=== PATIENT | female | born 1945 | race Caucasian/White ===

== ENCOUNTER → 2016-11-25 | Outpatient (CLI) | payer OTHER ==
[~2016-11-25] MED LIST: AMT50 PO; ASPI81TA28 PO; BSP/5 PO; BSP5 PO; BUTA1CAP17 PO; BUTACAP10 PO; CALC-459 PO; CLOP1TAB15 PO; GLC500 PO; HYZ/10015 PO; LEVO125T4 PO; LRS10 PO; MECL1TAB40 PO; MULT-506 PO; NIFE1TAB55 PO; NIFE60TA57 PO; NORT25CA PO; NORT50CA PO; NRN600 PO; PANT20TA PO; PLV75 PO; PRAV40TA2 PO; PRT/20 PO; PRVC/40 PO; RANI150T2 PO; RANI150T3 PO; SERT50TA PO; SYN125 PO; TGR200 PO; VTMB12 PO
[2016-11-25 18:01] LABS: ALT/SGPT 27 U/L (12-78); AST/SGOT 27 U/L (15-37); BLOOD UREA NITROGEN 25 mg/dl (7-18); BUN/CREATININE RATIO 21.2 (10-20); CALCIUM 9.2 mg/dl (8.5-10.1); CARBON DIOXIDE 27 mmol/L (21-32); CHLORIDE 100 mmol/L (98-107); GLUCOSE 83 mg/dl (70-99); SODIUM 139 mmol/L (136-145)
[2016-11-25 18:03] LABS: ALKALINE PHOSPHATASE 151 U/L (45-117)
== END | disposition home or self-care (01) ==
LOC: C.LABPVFM 10:41
PROVIDERS: ATTEND Nurse Practitioner
DX: K22.70 Barrett's esophagus without dysplasia (principal); R25.2 Cramp and spasm; R68.2 Dry mouth, unspecified

== ENCOUNTER → 2016-11-29 | Outpatient (CLI) | payer OTHER | END | disposition home or self-care (01) | LOC: C.LABBFT 09:14 | PROVIDERS: ATTEND Nurse Practitioner | DX: R25.2 Cramp and spasm (principal); R74.8 Abnormal levels of other serum enzymes ==

== ENCOUNTER → 2017-03-14 | Outpatient (CLI) | payer OTHER ==
[~2017-03-14] MED LIST changes: +ALBINS/ INH; +AMIT25TA9 PO; +AMLO-110 PO; +FAMO20TA11 PO; +HYDR25TA4 PO; -LEVO125T4 PO; +LEVO125T5 PO; +LOSA1TAB38 PO; +NRN/300 PO; -PANT20TA PO; +PANT20TA2 PO; +SIMV20TA5 PO
[2017-03-14 18:19] LABS: BLOOD UREA NITROGEN 19 mg/dl (7-18); BUN/CREATININE RATIO 17.7 (10-20); CARBON DIOXIDE 32 mmol/L (21-32); CHLORIDE 101 mmol/L (98-107); GLUCOSE 99 mg/dl (70-99); POTASSIUM 3.8 mmol/L (3.5-5.1); SODIUM 139 mmol/L (136-145)
[2017-03-14 18:31] LABS: CHOLESTEROL 220 mg/dl (0-200); CHOLESTEROL/HDL RATIO 3.7; HDL CHOLESTEROL 59 mg/dl; LDL CHOLESTEROL CALCULATED 99 mg/dl; TRIGLYCERIDES 310 mg/dl (0-150); VERY LOW DENSITY LIPOPROT CALC 62 mg/dl
[2017-03-15 06:16] LABS: ESTIMATED AVERAGE GLUCOSE 126 mg/dl; HA1C FLAG Normal (Normal)
== END | disposition home or self-care (01) ==
LOC: C.LABPVFM 10:49
PROVIDERS: ATTEND Nurse Practitioner
DX: I10 Essential (primary) hypertension (principal); E78.5 Hyperlipidemia, unspecified; E03.9 Hypothyroidism, unspecified; G62.9 Polyneuropathy, unspecified; E55.9 Vitamin D deficiency, unspecified; E11.9 Type 2 diabetes mellitus without complications

== ENCOUNTER → 2017-04-25 | Outpatient (CLI) | payer OTHER ==
[~2017-04-25] MED LIST changes: -ALBINS/ INH; -AMIT25TA9 PO; -AMLO-110 PO; -FAMO20TA11 PO; -HYDR25TA4 PO; +LEVO125T4 PO; -LEVO125T5 PO; -LOSA1TAB38 PO; -NRN/300 PO; +PANT20TA PO; -PANT20TA2 PO; -SIMV20TA5 PO
--- NOTE | 2017-04-25 15:38 | MAMMOGRAPHY REPORT ---
BILATERAL DIGITAL SCREENING MAMMOGRAM WITH CAD: 04/25/2017 CLINICAL HISTORY: Routine screening. TECHNIQUE: Bilateral CC and MLO views were obtained. Current study was also evaluated with a Compute r Aided Detection (CAD) system. COMPARISON: Comparison is made to exams dated: 07/30/2012 mammogram, 12/17/2010 mammogram, 06/17/2010 ma mmogram, 06/08/2010 mammogram - [facility] [address], 04/02/2008, and 10/18/2001 mammogram - [facility]. BREAST COMPOSITION: There are scattered areas of fibroglandular density in both breasts. FINDINGS: There is a 12 mm circumscribed mass in the upper outer middle to posterior right breast, f or which additional targeted ultrasound and possible additional mammographic views is recommended. A 9 x 16 mm focal asymmetry in the 12:00 posterior left breast is new comparing to prior mammograms. Additional spot compression tomosynthesis views and possible ultrasound are recommended. There are scattered benign rim calcifications and mild vascular calcification in the breasts. No oth er new suspicious mass, architectural distortion or cluster of microcalcifications is seen bilaterall y. IMPRESSION: ACR BI-RADS CATEGORY 0: INCOMPLETE EVALUATION: NEED ADDITIONAL IMAGING EVALUATION The 12 mm circumscribed mass in the right upper outer quadrant, and 9 x 16 mm focal asymmetry in the 12:00 posterior left breast need additional imaging evaluation. The patient will be called to schedule an appointment. Approximately 10% of breast cancers are not detected with mammography. A negative mammographic report should not delay biopsy if a clinically suggestive mass is present. Kim Bonilla M.D. ay/:04/25/2017 15:35:18 Scouring Train Operator Chief: Virgilio CONTRERAS(R)(M), [facility] [address] letter sent: Addl Imaging 0 BI-RADS Code: ACR BI-RADS Category 0: Incomplete Evaluation: Need Additional Imaging Evaluation
== END | disposition home or self-care (01) ==
LOC: C.MAMM 13:12
PROVIDERS: ATTEND Nurse Practitioner
DX: Z00.00 Encounter for general adult medical examination without abnormal findings (principal); Z12.31 Encounter for screening mammogram for malignant neoplasm of breast; N63 Unspecified lump in breast; N64.89 Other specified disorders of breast; M85.89 Other specified disorders of bone density and structure, multiple sites

== ENCOUNTER → 2017-05-09 | Outpatient (CLI) | payer OTHER ==
--- NOTE | 2017-05-09 13:32 | MAMMOGRAPHY REPORT ---
BILATERAL DIGITAL DIAGNOSTIC MAMMOGRAM TOMOSYNTHESIS AND TARGETED BILATERAL ULTRASOUND: 05/09/2017 CLINICAL HISTORY: 71-year-old woman with a history of prior right breast surgery called back from scr eening mammography for a right upper outer quadrant breast mass, and left superior posterior asymmetr y. TECHNIQUE: Spot compression CC and MLO 2-D and tomosynthesis images of each breast were obtained. COMPARISON: Comparison is made to exams dated: 07/30/2012 mammogram, 12/17/2010 mammogram, 12/17/2010 ul trasound, 06/17/2010 mammogram, 06/08/2010 mammogram - [facility], and 04/02/2008. BREAST COMPOSITION: There are scattered areas of fibroglandular density in both breasts. FINDINGS: There is persistence of a circumscribed oval mass in the upper outer middle to posterior ri ght breast, measuring 11 x 8 x 12 mm. No associated architectural distortion or clustered microcalci fication. A small lobulated 5 mm mass is identified lateral and superior to the above described circ umscribed mass, which has been present on prior mammograms dating back to at least 2009, most likely an intramammary lymph node. There are benign calcifications and vascular calcifications in the right breast. The additional spot compression tomosynthesis and 2-D views of the left breast demonstrate effacement of the ovoid asymmetry seen on recent screening mammography. In the superior posterior left breast on the MLO view (slice 39), there are a few grouped benign oil cysts within an asymmetry, suggesting the asymmetry may represent the sequelae of prior trauma. Further evaluation with ultrasound was per formed. Targeted ultrasound performed in the right upper outer quadrant demonstrates an anechoic oval paralle l benign simple cyst in the 9:30 axis, 4 cm from the nipple, measuring 11.9 x 3.8 x 1.3 mm. This cor relates with the mammographic mass and is benign. There are a few scattered benign cysts in the supe rior left breast, in particular within the 12:00 periareolar breast, there are 2 anechoic cysts measu ring 6.1 and 5.9 mm. No other suspicious solid or cystic mass is identified. IMPRESSION: ACR BI-RADS CATEGORY 2: BENIGN, TARGETED ULTRASOUND ACR BI-RADS CATEGORY 2: BENIGN 1. The circumscribed 12 mm mass in the right upper outer quadrant correlates with a benign anechoic simple cyst on ultrasound. No further workup is needed at this time. 2. There is effacement of the asymmetry in the superior posterior breast with additional supplementa l mammographic views, and a few benign oil cysts seen in the superior left breast which are benign. No suspicious sonographic correlate was seen. This most likely represented overlapping fibroglandula r tissue, as the parenchymal pattern appears similar to the 2010 mammogram, and no further workup is needed at this time. Recommend return to annual screening mammography schedule. These results and recommendations were di scussed with the patient at the time of the exam. Approximately 10% of breast cancers are not detected with mammography. A negative mammographic report should not delay biopsy if a clinically suggestive mass is present. Kim Bonilla M.D. ay/:05/09/2017 12:25:17 Application Security Specialist: Virgilio PONCE)(Loretta), [facility] letter sent: Normal 1/2 BI-RADS Code: ACR BI-RADS Category 2: Benign Ultrasound BI-RADS: ACR BI-RADS Category 2: Benign
== END | disposition home or self-care (01) ==
LOC: C.MAMM 10:44
PROVIDERS: ATTEND Nurse Practitioner
DX: N63 Unspecified lump in breast (principal); N64.89 Other specified disorders of breast

== ENCOUNTER 2017-07-18 15:37 | Emergency (ER) | payer OTHER ==
[~2017-07-18] VITALS: Ht 160 cm; Wt 81.3 kg
[~2017-07-18 15:37] MED LIST changes: -AMT50 PO; -ASPI81TA28 PO; -BSP/5 PO; -BUTA1CAP17 PO; -CALC-459 PO; -CLOP1TAB15 PO; -LEVO125T4 PO; -MECL1TAB40 PO; -NIFE60TA57 PO; -PRT/20 PO; -PRVC/40 PO; -RANI150T3 PO; -VTMB12 PO
[2017-07-18 15:46] VITALS: TEMP 36.7; Ht 160 cm; Wt 81.3 kg
[2017-07-18] MEDS ORDERED: SODIUM CHLORIDE 0.9% 1000ML 1,000 ML IV STA (15:56)
--- NOTE | 2017-07-18 16:11 | EMERGENCY ROOM VISIT NOTE ---
History Report prepared by Anup: Chaitanya Melgar Under the Supervision of: Dr. Zain Michelle M.D. First contact with patient: 15:38 Chief Complaint: NEURO SYMPTOMS Stated Complaint: STROKE LIKE SX History of Present Illness The patient is a 71 year old white female with a past medical history of cataracts, seizures, DVT, ELVER, CHF, COPD, and TIA who presents to the ED with a cc of constant stroke-like symptoms beginning around 1200 today. Positive double vision, tingling in her hands, forgetfulness, and shakiness in her arms and legs for the past few months which was worse today. Negative recent surgeries, change in medications, alcohol use, tobacco use, and drug use. She states that she falls a lot, and her last fall was three weeks ago. She is eating, drinking, urinating, and having normal bowel movements. Source of History: patient Onset: 1200 Position: other (global) Quality: other (stroke-symptoms) Timing: constant Note: Associated symptoms: double vision, tingling in her hands, forgetfulness, and shakiness in her arms and legs. Review of Systems See HPI for pertinent positives and negatives. A total of ten systems were reviewed and were otherwise negative. 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 (16) Seizure disorder (17) Thyroidectomy (18) TIA (19) Weakness Family History FH: HTN (hypertension) FH: diabetes mellitus FH: heart disease FH: lung disease FHx: cancer FHx: gallbladder disease Social History Smoking Status: Never Smoker Alcohol Use: none Drug Use: none Marital Status: Housing Status: lives with significant other Occupation Status: retired Current/Historical Medications Scheduled Amitriptyline Hcl (Elavil), 75 MG PO HS Aspirin (Aspirin Ec), 81 MG PO DAILY Buspirone HCl (Buspirone HCl), 5 MG PO BID Zirzlyerem-Bvqkqexslgkxa-Dfuai (Fioricet), 1 CAP PO UD Calcium Carbonate-Cholecalcife (Calcium 600+D 600-800 mg-Unit), 1 TAB PO DAILY Carbamazepine (Carbamazepine), 200 MG PO TID Clopidogrel (Plavix), 75 MG PO HS Cyanocobalamin (Vitamin B-12), 500 MCG PO DAILY Gabapentin (Gabapentin), 600 MG PO TID Hctz/Losartan (Hyzaar 25MG/100MG), 1 TAB PO DAILY Levothyroxine Sodium (Levothyroxine Sodium), 125 MCG PO DAILY Metformin HCl (Metformin HCl), 500 MG PO BID Nifedipine Ext Rel (Procardia Xl Ext Rel), 60 MG PO BID Pantoprazole (Protonix), 20 MG PO BID Pravastatin Sod (Pravastatin Sodium), 40 MG PO DAILY Ranitidine Hcl (Zantac), 150 MG PO Q12 Sertraline (Zoloft), 75 MG PO DAILY Scheduled PRN Baclofen (Baclofen), 5-10 MG PO TID PRN for Muscle Spasms Meclizine HCl (Meclizine HCl), 1 TAB PO TID PRN for Nausea Allergies Coded Allergies: Adhesives (Verified Allergy, Unknown, TAPE-HIVES, 07/18/17) Morphine (Unverified Allergy, Unknown, unknown, 07/18/17) Fentanyl (Verified Adverse Reaction, Intermediate, CONFUSION, 07/18/17) pt was using fentanyl transdermal patch and states that she did not realize that she was supposed to remove the old patch when applying new one; caused confusion Meloxicam (Verified Adverse Reaction, Intermediate, SWELLING OF LEGS, 07/18) Pregabalin (Verified Adverse Reaction, Intermediate, DIZZINESS, CONFUSION WITH HIGHER DOSES, 07/18/17) Physical Exam Vital Signs Date Time Temp Pulse Resp B/P (MAP) Pulse Ox O2 Delivery O2 Flow Rate FiO2 07/18/17 21:35 83 17 164/68 94 Room Air 07/18/17 18:22 90 18 151/77 96 Room Air 07/18/17 16:50 71 18 136/71 100 Room Air 07/18/17 16:19 79 07/18/17 15:53 Room Air 07/18/17 15:46 36.7 75 16 132/80 97 Room Air Physical Exam GENERAL: GCS 15, awake alert, appropriately follows commands. HENT: Normocephalic, atraumatic. EYES: Normal conjunctiva. Sclera non-icteric. NECK: Supple. No nuchal rigidity. FROM. RESPIRATORY: CTAB, no rhonchi, wheezing, crackles CARDIAC: RRR, no MRG ABDOMEN: Soft, NTND, BS+ MSK: No chest wall TTP, no LE edema NEURO: GCS 15, CN 2-12 intact, vision grossly intact to finger counting. No dysmetria. Good finger to nose. 5/5 upper and lower extremity strength SKIN: No rash or jaundice noted. Medical Decision & Procedures ER Provider Diagnostic Interpretation: Radiology results as stated below per my review and radiologist interpretation: CT OF THE HEAD WITHOUT CONTRAST CLINICAL HISTORY: Weakness. Stroke-like symptoms. COMPARISON STUDY: Head CT August 18, 2016 and MRI of the brain August 19, 2016. CT DOSE: 614.27 mGy.cm TECHNIQUE: Helical axial images of the head were obtained without IV contrast. Automated exposure control was utilized for the study. A dose lowering technique was utilized adhering to the principles of ALARA. FINDINGS: No acute intracranial hemorrhage, midline shift or mass effect is present. Ventricular system is normal. The basilar cisterns are patent. There are no extra-axial collections. Extensive white matter hypodensities are unchanged. There is extensive intracranial vascular calcification. There are no findings to suggest acute dural sinus thrombosis or acute territorial infarct. There are no significant calvarial abnormalities. Visualized portions of the mastoid air cells are clear. There is mild ethmoid sinus mucosal thickening. IMPRESSION: No acute intracranial findings. No change since previous exam. Electronically signed by: Hank Adler M.D. 07/18/2017 4:47 PM Dictated Date/Time: 07/18/2017 4:43 PM SINGLE VIEW CHEST CLINICAL HISTORY: Generalized weakness. FINDINGS: An AP, portable, upright chest radiograph is compared to study dated 09/13/2016 and correlated with chest CT dated 01/22/2016. The examination is degraded by portable technique and patient rotation. The heart is enlarged and there is atherosclerotic calcification of the thoracic aorta. The pulmonary vasculature is noncongested. There is chronic elevation of right hemidiaphragm and bibasilar atelectasis. No airspace consolidation or large pleural effusion is seen. No pneumothorax is identified. The skeletal structures are osteopenic. Degenerative change is seen throughout the thoracic spine. IMPRESSION: Cardiomegaly with no acute cardiopulmonary abnormality. Electronically signed by: Jono Romero M.D. 07/18/2017 4:39 PM Dictated Date/Time: 07/18/2017 4:38 PM MRI OF THE BRAIN COMBO CLINICAL HISTORY: Diplopia. Change in mental status. COMPARISON STUDY: CT of the brain dated 07/18/2017. MRI of the brain dated 08/19/2016. TECHNIQUE: MRI of the brain was performed utilizing various T1 and T2-weighted sequences in the axial, sagittal, and coronal planes. Contrast-enhanced sequences were acquired following the administration of 8 cc of Gadavist. The Examination is significant compromise by motion artifact. FINDINGS: Brain parenchyma: There are age-related involutional changes noting moderate patchy subcortical and periventricular microangiopathic disease. There is no hemorrhage or mass effect. There is no restricted diffusion to suggest acute ischemia. No enhancing mass lesion is identified on the postcontrast images. Blankenship-white matter differentiation is preserved. No extra-axial fluid collection is seen. The cerebellar tonsils are normal in configuration. Ventricles, sulci, and cisterns: Prominent secondary to involutional change. Pituitary and sella: Partially empty sella is incidentally noted. Intracranial vasculature: Normal flow voids are maintained at the skull base. Orbits: The bony orbits are grossly intact. Orbital contents are normal in appearance. Sinuses and mastoids: Clear. Calvarium: Unremarkable. Cervical cord: Partially visualized cervical spinal cord is normal in morphology and signal intensity. IMPRESSION: No acute intracranial abnormality noting a motion compromised examination. No significant change from previous. Electronically signed by: Jono Romero M.D. 07/18/2017 9:45 PM Dictated Date/Time: 07/18/2017 9:41 PM Laboratory Results 07/18/17 16:05 Red Blood Count 3.79, Mean Corpuscular Volume 96.6, Mean Corpuscular Hemoglobin 32.5, Mean Corpuscular Hemoglobin Concent 33.6, Mean Platelet Volume 8.6, Neutrophils (%) (Auto) 53.0, Lymphocytes (%) (Auto) 33.6, Monocytes (%) (Auto) 10.7, Eosinophils (%) (Auto) 2.0, Basophils (%) (Auto) 0.2, Neutrophils # (Auto ) 3.23, Lymphocytes # (Auto) 2.04, Monocytes # (Auto) 0.65, Eosinophils # (Auto ) 0.12, Basophils # (Auto) 0.01 07/18/17 16:05 Test 07/18/17 16:05 07/18/17 16:30 White Blood Count 6.08 K/uL (4.8-10.8) Red Blood Count 3.79 M/uL (4.2-5.4) Hemoglobin 12.3 g/dL (12.0-16.0) Hematocrit 36.6 % (37-47) Mean Corpuscular Volume 96.6 fL (80-100) Mean Corpuscular Hemoglobin 32.5 pg (25-34) Mean Corpuscular Hemoglobin Concent 33.6 g/dl (32-36) Platelet Count 244 K/uL (130-400) Mean Platelet Volume 8.6 fL (7.4-10.4) Neutrophils (%) (Auto) 53.0 % Lymphocytes (%) (Auto) 33.6 % Monocytes (%) (Auto) 10.7 % Eosinophils (%) (Auto) 2.0 % Basophils (%) (Auto) 0.2 % Neutrophils # (Auto) 3.23 K/uL (1.4-6.5) Lymphocytes # (Auto) 2.04 K/uL (1.2-3.4) Monocytes # (Auto) 0.65 K/uL (0.11-0.59) Eosinophils # (Auto) 0.12 K/uL (0-0.5) Basophils # (Auto) 0.01 K/uL (0-0.2) RDW Standard Deviation 47.3 fL (36.4-46.3) RDW Coefficient of Variation 13.6 % (11.5-14.5) Immature Granulocyte % (Auto) 0.5 % Immature Granulocyte # (Auto) 0.03 K/uL (0.00-0.02) Prothrombin Time 10.3 SECONDS (9.0-12.0) Prothromb Time International Ratio 1.0 (0.9-1.1) Activated Partial Thromboplast Time 27.0 SECONDS (21.0-31.0) Partial Thromboplastin Ratio 1.0 Anion Gap 7.0 mmol/L (3-11) Est Creatinine Clear Calc Drug Dose 33.7 ml/min Estimated GFR () 39.6 Estimated GFR (Non- 34.2 BUN/Creatinine Ratio 16.7 (10-20) Calcium Level 9.0 mg/dl (8.5-10.1) Magnesium Level 2.0 mg/dl (1.8-2.4) Total Bilirubin 0.2 mg/dl (0.2-1) Direct Bilirubin < 0.1 mg/dl (0-0.2) Aspartate Amino Transf (AST/SGOT) 23 U/L (15-37) Alanine Aminotransferase (ALT/SGPT) 21 U/L (12-78) Alkaline Phosphatase 183 U/L (45-117) Troponin I < 0.015 ng/ml (0-0.045) Total Protein 8.6 gm/dl (6.4-8.2) Albumin 3.9 gm/dl (3.4-5.0) Lipase 216 U/L (73-393) Thyroid Stimulating Hormone (TSH) 0.297 uIu/ml (0.300-4.500) Urine Color YELLOW Urine Appearance CLEAR (CLEAR) Urine pH 7.0 (4.5-7.5) Urine Specific [place] 1.011 (1.000-1.030) Urine Protein NEG (NEG) Urine Glucose (UA) NEG (NEG) Urine Ketones NEG (NEG) Urine Occult Blood NEG (NEG) Urine Nitrite NEG (NEG) Urine Bilirubin NEG (NEG) Urine Urobilinogen NEG (NEG) Urine Leukocyte Esterase NEG (NEG) Laboratory results reviewed by me Medications Administered Medications (Trade) Dose Ordered Sig/Jeannie Route Start Time Stop Time Status Last Admin Dose Admin Sodium Chloride 1,000 ml @ 999 mls/hr Q1H1M STAT IV 07/18/17 15:56 07/18/17 16:56 DC 07/18/17 16:50 999 MLS/HR ECG Indication: other (stroke like symptoms) Rate (beats per minute): 72 Rhythm: normal sinus Findings: other (Normal intervals. Normal axis. T-wave flattening in lead 3. No other STS changes or TWI) ED Course 1537: The patient was evaluated in room C1. A complete history and physical exam was performed. 1824: I reevaluated the patient and talked with case management about increased in-home care for her . 2150: I reevaluated the patient. Discussed results and discharge instructions: She verbalized understanding and agreement. The patient is ready for discharge. Medical Decision The patient is a 71 year old white female with a past medical history of cataracts, seizures, DVT, ELVER, CHF, COPD, and TIA who presents to the ED with a cc of constant stroke-like symptoms beginning around 1200 today. Positive double vision, tingling in her hands, forgetfulness, and shakiness in her arms and legs for the past few months which was worse today. Negative recent surgeries, change in medications, alcohol use, tobacco use, and drug use. Triage Nursing notes reviewed. The patient's presentation and history were concerning for etiologies such as metabolic, infection, hypo/hyperglycemia, electrolyte abnormalities, cardiac sources, intracerebral event, toxicologic, neurologic, as well as others were entertained. Patient was seen and evaluated at the bedside. Patient was concerning for some double vision that it occurred earlier in the day while watching television and trying to read the newspaper. Patient currently is able to grossly finger down. No current double vision. Patient has no other neurologic deficits at this time does complain of some forgetfulness. Patient did have blood work and a UA that were completed. Fairly unremarkable. Patient's EKG was unremarkable. Patient did have a CT which was negative as well as chest x-ray which is also negative. Patient did have an MRI, study completed given the concern for the double vision. Patient had an MRI completed that was negative. Patient was informed of the findings. 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 They did give her some additional resources. Patient was given strict follow-up, discharge, return precautions. Patient agreed w/ plan of care, and patient was safely discharged home. Medication Reconcilliation Current Medication List: was personally reviewed by me Blood Pressure Screening Patient's blood pressure: Elevated blood pressure Blood pressure disposition: Referred to PCP Impression Primary Impression: Double vision Additional Impression: Memory loss Scribe Attestation The scribe's documentation has been prepared under my direction and personally reviewed by me in its entirety. I confirm that the note above accurately reflects all work, treatment, procedures, and medical decision making performed by me. Departure Information Dispostion Home / Self-Care Referrals Airam Malcolm C.R.N.P (PCP) Forms HOME CARE DOCUMENTATION FORM, IMPORTANT VISIT INFORMATION, WORK / SCHOOL INSTRUCTIONS Patient Instructions ED Double Vision, My [facility] Additional Instructions Please return to the emergency department if you have worsening or recurrent symptoms not amenable to at-home treatment. Please call for a follow-up appointment with her primary care physician. Please take your medications as prescribed. If you have other concerns and/or complaints please feel free to also call your primary care physician's office or return the ED for further evaluation, management, and treatment. You received narcotic or benzodiazepene medication while in the emergency room today. This is an addictive medication that may cause drowziness as well as constipation. Do not drive, operate heavy machinery, or drink alcohol under the influence of this medication. You have been examined and treated today on an emergency basis only. This is not a substitute for, or an effort to provide, complete comprehensive medical care. It is impossible to recognize and treat all injuries or illnesses in a single emergency department visit. It is therefore important that you follow up closely with [facility]. Call as soon as possible for an appointment. Thank you for your time and consideration. I look forward to speaking with you again soon. Please don't hesitate to call us if you have any questions. Problem Qualifiers
[2017-07-18 16:21] LABS: BASO % 0.2 %; BASO ABS # 0.01 K/uL (0-0.2); COMPLETE YES; HEMATOCRIT 36.6 % (37-47); IG% 0.5 %; LYMPH % 33.6 %; LYMPH ABS # 2.04 K/uL (1.2-3.4); MEAN CELL VOLUME 96.6 fL (80-100); MEAN CORPUSCULAR HEMOGLOBIN 32.5 pg (25-34); MEAN CORPUSCULAR HGB CONC 33.6 g/dl (32-36); MEAN PLATELET VOLUME 8.6 fL (7.4-10.4); MONO % 10.7 %; PLATELET COUNT 244 K/uL (130-400); RED BLOOD COUNT 3.79 M/uL (4.2-5.4); WHITE BLOOD COUNT 6.08 K/uL (4.8-10.8)
[2017-07-18 16:36] LABS: PROTHROMBIN TIME (PATIENT) 10.3 SECONDS (9.0-12.0)
--- NOTE | 2017-07-18 16:40 | DIAGNOSTIC IMAGING REPORT ---
SINGLE VIEW CHEST CLINICAL HISTORY: Generalized weakness. FINDINGS: An AP, portable, upright chest radiograph is compared to study dated 09/13/2016 and correlated with chest CT dated 01/22/2016. The examination is degraded by portable technique and patient rotation. The heart is enlarged and there is atherosclerotic calcification of the thoracic aorta. The pulmonary vasculature is noncongested. There is chronic elevation of right hemidiaphragm and bibasilar atelectasis. No airspace consolidation or large pleural effusion is seen. No pneumothorax is identified. The skeletal structures are osteopenic. Degenerative change is seen throughout the thoracic spine. IMPRESSION: Cardiomegaly with no acute cardiopulmonary abnormality. Electronically signed by: Jono Romero M.D. 07/18/2017 4:39 PM Dictated Date/Time: 07/18/2017 4:38 PM
[2017-07-18 16:41] LABS: ALT/SGPT 21 U/L (12-78); AST/SGOT 23 U/L (15-37); BLOOD UREA NITROGEN 25 mg/dl (7-18); BUN/CREATININE RATIO 16.7 (10-20); CARBON DIOXIDE 29 mmol/L (21-32); CHLORIDE 100 mmol/L (98-107); GLUCOSE 88 mg/dl (70-99); POTASSIUM 3.5 mmol/L (3.5-5.1); SODIUM 136 mmol/L (136-145)
--- NOTE | 2017-07-18 16:49 | DIAGNOSTIC IMAGING REPORT ---
CT OF THE HEAD WITHOUT CONTRAST CLINICAL HISTORY: Weakness. Stroke-like symptoms. COMPARISON STUDY: Head CT August 18, 2016 and MRI of the brain August 19, 2016. CT DOSE: 614.27 mGy.cm TECHNIQUE: Helical axial images of the head were obtained without IV contrast. Automated exposure control was utilized for the study. A dose lowering technique was utilized adhering to the principles of ALARA. FINDINGS: No acute intracranial hemorrhage, midline shift or mass effect is present. Ventricular system is normal. The basilar cisterns are patent. There are no extra-axial collections. Extensive white matter hypodensities are unchanged. There is extensive intracranial vascular calcification. There are no findings to suggest acute dural sinus thrombosis or acute territorial infarct. There are no significant calvarial abnormalities. Visualized portions of the mastoid air cells are clear. There is mild ethmoid sinus mucosal thickening. IMPRESSION: No acute intracranial findings. No change since previous exam. Electronically signed by: Hank Adler M.D. 07/18/2017 4:47 PM Dictated Date/Time: 07/18/2017 4:43 PM
[2017-07-18 16:52] LABS: ALKALINE PHOSPHATASE 183 U/L (45-117); THYROID STIMULATING HORMONE 0.297 uIu/ml (0.300-4.500)
[2017-07-18 16:52] LABS: URINE APPEARANCE CLEAR (CLEAR); URINE BILIRUBIN NEG (NEG); URINE COLOR YELLOW; URINE NITRITE NEG (NEG); URINE SPECIFIC GRAVITY 1.011 (1.000-1.030); UROBILINOGEN NEG (NEG)
[2017-07-18 16:59] LABS: MANUAL MICROSCOPIC REQUIRED? NO; REVIEW REQ? NO
[2017-07-18] MEDS ORDERED: PRT/20 PO (17:06)
[2017-07-18] MEDS ORDERED: ASPI81TA28 PO (17:06)
[2017-07-18] MEDS ORDERED: LEVO125T4 PO (17:06)
[2017-07-18] MEDS ORDERED: LRS10 PO (17:06)
[2017-07-18] MEDS ORDERED: CALC-459 PO (17:06)
[2017-07-18] MEDS ORDERED: GLC500 PO (17:06)
[2017-07-18] MEDS ORDERED: VTMB12 PO (17:06)
[2017-07-18] MEDS ORDERED: BSP/5 PO (17:06)
[2017-07-18] MEDS ORDERED: TGR200 PO (17:06)
[2017-07-18] MEDS ORDERED: HYZ/10015 PO (17:06)
[2017-07-18] MEDS ORDERED: CLOP1TAB15 PO (17:06)
[2017-07-18] MEDS ORDERED: RANI150T3 PO (17:06)
[2017-07-18] MEDS ORDERED: BUTA1CAP17 PO (17:06)
[2017-07-18] MEDS ORDERED: SERT50TA PO (17:06)
[2017-07-18] MEDS ORDERED: MECL1TAB40 PO (17:06)
[2017-07-18] MEDS ORDERED: AMT50 PO (17:06)
[2017-07-18] MEDS ORDERED: NIFE60TA57 PO (17:06)
[2017-07-18] MEDS ORDERED: PRVC/40 PO (17:06)
[2017-07-18] MEDS ORDERED: NRN600 PO (17:06)
[2017-07-18] MEDS ORDERED: GADAVIST IV PRN (21:15)
--- NOTE | 2017-07-18 21:46 | DIAGNOSTIC IMAGING REPORT ---
MRI OF THE BRAIN COMBO CLINICAL HISTORY: Diplopia. Change in mental status. COMPARISON STUDY: CT of the brain dated 07/18/2017. MRI of the brain dated 08/19/2016. TECHNIQUE: MRI of the brain was performed utilizing various T1 and T2-weighted sequences in the axial, sagittal, and coronal planes. Contrast-enhanced sequences were acquired following the administration of 8 cc of Gadavist. The Examination is significant compromise by motion artifact. FINDINGS: Brain parenchyma: There are age-related involutional changes noting moderate patchy subcortical and periventricular microangiopathic disease. There is no hemorrhage or mass effect. There is no restricted diffusion to suggest acute ischemia. No enhancing mass lesion is identified on the postcontrast images. Blankenship-white matter differentiation is preserved. No extra-axial fluid collection is seen. The cerebellar tonsils are normal in configuration. Ventricles, sulci, and cisterns: Prominent secondary to involutional change. Pituitary and sella: Partially empty sella is incidentally noted. Intracranial vasculature: Normal flow voids are maintained at the skull base. Orbits: The bony orbits are grossly intact. Orbital contents are normal in appearance. Sinuses and mastoids: Clear. Calvarium: Unremarkable. Cervical cord: Partially visualized cervical spinal cord is normal in morphology and signal intensity. IMPRESSION: No acute intracranial abnormality noting a motion compromised examination. No significant change from previous. Electronically signed by: Jono Romero M.D. 07/18/2017 9:45 PM Dictated Date/Time: 07/18/2017 9:41 PM
[2017-07-18 22:59] VITALS: BP 158/89; PULSE 84; O2SAT 95
== END 2017-07-18 22:35 | disposition home or self-care (01) ==
LOC: EDBD 15:37 → C.EDC 15:38
DX: H53.2 Diplopia (principal); R41.3 Other amnesia; F41.9 Anxiety disorder, unspecified; J44.9 Chronic obstructive pulmonary disease, unspecified; F32.9 Major depressive disorder, single episode, unspecified; K21.9 Gastro-esophageal reflux disease without esophagitis; E03.9 Hypothyroidism, unspecified; G40.909 Epilepsy, unspecified, not intractable, without status epilepticus; M19.90 Unspecified osteoarthritis, unspecified site; I50.9 Heart failure, unspecified; K22.70 Barrett's esophagus without dysplasia; M48.061 Spinal stenosis, lumbar region without neurogenic claudication; Z86.73 Personal history of transient ischemic attack (TIA), and cerebral infarction without residual deficits; Z86.718 Personal history of other venous thrombosis and embolism; Z90.49 Acquired absence of other specified parts of digestive tract; Z98.890 Other specified postprocedural states; Z79.82 Long term (current) use of aspirin; Z79.84 Long term (current) use of oral hypoglycemic drugs; Z79.899 Other long term (current) drug therapy; Z88.5 Allergy status to narcotic agent; Z88.8 Allergy status to other drugs, medicaments and biological substances; Z91.09 Other allergy status, other than to drugs and biological substances; Z82.49 Family history of ischemic heart disease and other diseases of the circulatory system; Z83.3 Family history of diabetes mellitus; Z80.9 Family history of malignant neoplasm, unspecified; Z83.79 Family history of other diseases of the digestive system

== ENCOUNTER 2017-07-19 08:51 | Emergency (ER) | payer OTHER ==
[~2017-07-19] VITALS: Ht 154.9 cm; Wt 87.0 kg
[~2017-07-19 08:51] MED LIST changes: +AMT50 PO; +ASPI81TA28 PO; +BSP/5 PO; +BUTA1CAP17 PO; +CALC-459 PO; +CLOP1TAB15 PO; +LEVO125T4 PO; +MECL1TAB40 PO; +NIFE60TA57 PO; +PRT/20 PO; +PRVC/40 PO; +RANI150T3 PO; +VTMB12 PO
[2017-07-19 09:00] VITALS: TEMP 36.8; Ht 154.9 cm; Wt 87.0 kg
[2017-07-19] MEDS ORDERED: SODIUM CHLORIDE 0.9% 1000ML 1,000 ML IV STA (09:12)
[2017-07-19] MEDS ORDERED: SODIUM CHLORIDE 0.9% 1000ML 500 ML IV STA (09:12)
--- NOTE | 2017-07-19 09:20 | EMERGENCY ROOM VISIT NOTE ---
History Report prepared by Anup: Jocelyne Ortega Under the Supervision of: Dr. Jono Lazcano M.D. First contact with patient: 09:03 Chief Complaint: FALL Stated Complaint: FALL History of Present Illness The patient is a 71 year old female who presents to the Emergency Room with complaints of a sudden fall that occurred prior to arrival. She currently rates her discomfort as a 5/10 in severity. The patient reports that she was evaluated in the emergency department yesterday for vision problems, but notes that her knees were fine at that time. She states that this morning she was getting out of bed and her knees gave out. The patient states that she could not get herself up afterward. She reports that she has been eating and drinking normally. The patient reports a history of TIAs. She denies any fever , chills, cough, headache, or urinary symptoms. She states that she lives at home with her who has dementia. Source of History: patient Onset: prior to arrival Position: other (global) Symptom Intensity: 5/10 Quality: other (fall) Timing: other (sudden) Associated Symptoms: No fevers, No chills, No headache, No cough, No urinary symptoms Review of Systems See HPI for pertinent positives & negatives. A total of 10 systems reviewed and were otherwise negative. 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 (16) Seizure disorder (17) Thyroidectomy (18) TIA (19) Weakness Family History FH: HTN (hypertension) FH: diabetes mellitus FH: heart disease FH: lung disease FHx: cancer FHx: gallbladder disease Social History Smoking Status: Never Smoker Alcohol Use: none Drug Use: none Marital Status: Housing Status: lives with significant other Occupation Status: retired Current/Historical Medications Scheduled Amitriptyline Hcl (Elavil), 75 MG PO HS Aspirin (Aspirin Ec), 81 MG PO DAILY Buspirone HCl (Buspirone HCl), 5 MG PO BID Ciuaynovjo-Xasjewgsagwrd-Ytmkv (Fioricet), 1 CAP PO UD Calcium Carbonate-Cholecalcife (Calcium 600+D 600-800 mg-Unit), 1 TAB PO DAILY Carbamazepine (Carbamazepine), 200 MG PO TID Clopidogrel (Plavix), 75 MG PO HS Cyanocobalamin (Vitamin B-12), 500 MCG PO DAILY Gabapentin (Gabapentin), 600 MG PO TID Hctz/Losartan (Hyzaar 25MG/100MG), 1 TAB PO DAILY Levothyroxine Sodium (Levothyroxine Sodium), 125 MCG PO DAILY Metformin HCl (Metformin HCl), 500 MG PO BID Nifedipine Ext Rel (Procardia Xl Ext Rel), 60 MG PO BID Pantoprazole (Protonix), 20 MG PO BID Pravastatin Sod (Pravastatin Sodium), 40 MG PO DAILY Ranitidine Hcl (Zantac), 150 MG PO Q12 Sertraline (Zoloft), 75 MG PO DAILY Scheduled PRN Baclofen (Baclofen), 5-10 MG PO TID PRN for Muscle Spasms Meclizine HCl (Meclizine HCl), 1 TAB PO TID PRN for Nausea Allergies Coded Allergies: Adhesives (Verified Allergy, Unknown, TAPE-HIVES, 07/19/17) Morphine (Unverified Allergy, Unknown, unknown, 07/19/17) Fentanyl (Verified Adverse Reaction, Intermediate, CONFUSION, 07/19/17) pt was using fentanyl transdermal patch and states that she did not realize that she was supposed to remove the old patch when applying new one; caused confusion Meloxicam (Verified Adverse Reaction, Intermediate, SWELLING OF LEGS, 07/19) Pregabalin (Verified Adverse Reaction, Intermediate, DIZZINESS, CONFUSION WITH HIGHER DOSES, 07/19/17) Physical Exam Vital Signs Date Time Temp Pulse Resp B/P (MAP) Pulse Ox O2 Delivery O2 Flow Rate FiO2 07/19/17 16:33 89 16 144/77 98 Room Air 07/19/17 15:12 77 127/73 99 Room Air 07/19/17 14:10 77 16 147/72 96 Room Air 07/19/17 13:06 77 16 162/79 95 Room Air 07/19/17 12:11 75 16 193/86 97 Room Air 07/19/17 11:10 75 07/19/17 11:08 75 18 178/123 96 Room Air 07/19/17 09:00 36.8 80 16 167/87 98 Room Air Physical Exam GENERAL: Patient is in no acute distress. HEENT: No acute trauma, normocephalic atraumatic, mucous membranes moist, no nasal congestion, no scleral icterus. NECK: No stridor, no adenopathy, no meningismus, trachea is midline. LUNGS: Clear to auscultation bilaterally, no wheeze, no rhonchi, breath sounds equal. HEART: 3/6 systolic murmur with a regular rate and rhythm. ABDOMEN: Soft, nontender, bowel sounds positive, no hernias, no peritonitis. EXTREMITIES: No cyanosis or edema, full range of motion of all the joints without pain or difficulty, no signs for acute trauma. NEUROLOGIC: Awake, alert, no facial droop or speech slur, no pronator drift or cerebellar dysfunction, bilateral lower extremity weakness noted, difficulty lifting both legs off the bed. SKIN: No rash, no jaundice, no diaphoresis. Medical Decision & Procedures ER Provider Diagnostic Interpretation: Radiology results as stated below per my review and radiologist interpretation: CHEST ONE VIEW PORTABLE HISTORY: EVALUATE ALTERED MENTAL STATUS/WEAKNESS COMPARISON: Chest 07/18/2017. FINDINGS: The lungs are clear. No pleural effusions. No pneumothorax. Mild elevation the right hemidiaphragm, unchanged. The heart remains mildly enlarged. IMPRESSION: No significant change compared to the prior study. No acute process. Electronically signed by: Venkat Oneal M.D. 07/19/2017 9:53 AM Dictated Date/Time: 07/19/2017 9:[address] CT DOSE: 537.48 mGy.cm HISTORY: EVALUATE ALTERED MENTAL STATUS/WEAKNESS TECHNIQUE: Multiaxial CT images of the head were performed without the use of intravenous contrast. Automated exposure control was utilized for this study. A dose lowering technique was utilized adhering to the principles of ALARA. Comparison: Head CT 07/18/2017. Findings: The paranasal sinuses and mastoid air cells are clear. The calvarium and skull base are intact. There is no mass, hematoma, midline shift, acute infarct. White matter hypodensity is nonspecific but suggestive of microvascular ischemic change. The ventricles and sulci demonstrate mild age-related involutional changes. Impression: No significant change compared to the prior study. No acute intracranial abnormality. Electronically signed by: Venkat Oneal M.D. 07/19/2017 11:17 AM Dictated Date/Time: 07/19/2017 11:13 AM Laboratory Results 07/19/17 09:50 Red Blood Count 3.58, Mean Corpuscular Volume 96.1, Mean Corpuscular Hemoglobin 32.1, Mean Corpuscular Hemoglobin Concent 33.4, Mean Platelet Volume 8.6, Neutrophils (%) (Auto) 50.0, Lymphocytes (%) (Auto) 33.1, Monocytes (%) (Auto) 13.8, Eosinophils (%) (Auto) 2.5, Basophils (%) (Auto) 0.2, Neutrophils # (Auto ) 2.35, Lymphocytes # (Auto) 1.56, Monocytes # (Auto) 0.65, Eosinophils # (Auto ) 0.12, Basophils # (Auto) 0.01 07/19/17 09:50 Test 07/19/17 09:12 07/19/17 09:50 07/19/17 11:14 Creatine Kinase MB Ratio (0-3.0) White Blood Count 4.71 K/uL (4.8-10.8) Red Blood Count 3.58 M/uL (4.2-5.4) Hemoglobin 11.5 g/dL (12.0-16.0) Hematocrit 34.4 % (37-47) Mean Corpuscular Volume 96.1 fL (80-100) Mean Corpuscular Hemoglobin 32.1 pg (25-34) Mean Corpuscular Hemoglobin Concent 33.4 g/dl (32-36) Platelet Count 231 K/uL (130-400) Mean Platelet Volume 8.6 fL (7.4-10.4) Neutrophils (%) (Auto) 50.0 % Lymphocytes (%) (Auto) 33.1 % Monocytes (%) (Auto) 13.8 % Eosinophils (%) (Auto) 2.5 % Basophils (%) (Auto) 0.2 % Neutrophils # (Auto) 2.35 K/uL (1.4-6.5) Lymphocytes # (Auto) 1.56 K/uL (1.2-3.4) Monocytes # (Auto) 0.65 K/uL (0.11-0.59) Eosinophils # (Auto) 0.12 K/uL (0-0.5) Basophils # (Auto) 0.01 K/uL (0-0.2) RDW Standard Deviation 48.2 fL (36.4-46.3) RDW Coefficient of Variation 13.6 % (11.5-14.5) Immature Granulocyte % (Auto) 0.4 % Immature Granulocyte # (Auto) 0.02 K/uL (0.00-0.02) Red Blood Cell Morphology Unremarkable Prothrombin Time 10.6 SECONDS (9.0-12.0) Prothromb Time International Ratio 1.0 (0.9-1.1) Activated Partial Thromboplast Time 26.8 SECONDS (21.0-31.0) Partial Thromboplastin Ratio 1.0 Anion Gap 9.0 mmol/L (3-11) Est Creatinine Clear Calc Drug Dose 41.8 ml/min Estimated GFR () 51.9 Estimated GFR (Non- 44.8 BUN/Creatinine Ratio 15.1 (10-20) Calcium Level 9.2 mg/dl (8.5-10.1) Magnesium Level 1.9 mg/dl (1.8-2.4) Total Bilirubin 0.2 mg/dl (0.2-1) Aspartate Amino Transf (AST/SGOT) 18 U/L (15-37) Alanine Aminotransferase (ALT/SGPT) 17 U/L (12-78) Alkaline Phosphatase 152 U/L (45-117) Creatine Kinase MB 1.4 ng/ml (0.5-3.6) Troponin I < 0.015 ng/ml (0-0.045) Total Protein 7.9 gm/dl (6.4-8.2) Albumin 3.5 gm/dl (3.4-5.0) Globulin 4.4 gm/dl (2.5-4.0) Albumin/Globulin Ratio 0.8 (0.9-2) Thyroid Stimulating Hormone (TSH) 0.200 uIu/ml (0.300-4.500) Free Thyroxine 1.10 ng/dl (0.80-1.60) Urine Color YELLOW Urine Appearance CLEAR (CLEAR) Urine pH 7.0 (4.5-7.5) Urine Specific Rattan 1.013 (1.000-1.030) Urine Protein NEG (NEG) Urine Glucose (UA) NEG (NEG) Urine Ketones NEG (NEG) Urine Occult Blood NEG (NEG) Urine Nitrite NEG (NEG) Urine Bilirubin NEG (NEG) Urine Urobilinogen NEG (NEG) Urine Leukocyte Esterase NEG (NEG) Laboratory results reviewed by me. Medications Administered Medications (Trade) Dose Ordered Sig/Jeannie Route Start Time Stop Time Status Last Admin Dose Admin Sodium Chloride 500 ml @ 999 mls/hr Q31M STAT IV 07/19/17 09:12 07/19/17 09:42 DC 07/19/17 09:12 999 MLS/HR Sodium Chloride 1,000 ml @ 125 mls/hr Q8H STAT IV 07/19/17 09:12 07/19/17 17:11 07/19/17 09:12 125 MLS/HR HCTZ/Losartan Potassium (Hyzaar 50-12.5 Tab) 2 tab NOW STAT PO 07/19/17 11:49 07/19/17 11:54 DC 07/19/17 13:02 2 TAB Nifedipine (Procardia Xl Tab) 60 mg NOW STAT PO 07/19/17 11:49 07/19/17 11:54 DC 07/19/17 12:41 60 MG Lorazepam (Ativan Inj) 0.5 mg NOW STAT IV 07/19/17 13:35 07/19/17 13:36 DC 07/19/17 13:51 0.5 MG ECG Indication: weakness Rate (beats per minute): 74 Rhythm: sinus rhythm Findings: 1st degree AV block, no acute ischemic change, no ectopy ED Course 09: The patient was evaluated in room B3B. A complete history and physical exam was performed. 0912: Ordered Sodium Chloride 1000 ml @ 125 mls/hr IV, Sodium Chloride 500 ml @ 999 mls/hr IV. 1148: I reevaluated the patient and she is resting. I discussed the test results with her. Her blood pressure was found to be elevated, but she did not take her morning medications. She is going to have an ambulation trial and then disposition will be made. 1149: Ordered Nifedipine 60 mg PO, HCTZ/Losartan Potassium 2 tab PO. 1306: Pre nursing staff the patient did not do well on her ambulation trial, they note that the patient felt uncomfortable and weak and felt she was going to fall. Case Management is going to talk to the patient about options. 1335: Ordered Ativan Inj 0.5 mg IV. 1336: Per Case Management, they are working on placement for the patient. Medical Decision The patient is a 71 year old female who presents to the ED with complaints of a fall. Differential diagnoses considered include Debilitation, UTI, infection, electrolyte imbalance, anemia, dehydration, stroke, intracranial bleeding. There is no leukocytosis or concerning anemia. No significant electrolyte abnormality, kidney failure or hepatitis. EKG shows a sinus rhythm, no acute ischemia. Cardiac enzyme testing 1 is not consistent with acute cardiac injury. Thyroid testing suggests the use of thyroid medication. Brain CT shows no acute bleed or mass effect. Chest film does not show pneumonia or CHF. Urinalysis does not show infection. On exam, both her lower extremities are weak, no focal one sided deficit seen. No speech slur or facial droop. I reviewed the patient's workup from yesterday, her workup was unrevealing, brain MRI was read as negative. The patient received IV saline, she was given her typical morning blood pressure medications as she had not taken these prior to arrival. She was hypertensive here and dosing her with her typical nifedipine and Hyzaar seemed to control her blood pressure nicely. She was given a small dose of IV Ativan for anxiety. The patient was not able to ambulate well due to weakness. The weakness is likely from debilitation. This is her second visit in 2 days. She was not felt stable for discharge back to her home. I had case management talk with her. [facility] for rehabilitation was felt the most appropriate option. The patient is currently being evaluated by the [facility] staff for a possible inpatient stay, I suspect she will be transferred to their facility for further care. Medication Reconcilliation Current Medication List: was personally reviewed by me Blood Pressure Screening Patient's blood pressure: Elevated blood pressure Blood pressure disposition: Elevated BP felt to be situational, Did not require urgent referral Impression Primary Impression: Weakness Scribe Attestation The scribe's documentation has been prepared under my direction and personally reviewed by me in its entirety. I confirm that the note above accurately reflects all work, treatment, procedures, and medical decision making performed by me. Departure Information Dispostion Still a Patient Referrals Airam Malcolm C.R.N.P (PCP) Patient Instructions My [facility] Stroke History Time Last Known Well last evening Stroke t-PA Criteria Reviewed Does NOT meet criteria for t-PA Reason t-PA Not Given Treatment not indicated
--- NOTE | 2017-07-19 09:54 | DIAGNOSTIC IMAGING REPORT ---
CHEST ONE VIEW PORTABLE HISTORY: EVALUATE ALTERED MENTAL STATUS/WEAKNESS COMPARISON: Chest 07/18/2017. FINDINGS: The lungs are clear. No pleural effusions. No pneumothorax. Mild elevation the right hemidiaphragm, unchanged. The heart remains mildly enlarged. IMPRESSION: No significant change compared to the prior study. No acute process. Electronically signed by: Venkat Oneal M.D. 07/19/2017 9:53 AM Dictated Date/Time: 07/19/2017 9:52 AM
[2017-07-19 10:21] LABS: BASO % 0.2 %; BASO ABS # 0.01 K/uL (0-0.2); EOS % 2.5 %; HEMATOCRIT 34.4 % (37-47); IG% 0.4 %; LYMPH % 33.1 %; LYMPH ABS # 1.56 K/uL (1.2-3.4); MEAN CELL VOLUME 96.1 fL (80-100); MEAN CORPUSCULAR HEMOGLOBIN 32.1 pg (25-34); MEAN CORPUSCULAR HGB CONC 33.4 g/dl (32-36); MEAN PLATELET VOLUME 8.6 fL (7.4-10.4); MONO % 13.8 %; PLATELET COUNT 231 K/uL (130-400); RED BLOOD COUNT 3.58 M/uL (4.2-5.4); WHITE BLOOD COUNT 4.71 K/uL (4.8-10.8)
[2017-07-19 10:36] LABS: PROTHROMBIN TIME (PATIENT) 10.6 SECONDS (9.0-12.0)
[2017-07-19 10:41] LABS: ALT/SGPT 17 U/L (12-78); BLOOD UREA NITROGEN 18 mg/dl (7-18); BUN/CREATININE RATIO 15.1 (10-20); CALCIUM 9.2 mg/dl (8.5-10.1); CARBON DIOXIDE 28 mmol/L (21-32); CHLORIDE 102 mmol/L (98-107); GLUCOSE 94 mg/dl (70-99); MAGNESIUM 1.9 mg/dl (1.8-2.4); POTASSIUM 3.5 mmol/L (3.5-5.1); SODIUM 139 mmol/L (136-145)
[2017-07-19 10:47] LABS: COMPLETE YES
[2017-07-19 10:52] LABS: ALB/GLOB RATIO 0.8 (0.9-2); ALKALINE PHOSPHATASE 152 U/L (45-117); AST/SGOT 18 U/L (15-37)
--- NOTE | 2017-07-19 11:19 | DIAGNOSTIC IMAGING REPORT ---
HEAD CT NONCONTRAST CT DOSE: 537.48 mGy.cm HISTORY: EVALUATE ALTERED MENTAL STATUS/WEAKNESS TECHNIQUE: Multiaxial CT images of the head were performed without the use of intravenous contrast. Automated exposure control was utilized for this study. A dose lowering technique was utilized adhering to the principles of ALARA. Comparison: Head CT 07/18/2017. Findings: The paranasal sinuses and mastoid air cells are clear. The calvarium and skull base are intact. There is no mass, hematoma, midline shift, acute infarct. White matter hypodensity is nonspecific but suggestive of microvascular ischemic change. The ventricles and sulci demonstrate mild age-related involutional changes. Impression: No significant change compared to the prior study. No acute intracranial abnormality. Electronically signed by: Venkat Oneal M.D. 07/19/2017 11:17 AM Dictated Date/Time: 07/19/2017 11:13 AM
[2017-07-19 11:31] LABS: URINE APPEARANCE CLEAR (CLEAR); URINE BILIRUBIN NEG (NEG); URINE COLOR YELLOW; URINE NITRITE NEG (NEG); URINE SPECIFIC GRAVITY 1.013 (1.000-1.030); UROBILINOGEN NEG (NEG); ZZURINE CULT IF INDIC CATH NO
[2017-07-19 11:38] LABS: MANUAL MICROSCOPIC REQUIRED? NO; REVIEW REQ? NO
[2017-07-19] MEDS ORDERED: NIFEdipine 30 MG CR TAB PO STA (11:49)
[2017-07-19] MEDS ORDERED: LOSARTAN/HCTZ 50-12.5 EA TAB PO STA (11:49)
[2017-07-19] MEDS ORDERED: LORAZEPAM 2 MG/ML 1 ML VIAL IV STA (13:35)
--- NOTE | 2017-07-19 17:04 | EMERGENCY ROOM VISIT NOTE ---
ED Visit Note First contact with patient: 16:50 Patient is signed out to me from Dr. Lazcano pending evaluation by [facility]. Patient accepted to [facility]. Anticipate daughter transporting sometime around 5:15. Transfer paperwork signed.
[2017-07-19 17:35] VITALS: BP 139/83; PULSE 81; O2SAT 96
== END 2017-07-19 17:35 | disposition short-term general hospital (02) ==
LOC: EDBD 08:51 → C.EDB 08:52
DX: T14.90XA Injury, unspecified, initial encounter (principal); R53.1 Weakness; R41.82 Altered mental status, unspecified; W19.XXXA Unspecified fall, initial encounter; E03.9 Hypothyroidism, unspecified; Z79.899 Other long term (current) drug therapy; Z79.82 Long term (current) use of aspirin

== ENCOUNTER → 2017-09-11 | Outpatient (CLI) | payer OTHER ==
[~2017-09-11] MED LIST changes: +ALBINS/ INH; +AMIT25TA9 PO; +AMLO-110 PO; -BSP5 PO; -BUTACAP10 PO; +FAMO20TA11 PO; +HYDR25TA4 PO; -LEVO125T4 PO; +LEVO125T5 PO; +LOSA1TAB38 PO; -MULT-506 PO; -NIFE1TAB55 PO; -NORT25CA PO; -NORT50CA PO; +NRN/300 PO; -PANT20TA PO; -PLV75 PO; -PRAV40TA2 PO; -RANI150T2 PO; +SIMV20TA5 PO; -SYN125 PO
[2017-09-11 17:42] LABS: BASO % 0.3 %; BASO ABS # 0.02 K/uL (0-0.2); COMPLETE YES; EOS % 2.4 %; HEMATOCRIT 36.8 % (37-47); IG% 0.5 %; LYMPH % 32.9 %; LYMPH ABS # 1.94 K/uL (1.2-3.4); MEAN CELL VOLUME 98.9 fL (80-100); MEAN CORPUSCULAR HEMOGLOBIN 33.3 pg (25-34); MEAN CORPUSCULAR HGB CONC 33.7 g/dl (32-36); MONO % 9.7 %; NEUT % 54.2 %; PLATELET COUNT 255 K/uL (130-400); RED BLOOD COUNT 3.72 M/uL (4.2-5.4); WHITE BLOOD COUNT 5.89 K/uL (4.8-10.8)
== END | disposition home or self-care (01) ==
LOC: C.LABPVFM 11:31
PROVIDERS: ATTEND Nurse Practitioner
DX: R22.1 Localized swelling, mass and lump, neck (principal)

== ENCOUNTER → 2017-09-12 | Outpatient (CLI) | payer OTHER ==
--- NOTE | 2017-09-12 11:59 | DIAGNOSTIC IMAGING REPORT ---
NECK ULTRASOUND HISTORY: R22.1 Neck massR59.1 Lymphadenopathy sided neck mass, and pain COMPARISON: None. FINDINGS: Real-time sonographic imaging of the left neck was performed. There is a normal-appearing left parotid gland. No masses identified. There is an 8 x 5 mm cervical lymph node which demonstrates a normal fatty hilum and thin cortex. Therefore, this is considered a benign. No enlarged cervical lymph nodes or fluid collections. IMPRESSION: No sonographic abnormality within the left neck. Electronically signed by: Venkat Oneal M.D. 09/12/2017 11:57 AM Dictated Date/Time: 09/12/2017 11:56 AM
== END | disposition home or self-care (01) ==
LOC: C.ULTR 11:08
PROVIDERS: ATTEND Nurse Practitioner
DX: R22.1 Localized swelling, mass and lump, neck (principal)

== ENCOUNTER → 2017-09-20 | Day surgery (SDC) | payer OTHER ==
[2017-09-11 07:50] VITALS: Ht 161.3 cm; Wt 77.3 kg
[~2017-09-20] VITALS: Ht 161.3 cm; Wt 77.3 kg
[~2017-09-20] MED LIST changes: +500ML BSS 0.3ML EPI 1:1000PF IRRIG ONE; +ACETAMINOPHEN 325 MG TAB PO PRN; -AMT50 PO; +AMVISC PLUS 0.8ML SYRINGE INT OCU ONE; -ASPI81TA28 PO; +ATROPINE SULFATE 0.1 MG/ML 5ML SYR IV PRN; +BSS FLUSH ONE; -BUTA1CAP17 PO; +ENDOCOAT 0.85ML SYRINGE INT OCU ONE; +EpHEDrine SULFATE INJ 50 MG/ML AMP IV PRN; +EpINEphrine INJ 1MG/ML AMP 1 MG/ML AMP ONE; -HYZ/10015 PO; +LACTATED RINGER'S 1000ML 1,000 ML IV SCH; +LIDOCAINE 4% OP SOLN DROP CHARGE ONE; +LIDOCAINE HCL 1% MPF 2 ML VIAL ONE; -MECL1TAB40 PO; +MIDAZOLAM HCL 1 MG/ML 2ML VIAL ONE; +MIX: 4ML BSS 1ML EPI 1:1000 PF TOP ONE; +MOXIFLOXACIN OPH SOLN PER DROP CHARGE ONE; -NIFE60TA57 PO; -NRN600 PO; +POVIDONE-IODINE OP SOLN 30 ML BTL ONE; +PROPARACAINE 0.5% OP SOLN PER DROP CHARGE OPL SCH; -PRVC/40 PO; -RANI150T3 PO; +TOBRAMYCIN/DEXAMETHASONE OPH OINT PER APPLN CHARGE ONE
--- NOTE | 2017-09-20 06:36 | History & Physical Bridge - SC ---
H&P Re-Evaluation Bridge Note: I have examined the patient, reviewed the History & Physical and in the interval since the performance of the History & Physical I have noted the following changes of clinical significance: No changes noted
[2017-09-20] MEDS: PHENYLEPHRINE HCL 2.5% OP SOLN PER DROP CHARGE OPL SCH ×3 (06:54→07:04)
[2017-09-20] MEDS: TROPICAMIDE 1% OP SOLN PER DROP CHARGE OPL SCH ×3 (06:55→07:04)
[2017-09-20] MEDS: CYCLOPENTOLATE HCL 1% OP SOLN PER DROP CHARGE OPL SCH ×3 (06:55→07:05)
[2017-09-20] MEDS: MOXIFLOXACIN OPH SOLN PER DROP CHARGE OPL SCH ×3 (06:56→07:07)
[2017-09-20] MEDS: LIDOCAINE 4% OP SOLN DROP CHARGE OPL SCH ×2 (07:03→07:08)
--- NOTE | 2017-09-20 07:57 | [facility] Post Operative Brief Note ---
Immediate Operative Summary Operative Date Sep 20, 2017. Pre-Operative Diagnosis Cataract left eye Post-Operative Diagnosis Same as pre-op Procedure(s) Performed Left Cataract Phacoemulsification With Intraocular Lens Implant Surgeon Solder Making Supervisor Surgeon(s) None Estimated Blood Loss Zero Findings left cataract Specimens None Complication(s) None Disposition
--- NOTE | 2017-09-20 07:57 | [facility] Operative Report ---
Operative Report Date of Service Sep 20, 2017. Operative Report DATE OF OPERATION: 09/20/17 PREOPERATIVE DIAGNOSIS: Senile nuclear cataract, left eye POSTOPERATIVE DIAGNOSIS: Senile nuclear cataract, left eye PROCEDURE PERFORMED: Phacoemulsification with intraocular lens implantation, left eye SURGEON: Dr. Rufus Petit ANESTHESIA: Topical with 1% intracameral lidocaine and monitored anesthesia care COMPLICATIONS: None DESCRIPTION OF PROCEDURE: After positively identifying the patient both verbally and by wristband in the preoperative area, the left eye was marked as the operative eye. The patient was then brought back to the operating room by the anesthesia and nursing staff where they were given a drop of Lidocaine and betadine into the operative eye. They were then sterilely prepped and draped in the standard fashion typical for ophthalmic surgery. Steri-strips were placed along the upper eyelids to keep the lashes back, and a lid speculum was placed into the operative eye. At this point, a documented time out was performed with members of the ophthalmology, nursing, and anesthesia staffs all agreeing upon the correct patient, correct location for surgery, correct procedure, and correct type and power of intraocular lens to be implanted. The microscope was then swung into position. First, a paracentesis wound was made using a sideport blade. Then, in sequence, 1% preservative-free lidocaine followed by Endocoat viscoelastic was injected into the anterior chamber. Next , the main incision was made with a keratome blade in triplanar fashion. A sharp cystotome was introduced into the eye and used to create a tear in the anterior capsule, which was directed into a continuous curvilinear capsulorrhexis using Utrata forceps. Hydrodissection was then performed with BSS on a flat-tip cannula. Next, the phacoemulsification handpiece was introduced into the eye and used to remove the nucleus in a [id number] fashion. This was done without complication and then the irrigation-aspiration handpiece was introduced into the eye and used to remove all remaining cortical and epinuclear material. Amvisc was then injected into the anterior chamber as well as into the capsular bag and using the lens injector system, an MX60 20.5 D lens, serial number [id number], and expiration date 05/2020 was injected into the capsular bag and rotated into the correct position. Next, the irrigation- aspiration handpiece was used to remove all remaining Amvisc. BSS was used to hydrate the main wound, and then BSS was injected into the paracentesis site to reach physiologic pressure and then the main wound was checked and found to be watertight. The patient was given drops of Vigamox and Tobradex ointment into the operative eye, and then the surrounding area was cleaned and dried. A clear plastic shield was placed over the eye and the patient was then sat up and taken from the operating room by the anesthesia staff having tolerated the procedure well and suffering no complications. DISPOSITION: The patient was returned to the recovery room in stable condition. I attest to the content of the Intraoperative Record and any orders documented therein. Any exceptions are noted below.
--- NOTE | 2017-09-20 07:58 | Discharge Instructions-SurgCtr ---
Discharge Instructions Date of Service Sep 20, 2017. Visit Reason for Visit: Cataract Left Eye Discharge Discharge Diagnosis / Problem: left cataract Discharge Goals Goal(s): Decrease discomfort, Improve function Medications Stopped Medications Name(s): Last took MEtformin Monday. Activity Recommendations Activity Limitations: as noted below Anesthesia . Post Anesthesia Instructions: If you have had General Anesthesia or IV Sedation: * Do not drive today. * Resume driving when surgeon permits. * Do not make important decisions or sign legal documents today. * Call surgeon for: 1. Temperature elevations greater than 101 degrees F. 2. Uncontrollable pain. 3. Excessive bleeding. 4. Persistent nausea and vomiting. 5. Medication intolerance (nausea, vomiting or rash). * For nausea and vomiting use only clear liquids such as: tea, soda, bouillon until nausea subsides, then gradually increase diet as tolerated. * If you have any concerns or questions, call your surgeon's office. If physician is unavailable and it is an emergency, call 911 or go to the nearest emergency room. . Instructions / Follow-Up Instructions / Follow-Up ACTIVITY RECOMMENDATIONS: * Light activities. * You may walk outside, read, watch television. * You may notice redness on the white part of the eye and some blurry vision - this is normal. MEDICATIONS: Resume previous medications unless instructed otherwise by your surgeon. Start all eye drops at 10 am today: * Eye drops (today): Prednisone - one drop in operative eye every 2 hours while awake Ofloxacin - one drop in operative eye every 2 hours while awake Ilevro - one drop in operative eye daily SPECIAL CARE INSTRUCTIONS: * Tape plastic shield over eye to sleep at night. Call your doctor at with any concerns or problems. FOLLOW UP VISIT: Follow-up with Dr Petit at [place] office as scheduled. Diet Recommendations Home Diet: no limitations Procedures Procedures Performed: Left Cataract Phacoemulsification With Intraocular Lens Implant Pending Studies Studies pending at discharge: no Medical Emergencies . Who to Call and When: Medical Emergencies: If at any time you feel your situation is an emergency, please call 911 immediately. . Non-Emergent Contact Non-Emergency issues call your: Surgeon . . "Provider Documentation" section prepared by Rufus Petit. .
[2017-09-20 08:02] VITALS: BP 162/81; PULSE 71; TEMP 36.5; O2SAT 97
--- NOTE | 2017-09-20 08:06 | Anesthesia Progress Nt - [facility] ---
Anesthesia Post Op Note Date & Time Sep 20, 2017 at 08:06 Vital Signs Pain Intensity: 0 Vital Signs Past 12 Hours Date Time Temp Pulse Resp B/P (MAP) Pulse Ox O2 Delivery O2 Flow Rate FiO2 09/20/17 08:02 36.5 71 16 162/81 (108) 97 Room Air 09/20/17 07:13 36.7 69 20 170/87 (114) 100 Room Air Notes Mental Status: alert / awake / arousable, participated in evaluation Pt Amnestic to Procedure: Yes Nausea / Vomiting: adequately controlled Pain: adequately controlled Airway Patency, RR, SpO2: stable & adequate BP & HR: stable & adequate Hydration State: stable & adequate Anesthetic Complications: no major complications apparent
== END | disposition home or self-care (01) ==
LOC: X.SURG 06:21
PROVIDERS: ATTEND Ophthalmology
DX: H25.12 Age-related nuclear cataract, left eye (principal); J44.9 Chronic obstructive pulmonary disease, unspecified; I10 Essential (primary) hypertension; E11.9 Type 2 diabetes mellitus without complications; E78.00 Pure hypercholesterolemia, unspecified; I34.1 Nonrheumatic mitral (valve) prolapse; G40.909 Epilepsy, unspecified, not intractable, without status epilepticus; F32.9 Major depressive disorder, single episode, unspecified; Z90.710 Acquired absence of both cervix and uterus; Z90.49 Acquired absence of other specified parts of digestive tract; Z86.73 Personal history of transient ischemic attack (TIA), and cerebral infarction without residual deficits; Z83.3 Family history of diabetes mellitus

== ENCOUNTER → 2017-10-04 | Day surgery (SDC) | payer OTHER ==
[2017-10-03 12:13] VITALS: Ht 161.3 cm; Wt 77.3 kg
[~2017-10-04] VITALS: Ht 161.3 cm; Wt 77.3 kg
[~2017-10-04] MED LIST changes: -LACTATED RINGER'S 1000ML 1,000 ML IV SCH; +LACTATED RINGER'S 1000ML 500 ML IV SCH; +LIDOCAINE 4% OP SOLN DROP CHARGE OPR SCH; -PROPARACAINE 0.5% OP SOLN PER DROP CHARGE OPL SCH; +PROPARACAINE 0.5% OP SOLN PER DROP CHARGE OPR SCH
[2017-10-04] MEDS: PHENYLEPHRINE HCL 2.5% OP SOLN PER DROP CHARGE OPR SCH ×3 (07:58→08:10)
[2017-10-04] MEDS: TROPICAMIDE 1% OP SOLN PER DROP CHARGE OPR SCH ×3 (07:59→08:11)
[2017-10-04] MEDS: CYCLOPENTOLATE HCL 1% OP SOLN PER DROP CHARGE OPR SCH ×3 (08:00→08:13)
[2017-10-04] MEDS: MOXIFLOXACIN OPH SOLN PER DROP CHARGE OPR SCH ×3 (08:01→08:14)
--- NOTE | 2017-10-04 09:01 | [facility] Post Operative Brief Note ---
Immediate Operative Summary Operative Date Oct 04, 2017. Pre-Operative Diagnosis Cataract Right Eye Post-Operative Diagnosis Same Procedure(s) Performed Right Cataract Phacoemulsification With Intraocular Lens Implant Surgeon Dr. Petit Surgical Garment Fitter Surgeon(s) None Estimated Blood Loss 0 mL Findings right cataract Specimens None Complication(s) None Disposition
--- NOTE | 2017-10-04 09:02 | [facility] Operative Report ---
Operative Report Date of Service Oct 04, 2017. Operative Report DATE OF OPERATION: 10/04/17 PREOPERATIVE DIAGNOSIS: Senile nuclear cataract, right eye POSTOPERATIVE DIAGNOSIS: Senile nuclear cataract, right eye PROCEDURE PERFORMED: Phacoemulsification with intraocular lens implantation, right eye SURGEON: Dr. Rufus Petit ANESTHESIA: Topical with 1% intracameral lidocaine and monitored anesthesia care COMPLICATIONS: None DESCRIPTION OF PROCEDURE: After positively identifying the patient both verbally and by wristband in the preoperative area, the right eye was marked as the operative eye. The patient was then brought back to the operating room by the anesthesia and nursing staff where they were given a drop of Lidocaine and betadine into the operative eye. They were then sterilely prepped and draped in the standard fashion typical for ophthalmic surgery. Steri-strips were placed along the upper eyelids to keep the lashes back, and a lid speculum was placed into the operative eye. At this point, a documented time out was performed with members of the ophthalmology, nursing, and anesthesia staffs all agreeing upon the correct patient, correct location for surgery, correct procedure, and correct type and power of intraocular lens to be implanted. The microscope was then swung into position. First, a paracentesis wound was made using a sideport blade. Then, in sequence, 1% preservative-free lidocaine followed by Endocoat viscoelastic was injected into the anterior chamber. Next , the main incision was made with a keratome blade in triplanar fashion. A sharp cystotome was introduced into the eye and used to create a tear in the anterior capsule, which was directed into a continuous curvilinear capsulorrhexis using Utrata forceps. Hydrodissection was then performed with BSS on a flat-tip cannula. Next, the phacoemulsification handpiece was introduced into the eye and used to remove the nucleus in a [id number] fashion. This was done without complication and then the irrigation-aspiration handpiece was introduced into the eye and used to remove all remaining cortical and epinuclear material. Amvisc was then injected into the anterior chamber as well as into the capsular bag and using the lens injector system, an MX60 21.0 D lens, serial number [id number], and expiration date 05/2020 was injected into the capsular bag and rotated into the correct position. Next, the irrigation- aspiration handpiece was used to remove all remaining Amvisc. BSS was used to hydrate the main wound, and then BSS was injected into the paracentesis site to reach physiologic pressure and then the main wound was checked and found to be watertight. The patient was given drops of Vigamox and Tobradex ointment into the operative eye, and then the surrounding area was cleaned and dried. A clear plastic shield was placed over the eye and the patient was then sat up and taken from the operating room by the anesthesia staff having tolerated the procedure well and suffering no complications. DISPOSITION: The patient was returned to the recovery room in stable condition. I attest to the content of the Intraoperative Record and any orders documented therein. Any exceptions are noted below.
--- NOTE | 2017-10-04 09:03 | Discharge Instructions-[facility]urgCtr ---
Discharge Instructions Date of Service Oct 04, 2017. Visit Reason for Visit: Cataract Right Eye Discharge Discharge Diagnosis / Problem: right cataract Discharge Goals Goal(s): Decrease discomfort, Improve function Medications Stopped Medications Name(s): Metformin stopped prior to first cataract surgery Activity Recommendations Activity Limitations: as noted below Anesthesia . Post Anesthesia Instructions: If you have had General Anesthesia or IV Sedation: * Do not drive today. * Resume driving when surgeon permits. * Do not make important decisions or sign legal documents today. * Call surgeon for: 1. Temperature elevations greater than 101 degrees F. 2. Uncontrollable pain. 3. Excessive bleeding. 4. Persistent nausea and vomiting. 5. Medication intolerance (nausea, vomiting or rash). * For nausea and vomiting use only clear liquids such as: tea, soda, bouillon until nausea subsides, then gradually increase diet as tolerated. * If you have any concerns or questions, call your surgeon's office. If physician is unavailable and it is an emergency, call 911 or go to the nearest emergency room. . Instructions / Follow-Up Instructions / Follow-Up ACTIVITY RECOMMENDATIONS: * Light activities. * You may walk outside, read, watch television. * You may notice redness on the white part of the eye and some blurry vision - this is normal. MEDICATIONS: Resume previous medications unless instructed otherwise by your surgeon. Start all eye drops at 11 am today: * Eye drops (today): Prednisone - one drop in operative eye every 2 hours while awake Ofloxacin - one drop in operative eye every 2 hours while awake Ilevro - one drop in operative eye daily SPECIAL CARE INSTRUCTIONS: * Tape plastic shield over eye to sleep at night. Call your doctor at with any concerns or problems. FOLLOW UP VISIT: Follow-up with Dr Petit at [place] office as scheduled. Diet Recommendations Home Diet: no limitations Procedures Procedures Performed: Right Cataract Phacoemulsification With Intraocular Lens Implant Pending Studies Studies pending at discharge: no Medical Emergencies . Who to Call and When: Medical Emergencies: If at any time you feel your situation is an emergency, please call 911 immediately. . Non-Emergent Contact Non-Emergency issues call your: Surgeon . . "Provider Documentation" section prepared by Rufus Petit. .
[2017-10-04 09:10] VITALS: TEMP 36.7
[2017-10-04 09:33] VITALS: BP 136/73; PULSE 76; O2SAT 99
--- NOTE | 2017-10-04 10:41 | Anesthesiology Progress Note ---
Anesthesia Post Op Note Date & Time Oct 04, 2017 at 10:41 Vital Signs Pain Intensity: 0 Vital Signs Past 12 Hours Date Time Temp Pulse Resp B/P (MAP) Pulse Ox O2 Delivery O2 Flow Rate FiO2 10/04/17 09:33 76 136/73 (94) 99 Room Air 10/04/17 09:10 36.7 72 16 133/81 (98) 97 Room Air 10/04/17 08:03 36.9 73 16 136/78 (97) 95 Room Air Notes Mental Status: alert / awake / arousable, participated in evaluation Nausea / Vomiting: adequately controlled Pain: adequately controlled Airway Patency, RR, SpO2: stable & adequate BP & HR: stable & adequate Hydration State: stable & adequate Anesthetic Complications: no major complications apparent
== END | disposition home or self-care (01) ==
LOC: X.SURG 07:21
PROVIDERS: ATTEND Ophthalmology
DX: H25.11 Age-related nuclear cataract, right eye (principal); I10 Essential (primary) hypertension; J44.9 Chronic obstructive pulmonary disease, unspecified; F41.9 Anxiety disorder, unspecified; Z86.73 Personal history of transient ischemic attack (TIA), and cerebral infarction without residual deficits; R56.9 Unspecified convulsions; E11.9 Type 2 diabetes mellitus without complications; K21.9 Gastro-esophageal reflux disease without esophagitis; K44.9 Diaphragmatic hernia without obstruction or gangrene; E66.9 Obesity, unspecified; E03.9 Hypothyroidism, unspecified

== ENCOUNTER → 2017-11-06 | Outpatient (CLI) | payer OTHER ==
[~2017-11-06] MED LIST changes: -500ML BSS 0.3ML EPI 1:1000PF IRRIG ONE; -ACETAMINOPHEN 325 MG TAB PO PRN; +AMT/50 PO; -AMVISC PLUS 0.8ML SYRINGE INT OCU ONE; -ATROPINE SULFATE 0.1 MG/ML 5ML SYR IV PRN; -BSS FLUSH ONE; -ENDOCOAT 0.85ML SYRINGE INT OCU ONE; -EpHEDrine SULFATE INJ 50 MG/ML AMP IV PRN; -EpINEphrine INJ 1MG/ML AMP 1 MG/ML AMP ONE; -LACTATED RINGER'S 1000ML 500 ML IV SCH; -LIDOCAINE 4% OP SOLN DROP CHARGE ONE; -LIDOCAINE 4% OP SOLN DROP CHARGE OPR SCH; -LIDOCAINE HCL 1% MPF 2 ML VIAL ONE; -MIDAZOLAM HCL 1 MG/ML 2ML VIAL ONE; -MIX: 4ML BSS 1ML EPI 1:1000 PF TOP ONE; -MOXIFLOXACIN OPH SOLN PER DROP CHARGE ONE; +NRN600 PO; +OSEL75CA16 PO; -POVIDONE-IODINE OP SOLN 30 ML BTL ONE; +PRED20TA PO; -PROPARACAINE 0.5% OP SOLN PER DROP CHARGE OPR SCH; -TOBRAMYCIN/DEXAMETHASONE OPH OINT PER APPLN CHARGE ONE
--- NOTE | 2017-11-06 15:46 | DIAGNOSTIC IMAGING REPORT ---
TWO VIEW CHEST CLINICAL HISTORY: Flulike symptoms. Dyspnea. FINDINGS: PA and lateral chest radiographs are compared to study dated 07/19/2017. The cardiomediastinal silhouette is unremarkable. There is mild atherosclerotic calcification of the thoracic aorta. There is elevation of right hemidiaphragm with mild bibasilar atelectasis. No airspace consolidation or pleural effusion is seen. There is no pneumothorax. The skeletal structures are osteopenic. Degenerative change and mild hyperkyphosis are noted in the thoracic spine. IMPRESSION: No active disease in the chest. Electronically signed by: Jono Romero M.D. 11/06/2017 3:45 PM Dictated Date/Time: 11/06/2017 3:44 PM
== END | disposition home or self-care (01) ==
LOC: C.RADPV 15:12
PROVIDERS: ATTEND Nurse Practitioner
DX: R68.89 Other general symptoms and signs (principal); R06.02 Shortness of breath

== ENCOUNTER 2017-11-07 11:36 | Inpatient (IN) | payer OTHER ==
[~2017-11-07] VITALS: Ht 160 cm; Wt 80.3 kg
[~2017-11-07 11:36] MED LIST changes: -AMT/50 PO; -NRN600 PO; -OSEL75CA16 PO; -PRED20TA PO
[2017-11-07] MEDS ORDERED: SODIUM CHLORIDE 0.9% 1000ML 1,000 ML IV STA (14:01)
[2017-11-07] MEDS ORDERED: ALBUT/IPRATROP 3MG/0.5MG NEB 3 ML VIAL INH STA ×3 (14:01→16:22)
[2017-11-07] MEDS ORDERED: METHYLPREDNISOLONE 125 MG VIAL IV STA (14:01)
--- NOTE | 2017-11-07 14:07 | EMERGENCY ROOM VISIT NOTE ---
History Report prepared by Anup: Chaitanya Melgar Under the Supervision of: Dr. Pacheco Schwarz M.D. First contact with patient: 13:46 Chief Complaint: FLU LIKE SX Stated Complaint: FLU History of Present Illness The patient is a 72 year old female who presents to the Emergency Room with complaints of worsening flu symptoms for the past few days. The patient sates that she has shortness of breath, body aches, and a productive cough bringing up green and yellow mucous. She denies coughing up blood, chest pain, fever, chills, nausea, vomiting, and diarrhea. The patient was seen at [facility], and she was given Tamiflu, and she states that she was not feeling any better today. The patient has a history of COPD, though she has not been using her inhalers, and she has a history of CHF, and blood clots in her legs. She states that she is currently on Coumadin, though it has been a while since it has been checked. She denies any recent travel. The patient additionally reports that she had a fall last week and hurt her left hip. She notes that she had cataract surgery two weeks ago. Source of History: patient Onset: past few days Position: other (global) Quality: other (flu like symptoms) Timing: worsening Associated Symptoms: + cough, + SOB, No fevers, No chills, No chest pain, No nausea, No vomiting, No diarrhea Note: Associated symptoms: Body aches Review of Systems See HPI for pertinent positives and negatives. A total of ten systems were reviewed and were otherwise negative. 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 (16) Seizure disorder (17) Thyroidectomy (18) TIA (19) Weakness Family History FH: HTN (hypertension) FH: diabetes mellitus FH: heart disease FH: lung disease FHx: cancer FHx: gallbladder disease Social History Smoking Status: Never Smoker Alcohol Use: none Drug Use: none Marital Status: Housing Status: lives with significant other Occupation Status: retired Current/Historical Medications Scheduled Amitriptyline HCl (Amitriptyline HCl), 50 MG PO HS Amlodipine (Norvasc), 5 MG PO QAM Baclofen (Baclofen), 10 MG PO TID Buspirone HCl (Buspirone HCl), 5 MG PO BID Calcium Carbonate-Cholecalcife (Calcium 600+D 600-800 mg-Unit), 1 TAB PO DAILY Carbamazepine (Carbamazepine), 200 MG PO BID Clopidogrel (Plavix), 75 MG PO QAM Cyanocobalamin (Vitamin B-12), 500 MCG PO QAM Famotidine (Pepcid), 20 MG PO QAM Gabapentin (Gabapentin), 600 MG PO TID Hydrochlorothiazide (Hctz), 25 MG PO QAM Levothyroxine Sodium (Levothyroxine Sodium), 125 MCG PO QAM Losartan Potassium (Cozaar), 100 MG PO QAM Metformin HCl (Metformin HCl), 500 MG PO BID Oseltamivir Phosphate (Oseltamivir Phosphate), 75 MG PO BID Pantoprazole (Protonix), 20 MG PO BID Prednisone (Prednisone), 1 DOSE PO DAILY Sertraline (Zoloft), 75 MG PO QAM Simvastatin (Zocor), 20 MG PO QPM Scheduled PRN Albuterol Sulf (Proventil 0.083% 2.5MG/3ML), 2.5 MG INH QID PRN for SOB/Wheezing Allergies Coded Allergies: Adhesives (Verified Allergy, Intermediate, TAPE-HIVES, 11/07/17) Fentanyl (Verified Adverse Reaction, Intermediate, CONFUSION, 11/07/17) pt was using fentanyl transdermal patch and states that she did not realize that she was supposed to remove the old patch when applying new one; caused confusion Meloxicam (Verified Adverse Reaction, Intermediate, SWELLING OF LEGS, 11/07) Morphine (Verified Adverse Reaction, Intermediate, "I GET REALLY CRAZY", ) Pregabalin (Verified Adverse Reaction, Intermediate, DIZZINESS, CONFUSION WITH HIGHER DOSES, 11/07/17) Physical Exam Vital Signs Date Time Temp Pulse Resp B/P (MAP) Pulse Ox O2 Delivery O2 Flow Rate FiO2 11/07/17 18:31 94 11/07/17 18:03 93 20 134/86 95 Room Air 11/07/17 18:02 93 20 164/79 96 Room Air 11/07/17 14:53 78 20 135/72 100 Room Air 11/07/17 14:33 79 11/07/17 14:28 79 18 137/78 100 11/07/17 11:47 37.1 92 22 152/81 96 Physical Exam Physical Exam GENERAL: She is oriented to person, place, and time. She appears well- developed and well-nourished. She does not appear distressed. ____ HENT: Exam performed. Head: Normocephalic and atraumatic. Right Ear: External ear normal. No mastoid tenderness. Left Ear: External ear normal. No mastoid tenderness. Mouth/Throat: The oropharynx is clear and dry. No trismus in the jaw. No dental abscesses or uvula swelling. No oropharyngeal exudate or tonsillar abscesses. ____ EYES: Conjunctivae and EOM are normal. Pupils are equal, round, and reactive to light. Right eye exhibits no discharge. Left eye exhibits no discharge. No scleral icterus. ____ NECK: Normal range of motion. Neck supple. No JVD present. No spinous process tenderness present. No carotid bruit present. No rigidity. No tracheal deviation and normal range of motion present. No Brudzinski's sign and no Kernig 's sign noted. ____ CV: Normal rate, regular rhythm, normal heart sounds and intact distal pulses. There is no peripheral edema. Palpable radial pulses bue. ____ PULM/CHEST: Scant wheezes bilaterally. Effort normal. No respiratory distress. No stridor. She has no rales. Chest Wall: She exhibits no tenderness. ____ ABD: The abdomen is soft. Bowel sounds are normal. She has no distension. No mass is present. There is no tenderness. There is no rebound, no guarding, no Baltazar's sign and no tenderness at McBurney's point. Rovsig negative MUSC/SKEL: Ecchymosis over the left shoulder and her left hip. Normal range of motion. There is no peripheral edema, tenderness or deformity. LYMPH: No cervical adenopathy. ____ NEURO: She is alert and oriented to person, place, and time. She has normal strength. No cranial nerve deficit or sensory deficit. Coordination and gait normal. GCS eye subscore is 4. GCS verbal subscore is 5. GCS motor subscore is 6. cerbellar tests wnl. ____ SKIN: Skin is warm and dry. She is not diaphoretic. ____ PSYCH: She has a normal mood and affect. Her behavior is normal. Judgment and thought content normal. ____ Medical Decision & Procedures ER Provider Diagnostic Interpretation: Radiology results as stated below per my review and radiologist interpretation: SINGLE VIEW PELVIS CLINICAL HISTORY: Fall. FINDINGS: An AP portable view of the pelvis is compared to study dated 09/12/2015. The skeletal structures are osteopenic. There is no radiographic evidence of acute fracture involving the hips or bony pelvis. Mild arthritic change and joint space narrowing is seen in the hips. Mild sclerosis is noted in the sacroiliac joints and pubic symphysis. Fusion hardware is noted in the lower lumbar spine. The overlying soft tissues are within normal limits. A calcified granuloma is seen in the left gluteal soft tissues. IMPRESSION: Osteopenia with no radiographic evidence of acute fracture involving the bony pelvis. Electronically signed by: Jono Romero M.D. 11/07/2017 2:35 PM Dictated Date/Time: 11/07/2017 2:34 PM HEAD WITHOUT CONTRAST (CT) CT DOSE: 614.27 mGy.cm HISTORY: Trauma. Mental status change. fall TECHNIQUE: Multiaxial CT images of the head were performed without the use of intravenous contrast. A dose lowering technique was utilized adhering to the principles of ALARA. Comparison: None. Findings: Moderate hypertrophic change of the nasal turbinates. No well-defined acute abnormality of the osseous structures. Moderate chronic small vessel change throughout both cerebral hemispheres. No acute intracranial hemorrhage. No midline shift. The calvarium and skull base are intact. The ventricles and sulci are within normal limits. There is no mass, hematoma, midline shift, or acute infarct. Impression: Chronic and age-related change. No acute process. The above report was generated using voice recognition software. It may contain grammatical, syntax or spelling errors. Electronically signed by: Jatin Bhandari M.D. 11/07/2017 3:05 PM Dictated Date/Time: 11/07/2017 3:02 PM CHEST ONE VIEW PORTABLE CLINICAL HISTORY: / Dyspnea COMPARISON STUDY: 11/06/2017 FINDINGS: Patient is rotated to the left. Lungs are clear. Diaphragms smooth. Costophrenic angles are sharp. IMPRESSION: No acute process. No change from the prior exam. The above report was generated using voice recognition software. It may contain grammatical, syntax or spelling errors. Electronically signed by: Jatin Bhandari M.D. 11/07/2017 2:34 PM Dictated Date/Time: 11/07/2017 2:33 PM (CHEST FOR PE) ANGIO WITH CT DOSE: 310.88 mGy.cm HISTORY: Chest pain dyspnea TECHNIQUE: Multiaxial CT images of the chest were performed following the intravenous administration of contrast to evaluate the pulmonary arteries. Maximal intensity projection images were also obtained. A dose lowering technique was utilized adhering to the principles of ALARA. COMPARISON STUDY: None. FINDINGS: There is a normal caliber thoracic aorta with no evidence for dissection. There is no evidence for pulmonary embolus. No pleural effusions. No pneumothorax. The liver and spleen are unremarkable. No mediastinal or hilar lymphadenopathy. The central airways are patent. The lungs are clear. IMPRESSION: No evidence for pulmonary embolus. Lungs are clear. Slight nonspecific interstitial prominence throughout both hemithoraces. The above report was generated using voice recognition software. It may contain grammatical, syntax or spelling errors. Electronically signed by: Jatin Bhandari M.D. 11/07/2017 5:41 PM Dictated Date/Time: 11/07/2017 5:39 PM Laboratory Results 11/07/17 14:20 Red Blood Count 3.47, Mean Corpuscular Volume 97.1, Mean Corpuscular Hemoglobin 32.6, Mean Corpuscular Hemoglobin Concent 33.5, Mean Platelet Volume 8.6, Neutrophils (%) (Auto) 78.0, Lymphocytes (%) (Auto) 9.1, Monocytes (%) (Auto) 11.5, Eosinophils (%) (Auto) 0.3, Basophils (%) (Auto) 0.3, Neutrophils # (Auto ) 8.13, Lymphocytes # (Auto) 0.95, Monocytes # (Auto) 1.20, Eosinophils # (Auto ) 0.03, Basophils # (Auto) 0.03 11/07/17 14:20 Test 11/07/17 14:20 11/07/17 15:45 White Blood Count 10.42 K/uL (4.8-10.8) Red Blood Count 3.47 M/uL (4.2-5.4) Hemoglobin 11.3 g/dL (12.0-16.0) Hematocrit 33.7 % (37-47) Mean Corpuscular Volume 97.1 fL (80-100) Mean Corpuscular Hemoglobin 32.6 pg (25-34) Mean Corpuscular Hemoglobin Concent 33.5 g/dl (32-36) Platelet Count 200 K/uL (130-400) Mean Platelet Volume 8.6 fL (7.4-10.4) Neutrophils (%) (Auto) 78.0 % Lymphocytes (%) (Auto) 9.1 % Monocytes (%) (Auto) 11.5 % Eosinophils (%) (Auto) 0.3 % Basophils (%) (Auto) 0.3 % Neutrophils # (Auto) 8.13 K/uL (1.4-6.5) Lymphocytes # (Auto) 0.95 K/uL (1.2-3.4) Monocytes # (Auto) 1.20 K/uL (0.11-0.59) Eosinophils # (Auto) 0.03 K/uL (0-0.5) Basophils # (Auto) 0.03 K/uL (0-0.2) RDW Standard Deviation 50.6 fL (36.4-46.3) RDW Coefficient of Variation 14.2 % (11.5-14.5) Immature Granulocyte % (Auto) 0.8 % Immature Granulocyte # (Auto) 0.08 K/uL (0.00-0.02) Prothrombin Time 10.0 SECONDS (9.0-12.0) Prothromb Time International Ratio 1.0 (0.9-1.1) Activated Partial Thromboplast Time 24.5 SECONDS (21.0-31.0) Partial Thromboplastin Ratio 0.9 Anion Gap 6.0 mmol/L (3-11) Est Creatinine Clear Calc Drug Dose 43.5 ml/min Estimated GFR () 54.3 Estimated GFR (Non- 46.8 BUN/Creatinine Ratio 21.8 (10-20) Lactic Acid Level 1.8 mmol/L (0.4-2.0) Calcium Level 9.3 mg/dl (8.5-10.1) Troponin I < 0.015 ng/ml (0-0.045) Pro-B-Type Natriuretic Peptide 299 pg/ml (0-900) Influenza Type A Antigen Neg for Influ A (NEG) Influenza Type B Antigen Neg for Influ B (NEG) Laboratory results reviewed by me Medications Administered Medications (Trade) Dose Ordered Sig/Jeannie Route Start Time Stop Time Status Last Admin Dose Admin Albuterol/ Ipratropium (Duoneb) 3 ml NOW STAT INH 11/07/17 14:01 11/07/17 14:04 DC 11/07/17 14:23 3 ML Sodium Chloride 1,000 ml @ 125 mls/hr Q8H STAT IV 11/07/17 14:01 11/07/17 22:00 11/07/17 14:23 125 MLS/HR Methylprednisolone Sodium Succinate (Solu-Medrol IV) 125 mg NOW STAT IV 11/07/17 14:01 11/07/17 14:04 DC 11/07/17 14:23 125 MG Albuterol/ Ipratropium (Duoneb) 3 ml NOW STAT INH 11/07/17 15:26 11/07/17 15:27 DC 11/07/17 15:40 3 ML Albuterol/ Ipratropium (Duoneb) 3 ml NOW STAT INH 11/07/17 16:22 11/07/17 16:23 DC 11/07/17 18:22 3 ML ECG Indication: SOB/dyspnea Rate (beats per minute): 83 Rhythm: sinus rhythm Findings: no acute ischemic change, no ectopy, other ([place], QRS, QTc within normal limits. No ST elevation or depression. ) ED Course 1352: The patient was evaluated in room B10. A complete history and physical exam was performed. 1401: Solu-Medrol 125mg IV, Sodium Chloride 1000 ml @ 125 mls/hr IV, DuoNeb 3ml INH 1524: The patient was examined, and she states that she feels some mild improvement with the albuterol. On repeat lung exam, the patient had some diffuse expiratory wheezes, and will repeat the albuterol treatment. Labs, EKG, and imaging are within normal limits. Patient states that she has a history of DVTs and is on Coumadin, though it is not on the medication list. The patients INR is 1, though she states that she has not had it checked in a while, though she still swears that she takes it every day. 1526: DuoNeb 3ml INH 1622: The patient continues to have expiratory wheezes. She is speaking in full sentences and will repeat albuterol treatment. I ordered DuoNeb 3ml INH 2000: CTA chest negative for PE. Vital signs stable. Patient continues have expiratory wheezes. Will place in the hospital to the hospitalist service for continuous monitoring repeat nebulizer treatments for COPD exacerbation. Patient scribble to the plan. Hospitalists is also agreeable to the plan. Medical Decision Labs and imaging within normal limits. CTA chest negative for PE. Vital signs stable. Patient continues have expiratory wheezes. Will place in the hospital to the hospitalist service for continuous monitoring repeat nebulizer treatments for COPD exacerbation. Patient scribble to the plan. Hospitalists is also agreeable to the plan. Medication Reconcilliation Current Medication List: was personally reviewed by me Blood Pressure Screening Patient's blood pressure: Elevated blood pressure Monitored by the hospitalist Impression Primary Impression: COPD with exacerbation Scribe Attestation The scribe's documentation has been prepared under my direction and personally reviewed by me in its entirety. I confirm that the note above accurately reflects all work, treatment, procedures, and medical decision making performed by me. The chart was completed utilizing [employer] voice recognition software. Grammatical errors, random word insertions, pronoun errors, and incomplete sentences are an occasional consequence of this system due to software limitations, ambient noise, and hardware issues. Any formal questions or concerns about the content, text, or information contained within the body of this dictation should be directly addressed to the physician for clarification. Departure Information Dispostion Being Evaluated By Hospitalist Referrals Airam Malcolm C.R.N.P (PCP) Patient Instructions My [facility]
[2017-11-07 14:33] LABS: BASO % 0.3 %; BASO ABS # 0.03 K/uL (0-0.2); EOS % 0.3 %; EOS ABS # 0.03 K/uL (0-0.5); HEMATOCRIT 33.7 % (37-47); HEMOGLOBIN 11.3 g/dL (12.0-16.0); IG# 0.08 K/uL (0.00-0.02); LYMPH % 9.1 %; LYMPH ABS # 0.95 K/uL (1.2-3.4); MEAN CELL VOLUME 97.1 fL (80-100); MEAN CORPUSCULAR HEMOGLOBIN 32.6 pg (25-34); MEAN CORPUSCULAR HGB CONC 33.5 g/dl (32-36); MEAN PLATELET VOLUME 8.6 fL (7.4-10.4); MONO % 11.5 %; NEUT ABS # 8.13 K/uL (1.4-6.5); PLATELET COUNT 200 K/uL (130-400); RED CELL DISTRIBUTION WIDTH CV 14.2 % (11.5-14.5); RED CELL DISTRIBUTION WIDTH SD 50.6 fL (36.4-46.3); WHITE BLOOD COUNT 10.42 K/uL (4.8-10.8)
--- NOTE | 2017-11-07 14:36 | DIAGNOSTIC IMAGING REPORT ---
CHEST ONE VIEW PORTABLE CLINICAL HISTORY: / Dyspnea COMPARISON STUDY: 11/06/2017 FINDINGS: Patient is rotated to the left. Lungs are clear. Diaphragms smooth. Costophrenic angles are sharp. IMPRESSION: No acute process. No change from the prior exam. The above report was generated using voice recognition software. It may contain grammatical, syntax or spelling errors. Electronically signed by: Jatin Bhandari M.D. 11/07/2017 2:34 PM Dictated Date/Time: 11/07/2017 2:33 PM
--- NOTE | 2017-11-07 14:36 | DIAGNOSTIC IMAGING REPORT ---
SINGLE VIEW PELVIS CLINICAL HISTORY: Fall. FINDINGS: An AP portable view of the pelvis is compared to study dated 09/12/2015. The skeletal structures are osteopenic. There is no radiographic evidence of acute fracture involving the hips or bony pelvis. Mild arthritic change and joint space narrowing is seen in the hips. Mild sclerosis is noted in the sacroiliac joints and pubic symphysis. Fusion hardware is noted in the lower lumbar spine. The overlying soft tissues are within normal limits. A calcified granuloma is seen in the left gluteal soft tissues. IMPRESSION: Osteopenia with no radiographic evidence of acute fracture involving the bony pelvis. Electronically signed by: Jono Romero M.D. 11/07/2017 2:35 PM Dictated Date/Time: 11/07/2017 2:34 PM
[2017-11-07 14:49] LABS: BLOOD UREA NITROGEN 25 mg/dl (7-18); CALCIUM 9.3 mg/dl (8.5-10.1); CARBON DIOXIDE 30 mmol/L (21-32); CREATININE 1.15 mg/dl (0.60-1.20); GLUCOSE 116 mg/dl (70-99); POTASSIUM 3.7 mmol/L (3.5-5.1); PTT PATIENT 24.5 SECONDS (21.0-31.0); SODIUM 132 mmol/L (136-145)
--- NOTE | 2017-11-07 15:06 | DIAGNOSTIC IMAGING REPORT ---
HEAD WITHOUT CONTRAST (CT) CT DOSE: 614.27 mGy.cm HISTORY: Trauma. Mental status change. fall TECHNIQUE: Multiaxial CT images of the head were performed without the use of intravenous contrast. A dose lowering technique was utilized adhering to the principles of ALARA. Comparison: None. Findings: Moderate hypertrophic change of the nasal turbinates. No well-defined acute abnormality of the osseous structures. Moderate chronic small vessel change throughout both cerebral hemispheres. No acute intracranial hemorrhage. No midline shift. The calvarium and skull base are intact. The ventricles and sulci are within normal limits. There is no mass, hematoma, midline shift, or acute infarct. Impression: Chronic and age-related change. No acute process. The above report was generated using voice recognition software. It may contain grammatical, syntax or spelling errors. Electronically signed by: Jatin Bhandari M.D. 11/07/2017 3:05 PM Dictated Date/Time: 11/07/2017 3:02 PM
[2017-11-07] MEDS ORDERED: NRN600 PO (15:31)
[2017-11-07] MEDS ORDERED: AMT/50 PO (15:31)
[2017-11-07] MEDS ORDERED: PRED20TA PO (15:34)
[2017-11-07] MEDS ORDERED: OSEL75CA16 PO (15:34)
[2017-11-07] MEDS ORDERED: OPTIRAY 320 IV PRN (15:45)
[2017-11-07 16:22] LABS: INFLUENZA B ANTIGEN Neg for Influ B (NEG)
--- NOTE | 2017-11-07 19:44 | DIAGNOSTIC IMAGING REPORT ---
(CHEST FOR PE) ANGIO WITH CT DOSE: 310.88 mGy.cm HISTORY: Chest pain dyspnea TECHNIQUE: Multiaxial CT images of the chest were performed following the intravenous administration of contrast to evaluate the pulmonary arteries. Maximal intensity projection images were also obtained. A dose lowering technique was utilized adhering to the principles of ALARA. COMPARISON STUDY: None. FINDINGS: There is a normal caliber thoracic aorta with no evidence for dissection. There is no evidence for pulmonary embolus. No pleural effusions. No pneumothorax. The liver and spleen are unremarkable. No mediastinal or hilar lymphadenopathy. The central airways are patent. The lungs are clear. IMPRESSION: No evidence for pulmonary embolus. Lungs are clear. Slight nonspecific interstitial prominence throughout both hemithoraces. The above report was generated using voice recognition software. It may contain grammatical, syntax or spelling errors. Electronically signed by: Jatin Bhandari M.D. 11/07/2017 5:41 PM Dictated Date/Time: 11/07/2017 5:39 PM
[2017-11-07 20:25] VITALS: BP 150/72; PULSE 93; TEMP 37; O2SAT 94
--- NOTE | 2017-11-07 21:17 | History and Physical ---
History & Physical Date & Time of Service: Nov 07, 2017 at 21:16 Chief Complaint: FLU Primary Care Physician: Airam Malcolm C.R.N.P History of Present Illness Source: patient, hospital records This is a 72 yo f with a h/o COPD secondary to second hand smoke that presents to us with acute worsening of SOB/ cough and fatigue. The patient notes that since Monday she has noticed a progressive worsening in her SOBOE. She then started to develop " flu like symptoms" with subjective fever. She was seen by her PCP where she was prophylactically placed on Tamiflu and prednisone as she is the primary continuity person of her who has advanced dementia and concern for developing a COPD exacerbation. She has only received a full day of the Tamiflu when she had progressive worsening of symptoms and came to the ED for evaluation. The patient states she has had no chest pain, non productive cough, achiness, increasing SOBOE. She denies any abdominal pain, documented fever or swelling of lower extremities. Past Medical/Surgical History PMHx: COPD Anxiety/ Mood disorder Chronic back pain TIA Vit B12 deficiency HTN HLD GERD/ Henderson's Hypothyroidism DMII PSHx: Fixation of floating kidney left knee arthroplasty hysterectomy spinal surgery Family History FH: HTN (hypertension) FH: diabetes mellitus FH: heart disease FH: lung disease FHx: cancer FHx: gallbladder disease Social History Smoking Status: Never Smoker (exposure to second hand smoke from ) Smokeless Tobacco Use: No Alcohol Use: none Drug Use: none Marital Status: Housing status: lives with family Occupational Status: retired Immunizations History of Influenza Vaccine: N/A Influenza Vaccine Date: May 18, 2011 History of Tetanus Vaccine?: Yes Tetanus Immunization Date: May 18, 2011 History of Pneumococcal: Yes Pneumococcal Date: May 20, 2011 History of Hepatitis B Vaccine: Unknown Hepatitis Immunization Date: May 18, 2011 Multi-Drug Resistant Organisms History of MDRO: Yes Type of MDRO: MRSA Allergies Coded Allergies: Adhesives (Verified Allergy, Intermediate, TAPE-HIVES, 11/07/17) Fentanyl (Verified Adverse Reaction, Intermediate, CONFUSION, 11/07/17) pt was using fentanyl transdermal patch and states that she did not realize that she was supposed to remove the old patch when applying new one; caused confusion Meloxicam (Verified Adverse Reaction, Intermediate, SWELLING OF LEGS, 11/07) Morphine (Verified Adverse Reaction, Intermediate, "I GET REALLY CRAZY", ) Pregabalin (Verified Adverse Reaction, Intermediate, DIZZINESS, CONFUSION WITH HIGHER DOSES, 11/07/17) Home Medications Scheduled Amitriptyline HCl (Amitriptyline HCl), 50 MG PO HS Amlodipine (Norvasc), 5 MG PO QAM Baclofen (Baclofen), 10 MG PO TID Buspirone HCl (Buspirone HCl), 5 MG PO BID Calcium Carbonate-Cholecalcife (Calcium 600+D 600-800 mg-Unit), 1 TAB PO DAILY Carbamazepine (Carbamazepine), 200 MG PO BID Clopidogrel (Plavix), 75 MG PO QAM Cyanocobalamin (Vitamin B-12), 500 MCG PO QAM Famotidine (Pepcid), 20 MG PO QAM Gabapentin (Gabapentin), 600 MG PO TID Hydrochlorothiazide (Hctz), 25 MG PO QAM Levothyroxine Sodium (Levothyroxine Sodium), 125 MCG PO QAM Losartan Potassium (Cozaar), 100 MG PO QAM Metformin HCl (Metformin HCl), 500 MG PO BID Oseltamivir Phosphate (Oseltamivir Phosphate), 75 MG PO BID Pantoprazole (Protonix), 20 MG PO BID Prednisone (Prednisone), 1 DOSE PO DAILY Sertraline (Zoloft), 75 MG PO QAM Simvastatin (Zocor), 20 MG PO QPM Scheduled PRN Albuterol Sulf (Proventil 0.083% 2.5MG/3ML), 2.5 MG INH QID PRN for SOB/Wheezing Review of Systems Constitutional: No fever Eyes: No worsening of vision ENT: No hearing loss Respiratory: + cough, + wheezing, + shortness of breath, + dyspnea on exertion , No sputum, No dyspnea at rest, No hemoptysis Cardiovascular: No chest pain, No palpitations Abdomen: No pain, No nausea, No vomiting, No diarrhea, No constipation, No GI bleeding Musculoskeletal: + problem reported (myalgias), No joint pain, No muscle pain Genitourinary - Female: No dysuria, No hematuria Neurologic: No weakness, No numbness/tingling, No balance problems Psychiatric: No depression symptoms Endocrine: No fatigue Hematologic / Lymphatic: No abnormal bleeding/bruising Integumentary: No rash Physical Exam Vital Signs Date Time Temp Pulse Resp B/P (MAP) Pulse Ox O2 Delivery O2 Flow Rate FiO2 11/07/17 20:45 98 22 150/70 94 Room Air 11/07/17 18:31 94 11/07/17 18:03 93 20 134/86 95 Room Air 11/07/17 18:02 93 20 164/79 96 Room Air 11/07/17 14:53 78 20 135/72 100 Room Air 11/07/17 14:33 79 11/07/17 14:28 79 18 137/78 100 11/07/17 11:47 37.1 92 22 152/81 96 General Appearance: + mild distress Head: normocephalic, atraumatic Eyes: normal inspection ENT: normal ENT inspection Neck: supple, no JVD Respiratory/Chest: + decreased breath sounds (throughout), + crackles (bilat bases), + pertinent finding (short exp phase with wheezing appreciated) Cardiovascular: regular rate, rhythm, no murmur, normal peripheral pulses Abdomen/GI: normal bowel sounds, non tender, soft Back: normal inspection, no CVA tenderness, normal range of motion, + pertinent finding (scar on right flank and lumbar spine appreciated ) Extremities/Musculoskelatal: normal inspection, no calf tenderness, no pedal edema, normal range of motion Neurologic/Psych: alert, normal mood/affect, oriented x 3 Skin: normal color, warm/dry, no rash Lymphatic: no adenopathy Diagnostics Laboratory Results Results Past 24 Hours Test 11/07/17 14:20 11/07/17 15:45 Range/Units White Blood Count 10.42 4.8-10.8 K/uL Red Blood Count 3.47 4.2-5.4 M/uL Hemoglobin 11.3 12.0-16.0 g/dL Hematocrit 33.7 37-47 % Mean Corpuscular Volume 97.1 80-100 fL Mean Corpuscular Hemoglobin 32.6 25-34 pg Mean Corpuscular Hemoglobin Concent 33.5 32-36 g/dl Platelet Count 200 130-400 K/uL Mean Platelet Volume 8.6 7.4-10.4 fL Neutrophils (%) (Auto) 78.0 % Lymphocytes (%) (Auto) 9.1 % Monocytes (%) (Auto) 11.5 % Eosinophils (%) (Auto) 0.3 % Basophils (%) (Auto) 0.3 % Neutrophils # (Auto) 8.13 1.4-6.5 K/uL Lymphocytes # (Auto) 0.95 1.2-3.4 K/uL Monocytes # (Auto) 1.20 0.11-0.59 K/uL Eosinophils # (Auto) 0.03 0-0.5 K/uL Basophils # (Auto) 0.03 0-0.2 K/uL RDW Standard Deviation 50.6 36.4-46.3 fL RDW Coefficient of Variation 14.2 11.5-14.5 % Immature Granulocyte % (Auto) 0.8 % Immature Granulocyte # (Auto) 0.08 0.00-0.02 K/uL Prothrombin Time 10.0 9.0-12.0 SECONDS Prothromb Time International Ratio 1.0 0.9-1.1 Activated Partial Thromboplast Time 24.5 21.0-31.0 SECONDS Partial Thromboplastin Ratio 0.9 Sodium Level 132 136-145 mmol/L Potassium Level 3.7 3.5-5.1 mmol/L Chloride Level 96 98-107 mmol/L Carbon Dioxide Level 30 21-32 mmol/L Anion Gap 6.0 3-11 mmol/L Blood Urea Nitrogen 25 7-18 mg/dl Creatinine 1.15 0.60-1.20 mg/dl Est Creatinine Clear Calc Drug Dose 43.5 ml/min Estimated GFR () 54.3 Estimated GFR (Non- 46.8 BUN/Creatinine Ratio 21.8 10-20 Random Glucose 116 70-99 mg/dl Lactic Acid Level 1.8 0.4-2.0 mmol/L Calcium Level 9.3 8.5-10.1 mg/dl Troponin I < 0.015 0-0.045 ng/ml Pro-B-Type Natriuretic Peptide 299 0-900 pg/ml Influenza Type A Antigen Neg for Influ A NEG Influenza Type B Antigen Neg for Influ B NEG Diagnostic Radiology [~ rep ct add3]] (CHEST FOR PE) ANGIO WITH CT DOSE: 310.88 mGy.cm HISTORY: Chest pain dyspnea TECHNIQUE: Multiaxial CT images of the chest were performed following the intravenous administration of contrast to evaluate the pulmonary arteries. Maximal intensity projection images were also obtained. A dose lowering technique was utilized adhering to the principles of ALARA. COMPARISON STUDY: None. FINDINGS: There is a normal caliber thoracic aorta with no evidence for dissection. There is no evidence for pulmonary embolus. No pleural effusions. No pneumothorax. The liver and spleen are unremarkable. No mediastinal or hilar lymphadenopathy. The central airways are patent. The lungs are clear. IMPRESSION: No evidence for pulmonary embolus. Lungs are clear. Slight nonspecific interstitial prominence throughout both hemithoraces. CHEST ONE VIEW PORTABLE CLINICAL HISTORY: / Dyspnea COMPARISON STUDY: 11/06/2017 FINDINGS: Patient is rotated to the left. Lungs are clear. Diaphragms smooth. Costophrenic angles are sharp. IMPRESSION: No acute process. No change from the prior exam. [~ rep ct add3]] HEAD WITHOUT CONTRAST (CT) CT DOSE: 614.27 mGy.cm HISTORY: Trauma. Mental status change. fall TECHNIQUE: Multiaxial CT images of the head were performed without the use of intravenous contrast. A dose lowering technique was utilized adhering to the principles of ALARA. Comparison: None. Findings: Moderate hypertrophic change of the nasal turbinates. No well-defined acute abnormality of the osseous structures. Moderate chronic small vessel change throughout both cerebral hemispheres. No acute intracranial hemorrhage. No midline shift. The calvarium and skull base are intact. The ventricles and sulci are within normal limits. There is no mass, hematoma, midline shift, or acute infarct. Impression: Chronic and age-related change. No acute process. SINGLE VIEW PELVIS CLINICAL HISTORY: Fall. FINDINGS: An AP portable view of the pelvis is compared to study dated 09/12/2015. The skeletal structures are osteopenic. There is no radiographic evidence of acute fracture involving the hips or bony pelvis. Mild arthritic change and joint space narrowing is seen in the hips. Mild sclerosis is noted in the sacroiliac joints and pubic symphysis. Fusion hardware is noted in the lower lumbar spine. The overlying soft tissues are within normal limits. A calcified granuloma is seen in the left gluteal soft tissues. IMPRESSION: Osteopenia with no radiographic evidence of acute fracture involving the bony pelvis. EKG Normal sinus rhythm Normal ECG When compared with ECG of 19-JUL-2017 11:08, [place] interval has decreased hr 83 Impression Assessment and Plan This is a 72 yo f with a h/o COPD suffering from an acute exacerbation possibly from viral vs bacterial source. Patient has not been suffering from chest pain, no EKG changes concerning for ischemia so unlikely MA; will place on med surg floor. She also has a non productive cough and no focal findings on imaging reflective of a bacterial infection however will cover for atypical with doxycycline x 1. No official diagnosis of Influenza but placed on Tamiflu prophylactically, will confirm negative flu with PCR considering false negative rate of antigen. Acute on chronic COPD exacerbation without hypoxia - med surg admission - Methyl pred 125 mg IV given in ED with Doxy 100 mg IV x 1 - Procal and defer abx continuation to am team discretion - Duoneb scheduled - cont methyl pred 60 mg bid IV - Guaifenesin - Incentive graciela - O2 per nursing protocol - Flu PCR pending, if positive will continue Tamiflu - PO pred held Hyponatremia possibly secondary to dehydration vs URI - NSS with 20meq of KCL @ 125cc/h - repeat bmp in am - may be iatrogenic based on med req however patient does not have a history of hyponatremia HTN - cont amlodipine 5 mg , HCTZ 25 mg daily, losartan 100 mg daily TIA/ hyperlipidemia - continue ASA and plavix ( assess risk vs benefit of continued DAPT) - continue zocor 20 mg Mood disorder/ anxiety /peripheral neuropathy - amitryptaline 50 mg , Carbamazepine 200 mg bid - zoloft 75 mg qam - buspar 5 mg tid - gabapentin 600 mg tid Chronic back pain - continue baclofen 10 mg tid GERD/ Henderson's - continue protonix 20 mg bid and pepcid 20 mg daily - consider holding protonix if patient were to continue abx to decrease risk fo C diff DMII - bsg ac hs - Insulin ISS without CR, will assess need throughout stay and augment accordingly - metformin held Hypothyroidism - continue levothyroxine 100 mcg daily DVT prophylaxis - SCD and hep bid full code discharge planning eval as patient sole continuity person of and advanced dementia, lives in apartment building Attending addendum: I have physically seen this patient, have supervised the medical residents activities, and agree with the H&P unless as otherwise noted. Assessment and Plan: Acute on chronic COPD exacerbation-- Admit to nonmonitored bed Duonebs every 4 hours while awake and every 2 hours when necessary. Solu-Medrol 125 mg IV given in the ED, they would continue 40 mg IV every 8 hours Guaifenesin extended release 600 mg by mouth twice a day Follow-up negative influenza testing with PCR Doxycycline 100 mg by mouth twice a day If verified exposure, but normal influenza test, can continue tamiflu until PCR resulted Hyponatremia/hypertension/dehydration/HCTZ use-- Check serum and urine osmolality Hold HCTZ Amlodipine 5 mg daily and losartan 100 mg daily NSS + KCl 20 mEq at 125 ML's per hour Repeat BMP and magnesium level in the a.m. Level of Care Med/Surg Advanced Directives Existing Advance Directive: No Existing Living Will: No Existing Power of Lithographer Helper: No Resuscitation Status FULL RESUSCITATION VTE Prophylaxis Given or contraindicated: Unfractionated heparin SQ, SCD's Social Service Consult None Apply Note Total Time: Critical Care 30 - 74 minutes Additional Copies To Airam Malcolm C.R.N.P
[2017-11-07] MEDS ORDERED: ACETAMINOPHEN 325 MG TAB PO PRN (21:30)
[2017-11-07] MEDS ORDERED: GLUCAGON FOR INJ 1 MG VIAL SQ PRN (22:45)
[2017-11-07] MEDS ORDERED: GLUCOSE 10 TABS/TUBE PO PRN (22:45)
[2017-11-07] MEDS ORDERED: DEXTROSE 50% 50 ML SYR IV PRN (22:45)
[2017-11-07] MEDS ORDERED: GLUCOSE 40% GEL 15 GM TUBE PO PRN (22:45)
[2017-11-07] MEDS: NSS + 20MEQ KCL 1000ML 1,000 ML IV SCH (23:14)
[2017-11-07] MEDS: GUAIFENESIN 200 MG TAB PO SCH (23:14)
[2017-11-07] MEDS: HEPARIN SOD 5000 UNIT/0.5 ML CARP SQ SCH (23:16)
[2017-11-07 23:28] VITALS: O2SAT 96; BMI 32.0
[2017-11-07] MEDS ORDERED: DOXYCYCLINE IV 100 MG in DEXTROSE 5% 100ML 100 ML IV SCH (23:30)
[2017-11-08] VITALS (11 sets, daily range): BP systolic 109–191; BP diastolic 59–95; PULSE 60–90; TEMP 36.3–36.8; O2SAT 92–97
[2017-11-08] MEDS ORDERED: ALBUT/IPRATROP 3MG/0.5MG NEB 3 ML VIAL INH PRN
[2017-11-08] MEDS: ALBUT/IPRATROP 3MG/0.5MG NEB 3 ML VIAL INH SCH ×5 (00:04→18:57)
[2017-11-08] MEDS: HYDROCODONE/HOMATROPINE SYRUP 5MG/1.5MG 5ML UDP PO PRN (00:15)
[2017-11-08 00:32] LABS: INFLUENZA A PCR Neg for Influ A (NEG); INFLUENZA B PCR Neg for Influ B (NEG)
[2017-11-08] MEDS: GUAIFENESIN 200 MG TAB PO SCH ×6 (04:20→20:05)
[2017-11-08] MEDS: INSULIN ASPART 100 UNITS/ML 3 ML PEN SC SCH ×4 (06:30→20:23)
[2017-11-08] MEDS: LEVOTHYROXINE 125 MCG TAB PO SCH (06:31)
[2017-11-08] MEDS: SERTRALINE HCL 50 MG TAB PO SCH (07:17)
[2017-11-08] MEDS: CYANOCOBALAMIN 500 MCG TAB (VIT B-12) PO SCH (07:18)
[2017-11-08] MEDS: PANTOprazole SOD 40 MG TAB PO SCH ×2 (07:18→20:06)
[2017-11-08] MEDS: BACLOFEN 10 MG TAB PO SCH ×3 (07:19→20:10)
[2017-11-08] MEDS: CLOPIDOGREL BISULFATE 75 MG TAB PO SCH (07:19)
[2017-11-08] MEDS: AMLODIPINE BESYLATE 5 MG TAB PO SCH (07:20)
[2017-11-08] MEDS: FAMOTIDINE 20 MG TAB PO SCH (07:20)
[2017-11-08] MEDS: GABAPENTIN 600 MG TAB PO SCH ×3 (07:21→20:07)
[2017-11-08] MEDS: CALCIUM 600MG + VIT D 400 IU TAB PO SCH (07:21)
[2017-11-08] MEDS: LOSARTAN POTASSIUM 50 MG TAB PO SCH (07:22)
[2017-11-08] MEDS: HYDROCHLOROTHIAZIDE 25 MG TAB PO SCH (07:22)
[2017-11-08 07:43] LABS: BASO % 0.1 %; BASO ABS # 0.01 K/uL (0-0.2); HEMATOCRIT 31.6 % (37-47); HEMOGLOBIN 10.6 g/dL (12.0-16.0); IG# 0.07 K/uL (0.00-0.02); LYMPH % 22.6 %; LYMPH ABS # 1.84 K/uL (1.2-3.4); MEAN CELL VOLUME 96.3 fL (80-100); MEAN CORPUSCULAR HEMOGLOBIN 32.3 pg (25-34); MEAN CORPUSCULAR HGB CONC 33.5 g/dl (32-36); MEAN PLATELET VOLUME 8.4 fL (7.4-10.4); MONO % 10.4 %; MONO ABS # 0.85 K/uL (0.11-0.59); NEUT ABS # 5.38 K/uL (1.4-6.5); PLATELET COUNT 198 K/uL (130-400); RED CELL DISTRIBUTION WIDTH CV 14.3 % (11.5-14.5); RED CELL DISTRIBUTION WIDTH SD 50.2 fL (36.4-46.3); WHITE BLOOD COUNT 8.15 K/uL (4.8-10.8)
[2017-11-08 08:06] LABS: CALCIUM 8.5 mg/dl (8.5-10.1); CREATININE 0.9 mg/dl (0.60-1.20); POTASSIUM 3.9 mmol/L (3.5-5.1)
[2017-11-08] MEDS: CARBAMAZEPINE 200 MG TAB PO SCH ×2 (08:50→20:06)
[2017-11-08] MEDS: HEPARIN SOD 5000 UNIT/0.5 ML CARP SQ SCH ×2 (08:52→20:28)
[2017-11-08] MEDS: NSS + 20MEQ KCL 1000ML 1,000 ML IV SCH ×2 (08:53→13:18)
[2017-11-08] MEDS: METHYLPREDNISOLONE IV 60 MG in SYRINGE 0 ML IV SCH ×2 (08:53→20:08)
--- NOTE | 2017-11-08 19:36 | Family Medicine Progress Note ---
Progress Note Date of Service Nov 08, 2017. Subjective Pt evaluation today including: conversation w/ patient, physical exam, chart review, lab review Pain: denies any pain this AM PO Intake: tolerating Voiding: no voiding problems This AM reports wheezing at rest and worsening of sob with exertion. Cough non productive. Associated with fatigue. Denies any cp, n/v, abd pn, f/c. Constitutional: No fever, No chills Respiratory: + cough, + shortness of breath, + dyspnea on exertion, No sputum Cardiovascular: No chest pain Abdomen: No pain, No nausea, No vomiting Female : No dysuria Medications Current Inpatient Medications Medications (Trade) Dose Ordered Sig/Jeannie Route Start Time Stop Time Status Last Admin Dose Admin Ioversol (Optiray 320) 125 ml UD PRN IV 11/07/17 15:45 11/11/17 15:44 Potassium Chloride/Sodium Chloride 1,000 ml @ 125 mls/hr Q8H IV 11/07/17 23:00 12/07/17 22:59 11/08/17 13:18 125 MLS/HR Acetaminophen (Tylenol Tab) 650 mg Q4H PRN PO 11/07/17 21:30 12/07/17 21:29 Al Hydrox/Mg Hydrox/Simethicone (Maalox Max Susp) 15 ml Q4H PRN PO 11/07/17 21:30 12/07/17 21:29 Magnesium Hydroxide (Milk Of Magnesia Susp) 30 ml Q6H PRN PO 11/07/17 21:30 12/07/17 21:29 Polyethylene (Miralax Powder Packet) 17 gm DAILY PRN PO 11/07/17 23:00 12/07/17 22:59 Ondansetron HCl (Zofran Inj) 4 mg Q6H PRN IV 11/07/17 21:30 12/07/17 21:29 Heparin Sodium (Porcine) (Heparin Sq 5000 Unit/0.5ml) 5,000 unit Q12 SQ 11/07/17 23:15 12/07/17 23:14 11/08/17 08:52 5,000 UNIT Methylprednisolone Sodium Succinate 60 mg/Syringe 0.96 ml @ 1.5 mls/min BID IV 11/08/17 09:00 12/08/17 08:59 11/08/17 08:53 1.5 MLS/MIN Albuterol/ Ipratropium (Duoneb) 3 ml QIDR INH 11/08/17 08:00 12/08/17 07:59 11/08/17 18:57 3 ML Guaifenesin (Organidin Nr Tab) 200 mg Q4 PO 11/07/17 22:15 12/07/17 22:14 11/08/17 16:04 200 MG Insulin Aspart (novoLOG ASPART) SLIDING SCALE G... ACHS SC 11/08/17 06:30 12/08/17 06:59 Amitriptyline HCl (Elavil Tab) 50 mg HS PO 11/08/17 21:00 12/08/17 20:59 Amlodipine Besylate (Norvasc Tab) 5 mg QAM PO 11/08/17 09:00 12/08/17 08:59 11/08/17 07:20 5 MG Baclofen (Lioresal Tab) 10 mg TID PO 11/08/17 09:00 12/08/17 08:59 11/08/17 13:18 10 MG Buspirone HCl (Buspar Tab) 5 mg BID PO 11/08/17 09:00 12/08/17 08:59 11/08/17 07:19 5 MG Carbamazepine (Tegretol Tab) 200 mg BID PO 11/08/17 09:00 12/08/17 08:59 11/08/17 08:50 200 MG Clopidogrel Bisulfate (plAVix TAB) 75 mg QAM PO 11/08/17 09:00 12/08/17 08:59 11/08/17 07:19 75 MG Cyanocobalamin (Vitamin B-12 Tab) 500 mcg QAM PO 11/08/17 09:00 12/08/17 08:59 11/08/17 07:18 500 MCG Famotidine (Pepcid Tab) 20 mg QAM PO 11/08/17 09:00 12/08/17 08:59 11/08/17 07:20 20 MG Gabapentin (Neurontin Tab) 600 mg TID PO 11/08/17 09:00 12/08/17 08:59 11/08/17 13:18 600 MG Hydrochlorothiazide (Hydrochlorothiazide Tab) 25 mg QAM PO 11/08/17 09:00 12/08/17 08:59 11/08/17 07:22 25 MG Levothyroxine Sodium (Synthroid Tab) 125 mcg DAILYBB PO 11/08/17 06:30 12/08/17 06:29 11/08/17 06:31 125 MCG Losartan Potassium (coZAAR TAB) 100 mg QAM PO 11/08/17 09:00 12/08/17 08:59 11/08/17 07:22 100 MG Sertraline HCl (Zoloft Tab) 75 mg QAM PO 11/08/17 09:00 12/08/17 08:59 11/08/17 07:17 75 MG Simvastatin (Zocor Tab) 20 mg QPM PO 11/08/17 21:00 12/08/17 20:59 Calcium/Vitamin D (Caltrate Plus Tab) 1 tab DAILY PO 11/08/17 09:00 12/08/17 08:59 11/08/17 07:21 1 TAB Pantoprazole Sodium (Protonix Tab) 40 mg BID PO 11/08/17 09:00 12/08/17 08:59 11/08/17 07:18 40 MG Glucose (Glucose 40% Gel) 15-30 GRAMS 15 GRAMS... UD PRN PO 11/07/17 22:45 12/07/17 22:44 Glucose (Glucose Chew Tab) 4-8 Tablets 4 Tabl... UD PRN PO 11/07/17 22:45 12/07/17 22:44 Dextrose (Dextrose 50% 50ML Syringe) 25-50ML OF 50% DW IV FOR... UD PRN IV 11/07/17 22:45 12/07/17 22:44 Glucagon (Glucagon Inj) 1 mg UD PRN SQ 11/07/17 22:45 12/07/17 22:44 Hydrocodone Bit/ Homatropine Methylb (Hycodan Syrup) 5 ml QID PRN PO 11/08/17 00:00 11/22/17 00:00 11/08/17 00:15 5 ML Albuterol/ Ipratropium (Duoneb) 3 ml Q2H PRN INH 11/08/17 00:00 12/08/17 00:00 Objective Vital Signs Date Time Temp Pulse Resp B/P (MAP) Pulse Ox O2 Delivery O2 Flow Rate FiO2 11/08/17 17:00 36.4 84 18 175/76 (109) 95 Room Air 11/08/17 14:57 36.3 60 18 109/59 (76) 93 Nasal Cannula 3.0 11/08/17 14:40 80 18 97 Room Air 11/08/17 11:10 74 15 96 Room Air 11/08/17 08:45 Room Air 11/08/17 08:32 164/81 (108) 11/08/17 07:26 36.8 74 18 191/95 (127) 97 Room Air 11/08/17 07:04 76 16 97 Room Air 11/08/17 00:04 90 16 96 Room Air 11/08/17 00:00 96 Room Air 11/07/17 23:28 96 Room Air 11/07/17 21:58 106 22 146/82 96 11/07/17 20:45 98 22 150/70 94 Room Air 11/07/17 20:25 37.0 93 19 150/72 (98) 94 Room Air Physical Exam General Appearance: + mild distress Eyes: normal inspection, sclerae normal Respiratory/Chest: normal breath sounds, + rhonchi, + wheezing (expiratory) Cardiovascular: regular rate, rhythm, no murmur Extremities: non-tender, no pedal edema Neurologic/Psychiatric: alert, oriented x 3 Skin: warm/dry Laboratory Results 11/08/17 07:23 Red Blood Count 3.28, Mean Corpuscular Volume 96.3, Mean Corpuscular Hemoglobin 32.3, Mean Corpuscular Hemoglobin Concent 33.5, Mean Platelet Volume 8.4, Neutrophils (%) (Auto) 66.0, Lymphocytes (%) (Auto) 22.6, Monocytes (%) (Auto) 10.4, Eosinophils (%) (Auto) 0.0, Basophils (%) (Auto) 0.1, Neutrophils # (Auto ) 5.38, Lymphocytes # (Auto) 1.84, Monocytes # (Auto) 0.85, Eosinophils # (Auto ) 0.00, Basophils # (Auto) 0.01 11/08/17 07:23 Test 11/07/17 22:30 11/08/17 07:23 11/08/17 16:53 Influenza Type A (RT-PCR) Neg for Influ A (NEG) Influenza Type B (RT-PCR) Neg for Influ B (NEG) White Blood Count 8.15 K/uL (4.8-10.8) Red Blood Count 3.28 M/uL (4.2-5.4) Hemoglobin 10.6 g/dL (12.0-16.0) Hematocrit 31.6 % (37-47) Mean Corpuscular Volume 96.3 fL (80-100) Mean Corpuscular Hemoglobin 32.3 pg (25-34) Mean Corpuscular Hemoglobin Concent 33.5 g/dl (32-36) Platelet Count 198 K/uL (130-400) Mean Platelet Volume 8.4 fL (7.4-10.4) Neutrophils (%) (Auto) 66.0 % Lymphocytes (%) (Auto) 22.6 % Monocytes (%) (Auto) 10.4 % Eosinophils (%) (Auto) 0.0 % Basophils (%) (Auto) 0.1 % Neutrophils # (Auto) 5.38 K/uL (1.4-6.5) Lymphocytes # (Auto) 1.84 K/uL (1.2-3.4) Monocytes # (Auto) 0.85 K/uL (0.11-0.59) Eosinophils # (Auto) 0.00 K/uL (0-0.5) Basophils # (Auto) 0.01 K/uL (0-0.2) RDW Standard Deviation 50.2 fL (36.4-46.3) RDW Coefficient of Variation 14.3 % (11.5-14.5) Immature Granulocyte % (Auto) 0.9 % Immature Granulocyte # (Auto) 0.07 K/uL (0.00-0.02) Anion Gap 9.0 mmol/L (3-11) Est Creatinine Clear Calc Drug Dose 55.6 ml/min Estimated GFR () 73.0 Estimated GFR (Non- 63.0 BUN/Creatinine Ratio 23.2 (10-20) Calcium Level 8.5 mg/dl (8.5-10.1) Bedside Glucose 141 mg/dl (70-90) Assessment and Plan 72 yoF with hx of COPD admitted for acute COPD exacerbation likely viral vs bacterial in etiology. No focal findings on imaging reflective of a bacterial infection however will cover for atypical with doxycycline. No chest pain or EKG changes concerning for ischemia and Troponin neg. Influenza antigen negative f/u on PCR and consider Tamiflu if positive. Acute on chronic COPD exacerbation without hypoxia - Methyl pred 125 mg IV given in ED with Doxy 100 mg IV x 1 - Started on Doxycycline 100mg BID PO - Continue Duoneb scheduled - Continue methyl pred 60 mg bid IV - Continue Guaifenesin - Incentive graciela - O2 per nursing protocol - Flu antigen neg. Flu PCR pending, if positive give Tamiflu Hyponatremia possibly secondary to dehydration vs URI - resolved - Received NSS with 20meq of KCL @ 125cc/h - BMP this AM Na 136 HTN - Continue mlodipine 5 mg, HCTZ 25 mg daily, losartan 100 mg daily TIA/ hyperlipidemia - Continue ASA and plavix - Continue zocor 20 mg Mood disorder/ anxiety /peripheral neuropathy - Continue amitryptaline 50 mg, Carbamazepine 200 mg bid - Continue zoloft 75 mg qam - Continue buspar 5 mg tid - Continue gabapentin 600 mg tid Chronic back pain - continue baclofen 10 mg tid GERD/ Henderson's - continue protonix 20 mg bid and pepcid 20 mg daily DMII - bsg ac hs - Insulin SS - metformin held Hypothyroidism - continue levothyroxine 100 mcg daily DVT prophylaxis - SCD and hep bid full code discharge planning eval as 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 Discussed with Dr. Aparicio and agree with findings and plan as documented in the note. Any exceptions or clarifications are listed here: None Documented By: Les Motley feeling lousy vitals noted rhonchi audible even from bedside, fortunately no accessory muscles COPD exacerbation - improving - continue current care, stable but VERY sypmtomatic and certainly too weak for home Resident Involvement: Resident Care Provided Care Provided: Adult Hospital Medicine
[2017-11-08] MEDS: AMITRIPTYLINE HCL 50 MG TAB PO SCH (20:09)
[2017-11-08] MEDS: SIMVASTATIN 20 MG TAB PO SCH (20:09)
[2017-11-08] MEDS: DOXYCYCLINE HYCLATE 100 MG CAP PO SCH (20:18)
[2017-11-09] VITALS (7 sets, daily range): BP systolic 173–195; BP diastolic 82–98; PULSE 68–79; TEMP 36.3–37.1; O2SAT 91–97
[2017-11-09] MEDS: HYDROCODONE/HOMATROPINE SYRUP 5MG/1.5MG 5ML UDP PO PRN
[2017-11-09] MEDS: GUAIFENESIN 200 MG TAB PO SCH ×6 (04:17→21:24)
[2017-11-09] MEDS: LEVOTHYROXINE 125 MCG TAB PO SCH (06:10)
[2017-11-09 06:28] LABS: BASO % 0.1 %; BASO ABS # 0.01 K/uL (0-0.2); HEMATOCRIT 30.6 % (37-47); HEMOGLOBIN 10.1 g/dL (12.0-16.0); IG# 0.15 K/uL (0.00-0.02); LYMPH ABS # 1.35 K/uL (1.2-3.4); MEAN CELL VOLUME 96.2 fL (80-100); MEAN CORPUSCULAR HEMOGLOBIN 31.8 pg (25-34); MEAN PLATELET VOLUME 8.3 fL (7.4-10.4); MONO % 9.5 %; MONO ABS # 0.71 K/uL (0.11-0.59); NEUT % 70.4 %; NEUT ABS # 5.29 K/uL (1.4-6.5); PLATELET COUNT 199 K/uL (130-400); RED CELL DISTRIBUTION WIDTH CV 14.5 % (11.5-14.5); RED CELL DISTRIBUTION WIDTH SD 51.2 fL (36.4-46.3); WHITE BLOOD COUNT 7.51 K/uL (4.8-10.8)
[2017-11-09] MEDS: INSULIN ASPART 100 UNITS/ML 3 ML PEN SC SCH ×4 (06:30→21:00)
[2017-11-09 07:04] LABS: CALCIUM 8.4 mg/dl (8.5-10.1); CREATININE 1.05 mg/dl (0.60-1.20); POTASSIUM 4.2 mmol/L (3.5-5.1)
[2017-11-09] MEDS: ALBUT/IPRATROP 3MG/0.5MG NEB 3 ML VIAL INH SCH ×4 (07:06→19:07)
[2017-11-09] MEDS: GABAPENTIN 600 MG TAB PO SCH ×3 (07:32→21:24)
[2017-11-09] MEDS: CARBAMAZEPINE 200 MG TAB PO SCH ×2 (07:32→21:24)
[2017-11-09] MEDS: FAMOTIDINE 20 MG TAB PO SCH (07:33)
[2017-11-09] MEDS: DOXYCYCLINE HYCLATE 100 MG CAP PO SCH ×2 (07:33→21:24)
[2017-11-09] MEDS: HYDROCHLOROTHIAZIDE 25 MG TAB PO SCH (07:33)
[2017-11-09] MEDS: PANTOprazole SOD 40 MG TAB PO SCH ×2 (07:34→21:25)
[2017-11-09] MEDS: SERTRALINE HCL 50 MG TAB PO SCH (07:34)
[2017-11-09] MEDS: BACLOFEN 10 MG TAB PO SCH ×3 (07:34→21:24)
[2017-11-09] MEDS: CLOPIDOGREL BISULFATE 75 MG TAB PO SCH (07:34)
[2017-11-09] MEDS: CALCIUM 600MG + VIT D 400 IU TAB PO SCH (07:34)
[2017-11-09] MEDS: AMLODIPINE BESYLATE 5 MG TAB PO SCH (07:34)
[2017-11-09] MEDS: CYANOCOBALAMIN 500 MCG TAB (VIT B-12) PO SCH (07:34)
[2017-11-09] MEDS: LOSARTAN POTASSIUM 50 MG TAB PO SCH (07:35)
[2017-11-09] MEDS: HEPARIN SOD 5000 UNIT/0.5 ML CARP SQ SCH ×2 (07:36→21:27)
[2017-11-09] MEDS: METHYLPREDNISOLONE IV 60 MG in SYRINGE 0 ML IV SCH ×2 (07:59→21:24)
--- NOTE | 2017-11-09 20:23 | Family Medicine Progress Note ---
Progress Note Date of Service Nov 09, 2017. Subjective Pt evaluation today including: conversation w/ patient, physical exam, chart review, lab review Pain: denies any discomfort PO Intake: tolerating Voiding: no voiding problems reports mild improvement in sob which is worse with exertion, still having cough with yellowish/green sputum. No cp. Constitutional: No fever, No chills Respiratory: + cough, + sputum, + shortness of breath, + dyspnea on exertion Cardiovascular: No chest pain Abdomen: No pain, No nausea, No vomiting Female : No dysuria Medications Current Inpatient Medications Medications (Trade) Dose Ordered Sig/Jeannie Route Start Time Stop Time Status Last Admin Dose Admin Ioversol (Optiray 320) 125 ml UD PRN IV 11/07/17 15:45 11/11/17 15:44 Acetaminophen (Tylenol Tab) 650 mg Q4H PRN PO 11/07/17 21:30 12/07/17 21:29 Al Hydrox/Mg Hydrox/Simethicone (Maalox Max Susp) 15 ml Q4H PRN PO 11/07/17 21:30 12/07/17 21:29 Magnesium Hydroxide (Milk Of Magnesia Susp) 30 ml Q6H PRN PO 11/07/17 21:30 12/07/17 21:29 Polyethylene (Miralax Powder Packet) 17 gm DAILY PRN PO 11/07/17 23:00 12/07/17 22:59 Ondansetron HCl (Zofran Inj) 4 mg Q6H PRN IV 11/07/17 21:30 12/07/17 21:29 Heparin Sodium (Porcine) (Heparin Sq 5000 Unit/0.5ml) 5,000 unit Q12 SQ 11/07/17 23:15 12/07/17 23:14 11/09/17 07:36 5,000 UNIT Methylprednisolone Sodium Succinate 60 mg/Syringe 0.96 ml @ 1.5 mls/min BID IV 11/08/17 09:00 12/08/17 08:59 11/09/17 07:59 1.5 MLS/MIN Albuterol/ Ipratropium (Duoneb) 3 ml QIDR INH 11/08/17 08:00 12/08/17 07:59 11/09/17 19:07 3 ML Guaifenesin (Organidin Nr Tab) 200 mg Q4 PO 11/07/17 22:15 12/07/17 22:14 11/09/17 16:02 200 MG Insulin Aspart (novoLOG ASPART) SLIDING SCALE G... ACHS SC 11/08/17 06:30 12/08/17 06:59 Amitriptyline HCl (Elavil Tab) 50 mg HS PO 11/08/17 21:00 12/08/17 20:59 11/08/17 20:09 50 MG Amlodipine Besylate (Norvasc Tab) 5 mg QAM PO 11/08/17 09:00 12/08/17 08:59 11/09/17 07:34 5 MG Baclofen (Lioresal Tab) 10 mg TID PO 11/08/17 09:00 12/08/17 08:59 11/09/17 13:11 10 MG Buspirone HCl (Buspar Tab) 5 mg BID PO 11/08/17 09:00 12/08/17 08:59 11/09/17 07:32 5 MG Carbamazepine (Tegretol Tab) 200 mg BID PO 11/08/17 09:00 12/08/17 08:59 11/09/17 07:32 200 MG Clopidogrel Bisulfate (plAVix TAB) 75 mg QAM PO 11/08/17 09:00 12/08/17 08:59 11/09/17 07:34 75 MG Cyanocobalamin (Vitamin B-12 Tab) 500 mcg QAM PO 11/08/17 09:00 12/08/17 08:59 11/09/17 07:34 500 MCG Famotidine (Pepcid Tab) 20 mg QAM PO 11/08/17 09:00 12/08/17 08:59 11/09/17 07:33 20 MG Gabapentin (Neurontin Tab) 600 mg TID PO 11/08/17 09:00 12/08/17 08:59 11/09/17 13:11 600 MG Hydrochlorothiazide (Hydrochlorothiazide Tab) 25 mg QAM PO 11/08/17 09:00 12/08/17 08:59 11/09/17 07:33 25 MG Levothyroxine Sodium (Synthroid Tab) 125 mcg DAILYBB PO 11/08/17 06:30 12/08/17 06:29 11/09/17 06:10 125 MCG Losartan Potassium (coZAAR TAB) 100 mg QAM PO 11/08/17 09:00 12/08/17 08:59 11/09/17 07:35 100 MG Sertraline HCl (Zoloft Tab) 75 mg QAM PO 11/08/17 09:00 12/08/17 08:59 11/09/17 07:34 75 MG Simvastatin (Zocor Tab) 20 mg QPM PO 11/08/17 21:00 12/08/17 20:59 11/08/17 20:09 20 MG Calcium/Vitamin D (Caltrate Plus Tab) 1 tab DAILY PO 11/08/17 09:00 12/08/17 08:59 11/09/17 07:34 1 TAB Pantoprazole Sodium (Protonix Tab) 40 mg BID PO 11/08/17 09:00 12/08/17 08:59 11/09/17 07:34 40 MG Glucose (Glucose 40% Gel) 15-30 GRAMS 15 GRAMS... UD PRN PO 11/07/17 22:45 12/07/17 22:44 Glucose (Glucose Chew Tab) 4-8 Tablets 4 Tabl... UD PRN PO 11/07/17 22:45 12/07/17 22:44 Dextrose (Dextrose 50% 50ML Syringe) 25-50ML OF 50% DW IV FOR... UD PRN IV 11/07/17 22:45 12/07/17 22:44 Glucagon (Glucagon Inj) 1 mg UD PRN SQ 11/07/17 22:45 12/07/17 22:44 Hydrocodone Bit/ Homatropine Methylb (Hycodan Syrup) 5 ml QID PRN PO 11/08/17 00:00 11/22/17 00:00 11/09/17 00:00 5 ML Albuterol/ Ipratropium (Duoneb) 3 ml Q2H PRN INH 11/08/17 00:00 12/08/17 00:00 Doxycycline Hyclate (Vibramycin Cap) 100 mg BID PO 11/08/17 21:00 11/15/17 20:59 11/09/17 07:33 100 MG Objective Vital Signs Date Time Temp Pulse Resp B/P (MAP) Pulse Ox O2 Delivery O2 Flow Rate FiO2 11/09/17 19:07 79 16 97 Room Air 11/09/17 16:00 Room Air 11/09/17 15:17 37.1 75 18 173/82 (112) 91 11/09/17 15:16 78 16 96 Room Air 11/09/17 11:05 78 16 96 Room Air 11/09/17 08:00 Room Air 11/09/17 07:15 36.7 68 18 193/90 (124) 95 Room Air 11/09/17 07:05 68 16 95 Room Air 11/09/17 00:30 Room Air 11/08/17 23:49 36.8 70 20 186/82 (116) 92 Room Air Physical Exam General Appearance: + mild distress, + pertinent finding (can hear rhonchi from bedside) Eyes: normal inspection, sclerae normal Respiratory/Chest: normal breath sounds, + rhonchi Cardiovascular: regular rate, rhythm, no murmur Abdomen: normal bowel sounds, non tender, soft Extremities: non-tender, no pedal edema Laboratory Results 11/09/17 05:58 Red Blood Count 3.18, Mean Corpuscular Volume 96.2, Mean Corpuscular Hemoglobin 31.8, Mean Corpuscular Hemoglobin Concent 33.0, Mean Platelet Volume 8.3, Neutrophils (%) (Auto) 70.4, Lymphocytes (%) (Auto) 18.0, Monocytes (%) (Auto) 9.5, Eosinophils (%) (Auto) 0.0, Basophils (%) (Auto) 0.1, Neutrophils # (Auto) 5.29, Lymphocytes # (Auto) 1.35, Monocytes # (Auto) 0.71, Eosinophils # (Auto) 0.00, Basophils # (Auto) 0.01 11/09/17 05:58 Test 11/09/17 05:58 11/09/17 20:10 White Blood Count 7.51 K/uL (4.8-10.8) Red Blood Count 3.18 M/uL (4.2-5.4) Hemoglobin 10.1 g/dL (12.0-16.0) Hematocrit 30.6 % (37-47) Mean Corpuscular Volume 96.2 fL (80-100) Mean Corpuscular Hemoglobin 31.8 pg (25-34) Mean Corpuscular Hemoglobin Concent 33.0 g/dl (32-36) Platelet Count 199 K/uL (130-400) Mean Platelet Volume 8.3 fL (7.4-10.4) Neutrophils (%) (Auto) 70.4 % Lymphocytes (%) (Auto) 18.0 % Monocytes (%) (Auto) 9.5 % Eosinophils (%) (Auto) 0.0 % Basophils (%) (Auto) 0.1 % Neutrophils # (Auto) 5.29 K/uL (1.4-6.5) Lymphocytes # (Auto) 1.35 K/uL (1.2-3.4) Monocytes # (Auto) 0.71 K/uL (0.11-0.59) Eosinophils # (Auto) 0.00 K/uL (0-0.5) Basophils # (Auto) 0.01 K/uL (0-0.2) RDW Standard Deviation 51.2 fL (36.4-46.3) RDW Coefficient of Variation 14.5 % (11.5-14.5) Immature Granulocyte % (Auto) 2.0 % Immature Granulocyte # (Auto) 0.15 K/uL (0.00-0.02) Anion Gap 6.0 mmol/L (3-11) Est Creatinine Clear Calc Drug Dose 47.7 ml/min Estimated GFR () 60.6 Estimated GFR (Non- 52.3 BUN/Creatinine Ratio 24.1 (10-20) Calcium Level 8.4 mg/dl (8.5-10.1) Bedside Glucose 144 mg/dl (70-90) Assessment and Plan 72 yoF with hx of COPD admitted for acute COPD exacerbation likely viral vs bacterial in etiology. No focal findings on imaging reflective of a bacterial infection however will cover for atypical with doxycycline. No chest pain or EKG changes concerning for ischemia and Troponin neg. Influenza PCR neg. Acute on chronic COPD exacerbation without hypoxia - Flu PCR neg - Methyl pred 125 mg IV given in ED with Doxy 100 mg IV x 1 - Continue on Doxycycline 100mg BID PO - Continue methyl pred 60 mg bid IV - Continue Duoneb scheduled - Continue Guaifenesin - Incentive graciela - O2 per protocol Hyponatremia possibly secondary to dehydration vs URI - resolved - Received NSS with 20meq of KCL @ 125cc/h - BMP this AM Na 133 HTN - Continue mlodipine 5 mg, HCTZ 25 mg daily, losartan 100 mg daily TIA/ hyperlipidemia - Continue ASA and plavix - Continue zocor 20 mg Mood disorder/ anxiety /peripheral neuropathy - Continue amitryptaline 50 mg, Carbamazepine 200 mg bid - Continue zoloft 75 mg qam - Continue buspar 5 mg tid - Continue gabapentin 600 mg tid Chronic back pain - continue baclofen 10 mg tid GERD/ Henderson's - continue protonix 20 mg bid and pepcid 20 mg daily DMII - bsg ac hs - Insulin SS - metformin held Hypothyroidism - continue levothyroxine 100 mcg daily DVT prophylaxis - SCD and hep bid full code Resident Physician Supervision Note: I interviewed and examined the patient. Discussed with Dr. Aparicio and agree with findings and plan as documented in the note. Any exceptions or clarifications are listed here: None Documented By: Les Motley breathing about the same vitals still stable, ongoign rhonchi no accessory muscles, no hypoxia COPD exacerbation - anticipate slow improvement, otherwise as above Resident Involvement: Resident Care Provided Care Provided: Adult Hospital Medicine Resident Tracking Resident Involvement: Resident Care Provided Care Provided: Adult Hospital Medicine
[2017-11-09] MEDS: AMITRIPTYLINE HCL 50 MG TAB PO SCH (21:24)
[2017-11-09] MEDS: SIMVASTATIN 20 MG TAB PO SCH (21:24)
[2017-11-10] VITALS (16 sets, daily range): BP systolic 137–198; BP diastolic 63–100; PULSE 68–87; TEMP 36.3–37.2; O2SAT 92–99
[2017-11-10] MEDS: GUAIFENESIN 200 MG TAB PO SCH ×6 (00:55→20:34)
[2017-11-10] MEDS: ALBUT/IPRATROP 3MG/0.5MG NEB 3 ML VIAL INH SCH ×5 (01:07→19:02)
[2017-11-10] MEDS ORDERED: HydrALAZINE HCL 20 MG/ML VIAL IV. STA (01:20)
[2017-11-10] MEDS ORDERED: HydrALAZINE HCL 20 MG/ML VIAL ONE (01:23)
[2017-11-10] MEDS ORDERED: ALBUT/IPRATROP 3MG/0.5MG NEB 3 ML VIAL INH STA (02:09)
[2017-11-10] MEDS ORDERED: PIPERACILL/TAZOBAC IV 3.375 GM in DEXTROSE 5% 100ML 100 ML IV ONE (02:13)
[2017-11-10] MEDS ORDERED: PIPERACILL/TAZOBAC CONSULT ACTIVE PRN ×2 (02:15)
[2017-11-10] MEDS ORDERED: VANCOMYCIN CONSULT ACTIVE PRN (02:15)
--- NOTE | 2017-11-10 02:19 | Progress Note ---
Progress Note Date of Service Nov 10, 2017. Progress Note acute dyspnea, chest pressure very poor air movement with exp wheezing throughout, resp distress with accessory muscle use, hypertensive with sys >180, anxiety - CXR with interval development of possible consolidation in RLL and peribronchial cuffing can be appreciated - duoneb x 1 hour, ativan 1 mg IV, supplement Mg pending level, trop EKG repeated as poor quality however no ischemic changes noted, transfer to tele added zosyn and vanco for extended coverage, cont PO doxy for atypical
[2017-11-10 02:23] LABS: BLOOD UREA NITROGEN 28 mg/dl (7-18); CARBON DIOXIDE 25 mmol/L (21-32); CREATININE 1.26 mg/dl (0.60-1.20); GLUCOSE 151 mg/dl (70-99); POTASSIUM 3.9 mmol/L (3.5-5.1); SODIUM 131 mmol/L (136-145)
[2017-11-10] MEDS ORDERED: VANCOMYCIN INJ 2,000 MG in SODIUM CHLORIDE 0.9% 500ML 500 ML IV SCH (02:30)
[2017-11-10] MEDS ORDERED: MAGNESIUM SULFATE 1GM / D5W 1 GM in PREMIXED IN D5W 100 ML IV ONE (02:38)
[2017-11-10] MEDS ORDERED: LORAZEPAM 2 MG/ML 1 ML VIAL IV STA (02:39)
[2017-11-10] MEDS ORDERED: MAGNESIUM SULFATE 1GM / D5W 1 GM in PREMIXED IN D5W 100 ML IV SCH (03:30)
[2017-11-10 05:24] LABS: BASO % 0.4 %; BASO ABS # 0.03 K/uL (0-0.2); HEMATOCRIT 31.5 % (37-47); HEMOGLOBIN 10.5 g/dL (12.0-16.0); IG# 0.39 K/uL (0.00-0.02); LYMPH % 13.4 %; LYMPH ABS # 1.14 K/uL (1.2-3.4); MEAN CELL VOLUME 96.6 fL (80-100); MEAN CORPUSCULAR HEMOGLOBIN 32.2 pg (25-34); MEAN CORPUSCULAR HGB CONC 33.3 g/dl (32-36); MEAN PLATELET VOLUME 8.2 fL (7.4-10.4); MONO % 6.4 %; MONO ABS # 0.54 K/uL (0.11-0.59); NEUT % 75.2 %; NEUT ABS # 6.38 K/uL (1.4-6.5); PLATELET COUNT 189 K/uL (130-400); RED CELL DISTRIBUTION WIDTH CV 14.5 % (11.5-14.5); RED CELL DISTRIBUTION WIDTH SD 51.5 fL (36.4-46.3); WHITE BLOOD COUNT 8.48 K/uL (4.8-10.8)
[2017-11-10 05:59] LABS: CALCIUM 8.3 mg/dl (8.5-10.1); CREATININE 1.31 mg/dl (0.60-1.20); POTASSIUM 3.8 mmol/L (3.5-5.1)
[2017-11-10] MEDS: LEVOTHYROXINE 125 MCG TAB PO SCH (06:09)
--- NOTE | 2017-11-10 06:38 | DIAGNOSTIC IMAGING REPORT ---
CHEST ONE VIEW PORTABLE CLINICAL HISTORY: dyspnea dyspnea COMPARISON STUDY: 11/07/2017 FINDINGS: Mild stable cardiomegaly. Lungs remain clear. Diaphragms are smooth. IMPRESSION: Mild stable cardiomegaly. The lungs remain clear. The above report was generated using voice recognition software. It may contain grammatical, syntax or spelling errors. Electronically signed by: Jatin Bhandari M.D. 11/10/2017 6:36 AM Dictated Date/Time: 11/10/2017 6:36 AM
[2017-11-10] MEDS ORDERED: PIPERACILL/TAZOBAC IV 3.375 GM in DEXTROSE 5% 100ML 100 ML IV SCH (08:00)
[2017-11-10] MEDS: CARBAMAZEPINE 200 MG TAB PO SCH ×2 (08:20→20:38)
[2017-11-10] MEDS: FAMOTIDINE 20 MG TAB PO SCH (08:20)
[2017-11-10] MEDS: PANTOprazole SOD 40 MG TAB PO SCH ×2 (08:21→20:38)
[2017-11-10] MEDS: BACLOFEN 10 MG TAB PO SCH ×3 (08:21→20:36)
[2017-11-10] MEDS: GABAPENTIN 600 MG TAB PO SCH ×3 (08:21→20:37)
[2017-11-10] MEDS: SERTRALINE HCL 50 MG TAB PO SCH (08:22)
[2017-11-10] MEDS: LOSARTAN POTASSIUM 50 MG TAB PO SCH (08:22)
[2017-11-10] MEDS: DOXYCYCLINE HYCLATE 100 MG CAP PO SCH ×2 (08:22→20:39)
[2017-11-10] MEDS: CALCIUM 600MG + VIT D 400 IU TAB PO SCH (08:23)
[2017-11-10] MEDS: CYANOCOBALAMIN 500 MCG TAB (VIT B-12) PO SCH (08:23)
[2017-11-10] MEDS: CLOPIDOGREL BISULFATE 75 MG TAB PO SCH (08:23)
[2017-11-10] MEDS: AMLODIPINE BESYLATE 5 MG TAB PO SCH (08:24)
[2017-11-10] MEDS: HYDROCHLOROTHIAZIDE 25 MG TAB PO SCH (08:25)
[2017-11-10] MEDS: HEPARIN SOD 5000 UNIT/0.5 ML CARP SQ SCH ×2 (08:28→20:46)
[2017-11-10] MEDS: METHYLPREDNISOLONE IV 60 MG in SYRINGE 0 ML IV SCH ×2 (08:33→20:34)
[2017-11-10] MEDS: INSULIN ASPART 100 UNITS/ML 3 ML PEN SC SCH ×4 (08:38→20:40)
[2017-11-10] MEDS ORDERED: VANCOMYCIN INJ 1,000 MG in SODIUM CHLORIDE 0.9% 250ML 250 ML IV SCH (09:00)
--- NOTE | 2017-11-10 12:36 | Pharmacy Progress Note ---
Pharmacy Abx Dose Short Note Date of Service Nov 10, 2017. Assessment & Plan Assessment * 72 year old female admitted for flu-like symptoms, SOB, cough, fatigue, likely COPD exacerbation secondary to bacterial vs viral infxn * Initially treated with doxycycline however patient developed respiratory distress overnight, CXR at that time was read as possible interval development of consolidation in RLL. Vancomycin + Zosyn started empirically in addition to the Doxy * Official CXR read today was that lungs are clear. * Influenza A + B Ag and PCR both negative * MRSA nares screening negative, lessening risk of MRSA pneumonia * Remains afebrile, no leukocytosis noted on labs despite receiving steroids * Maintaining sats upper 90's on 2L NC, RR 18-22, no hypotension noted (rather patient has been hypertensive) * Procalcitonin has been ordered * Renal fxn may be declining, baseline SCr ~0.9-1.0; SCr 1.31 today Plan Vancomycin * Loading dose: 2000mg (24mg/kg) IV x 1 given overnight * Maintenance dose: 1250mg (~15mg/kg) IV Q 24 hrs * Goal trough level for pulm infxn : 15 to 20 mcg/mL * Trough level ordered for: 11/13/17 w/ maintenance dose * p'kinetic estimates: Vd 0.7L/kg; half-life ~18 hours (and possibly increasing if renal fxn declining) Zosyn * eCrCl > 20cc/min (35-40cc/min); BMI 32.3, 3.375gm ext-infusion Q 8 hrs indicated Pharmacy will continue to follow and will adjust dose/frequency as necessary. Thank you.
--- NOTE | 2017-11-10 16:54 | Family Medicine Progress Note ---
Progress Note Date of Service Nov 10, 2017. Subjective Pt evaluation today including: conversation w/ patient, physical exam, chart review, lab review Pain: reports chest tightness this AM (same as last night) PO Intake: tolerating/decreased Voiding: no voiding problems This AM pt reports mild improvement in sob and cough since last night. However still cough productive and having chest tightness Constitutional: No fever, No chills Respiratory: + cough, + sputum, + shortness of breath, + dyspnea on exertion Cardiovascular: + chest pain (chest tightness) Abdomen: No pain, No nausea, No vomiting Female : No dysuria Medications Current Inpatient Medications Medications (Trade) Dose Ordered Sig/Jeannie Route Start Time Stop Time Status Last Admin Dose Admin Ioversol (Optiray 320) 125 ml UD PRN IV 11/07/17 15:45 11/11/17 15:44 Acetaminophen (Tylenol Tab) 650 mg Q4H PRN PO 11/07/17 21:30 12/07/17 21:29 Al Hydrox/Mg Hydrox/Simethicone (Maalox Max Susp) 15 ml Q4H PRN PO 11/07/17 21:30 12/07/17 21:29 Magnesium Hydroxide (Milk Of Magnesia Susp) 30 ml Q6H PRN PO 11/07/17 21:30 12/07/17 21:29 Polyethylene (Miralax Powder Packet) 17 gm DAILY PRN PO 11/07/17 23:00 12/07/17 22:59 Ondansetron HCl (Zofran Inj) 4 mg Q6H PRN IV 11/07/17 21:30 12/07/17 21:29 Heparin Sodium (Porcine) (Heparin Sq 5000 Unit/0.5ml) 5,000 unit Q12 SQ 11/07/17 23:15 12/07/17 23:14 11/10/17 08:28 5,000 UNIT Methylprednisolone Sodium Succinate 60 mg/Syringe 0.96 ml @ 1.5 mls/min BID IV 11/08/17 09:00 12/08/17 08:59 11/10/17 08:33 1.5 MLS/MIN Guaifenesin (Organidin Nr Tab) 200 mg Q4 PO 11/07/17 22:15 12/07/17 22:14 11/10/17 13:41 200 MG Insulin Aspart (novoLOG ASPART) SLIDING SCALE G... ACHS SC 11/08/17 06:30 12/08/17 06:59 11/10/17 13:44 1 UNITS Amitriptyline HCl (Elavil Tab) 50 mg HS PO 11/08/17 21:00 12/08/17 20:59 11/09/17 21:24 50 MG Amlodipine Besylate (Norvasc Tab) 5 mg QAM PO 11/08/17 09:00 12/08/17 08:59 11/10/17 08:24 5 MG Baclofen (Lioresal Tab) 10 mg TID PO 11/08/17 09:00 12/08/17 08:59 11/10/17 13:41 10 MG Buspirone HCl (Buspar Tab) 5 mg BID PO 11/08/17 09:00 12/08/17 08:59 11/10/17 08:21 5 MG Carbamazepine (Tegretol Tab) 200 mg BID PO 11/08/17 09:00 12/08/17 08:59 11/10/17 08:20 200 MG Clopidogrel Bisulfate (plAVix TAB) 75 mg QAM PO 11/08/17 09:00 12/08/17 08:59 11/10/17 08:23 75 MG Cyanocobalamin (Vitamin B-12 Tab) 500 mcg QAM PO 11/08/17 09:00 12/08/17 08:59 11/10/17 08:23 500 MCG Famotidine (Pepcid Tab) 20 mg QAM PO 11/08/17 09:00 12/08/17 08:59 11/10/17 08:20 20 MG Gabapentin (Neurontin Tab) 600 mg TID PO 11/08/17 09:00 12/08/17 08:59 11/10/17 13:41 600 MG Hydrochlorothiazide (Hydrochlorothiazide Tab) 25 mg QAM PO 11/08/17 09:00 12/08/17 08:59 11/10/17 08:25 25 MG Levothyroxine Sodium (Synthroid Tab) 125 mcg DAILYBB PO 11/08/17 06:30 12/08/17 06:29 11/10/17 06:09 125 MCG Losartan Potassium (coZAAR TAB) 100 mg QAM PO 11/08/17 09:00 12/08/17 08:59 11/10/17 08:22 100 MG Sertraline HCl (Zoloft Tab) 75 mg QAM PO 11/08/17 09:00 12/08/17 08:59 11/10/17 08:22 75 MG Simvastatin (Zocor Tab) 20 mg QPM PO 11/08/17 21:00 12/08/17 20:59 11/09/17 21:24 20 MG Calcium/Vitamin D (Caltrate Plus Tab) 1 tab DAILY PO 11/08/17 09:00 12/08/17 08:59 11/10/17 08:23 1 TAB Pantoprazole Sodium (Protonix Tab) 40 mg BID PO 11/08/17 09:00 12/08/17 08:59 11/10/17 08:21 40 MG Glucose (Glucose 40% Gel) 15-30 GRAMS 15 GRAMS... UD PRN PO 11/07/17 22:45 12/07/17 22:44 Glucose (Glucose Chew Tab) 4-8 Tablets 4 Tabl... UD PRN PO 11/07/17 22:45 12/07/17 22:44 Dextrose (Dextrose 50% 50ML Syringe) 25-50ML OF 50% DW IV FOR... UD PRN IV 11/07/17 22:45 12/07/17 22:44 Glucagon (Glucagon Inj) 1 mg UD PRN SQ 11/07/17 22:45 12/07/17 22:44 Hydrocodone Bit/ Homatropine Methylb (Hycodan Syrup) 5 ml QID PRN PO 11/08/17 00:00 11/22/17 00:00 11/09/17 00:00 5 ML Albuterol/ Ipratropium (Duoneb) 3 ml Q2H PRN INH 11/08/17 00:00 12/08/17 00:00 Doxycycline Hyclate (Vibramycin Cap) 100 mg BID PO 11/08/17 21:00 11/15/17 20:59 11/10/17 08:22 100 MG Albuterol/ Ipratropium (Duoneb) 3 ml Q4RWA INH 11/10/17 08:00 12/10/17 07:59 11/10/17 14:59 3 ML Objective Vital Signs Date Time Temp Pulse Resp B/P (MAP) Pulse Ox O2 Delivery O2 Flow Rate FiO2 11/10/17 16:09 36.3 77 20 162/84 (110) 96 Room Air 11/10/17 15:01 81 20 93 Room Air 11/10/17 12:00 Nasal Cannula 2.0 11/10/17 11:55 36.5 75 18 143/79 (100) 99 Nasal Cannula 2.0 11/10/17 11:28 78 20 98 Nasal Cannula 2.0 11/10/17 08:30 Nasal Cannula 2.0 11/10/17 08:01 37.2 78 22 137/67 (90) 96 Nasal Cannula 2.0 11/10/17 07:16 74 20 94 Nasal Cannula 2.0 11/10/17 03:48 153/63 (93) 11/10/17 02:29 87 20 98 Nasal Cannula 2.0 11/10/17 02:20 36.3 84 19 92 11/10/17 01:20 68 34 198/100 (132) 98 Room Air 11/10/17 01:07 68 16 98 Room Air 11/10/17 00:00 Room Air 11/09/17 23:57 36.3 72 19 195/98 (130) 96 Room Air 11/09/17 19:07 79 16 97 Room Air Physical Exam General Appearance: + pertinent finding (sleeping peacefully with occasional snoring and difficult to arouse) Eyes: normal inspection, sclerae normal ENT: + pertinent finding (MMM) Respiratory/Chest: normal breath sounds, + rhonchi, + wheezing (expiratory diffuse) Cardiovascular: regular rate, rhythm, no murmur, + pertinent finding (delayed cap refill 3 sec) Abdomen: normal bowel sounds, non tender, soft Extremities: non-tender, no pedal edema Neurologic/Psychiatric: alert, oriented x 3 Skin: warm/dry Laboratory Results 11/10/17 05:00 Red Blood Count 3.26, Mean Corpuscular Volume 96.6, Mean Corpuscular Hemoglobin 32.2, Mean Corpuscular Hemoglobin Concent 33.3, Mean Platelet Volume 8.2, Neutrophils (%) (Auto) 75.2, Lymphocytes (%) (Auto) 13.4, Monocytes (%) (Auto) 6.4, Eosinophils (%) (Auto) 0.0, Basophils (%) (Auto) 0.4, Neutrophils # (Auto) 6.38, Lymphocytes # (Auto) 1.14, Monocytes # (Auto) 0.54, Eosinophils # (Auto) 0.00, Basophils # (Auto) 0.03 11/10/17 05:00 Test 11/10/17 01:51 11/10/17 05:00 11/10/17 08:44 11/10/17 16:07 Magnesium Level 1.7 mg/dl (1.8-2.4) White Blood Count 8.48 K/uL (4.8-10.8) Red Blood Count 3.26 M/uL (4.2-5.4) Hemoglobin 10.5 g/dL (12.0-16.0) Hematocrit 31.5 % (37-47) Mean Corpuscular Volume 96.6 fL (80-100) Mean Corpuscular Hemoglobin 32.2 pg (25-34) Mean Corpuscular Hemoglobin Concent 33.3 g/dl (32-36) Platelet Count 189 K/uL (130-400) Mean Platelet Volume 8.2 fL (7.4-10.4) Neutrophils (%) (Auto) 75.2 % Lymphocytes (%) (Auto) 13.4 % Monocytes (%) (Auto) 6.4 % Eosinophils (%) (Auto) 0.0 % Basophils (%) (Auto) 0.4 % Neutrophils # (Auto) 6.38 K/uL (1.4-6.5) Lymphocytes # (Auto) 1.14 K/uL (1.2-3.4) Monocytes # (Auto) 0.54 K/uL (0.11-0.59) Eosinophils # (Auto) 0.00 K/uL (0-0.5) Basophils # (Auto) 0.03 K/uL (0-0.2) RDW Standard Deviation 51.5 fL (36.4-46.3) RDW Coefficient of Variation 14.5 % (11.5-14.5) Immature Granulocyte % (Auto) 4.6 % Immature Granulocyte # (Auto) 0.39 K/uL (0.00-0.02) Anion Gap 11.0 mmol/L (3-11) Est Creatinine Clear Calc Drug Dose 38.4 ml/min Estimated GFR () 46.4 Estimated GFR (Non- 40.0 BUN/Creatinine Ratio 21.5 (10-20) Calcium Level 8.3 mg/dl (8.5-10.1) Troponin I < 0.015 ng/ml (0-0.045) Bedside Glucose 131 mg/dl (70-90) Date/Time Source Procedure Growth Status 11/10/17 02:24 Nasal MRSA DNA Surveillance Screen - Final Specimen Negative for MRSA by DNA Probe Complete Assessment and Plan 72 yoF with hx of COPD admitted for acute COPD exacerbation likely viral vs bacterial in etiology. No focal findings on imaging reflective of a bacterial infection however will cover for atypical with doxycycline. No chest pain or EKG changes concerning for ischemia and Troponin neg. Influenza PCR neg. Acute on chronic COPD exacerbation without hypoxia - persistent - Flu PCR neg - Methyl pred 125 mg IV given in ED with Doxy 100 mg IV x 1 - Continue on Doxycycline 100mg BID PO - Continue methyl pred 60 mg bid IV - Continue Guaifenesin - O2 per protocol - Was given Mag 2g and started on Vanc/Zosyn by night team however given afebrile, with no WBC and worsening of CXR/exam dced abx. Hypoxic episode likely from mucus plug and will increase pulm toilet - Continue Duoneb scheduled Q4H and Q2H PRN - flutter valve ordered - CPAP given concern for ALVA as pt sleepy/snoring and having worsening of respiratory status at night - Consider vibration vest if not improved by tomorrow for additional pulm toilet Hyponatremia possibly secondary to dehydration vs URI - resolving - Received NSS with 20meq of KCL @ 125cc/h on admission - BMP this AM Na 132 - Ordered IVF 125cc/h given slow cap refill and pt sleepy/unable to encourage PO fluids HTN - Continue mlodipine 5 mg, HCTZ 25 mg daily, losartan 100 mg daily TIA/ hyperlipidemia - Continue ASA and plavix - Continue zocor 20 mg Mood disorder/ anxiety /peripheral neuropathy - Continue amitryptaline 50 mg, Carbamazepine 200 mg bid - Continue zoloft 75 mg qam - Continue buspar 5 mg tid - Continue gabapentin 600 mg tid Chronic back pain - continue baclofen 10 mg tid GERD/ Henderson's - continue protonix 20 mg bid and pepcid 20 mg daily DMII - bsg ac hs - Insulin SS - metformin held Hypothyroidism - continue levothyroxine 100 mcg daily DVT prophylaxis - SCD and hep bid full code Resident Physician Supervision Note: I interviewed and examined the patient. Discussed with Dr. Aparicio and agree with findings and plan as documented in the note. Any exceptions or clarifications are listed here: None Documented By: Les Motley no new problems resting on room air sleeping vitals noted expiratory rhonchi but good air entry good air movement COPD exacerbation - no noted pneumonia OK to stop other abx, continue doxy and increase pulmonary toilet Resident Involvement: Resident Care Provided Care Provided: Adult Hospital Medicine
[2017-11-10] MEDS ORDERED: SODIUM CHLORIDE 0.9% 1000ML 1,000 ML IV SCH (17:45)
[2017-11-10] MEDS: SODIUM CHLORIDE 0.45% 1000ML 1,000 ML IV SCH (18:12)
[2017-11-10] MEDS: SIMVASTATIN 20 MG TAB PO SCH (20:39)
[2017-11-11] VITALS (15 sets, daily range): BP systolic 156–182; BP diastolic 72–99; PULSE 66–78; TEMP 36.5–37; O2SAT 94–99
[2017-11-11] MEDS: AMITRIPTYLINE HCL 50 MG TAB PO SCH ×2 (00:02→20:10)
[2017-11-11] MEDS: GUAIFENESIN 200 MG TAB PO SCH ×6 (00:03→20:23)
[2017-11-11] MEDS ORDERED: VANCOMYCIN INJ 1,250 MG in SODIUM CHLORIDE 0.9% 250ML 250 ML IV SCH (02:00)
[2017-11-11] MEDS: SODIUM CHLORIDE 0.45% 1000ML 1,000 ML IV SCH (04:10)
[2017-11-11] MEDS: LEVOTHYROXINE 125 MCG TAB PO SCH (06:05)
[2017-11-11 07:00] LABS: BASO % 0.2 %; BASO ABS # 0.02 K/uL (0-0.2); HEMATOCRIT 30.5 % (37-47); HEMOGLOBIN 10.3 g/dL (12.0-16.0); IG# 0.43 K/uL (0.00-0.02); LYMPH % 14.3 %; LYMPH ABS # 1.52 K/uL (1.2-3.4); MEAN CELL VOLUME 95.6 fL (80-100); MEAN CORPUSCULAR HEMOGLOBIN 32.3 pg (25-34); MEAN CORPUSCULAR HGB CONC 33.8 g/dl (32-36); MEAN PLATELET VOLUME 8.3 fL (7.4-10.4); MONO % 8.6 %; MONO ABS # 0.91 K/uL (0.11-0.59); NEUT % 72.8 %; NEUT ABS # 7.73 K/uL (1.4-6.5); PLATELET COUNT 191 K/uL (130-400); RED CELL DISTRIBUTION WIDTH CV 14.5 % (11.5-14.5); WHITE BLOOD COUNT 10.61 K/uL (4.8-10.8)
[2017-11-11] MEDS: INSULIN ASPART 100 UNITS/ML 3 ML PEN SC SCH ×4 (07:00→20:23)
[2017-11-11] MEDS: ALBUT/IPRATROP 3MG/0.5MG NEB 3 ML VIAL INH SCH ×4 (07:03→19:44)
[2017-11-11 07:31] LABS: CALCIUM 8.4 mg/dl (8.5-10.1); CREATININE 1.04 mg/dl (0.60-1.20)
[2017-11-11] MEDS: CYANOCOBALAMIN 500 MCG TAB (VIT B-12) PO SCH (07:41)
[2017-11-11] MEDS: CLOPIDOGREL BISULFATE 75 MG TAB PO SCH (07:41)
[2017-11-11] MEDS: CALCIUM 600MG + VIT D 400 IU TAB PO SCH (07:41)
[2017-11-11] MEDS: SERTRALINE HCL 50 MG TAB PO SCH (07:41)
[2017-11-11] MEDS: LOSARTAN POTASSIUM 50 MG TAB PO SCH (07:41)
[2017-11-11] MEDS: PANTOprazole SOD 40 MG TAB PO SCH ×2 (07:42→20:12)
[2017-11-11] MEDS: FAMOTIDINE 20 MG TAB PO SCH (07:42)
[2017-11-11] MEDS: GABAPENTIN 600 MG TAB PO SCH ×3 (07:42→20:11)
[2017-11-11] MEDS: CARBAMAZEPINE 200 MG TAB PO SCH ×2 (07:42→20:13)
[2017-11-11] MEDS: DOXYCYCLINE HYCLATE 100 MG CAP PO SCH ×2 (07:42→20:13)
[2017-11-11] MEDS: HYDROCHLOROTHIAZIDE 25 MG TAB PO SCH (07:42)
[2017-11-11] MEDS: BACLOFEN 10 MG TAB PO SCH ×3 (07:43→20:11)
[2017-11-11] MEDS: METHYLPREDNISOLONE IV 60 MG in SYRINGE 0 ML IV SCH ×2 (07:56→20:09)
[2017-11-11] MEDS: HEPARIN SOD 5000 UNIT/0.5 ML CARP SQ SCH ×2 (07:58→22:58)
[2017-11-11] MEDS: AMLODIPINE BESYLATE 5 MG TAB PO SCH (08:06)
[2017-11-11] MEDS ORDERED: NURSING VERBAL MED ORDER ONE (08:45)
--- NOTE | 2017-11-11 10:35 | Family Medicine Progress Note ---
Progress Note Date of Service Nov 11, 2017. Subjective Pt evaluation today including: conversation w/ patient, physical exam, chart review, review of studies Voiding: incontinence Today Ms Gonzalez continues to have chest tightness and SOB. She says that she feels like the symptoms have worsened overnight. O2 sats were WNL overnight. She reports fatigue today. She describes getting up and going to the bathroom with difficulty and says that she suffers from incontinence and is unable to make to toilet on time. She currently denies N/V/D/F/CP. Patient denies productive cough or hemoptysis. She is tolerating a regular diet. Constitutional: + fatigue, No fever, No chills Respiratory: + cough, + wheezing, + shortness of breath, + dyspnea on exertion, No sputum Cardiovascular: No chest pain, No palpitations Abdomen: No pain, No nausea, No vomiting, No diarrhea Female : + incontinence Medications Current Inpatient Medications Medications (Trade) Dose Ordered Sig/Jeannie Route Start Time Stop Time Status Last Admin Dose Admin Ioversol (Optiray 320) 125 ml UD PRN IV 11/07/17 15:45 11/11/17 15:44 Acetaminophen (Tylenol Tab) 650 mg Q4H PRN PO 11/07/17 21:30 12/07/17 21:29 Al Hydrox/Mg Hydrox/Simethicone (Maalox Max Susp) 15 ml Q4H PRN PO 11/07/17 21:30 12/07/17 21:29 Magnesium Hydroxide (Milk Of Magnesia Susp) 30 ml Q6H PRN PO 11/07/17 21:30 12/07/17 21:29 Polyethylene (Miralax Powder Packet) 17 gm DAILY PRN PO 11/07/17 23:00 12/07/17 22:59 Ondansetron HCl (Zofran Inj) 4 mg Q6H PRN IV 11/07/17 21:30 12/07/17 21:29 Heparin Sodium (Porcine) (Heparin Sq 5000 Unit/0.5ml) 5,000 unit Q12 SQ 11/07/17 23:15 12/07/17 23:14 11/11/17 07:58 5,000 UNIT Methylprednisolone Sodium Succinate 60 mg/Syringe 0.96 ml @ 1.5 mls/min BID IV 11/08/17 09:00 12/08/17 08:59 11/11/17 07:56 1.5 MLS/MIN Guaifenesin (Organidin Nr Tab) 200 mg Q4 PO 11/07/17 22:15 12/07/17 22:14 11/11/17 07:42 200 MG Insulin Aspart (novoLOG ASPART) SLIDING SCALE G... ACHS SC 11/08/17 06:30 12/08/17 06:59 11/10/17 13:44 1 UNITS Amitriptyline HCl (Elavil Tab) 50 mg HS PO 11/08/17 21:00 12/08/17 20:59 11/11/17 00:02 50 MG Amlodipine Besylate (Norvasc Tab) 5 mg QAM PO 11/08/17 09:00 12/08/17 08:59 11/11/17 08:06 5 MG Baclofen (Lioresal Tab) 10 mg TID PO 11/08/17 09:00 12/08/17 08:59 11/11/17 07:43 10 MG Buspirone HCl (Buspar Tab) 5 mg BID PO 11/08/17 09:00 12/08/17 08:59 11/11/17 07:41 5 MG Carbamazepine (Tegretol Tab) 200 mg BID PO 11/08/17 09:00 12/08/17 08:59 11/11/17 07:42 200 MG Clopidogrel Bisulfate (plAVix TAB) 75 mg QAM PO 11/08/17 09:00 12/08/17 08:59 11/11/17 07:41 75 MG Cyanocobalamin (Vitamin B-12 Tab) 500 mcg QAM PO 11/08/17 09:00 12/08/17 08:59 11/11/17 07:41 500 MCG Famotidine (Pepcid Tab) 20 mg QAM PO 11/08/17 09:00 12/08/17 08:59 11/11/17 07:42 20 MG Gabapentin (Neurontin Tab) 600 mg TID PO 11/08/17 09:00 12/08/17 08:59 11/11/17 07:42 600 MG Hydrochlorothiazide (Hydrochlorothiazide Tab) 25 mg QAM PO 11/08/17 09:00 12/08/17 08:59 11/11/17 07:42 25 MG Levothyroxine Sodium (Synthroid Tab) 125 mcg DAILYBB PO 11/08/17 06:30 12/08/17 06:29 11/11/17 06:05 125 MCG Losartan Potassium (coZAAR TAB) 100 mg QAM PO 11/08/17 09:00 12/08/17 08:59 11/11/17 07:41 100 MG Sertraline HCl (Zoloft Tab) 75 mg QAM PO 11/08/17 09:00 12/08/17 08:59 11/11/17 07:41 75 MG Simvastatin (Zocor Tab) 20 mg QPM PO 11/08/17 21:00 12/08/17 20:59 11/10/17 20:39 20 MG Calcium/Vitamin D (Caltrate Plus Tab) 1 tab DAILY PO 11/08/17 09:00 12/08/17 08:59 11/11/17 07:41 1 TAB Pantoprazole Sodium (Protonix Tab) 40 mg BID PO 11/08/17 09:00 12/08/17 08:59 11/11/17 07:42 40 MG Glucose (Glucose 40% Gel) 15-30 GRAMS 15 GRAMS... UD PRN PO 11/07/17 22:45 12/07/17 22:44 Glucose (Glucose Chew Tab) 4-8 Tablets 4 Tabl... UD PRN PO 11/07/17 22:45 12/07/17 22:44 Dextrose (Dextrose 50% 50ML Syringe) 25-50ML OF 50% DW IV FOR... UD PRN IV 11/07/17 22:45 12/07/17 22:44 Glucagon (Glucagon Inj) 1 mg UD PRN SQ 11/07/17 22:45 12/07/17 22:44 Hydrocodone Bit/ Homatropine Methylb (Hycodan Syrup) 5 ml QID PRN PO 11/08/17 00:00 11/22/17 00:00 11/09/17 00:00 5 ML Albuterol/ Ipratropium (Duoneb) 3 ml Q2H PRN INH 11/08/17 00:00 12/08/17 00:00 Doxycycline Hyclate (Vibramycin Cap) 100 mg BID PO 11/08/17 21:00 1/31/18 20:59 11/11/17 07:42 100 MG Albuterol/ Ipratropium (Duoneb) 3 ml Q4RWA INH 11/10/17 08:00 12/10/17 07:59 11/11/17 07:03 3 ML Objective Vital Signs Date Time Temp Pulse Resp B/P (MAP) Pulse Ox O2 Delivery O2 Flow Rate FiO2 11/11/17 07:32 36.5 72 18 177/99 (125) 99 11/11/17 07:04 72 20 99 Room Air 11/11/17 04:08 98 Room Air 11/11/17 04:00 36.5 73 20 176/94 (121) 95 BiPAP 11/11/17 00:22 98 Room Air 11/10/17 23:38 36.8 72 20 162/96 (118) 95 BiPAP 11/10/17 22:26 73 97 11/10/17 20:00 98 Room Air 11/10/17 19:02 77 20 98 Room Air 11/10/17 18:23 36.6 79 20 163/81 (108) 99 Room Air 11/10/17 16:09 36.3 77 20 162/84 (110) 96 Room Air 11/10/17 16:00 Nasal Cannula 2.0 11/10/17 15:01 81 20 93 Room Air 11/10/17 12:00 Nasal Cannula 2.0 11/10/17 11:55 36.5 75 18 143/79 (100) 99 Nasal Cannula 2.0 11/10/17 11:28 78 20 98 Nasal Cannula 2.0 Physical Exam General Appearance: WD/WN, + mild distress Respiratory/Chest: lungs clear, normal breath sounds, + decreased breath sounds (bilateral bases), + accessory muscle use Cardiovascular: regular rate, rhythm, no edema, no murmur Abdomen: normal bowel sounds, non tender, soft Neurologic/Psychiatric: alert, normal mood/affect, oriented x 3 Skin: normal color, warm/dry, no rash Laboratory Results 11/11/17 06:42 Red Blood Count 3.19, Mean Corpuscular Volume 95.6, Mean Corpuscular Hemoglobin 32.3, Mean Corpuscular Hemoglobin Concent 33.8, Mean Platelet Volume 8.3, Neutrophils (%) (Auto) 72.8, Lymphocytes (%) (Auto) 14.3, Monocytes (%) (Auto) 8.6, Eosinophils (%) (Auto) 0.0, Basophils (%) (Auto) 0.2, Neutrophils # (Auto) 7.73, Lymphocytes # (Auto) 1.52, Monocytes # (Auto) 0.91, Eosinophils # (Auto) 0.00, Basophils # (Auto) 0.02 11/11/17 06:42 Test 11/11/17 06:42 11/11/17 07:01 White Blood Count 10.61 K/uL (4.8-10.8) Red Blood Count 3.19 M/uL (4.2-5.4) Hemoglobin 10.3 g/dL (12.0-16.0) Hematocrit 30.5 % (37-47) Mean Corpuscular Volume 95.6 fL (80-100) Mean Corpuscular Hemoglobin 32.3 pg (25-34) Mean Corpuscular Hemoglobin Concent 33.8 g/dl (32-36) Platelet Count 191 K/uL (130-400) Mean Platelet Volume 8.3 fL (7.4-10.4) Neutrophils (%) (Auto) 72.8 % Lymphocytes (%) (Auto) 14.3 % Monocytes (%) (Auto) 8.6 % Eosinophils (%) (Auto) 0.0 % Basophils (%) (Auto) 0.2 % Neutrophils # (Auto) 7.73 K/uL (1.4-6.5) Lymphocytes # (Auto) 1.52 K/uL (1.2-3.4) Monocytes # (Auto) 0.91 K/uL (0.11-0.59) Eosinophils # (Auto) 0.00 K/uL (0-0.5) Basophils # (Auto) 0.02 K/uL (0-0.2) RDW Standard Deviation 51.0 fL (36.4-46.3) RDW Coefficient of Variation 14.5 % (11.5-14.5) Immature Granulocyte % (Auto) 4.1 % Immature Granulocyte # (Auto) 0.43 K/uL (0.00-0.02) Anion Gap 7.0 mmol/L (3-11) Est Creatinine Clear Calc Drug Dose 48.0 ml/min Estimated GFR () 61.3 Estimated GFR (Non- 52.9 BUN/Creatinine Ratio 30.6 (10-20) Calcium Level 8.4 mg/dl (8.5-10.1) Magnesium Level 1.7 mg/dl (1.8-2.4) Procalcitonin < 0.05 ng/ml (0-0.5) Bedside Glucose 106 mg/dl (70-90) Assessment and Plan 72 yoF with hx of COPD admitted for acute COPD exacerbation likely viral vs bacterial in etiology. No focal findings on imaging reflective of a bacterial infection however will cover for atypical with doxycycline. No chest pain or EKG changes concerning for ischemia and Troponin neg. Influenza PCR neg. 11/11 Today the patient expresses continued SOB, but her lung exam is improving. She is clear to auscultation. O2 sats have been stable with 2 L NC during the daytime. Patient was on BIPAP overnight for suspected ALVA. RI'ed IVF this morning. Will continue IV steroids, Duonebs, guaifenesin, doxy and pulmonary toilet. Patient is emotionally distressed and homesick. Resp distress 2/2 to bronchitis - Flu PCR neg - Methyl pred 125 mg IV given in ED with Doxy 100 mg IV x 1 - Continue on Doxycycline 100mg BID PO - Continue methyl pred 60 mg bid IV - Continue Guaifenesin - O2 per protocol - Drop in sats on the evening of 11/10. Was given Mag 2g and started on Vanc/ Zosyn by night team however given afebrile, with no WBC and worsening of CXR/ exam dced abx. Hypoxic episode likely from mucus plug and will increase pulm toilet - Continue Duoneb scheduled Q4H and Q2H PRN - flutter valve ordered - CPAP given concern for ALVA as pt sleepy/snoring and having worsening of respiratory status at night Hyponatremia possibly secondary to dehydration vs URI - resolving - Received NSS with 20meq of KCL @ 125cc/h on admission - [facility] this AM Na 128 HTN - Continue amlodipine 5 mg, HCTZ 25 mg daily, losartan 100 mg daily TIA/ hyperlipidemia - Continue ASA and plavix - Continue zocor 20 mg Mood disorder/ anxiety /peripheral neuropathy - Continue amitryptaline 50 mg, Carbamazepine 200 mg bid - Continue zoloft 75 mg qam - Continue buspar 5 mg tid - Continue gabapentin 600 mg tid -.5 mg IV Ativan once today for acute anxiety Chronic back pain - continue baclofen 10 mg tid GERD/ Henderson's - continue protonix 20 mg bid and pepcid 20 mg daily DMII - bsg ac hs - Insulin SS - metformin held Hypothyroidism - continue levothyroxine 100 mcg daily DVT prophylaxis - SCD and hep bid full code Resident Physician Supervision Note: I interviewed and examined the patient. Discussed with Dr. De La Torre and agree with findings and plan as documented in the note. Any exceptions or clarifications are listed here: None Documented By: Les Motley anxious and wants to be able to see vitals noted nad but anxious and tearful, breathing unlabord lungs actually clear (quiet but clear) outpt charts reviewed, PFTs did not actually show COPD bronchitis w severe respiratory distress and mucous plugging -improving - continue current care, increase activity, if reasonable control of dyspnea at exertion and able to to adls etc hopefully home anxiety - reassurance, compassion, ativan. otherwise as above
[2017-11-11] MEDS ORDERED: LORAZEPAM 2 MG/ML 1 ML VIAL IV STA (12:33)
[2017-11-11 16:44] LABS: CREATININE 1.13 mg/dl (0.60-1.20); POTASSIUM 4.3 mmol/L (3.5-5.1)
[2017-11-11] MEDS: SIMVASTATIN 20 MG TAB PO SCH (20:14)
[2017-11-12] VITALS (13 sets, daily range): BP systolic 114–192; BP diastolic 74–91; PULSE 63–87; TEMP 36.4–36.9; O2SAT 92–100
[2017-11-12] MEDS: LEVOTHYROXINE 125 MCG TAB PO SCH (04:48)
[2017-11-12] MEDS: GUAIFENESIN 200 MG TAB PO SCH ×7 (04:51→23:40)
[2017-11-12 06:33] LABS: HEMATOCRIT 32.1 % (37-47); HEMOGLOBIN 10.9 g/dL (12.0-16.0); MEAN CELL VOLUME 94.7 fL (80-100); MEAN CORPUSCULAR HEMOGLOBIN 32.2 pg (25-34); MEAN PLATELET VOLUME 8.4 fL (7.4-10.4); PLATELET COUNT 230 K/uL (130-400); RED CELL DISTRIBUTION WIDTH CV 14.4 % (11.5-14.5); RED CELL DISTRIBUTION WIDTH SD 49.3 fL (36.4-46.3); WHITE BLOOD COUNT 10.02 K/uL (4.8-10.8)
[2017-11-12] MEDS: INSULIN ASPART 100 UNITS/ML 3 ML PEN SC SCH ×4 (07:00→20:47)
[2017-11-12] MEDS: ALBUT/IPRATROP 3MG/0.5MG NEB 3 ML VIAL INH SCH ×4 (07:02→19:22)
[2017-11-12 07:30] LABS: CALCIUM 9.3 mg/dl (8.5-10.1); CREATININE 1.05 mg/dl (0.60-1.20); POTASSIUM 4.1 mmol/L (3.5-5.1)
[2017-11-12] MEDS: DOXYCYCLINE HYCLATE 100 MG CAP PO SCH ×2 (07:57→20:46)
[2017-11-12] MEDS: CALCIUM 600MG + VIT D 400 IU TAB PO SCH (07:57)
[2017-11-12] MEDS: BACLOFEN 10 MG TAB PO SCH ×3 (07:57→20:46)
[2017-11-12] MEDS: CLOPIDOGREL BISULFATE 75 MG TAB PO SCH (07:57)
[2017-11-12] MEDS: PANTOprazole SOD 40 MG TAB PO SCH ×2 (07:57→20:46)
[2017-11-12] MEDS: FAMOTIDINE 20 MG TAB PO SCH (07:58)
[2017-11-12] MEDS: SERTRALINE HCL 50 MG TAB PO SCH (07:58)
[2017-11-12] MEDS: LOSARTAN POTASSIUM 50 MG TAB PO SCH (07:58)
[2017-11-12] MEDS: AMLODIPINE BESYLATE 5 MG TAB PO SCH (07:58)
[2017-11-12] MEDS: HYDROCHLOROTHIAZIDE 25 MG TAB PO SCH (07:59)
[2017-11-12] MEDS: GABAPENTIN 600 MG TAB PO SCH ×3 (07:59→20:46)
[2017-11-12] MEDS: CYANOCOBALAMIN 500 MCG TAB (VIT B-12) PO SCH (07:59)
[2017-11-12] MEDS: CARBAMAZEPINE 200 MG TAB PO SCH ×2 (08:00→20:46)
[2017-11-12] MEDS: HEPARIN SOD 5000 UNIT/0.5 ML CARP SQ SCH ×2 (08:03→20:48)
[2017-11-12] MEDS: METHYLPREDNISOLONE IV 60 MG in SYRINGE 0 ML IV SCH (09:25)
--- NOTE | 2017-11-12 16:38 | Family Medicine Progress Note ---
Progress Note Date of Service Nov 12, 2017. Subjective Pt evaluation today including: conversation w/ patient, physical exam, chart review, lab review Patient is doing better today, but does have a flat affect. She is anxious about going home. She reports breathing better, less SOB with exertion. She has been ambulating around the room and has been tolerating a regular diet. Constitutional: No fever, No chills Respiratory: + shortness of breath, + dyspnea on exertion, No cough, No sputum Cardiovascular: No chest pain Abdomen: No pain, No nausea, No vomiting Female : No dysuria Medications Current Inpatient Medications Medications (Trade) Dose Ordered Sig/Jeannie Route Start Time Stop Time Status Last Admin Dose Admin Acetaminophen (Tylenol Tab) 650 mg Q4H PRN PO 11/07/17 21:30 12/07/17 21:29 Al Hydrox/Mg Hydrox/Simethicone (Maalox Max Susp) 15 ml Q4H PRN PO 11/07/17 21:30 12/07/17 21:29 Magnesium Hydroxide (Milk Of Magnesia Susp) 30 ml Q6H PRN PO 11/07/17 21:30 12/07/17 21:29 Polyethylene (Miralax Powder Packet) 17 gm DAILY PRN PO 11/07/17 23:00 12/07/17 22:59 Ondansetron HCl (Zofran Inj) 4 mg Q6H PRN IV 11/07/17 21:30 12/07/17 21:29 Heparin Sodium (Porcine) (Heparin Sq 5000 Unit/0.5ml) 5,000 unit Q12 SQ 11/07/17 23:15 12/07/17 23:14 11/12/17 08:03 5,000 UNIT Methylprednisolone Sodium Succinate 60 mg/Syringe 0.96 ml @ 1.5 mls/min BID IV 11/08/17 09:00 12/08/17 08:59 11/12/17 09:25 1.5 MLS/MIN Guaifenesin (Organidin Nr Tab) 200 mg Q4 PO 11/07/17 22:15 12/07/17 22:14 11/12/17 14:34 200 MG Insulin Aspart (novoLOG ASPART) SLIDING SCALE G... ACHS SC 11/08/17 06:30 12/08/17 06:59 11/11/17 16:15 2 UNITS Amitriptyline HCl (Elavil Tab) 50 mg HS PO 11/08/17 21:00 12/08/17 20:59 11/11/17 20:10 50 MG Amlodipine Besylate (Norvasc Tab) 5 mg QAM PO 11/08/17 09:00 12/08/17 08:59 11/12/17 07:58 5 MG Baclofen (Lioresal Tab) 10 mg TID PO 11/08/17 09:00 12/08/17 08:59 11/12/17 14:35 10 MG Buspirone HCl (Buspar Tab) 5 mg BID PO 11/08/17 09:00 12/08/17 08:59 11/12/17 07:57 5 MG Carbamazepine (Tegretol Tab) 200 mg BID PO 11/08/17 09:00 12/08/17 08:59 11/12/17 08:00 200 MG Clopidogrel Bisulfate (plAVix TAB) 75 mg QAM PO 11/08/17 09:00 12/08/17 08:59 11/12/17 07:57 75 MG Cyanocobalamin (Vitamin B-12 Tab) 500 mcg QAM PO 11/08/17 09:00 12/08/17 08:59 11/12/17 07:59 500 MCG Famotidine (Pepcid Tab) 20 mg QAM PO 11/08/17 09:00 12/08/17 08:59 11/12/17 07:58 20 MG Gabapentin (Neurontin Tab) 600 mg TID PO 11/08/17 09:00 12/08/17 08:59 11/12/17 07:59 600 MG Hydrochlorothiazide (Hydrochlorothiazide Tab) 25 mg QAM PO 11/08/17 09:00 12/08/17 08:59 11/12/17 07:59 25 MG Levothyroxine Sodium (Synthroid Tab) 125 mcg DAILYBB PO 11/08/17 06:30 12/08/17 06:29 11/12/17 04:48 125 MCG Losartan Potassium (coZAAR TAB) 100 mg QAM PO 11/08/17 09:00 12/08/17 08:59 11/12/17 07:58 100 MG Sertraline HCl (Zoloft Tab) 75 mg QAM PO 11/08/17 09:00 12/08/17 08:59 11/12/17 07:58 75 MG Simvastatin (Zocor Tab) 20 mg QPM PO 11/08/17 21:00 12/08/17 20:59 11/11/17 20:14 20 MG Calcium/Vitamin D (Caltrate Plus Tab) 1 tab DAILY PO 11/08/17 09:00 12/08/17 08:59 11/12/17 07:57 1 TAB Pantoprazole Sodium (Protonix Tab) 40 mg BID PO 11/08/17 09:00 12/08/17 08:59 11/12/17 07:57 40 MG Glucose (Glucose 40% Gel) 15-30 GRAMS 15 GRAMS... UD PRN PO 11/07/17 22:45 12/07/17 22:44 Glucose (Glucose Chew Tab) 4-8 Tablets 4 Tabl... UD PRN PO 11/07/17 22:45 12/07/17 22:44 Dextrose (Dextrose 50% 50ML Syringe) 25-50ML OF 50% DW IV FOR... UD PRN IV 11/07/17 22:45 12/07/17 22:44 Glucagon (Glucagon Inj) 1 mg UD PRN SQ 11/07/17 22:45 12/07/17 22:44 Hydrocodone Bit/ Homatropine Methylb (Hycodan Syrup) 5 ml QID PRN PO 11/08/17 00:00 11/22/17 00:00 11/09/17 00:00 5 ML Albuterol/ Ipratropium (Duoneb) 3 ml Q2H PRN INH 11/08/17 00:00 12/08/17 00:00 Doxycycline Hyclate (Vibramycin Cap) 100 mg BID PO 11/08/17 21:00 11/15/17 20:59 11/12/17 07:57 100 MG Albuterol/ Ipratropium (Duoneb) 3 ml Q4RWA INH 11/10/17 08:00 12/10/17 07:59 11/12/17 15:37 3 ML Objective Vital Signs Date Time Temp Pulse Resp B/P (MAP) Pulse Ox O2 Delivery O2 Flow Rate FiO2 11/12/17 16:28 36.5 76 18 160/86 (110) 92 Room Air 11/12/17 15:38 68 18 98 Room Air 11/12/17 12:00 Room Air 11/12/17 11:44 36.4 65 18 165/86 (112) 100 11/12/17 10:54 67 18 98 Room Air 11/12/17 08:00 Room Air 11/12/17 07:46 36.4 69 18 185/91 (122) 100 192/90 (124) 11/12/17 07:20 63 18 95 Room Air 11/12/17 04:20 36.6 64 20 178/85 (116) 96 Room Air 11/12/17 04:12 94 Room Air 11/12/17 00:00 94 Room Air 11/11/17 23:30 37.0 66 20 159/72 (101) 96 Room Air 11/11/17 22:20 78 94 11/11/17 21:23 98 Room Air 11/11/17 20:29 36.8 73 16 161/84 (109) 97 Room Air 11/11/17 19:44 70 18 96 Room Air 11/11/17 17:39 76 156/97 (116) Physical Exam General Appearance: WD/WN, no apparent distress Respiratory/Chest: chest non-tender, lungs clear, normal breath sounds Cardiovascular: regular rate, rhythm, no edema, no murmur Extremities: no pedal edema, no calf tenderness Neurologic/Psychiatric: alert, normal mood/affect, oriented x 3 Skin: normal color, warm/dry, no rash Laboratory Results Current Inpatient Medications Medications (Trade) Dose Ordered Sig/Jeannie Route Start Time Stop Time Status Last Admin Dose Admin Acetaminophen (Tylenol Tab) 650 mg Q4H PRN PO 11/07/17 21:30 12/07/17 21:29 Al Hydrox/Mg Hydrox/Simethicone (Maalox Max Susp) 15 ml Q4H PRN PO 11/07/17 21:30 12/07/17 21:29 Magnesium Hydroxide (Milk Of Magnesia Susp) 30 ml Q6H PRN PO 11/07/17 21:30 12/07/17 21:29 Polyethylene (Miralax Powder Packet) 17 gm DAILY PRN PO 11/07/17 23:00 12/07/17 22:59 Ondansetron HCl (Zofran Inj) 4 mg Q6H PRN IV 11/07/17 21:30 12/07/17 21:29 Heparin Sodium (Porcine) (Heparin Sq 5000 Unit/0.5ml) 5,000 unit Q12 SQ 11/07/17 23:15 12/07/17 23:14 11/12/17 08:03 5,000 UNIT Methylprednisolone Sodium Succinate 60 mg/Syringe 0.96 ml @ 1.5 mls/min BID IV 11/08/17 09:00 12/08/17 08:59 11/12/17 09:25 1.5 MLS/MIN Guaifenesin (Organidin Nr Tab) 200 mg Q4 PO 11/07/17 22:15 12/07/17 22:14 11/12/17 14:34 200 MG Insulin Aspart (novoLOG ASPART) SLIDING SCALE G... ACHS SC 11/08/17 06:30 12/08/17 06:59 11/11/17 16:15 2 UNITS Amitriptyline HCl (Elavil Tab) 50 mg HS PO 11/08/17 21:00 12/08/17 20:59 11/11/17 20:10 50 MG Amlodipine Besylate (Norvasc Tab) 5 mg QAM PO 11/08/17 09:00 12/08/17 08:59 11/12/17 07:58 5 MG Baclofen (Lioresal Tab) 10 mg TID PO 11/08/17 09:00 12/08/17 08:59 11/12/17 14:35 10 MG Buspirone HCl (Buspar Tab) 5 mg BID PO 11/08/17 09:00 12/08/17 08:59 11/12/17 07:57 5 MG Carbamazepine (Tegretol Tab) 200 mg BID PO 11/08/17 09:00 12/08/17 08:59 11/12/17 08:00 200 MG Clopidogrel Bisulfate (plAVix TAB) 75 mg QAM PO 11/08/17 09:00 12/08/17 08:59 11/12/17 07:57 75 MG Cyanocobalamin (Vitamin B-12 Tab) 500 mcg QAM PO 11/08/17 09:00 12/08/17 08:59 11/12/17 07:59 500 MCG Famotidine (Pepcid Tab) 20 mg QAM PO 1/24/18 09:00 12/08/17 08:59 11/12/17 07:58 20 MG Gabapentin (Neurontin Tab) 600 mg TID PO 11/08/17 09:00 12/08/17 08:59 11/12/17 07:59 600 MG Hydrochlorothiazide (Hydrochlorothiazide Tab) 25 mg QAM PO 11/08/17 09:00 12/08/17 08:59 11/12/17 07:59 25 MG Levothyroxine Sodium (Synthroid Tab) 125 mcg DAILYBB PO 11/08/17 06:30 12/08/17 06:29 11/12/17 04:48 125 MCG Losartan Potassium (coZAAR TAB) 100 mg QAM PO 11/08/17 09:00 12/08/17 08:59 11/12/17 07:58 100 MG Sertraline HCl (Zoloft Tab) 75 mg QAM PO 11/08/17 09:00 12/08/17 08:59 11/12/17 07:58 75 MG Simvastatin (Zocor Tab) 20 mg QPM PO 11/08/17 21:00 12/08/17 20:59 11/11/17 20:14 20 MG Calcium/Vitamin D (Caltrate Plus Tab) 1 tab DAILY PO 11/08/17 09:00 12/08/17 08:59 11/12/17 07:57 1 TAB Pantoprazole Sodium (Protonix Tab) 40 mg BID PO 11/08/17 09:00 12/08/17 08:59 11/12/17 07:57 40 MG Glucose (Glucose 40% Gel) 15-30 GRAMS 15 GRAMS... UD PRN PO 11/07/17 22:45 12/07/17 22:44 Glucose (Glucose Chew Tab) 4-8 Tablets 4 Tabl... UD PRN PO 11/07/17 22:45 12/07/17 22:44 Dextrose (Dextrose 50% 50ML Syringe) 25-50ML OF 50% DW IV FOR... UD PRN IV 11/07/17 22:45 12/07/17 22:44 Glucagon (Glucagon Inj) 1 mg UD PRN SQ 11/07/17 22:45 12/07/17 22:44 Hydrocodone Bit/ Homatropine Methylb (Hycodan Syrup) 5 ml QID PRN PO 11/08/17 00:00 11/22/17 00:00 11/09/17 00:00 5 ML Albuterol/ Ipratropium (Duoneb) 3 ml Q2H PRN INH 11/08/17 00:00 12/08/17 00:00 Doxycycline Hyclate (Vibramycin Cap) 100 mg BID PO 11/08/17 21:00 11/15/17 20:59 11/12/17 07:57 100 MG Albuterol/ Ipratropium (Duoneb) 3 ml Q4RWA INH 11/10/17 08:00 12/10/17 07:59 11/12/17 15:37 3 ML Assessment and Plan 72 yoF with hx of COPD admitted for acute COPD exacerbation likely viral vs bacterial in etiology. No focal findings on imaging reflective of a bacterial infection however will cover for atypical with doxycycline. No chest pain or EKG changes concerning for ischemia and Troponin neg. Influenza PCR neg. 11/12--The patient's exam continues to improve. She was CTAB today. Patient was transferred to med/surg today with the plan to DC tomorrow. Patient will require the following medications at discharge; Prednisone taper, Combivent inhaler and Doxycycline (10 more doses) Resp distress 2/ to bronchitis - Flu PCR neg - Will start the patient on Prednisone 60 PO in the am - Continue on Doxycycline 100mg BID PO - Continue Guaifenesin - O2 per protocol - Drop in sats on the evening of 11/10. Was given Mag 2g and started on Vanc/ Zosyn by night team however given afebrile, with no WBC and worsening of CXR/ exam dced abx. Hypoxic episode likely from mucus plug and will increase pulm toilet - Continue Duoneb scheduled Q4H and Q2H PRN - flutter valve ordered - CPAP given concern for ALVA as pt sleepy/snoring and having worsening of respiratory status at night Hyponatremia possibly secondary to dehydration vs URI - resolving - Received NSS with 20meq of KCL @ 125cc/h on admission HTN - Continue amlodipine 5 mg, HCTZ 25 mg daily, losartan 100 mg daily TIA/ hyperlipidemia - Continue ASA and plavix - Continue zocor 20 mg Mood disorder/ anxiety /peripheral neuropathy - Continue amitryptaline 50 mg, Carbamazepine 200 mg bid - Continue zoloft 75 mg qam - Continue buspar 5 mg tid - Continue gabapentin 600 mg tid -.5 mg IV Ativan once today for acute anxiety Chronic back pain - continue baclofen 10 mg tid GERD/ Henderson's - continue protonix 20 mg bid and pepcid 20 mg daily DMII - bsg ac hs - Insulin SS - metformin held Hypothyroidism - continue levothyroxine 100 mcg daily DVT prophylaxis - SCD and hep bid full code Resident Physician Supervision Note: I interviewed and examined the patient. Discussed with Dr. De La Torre and agree with findings and plan as documented in the note. Any exceptions or clarifications are listed here: None Documented By: Les Tiesha feeling better thinsk she can go home tomorrow vitals noted nad breathing unlabored no pallor or icterus severe bronchitis - again on hindsight no true COPD -stable / improving - hopefully home tomorrow -med surg hyponatremia -?elements of acute SiADH from respiratory illness and a bit dilution from 1/ 2NSS - not causing sx, stable, continue to follow
[2017-11-12] MEDS ORDERED: IPRA1AER2 INH (19:32)
[2017-11-12] MEDS ORDERED: PRD20 PO (19:32)
[2017-11-12] MEDS ORDERED: DXY100 PO (19:32)
[2017-11-12] MEDS: SIMVASTATIN 20 MG TAB PO SCH (20:46)
[2017-11-12] MEDS: AMITRIPTYLINE HCL 50 MG TAB PO SCH (20:46)
[2017-11-13] MEDS: ONDANSETRON INJ 2 MG/ML 2 ML VIAL IV PRN (00:32)
[2017-11-13] MEDS: ALUMINUM/MAGNESIUM/SIMETH (MAALOX MAX) 30 ML UDC PO PRN ×2 (00:37→08:34)
[2017-11-13] MEDS ORDERED: VANCOMYCIN TROUGH ONE (01:30)
[2017-11-13] MEDS: GUAIFENESIN 200 MG TAB PO SCH ×6 (04:00→23:53)
[2017-11-13] MEDS: LEVOTHYROXINE 125 MCG TAB PO SCH (05:58)
--- NOTE | 2017-11-13 06:41 | Family Medicine Progress Note ---
Progress Note Date of Service Nov 13, 2017. Subjective Pt evaluation today including: conversation w/ patient, physical exam, chart review, lab review Patient reports feeling SOB overnight and having chest tightness. Pt denies fevers, N/V or diarrhea. Constitutional: No fever, No chills Respiratory: + wheezing, + shortness of breath, No cough, No sputum Cardiovascular: No chest pain, No palpitations Abdomen: No pain, No nausea, No vomiting Female : No dysuria, No urinary frequency Medications Current Inpatient Medications Medications (Trade) Dose Ordered Sig/Jeannie Route Start Time Stop Time Status Last Admin Dose Admin Acetaminophen (Tylenol Tab) 650 mg Q4H PRN PO 11/07/17 21:30 12/07/17 21:29 Al Hydrox/Mg Hydrox/Simethicone (Maalox Max Susp) 15 ml Q4H PRN PO 11/07/17 21:30 12/07/17 21:29 11/13/17 08:34 15 ML Magnesium Hydroxide (Milk Of Magnesia Susp) 30 ml Q6H PRN PO 11/07/17 21:30 12/07/17 21:29 Polyethylene (Miralax Powder Packet) 17 gm DAILY PRN PO 11/07/17 23:00 12/07/17 22:59 11/13/17 16:46 17 GM Ondansetron HCl (Zofran Inj) 4 mg Q6H PRN IV 11/07/17 21:30 12/07/17 21:29 11/13/17 00:32 4 MG Heparin Sodium (Porcine) (Heparin Sq 5000 Unit/0.5ml) 5,000 unit Q12 SQ 11/07/17 23:15 12/07/17 23:14 11/13/17 08:33 5,000 UNIT Guaifenesin (Organidin Nr Tab) 200 mg Q4 PO 11/07/17 22:15 12/07/17 22:14 11/13/17 16:23 200 MG Insulin Aspart (novoLOG ASPART) SLIDING SCALE G... ACHS SC 11/08/17 06:30 12/08/17 06:59 11/13/17 12:17 1 UNITS Amitriptyline HCl (Elavil Tab) 50 mg HS PO 11/08/17 21:00 12/08/17 20:59 11/12/17 20:46 50 MG Amlodipine Besylate (Norvasc Tab) 5 mg QAM PO 11/08/17 09:00 12/08/17 08:59 11/13/17 08:22 5 MG Baclofen (Lioresal Tab) 10 mg TID PO 11/08/17 09:00 12/08/17 08:59 11/13/17 14:18 10 MG Buspirone HCl (Buspar Tab) 5 mg BID PO 11/08/17 09:00 12/08/17 08:59 11/13/17 08:22 5 MG Carbamazepine (Tegretol Tab) 200 mg BID PO 11/08/17 09:00 12/08/17 08:59 11/13/17 08:23 200 MG Clopidogrel Bisulfate (plAVix TAB) 75 mg QAM PO 11/08/17 09:00 12/08/17 08:59 11/13/17 08:21 75 MG Cyanocobalamin (Vitamin B-12 Tab) 500 mcg QAM PO 11/08/17 09:00 12/08/17 08:59 11/13/17 08:21 500 MCG Famotidine (Pepcid Tab) 20 mg QAM PO 11/08/17 09:00 12/08/17 08:59 11/13/17 08:21 20 MG Gabapentin (Neurontin Tab) 600 mg TID PO 11/08/17 09:00 12/08/17 08:59 11/13/17 14:35 600 MG Hydrochlorothiazide (Hydrochlorothiazide Tab) 25 mg QAM PO 11/08/17 09:00 12/08/17 08:59 11/13/17 08:25 25 MG Levothyroxine Sodium (Synthroid Tab) 125 mcg DAILYBB PO 11/08/17 06:30 12/08/17 06:29 11/13/17 05:58 125 MCG Losartan Potassium (coZAAR TAB) 100 mg QAM PO 11/08/17 09:00 12/08/17 08:59 11/13/17 08:23 100 MG Sertraline HCl (Zoloft Tab) 75 mg QAM PO 11/08/17 09:00 12/08/17 08:59 11/13/17 08:24 75 MG Simvastatin (Zocor Tab) 20 mg QPM PO 11/08/17 21:00 12/08/17 20:59 11/12/17 20:46 20 MG Calcium/Vitamin D (Caltrate Plus Tab) 1 tab DAILY PO 11/08/17 09:00 12/08/17 08:59 11/13/17 08:23 1 TAB Pantoprazole Sodium (Protonix Tab) 40 mg BID PO 11/08/17 09:00 12/08/17 08:59 11/13/17 08:24 40 MG Glucose (Glucose 40% Gel) 15-30 GRAMS 15 GRAMS... UD PRN PO 11/07/17 22:45 12/07/17 22:44 Glucose (Glucose Chew Tab) 4-8 Tablets 4 Tabl... UD PRN PO 11/07/17 22:45 12/07/17 22:44 Dextrose (Dextrose 50% 50ML Syringe) 25-50ML OF 50% DW IV FOR... UD PRN IV 11/07/17 22:45 12/07/17 22:44 Glucagon (Glucagon Inj) 1 mg UD PRN SQ 11/07/17 22:45 12/07/17 22:44 Hydrocodone Bit/ Homatropine Methylb (Hycodan Syrup) 5 ml QID PRN PO 11/08/17 00:00 11/22/17 00:00 11/09/17 00:00 5 ML Albuterol/ Ipratropium (Duoneb) 3 ml Q2H PRN INH 11/08/17 00:00 12/08/17 00:00 Doxycycline Hyclate (Vibramycin Cap) 100 mg BID PO 11/08/17 21:00 11/15/17 20:59 11/13/17 08:21 100 MG Albuterol/ Ipratropium (Duoneb) 3 ml Q4RWA INH 11/10/17 08:00 12/10/17 07:59 11/13/17 15:36 3 ML Prednisone (PredniSONE TAB) 60 mg QAM PO 11/13/17 09:00 12/13/17 08:59 11/13/17 08:25 60 MG Sodium Chloride 1,000 ml @ 100 mls/hr Q10H IV 11/13/17 17:15 11/14/17 09:00 UNV Objective Vital Signs Date Time Temp Pulse Resp B/P (MAP) Pulse Ox O2 Delivery O2 Flow Rate FiO2 11/13/17 15:36 80 16 98 Room Air 11/13/17 15:04 36.9 78 20 113/66 (82) 93 Room Air 11/13/17 11:15 75 18 95 Room Air 11/13/17 10:12 Room Air 11/13/17 07:26 36.5 67 20 124/74 (91) 93 Room Air 11/13/17 07:01 78 18 93 Room Air 11/13/17 00:00 Room Air 11/12/17 23:11 36.5 70 20 144/80 (101) 96 Room Air 11/12/17 20:00 Room Air 11/12/17 19:22 74 18 96 Room Air 11/12/17 17:34 Room Air Physical Exam General Appearance: WD/WN, no apparent distress Respiratory/Chest: chest non-tender, no respiratory distress, no accessory muscle use, + wheezing (difussed bilaterally) Cardiovascular: regular rate, rhythm, no edema, no murmur Extremities: non-tender, normal inspection, no pedal edema Neurologic/Psychiatric: alert, normal mood/affect, oriented x 3 Skin: normal color, warm/dry, no rash Laboratory Results 11/13/17 06:30 11/13/17 15:41 Test 11/13/17 06:30 11/13/17 15:41 11/13/17 16:44 Red Blood Count 3.56 M/uL (4.2-5.4) Mean Corpuscular Volume 96.1 fL (80-100) Mean Corpuscular Hemoglobin 32.3 pg (25-34) Mean Corpuscular Hemoglobin Concent 33.6 g/dl (32-36) RDW Standard Deviation 51.6 fL (36.4-46.3) RDW Coefficient of Variation 14.7 % (11.5-14.5) Mean Platelet Volume 8.3 fL (7.4-10.4) Anion Gap 11.0 mmol/L (3-11) Est Creatinine Clear Calc Drug Dose 29.0 ml/min Estimated GFR () 33.1 Estimated GFR (Non- 28.6 BUN/Creatinine Ratio 25.2 (10-20) Calcium Level 8.8 mg/dl (8.5-10.1) Bedside Glucose 148 mg/dl (70-90) Assessment and Plan 72 yoF with hx of COPD admitted for bronchitis, hypoxia, SOB with exertion. No focal findings on imaging reflective of a bacterial infection however will cover for atypical with doxycycline. No chest pain or EKG changes concerning for ischemia and Troponin neg. Influenza PCR neg. 11/13--Patient reported feeling more short of breath overnight. Her initial exam in the am; bilateral diffused wheezing. Cr was elevated this morning and was subsequently given 500ml bolus of fluids. Cr continued to increase this afternoon to 1.73 despite bolus. Patient was placed on maintenance fluids overnight with goal to reassess BMP tomorrow am. Please encourage PO intake. Pt admits poor PO intake. Patient will require the following medications at discharge; Prednisone taper, Combivent inhaler and Doxycycline (8 more doses) Resp distress / to bronchitis - Flu PCR neg - Prednisone 60 mg PO daily - Continue on Doxycycline 100mg BID PO - Continue Guaifenesin - O2 per protocol - Drop in sats on the evening of 11/10. Was given Mag 2g and started on Vanc/ Zosyn by night team however given afebrile, with no WBC and worsening of CXR/ exam dced abx. Hypoxic episode likely from mucus plug and will increase pulm toilet - Continue Duoneb scheduled Q4H and Q2H PRN - flutter valve ordered - CPAP given concern for ALVA as pt sleepy/snoring and having worsening of respiratory status at night Hyponatremia possibly secondary to dehydration vs URI - resolving - Received NSS with 20meq of KCL @ 125cc/h on admission HTN - Continue amlodipine 5 mg, HCTZ 25 mg daily, losartan 100 mg daily TIA/ hyperlipidemia - Continue ASA and plavix - Continue zocor 20 mg Mood disorder/ anxiety /peripheral neuropathy - Continue amitryptaline 50 mg, Carbamazepine 200 mg bid - Continue zoloft 75 mg qam - Continue buspar 5 mg tid - Continue gabapentin 600 mg tid -.5 mg IV Ativan once today for acute anxiety Chronic back pain - continue baclofen 10 mg tid GERD/ Henderson's - continue protonix 20 mg bid and pepcid 20 mg daily DMII - bsg ac hs - Insulin SS - metformin held Hypothyroidism - continue levothyroxine 100 mcg daily DVT prophylaxis - SCD and hep bid History Resident Physician Supervision Note: I was present with Dr. De La Torre during the history and exam. I discussed the case with the resident and agree with the findings and plan as documented in the note. Any exceptions or clarifications are listed here Pt reports persistent shortness of breath and nonproductive cough which has generally continued to improve. COmfortable returning home today. General Appearance: WD/WN, no apparent distress Respiratory: chest non-tender, no respiratory distress, decreased breath sounds (throughout), wheezing (mild diffuse end exp) Cardiovascular: normal peripheral pulses, regular rate, rhythm, no murmur Gastrointestinal: normal bowel sounds, non tender, soft, no organomegaly Assessment/Plan 72 y/o female h/o HTN, DMII, GERD presents with severe bronchitis Bronchitis - complete course of doxycycline w/ duonebs and prednisone therapy ( taper) - would recommend eval by spirometry after recovery Elevated creatinine - s/p 500mL bolus w/ repeat Cr increased to 1.7 - similar issue a few days ago with decreased hydration resulting in increased Cr w/ pt admission of poor hydration - maintenance fluids and recheck in AM if amenable, otherwise strongly encourage PO hydration and recheck as outpatient Hyponatremia - stable and improved HTN - continue amlodipine, HCTZ and losartan, monitor BP DMII - holding home metformin, continue ISS h/o TIA in the setting of HLD - continue ASA/Plavix, Zocor Hypothyroidism - continue levothyroxine Mood disorder - continue present regimen Chronic back pain - continue baclofen GERD - continue PPI/H2 therapy VTE PPX - heparin
[2017-11-13 06:51] LABS: HEMATOCRIT 34.2 % (37-47); HEMOGLOBIN 11.5 g/dL (12.0-16.0); MEAN CELL VOLUME 96.1 fL (80-100); MEAN CORPUSCULAR HEMOGLOBIN 32.3 pg (25-34); MEAN CORPUSCULAR HGB CONC 33.6 g/dl (32-36); MEAN PLATELET VOLUME 8.3 fL (7.4-10.4); PLATELET COUNT 227 K/uL (130-400); RED CELL DISTRIBUTION WIDTH CV 14.7 % (11.5-14.5); RED CELL DISTRIBUTION WIDTH SD 51.6 fL (36.4-46.3); WHITE BLOOD COUNT 12.65 K/uL (4.8-10.8)
[2017-11-13 07:01] VITALS: PULSE 78; O2SAT 93
[2017-11-13] MEDS: ALBUT/IPRATROP 3MG/0.5MG NEB 3 ML VIAL INH SCH ×4 (07:01→19:07)
[2017-11-13 07:23] LABS: CALCIUM 8.9 mg/dl (8.5-10.1); CREATININE 1.31 mg/dl (0.60-1.20); POTASSIUM 3.9 mmol/L (3.5-5.1)
[2017-11-13 07:26] VITALS: BP 124/74; PULSE 67; TEMP 36.5; O2SAT 93
[2017-11-13] MEDS: CYANOCOBALAMIN 500 MCG TAB (VIT B-12) PO SCH (08:21)
[2017-11-13] MEDS: BACLOFEN 10 MG TAB PO SCH ×3 (08:21→21:27)
[2017-11-13] MEDS: CLOPIDOGREL BISULFATE 75 MG TAB PO SCH (08:21)
[2017-11-13] MEDS: FAMOTIDINE 20 MG TAB PO SCH (08:21)
[2017-11-13] MEDS: DOXYCYCLINE HYCLATE 100 MG CAP PO SCH ×2 (08:21→21:27)
[2017-11-13] MEDS: AMLODIPINE BESYLATE 5 MG TAB PO SCH (08:22)
[2017-11-13] MEDS: CALCIUM 600MG + VIT D 400 IU TAB PO SCH (08:23)
[2017-11-13] MEDS: CARBAMAZEPINE 200 MG TAB PO SCH ×2 (08:23→21:27)
[2017-11-13] MEDS: LOSARTAN POTASSIUM 50 MG TAB PO SCH (08:23)
[2017-11-13] MEDS: PANTOprazole SOD 40 MG TAB PO SCH ×2 (08:24→21:27)
[2017-11-13] MEDS: SERTRALINE HCL 50 MG TAB PO SCH (08:24)
[2017-11-13] MEDS: HYDROCHLOROTHIAZIDE 25 MG TAB PO SCH (08:25)
[2017-11-13] MEDS: GABAPENTIN 600 MG TAB PO SCH ×3 (08:26→21:27)
[2017-11-13] MEDS: INSULIN ASPART 100 UNITS/ML 3 ML PEN SC SCH ×4 (08:27→21:00)
[2017-11-13] MEDS: HEPARIN SOD 5000 UNIT/0.5 ML CARP SQ SCH ×2 (08:33→21:29)
[2017-11-13 11:15] VITALS: PULSE 75; O2SAT 95
[2017-11-13] MEDS ORDERED: SODIUM CHLORIDE 0.9% 500ML 500 ML IV ONE (12:00)
--- NOTE | 2017-11-13 12:28 | Clinical Documentation Query ---
CLINICAL DOCUMENTATION QUERY A 72 yoF with hx of COPD admitted for acute COPD exacerbation likely viral vs bacterial in etiology. No focal findings on imaging reflective of a bacterial infection however will cover for atypical with doxycycline. In your clinical opinion is this patient being managed for: ( ) Acute respiratory failure with hypoxia (x ) Not Agree ( ) Other explanation of clinical findings (Please Explain) ( ) Unable to determine (Please Define) ( ) Need to Discuss The medical record reflects the following clinical findings, treatment, and risk factors. Clinical Indicators: Documented hypoxic respiratory distress Treatment: O2, Duoneb, Prednisone PO, Doxycycline PO Risk Factors: Age, COPD exacerbation, bronchitis Please clarify and document your clinical opinion in the progress notes and discharge summary. Terms such as "probable", "suspected", "likely", "questionable", "possible", or "still to be ruled out" are acceptable. IF IN AGREEMENT, YOU MUST DOCUMENT ABOVE DIAGNOSTIC STATEMENT IN DAILY PROGRESS NOTES AND DISCHARGE SUMMARY. This document is not part of the patient's record. Thank You, Fern Wise RN [phone]
[2017-11-13 15:04] VITALS: BP 113/66; PULSE 78; TEMP 36.9; O2SAT 93
[2017-11-13 15:36] VITALS: PULSE 80; O2SAT 98
[2017-11-13 16:23] LABS: CALCIUM 8.8 mg/dl (8.5-10.1); CREATININE 1.73 mg/dl (0.60-1.20); POTASSIUM 4.4 mmol/L (3.5-5.1)
[2017-11-13] MEDS: POLYETHYLENE (MIRALAX) 17 GM PACK PO PRN (16:46)
[2017-11-13] MEDS: SODIUM CHLORIDE 0.9% 1000ML 1,000 ML IV SCH (17:53)
[2017-11-13 19:09] VITALS: PULSE 81; O2SAT 94
[2017-11-13] MEDS: SIMVASTATIN 20 MG TAB PO SCH (21:27)
[2017-11-13] MEDS: AMITRIPTYLINE HCL 50 MG TAB PO SCH (21:27)
[2017-11-13] MEDS ORDERED: NURSING VERBAL MED ORDER STA (21:38)
[2017-11-13] MEDS ORDERED: TRAZODONE HCL 50 MG TAB PO STA (21:47)
[2017-11-14] VITALS (9 sets, daily range): BP systolic 123–151; BP diastolic 71–77; PULSE 64–80; TEMP 36.6–36.7; O2SAT 95–100; Ht 160 cm; Wt 80.3 kg
[2017-11-14] MEDS: GUAIFENESIN 200 MG TAB PO SCH ×5 (04:25→20:38)
[2017-11-14 05:58] LABS: HEMATOCRIT 33.5 % (37-47); HEMOGLOBIN 11.1 g/dL (12.0-16.0); MEAN CELL VOLUME 96.5 fL (80-100); MEAN CORPUSCULAR HGB CONC 33.1 g/dl (32-36); MEAN PLATELET VOLUME 8.3 fL (7.4-10.4); PLATELET COUNT 242 K/uL (130-400); RED CELL DISTRIBUTION WIDTH CV 14.9 % (11.5-14.5); RED CELL DISTRIBUTION WIDTH SD 52.7 fL (36.4-46.3); WHITE BLOOD COUNT 13.76 K/uL (4.8-10.8)
[2017-11-14] MEDS: SODIUM CHLORIDE 0.9% 1000ML 1,000 ML IV SCH (06:15)
[2017-11-14] MEDS: LEVOTHYROXINE 125 MCG TAB PO SCH (06:15)
[2017-11-14 06:32] LABS: CALCIUM 8.7 mg/dl (8.5-10.1); CREATININE 1.44 mg/dl (0.60-1.20); POTASSIUM 4.2 mmol/L (3.5-5.1)
[2017-11-14] MEDS: ALBUT/IPRATROP 3MG/0.5MG NEB 3 ML VIAL INH SCH ×4 (07:18→19:34)
[2017-11-14] MEDS: INSULIN ASPART 100 UNITS/ML 3 ML PEN SC SCH ×4 (07:57→20:39)
[2017-11-14] MEDS: HYDROCHLOROTHIAZIDE 25 MG TAB PO SCH (08:03)
[2017-11-14] MEDS: CYANOCOBALAMIN 500 MCG TAB (VIT B-12) PO SCH (08:03)
[2017-11-14] MEDS: CLOPIDOGREL BISULFATE 75 MG TAB PO SCH (08:03)
[2017-11-14] MEDS: CALCIUM 600MG + VIT D 400 IU TAB PO SCH (08:03)
[2017-11-14] MEDS: LOSARTAN POTASSIUM 50 MG TAB PO SCH (08:04)
[2017-11-14] MEDS: GABAPENTIN 600 MG TAB PO SCH ×3 (08:04→20:38)
[2017-11-14] MEDS: SERTRALINE HCL 50 MG TAB PO SCH (08:04)
[2017-11-14] MEDS: AMLODIPINE BESYLATE 5 MG TAB PO SCH (08:05)
[2017-11-14] MEDS: CARBAMAZEPINE 200 MG TAB PO SCH ×2 (08:05→20:37)
[2017-11-14] MEDS: BACLOFEN 10 MG TAB PO SCH ×3 (08:05→20:38)
[2017-11-14] MEDS: FAMOTIDINE 20 MG TAB PO SCH (08:05)
[2017-11-14] MEDS: PANTOprazole SOD 40 MG TAB PO SCH ×2 (08:06→20:37)
[2017-11-14] MEDS: DOXYCYCLINE HYCLATE 100 MG CAP PO SCH ×2 (08:06→20:37)
[2017-11-14] MEDS: HEPARIN SOD 5000 UNIT/0.5 ML CARP SQ SCH ×2 (08:12→20:45)
--- NOTE | 2017-11-14 08:31 | Family Medicine Progress Note ---
Progress Note Date of Service Nov 14, 2017. Subjective Pt evaluation today including: conversation w/ patient, physical exam, chart review, lab review Patient still complains of chest tightness, SOB. Patient had trouble ambulating overnight. Constitutional: No fever, No chills Respiratory: + shortness of breath, No cough, No sputum, No wheezing Cardiovascular: No chest pain, No orthopnea, No palpitations Abdomen: No pain, No nausea, No vomiting, No diarrhea Female : No dysuria Medications Current Inpatient Medications Medications (Trade) Dose Ordered Sig/Jeannie Route Start Time Stop Time Status Last Admin Dose Admin Acetaminophen (Tylenol Tab) 650 mg Q4H PRN PO 11/07/17 21:30 12/07/17 21:29 Al Hydrox/Mg Hydrox/Simethicone (Maalox Max Susp) 15 ml Q4H PRN PO 11/07/17 21:30 12/07/17 21:29 11/13/17 08:34 15 ML Magnesium Hydroxide (Milk Of Magnesia Susp) 30 ml Q6H PRN PO 11/07/17 21:30 12/07/17 21:29 11/14/17 10:00 30 ML Polyethylene (Miralax Powder Packet) 17 gm DAILY PRN PO 11/07/17 23:00 12/07/17 22:59 11/14/17 16:19 17 GM Ondansetron HCl (Zofran Inj) 4 mg Q6H PRN IV 11/07/17 21:30 12/07/17 21:29 11/13/17 00:32 4 MG Heparin Sodium (Porcine) (Heparin Sq 5000 Unit/0.5ml) 5,000 unit Q12 SQ 11/07/17 23:15 12/07/17 23:14 11/14/17 20:45 5,000 UNIT Guaifenesin (Organidin Nr Tab) 200 mg Q4 PO 11/07/17 22:15 12/07/17 22:14 11/14/17 20:38 200 MG Insulin Aspart (novoLOG ASPART) SLIDING SCALE G... ACHS SC 11/08/17 06:30 12/08/17 06:59 11/13/17 12:17 1 UNITS Amitriptyline HCl (Elavil Tab) 50 mg HS PO 11/08/17 21:00 12/08/17 20:59 1/30/18 20:36 50 MG Amlodipine Besylate (Norvasc Tab) 5 mg QAM PO 11/08/17 09:00 12/08/17 08:59 11/14/17 08:05 5 MG Baclofen (Lioresal Tab) 10 mg TID PO 11/08/17 09:00 12/08/17 08:59 11/14/17 20:38 10 MG Buspirone HCl (Buspar Tab) 5 mg BID PO 11/08/17 09:00 12/08/17 08:59 11/14/17 20:38 5 MG Carbamazepine (Tegretol Tab) 200 mg BID PO 11/08/17 09:00 12/08/17 08:59 11/14/17 20:37 200 MG Clopidogrel Bisulfate (plAVix TAB) 75 mg QAM PO 11/08/17 09:00 12/08/17 08:59 11/14/17 08:03 75 MG Cyanocobalamin (Vitamin B-12 Tab) 500 mcg QAM PO 11/08/17 09:00 12/08/17 08:59 11/14/17 08:03 500 MCG Famotidine (Pepcid Tab) 20 mg QAM PO 11/08/17 09:00 12/08/17 08:59 11/14/17 08:05 20 MG Gabapentin (Neurontin Tab) 600 mg TID PO 11/08/17 09:00 12/08/17 08:59 11/14/17 20:38 600 MG Hydrochlorothiazide (Hydrochlorothiazide Tab) 25 mg QAM PO 11/08/17 09:00 12/08/17 08:59 11/14/17 08:03 25 MG Levothyroxine Sodium (Synthroid Tab) 125 mcg DAILYBB PO 11/08/17 06:30 12/08/17 06:29 11/14/17 06:15 125 MCG Losartan Potassium (coZAAR TAB) 100 mg QAM PO 11/08/17 09:00 12/08/17 08:59 11/14/17 08:04 100 MG Sertraline HCl (Zoloft Tab) 75 mg QAM PO 11/08/17 09:00 12/08/17 08:59 11/14/17 08:04 75 MG Simvastatin (Zocor Tab) 20 mg QPM PO 11/08/17 21:00 12/08/17 20:59 11/14/17 20:36 20 MG Calcium/Vitamin D (Caltrate Plus Tab) 1 tab DAILY PO 11/08/17 09:00 12/08/17 08:59 11/14/17 08:03 1 TAB Pantoprazole Sodium (Protonix Tab) 40 mg BID PO 11/08/17 09:00 12/08/17 08:59 11/14/17 20:37 40 MG Glucose (Glucose 40% Gel) 15-30 GRAMS 15 GRAMS... UD PRN PO 11/07/17 22:45 12/07/17 22:44 Glucose (Glucose Chew Tab) 4-8 Tablets 4 Tabl... UD PRN PO 11/07/17 22:45 12/07/17 22:44 Dextrose (Dextrose 50% 50ML Syringe) 25-50ML OF 50% DW IV FOR... UD PRN IV 11/07/17 22:45 12/07/17 22:44 Glucagon (Glucagon Inj) 1 mg UD PRN SQ 11/07/17 22:45 12/07/17 22:44 Hydrocodone Bit/ Homatropine Methylb (Hycodan Syrup) 5 ml QID PRN PO 11/08/17 00:00 11/22/17 00:00 11/09/17 00:00 5 ML Albuterol/ Ipratropium (Duoneb) 3 ml Q2H PRN INH 11/08/17 00:00 12/08/17 00:00 Doxycycline Hyclate (Vibramycin Cap) 100 mg BID PO 11/08/17 21:00 11/15/17 20:59 11/14/17 20:37 100 MG Albuterol/ Ipratropium (Duoneb) 3 ml Q4RWA INH 11/10/17 08:00 12/10/17 07:59 11/14/17 19:34 3 ML Prednisone (PredniSONE TAB) 60 mg QAM PO 11/13/17 09:00 12/13/17 08:59 11/14/17 08:04 60 MG Objective Vital Signs Date Time Temp Pulse Resp B/P (MAP) Pulse Ox O2 Delivery O2 Flow Rate FiO2 11/14/17 19:34 68 16 97 Room Air 1/30/18 16:00 96 Room Air 11/14/17 15:14 71 16 96 Room Air 11/14/17 14:36 36.6 73 20 137/77 (97) 100 Room Air 11/14/17 11:49 66 19 98 Room Air 11/14/17 09:10 Room Air 11/14/17 07:20 64 20 96 Room Air 11/14/17 07:08 36.6 70 16 151/75 (100) 98 Room Air 11/14/17 00:00 Room Air Physical Exam General Appearance: WD/WN, no apparent distress Respiratory/Chest: chest non-tender, lungs clear, normal breath sounds Cardiovascular: regular rate, rhythm, no edema, no murmur Abdomen: normal bowel sounds, non tender, no pulsatile mass 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, no motor/sensory deficits, alert, normal mood/affect, oriented x 3 Skin: normal color, warm/dry, no rash Laboratory Results 11/14/17 05:29 11/14/17 05:29 Test 11/14/17 00:00 11/14/17 05:29 11/14/17 20:24 Urine Color YELLOW Urine Appearance CLEAR (CLEAR) Urine pH 6.0 (4.5-7.5) Urine Specific [place] 1.011 (1.000-1.030) Urine Protein NEG (NEG) Urine Glucose (UA) NEG (NEG) Urine Ketones NEG (NEG) Urine Occult Blood NEG (NEG) Urine Nitrite NEG (NEG) Urine Bilirubin NEG (NEG) Urine Urobilinogen NEG (NEG) Urine Leukocyte Esterase NEG (NEG) Urine WBC (Auto) 0 /hpf (0-5) Urine RBC (Auto) 0-4 /hpf (0-4) Urine Hyaline Casts (Auto) 1-5 /lpf (0-5) Urine Epithelial Cells (Auto) 0-5 /lpf (0-5) Urine Bacteria (Auto) NEG (NEG) Red Blood Count 3.47 M/uL (4.2-5.4) Mean Corpuscular Volume 96.5 fL (80-100) Mean Corpuscular Hemoglobin 32.0 pg (25-34) Mean Corpuscular Hemoglobin Concent 33.1 g/dl (32-36) RDW Standard Deviation 52.7 fL (36.4-46.3) RDW Coefficient of Variation 14.9 % (11.5-14.5) Mean Platelet Volume 8.3 fL (7.4-10.4) Anion Gap 8.0 mmol/L (3-11) Est Creatinine Clear Calc Drug Dose 34.6 ml/min Estimated GFR () 41.4 Estimated GFR (Non- 35.7 BUN/Creatinine Ratio 32.8 (10-20) Calcium Level 8.7 mg/dl (8.5-10.1) Bedside Glucose 124 mg/dl (70-90) Assessment and Plan 72 yoF with hx of COPD admitted for bronchitis, hypoxia, SOB with exertion. No focal findings on imaging reflective of a bacterial infection however will cover for atypical with doxycycline. No chest pain or EKG changes concerning for ischemia and Troponin neg. Influenza PCR neg. 11/14--Patient has trouble walking today, likely 2/2 to deconditioning. PT saw patient today with the recommendation for outpatient rehab. Patient will require the following medications at discharge; Prednisone taper, Combivent inhaler and Doxycycline (6 more doses). In addition, patient will need follow up BMP in the outpatient and incentive spirometry script at discharge. Resp distress 2/2 to bronchitis - Flu PCR neg - Prednisone 60 mg PO daily - Continue on Doxycycline 100mg BID PO (day 6) - Continue Guaifenesin - O2 per protocol - Drop in sats on the evening of 11/10. Was given Mag 2g and started on Vanc/ Zosyn by night team however given afebrile, with no WBC and worsening of CXR/ exam dced abx. Hypoxic episode likely from mucus plug and will increase pulm toilet - Continue Duoneb scheduled Q4H and Q2H PRN - flutter valve ordered - CPAP given concern for ALVA as pt sleepy/snoring and having worsening of respiratory status at night Hyponatremia possibly secondary to dehydration vs URI - resolving - Received NSS with 20meq of KCL @ 125cc/h on admission HTN - Continue amlodipine 5 mg, HCTZ 25 mg daily, losartan 100 mg daily TIA/ hyperlipidemia - Continue ASA and plavix - Continue zocor 20 mg Mood disorder/ anxiety /peripheral neuropathy - Continue amitryptaline 50 mg, Carbamazepine 200 mg bid - Continue zoloft 75 mg qam - Continue buspar 5 mg tid - Continue gabapentin 600 mg tid -.5 mg IV Ativan once today for acute anxiety Chronic back pain - continue baclofen 10 mg tid GERD/ Henderson's - continue protonix 20 mg bid and pepcid 20 mg daily DMII - bsg ac hs - Insulin SS - metformin held Hypothyroidism - continue levothyroxine 100 mcg daily DVT prophylaxis - SCD and hep bid History Resident Physician Supervision Note: I was present with Dr. De La Torre during the history and exam. I discussed the case with the resident and agree with the findings and plan as documented in the note. Any exceptions or clarifications are listed here. Pt reports weakness of the b/l LE while ambulating which has been a problem for her at home to a lesser degree prior to admission, but she noticed more overnight. She reports intermittent falls at home when pressed, without apparent injury. She is concerned now with the overall worsening of her strength in the setting of her recent illness. Reports no sensation changes, CAIN , focal weakness, speech changes, worsening respiratory complaints. General Appearance: WD/WN, no apparent distress Respiratory: chest non-tender, no respiratory distress, decreased breath sounds , rhonchi Cardiovascular: normal peripheral pulses, regular rate, rhythm, no murmur Gastrointestinal: normal bowel sounds, non tender, soft, no organomegaly Extremities: normal range of motion, other (4/5 str of the b/l thigh flex/ext, 4+/5 distally. 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, alert, normal mood/affect, oriented x 3 Assessment/Plan 72 y/o female h/o HTN, DMII, GERD presents with severe bronchitis Deconditioning - PT/OT assessment inclined for rehabilitation, agree w/ assessment and will make referral to case mgmt Bronchitis - complete course of doxycycline w/ duonebs and prednisone therapy ( taper) - would recommend eval by spirometry after recovery Elevated creatinine - improved with IVF, likely related to poor oral hydration - strongly encourage PO hydration and recheck as outpatient Hyponatremia - stable and improved HTN - continue amlodipine, HCTZ and losartan, monitor BP DMII - holding home metformin, continue ISS h/o TIA in the setting of HLD - continue ASA/Plavix, Zocor Hypothyroidism - continue levothyroxine Mood disorder - continue present regimen Chronic back pain - continue baclofen GERD - continue PPI/H2 therapy VTE PPX - heparin
--- NOTE | 2017-11-14 09:07 | Clinical Documentation Query ---
CLINICAL DOCUMENTATION QUERY 72 yo female with elevated creatinine levels falling into the RIFLE criteria: Acute Kidney Injury is defined as any of the following: o Increase in SCr by (>/=) 0.3 mg/dl within 48 hours; or o Increase in SCr to (>/=)1.5 times baseline, which is known or presumed to have occurred within the prior 7 days; or o Urine volume <0.5 ml/kg/h for 6 hours. In your clinical opinion is this patient being managed for: ( ) Acute kidney failure ( ) Not Agree ( ) Other explanation of clinical findings (Please Explain) ( ) Unable to determine (Please Define) ( ) Need to Discuss The medical record reflects the following clinical findings, treatment, and risk factors. Clinical Indicators: Creatinine 1.73 trending up from 1.31 and a baseline of 1.15 on admission Treatment: IV hydration, serial PRPs Risk Factors: Age, CHF, HTN Please clarify and document your clinical opinion in the progress notes and discharge summary. Terms such as "probable", "suspected", "likely", "questionable", "possible", or "still to be ruled out" are acceptable. IF IN AGREEMENT, YOU MUST DOCUMENT ABOVE DIAGNOSTIC STATEMENT IN DAILY PROGRESS NOTES AND DISCHARGE SUMMARY. This document is not part of the patient's record. Thank You, Fern Wise RN [phone]
[2017-11-14] MEDS: MAGNESIUM HYDROXIDE SUSP 30 ML UDC PO PRN (10:00)
[2017-11-14] MEDS: POLYETHYLENE (MIRALAX) 17 GM PACK PO PRN (16:19)
[2017-11-14] MEDS: SIMVASTATIN 20 MG TAB PO SCH (20:36)
[2017-11-14] MEDS: AMITRIPTYLINE HCL 50 MG TAB PO SCH (20:36)
[2017-11-14] MEDS ORDERED: BISACODYL 10 MG SUPP PR ONE (22:45)
[2017-11-15] MEDS: GUAIFENESIN 200 MG TAB PO SCH ×6 (00:11→20:56)
[2017-11-15 05:44] LABS: HEMATOCRIT 30.9 % (37-47); HEMOGLOBIN 10.4 g/dL (12.0-16.0); MEAN CELL VOLUME 96.6 fL (80-100); MEAN CORPUSCULAR HEMOGLOBIN 32.5 pg (25-34); MEAN CORPUSCULAR HGB CONC 33.7 g/dl (32-36); MEAN PLATELET VOLUME 8.1 fL (7.4-10.4); PLATELET COUNT 227 K/uL (130-400); RED CELL DISTRIBUTION WIDTH CV 14.9 % (11.5-14.5); RED CELL DISTRIBUTION WIDTH SD 52.3 fL (36.4-46.3); WHITE BLOOD COUNT 12.94 K/uL (4.8-10.8)
[2017-11-15] MEDS: LEVOTHYROXINE 125 MCG TAB PO SCH (06:02)
[2017-11-15] MEDS: ONDANSETRON INJ 2 MG/ML 2 ML VIAL IV PRN (06:02)
[2017-11-15 06:15] LABS: CALCIUM 8.9 mg/dl (8.5-10.1); CREATININE 1.3 mg/dl (0.60-1.20); POTASSIUM 4.3 mmol/L (3.5-5.1)
[2017-11-15] MEDS: ALBUT/IPRATROP 3MG/0.5MG NEB 3 ML VIAL INH SCH ×2 (07:06→11:39)
[2017-11-15 07:19] VITALS: PULSE 66; O2SAT 96
[2017-11-15] MEDS: LOSARTAN POTASSIUM 50 MG TAB PO SCH (08:21)
[2017-11-15] MEDS: HYDROCHLOROTHIAZIDE 25 MG TAB PO SCH (08:21)
[2017-11-15] MEDS: GABAPENTIN 600 MG TAB PO SCH ×3 (08:21→20:56)
[2017-11-15] MEDS: BACLOFEN 10 MG TAB PO SCH ×3 (08:21→20:56)
[2017-11-15] MEDS: CALCIUM 600MG + VIT D 400 IU TAB PO SCH (08:21)
[2017-11-15] MEDS: CYANOCOBALAMIN 500 MCG TAB (VIT B-12) PO SCH (08:22)
[2017-11-15] MEDS: PANTOprazole SOD 40 MG TAB PO SCH ×2 (08:22→20:57)
[2017-11-15] MEDS: CARBAMAZEPINE 200 MG TAB PO SCH ×2 (08:22→20:58)
[2017-11-15] MEDS: FAMOTIDINE 20 MG TAB PO SCH (08:22)
[2017-11-15] MEDS: AMLODIPINE BESYLATE 5 MG TAB PO SCH (08:22)
[2017-11-15] MEDS: DOXYCYCLINE HYCLATE 100 MG CAP PO SCH ×2 (08:22→20:57)
[2017-11-15] MEDS: CLOPIDOGREL BISULFATE 75 MG TAB PO SCH (08:23)
[2017-11-15] MEDS: SERTRALINE HCL 50 MG TAB PO SCH (08:23)
[2017-11-15 08:25] VITALS: BP 131/69; PULSE 70; TEMP 36.6; O2SAT 97
[2017-11-15] MEDS: HEPARIN SOD 5000 UNIT/0.5 ML CARP SQ SCH ×2 (08:25→21:03)
[2017-11-15] MEDS: INSULIN ASPART 100 UNITS/ML 3 ML PEN SC SCH ×4 (08:29→20:55)
[2017-11-15 10:45] VITALS: PULSE 68; O2SAT 96
--- NOTE | 2017-11-15 10:45 | Clinical Documentation Query ---
CLINICAL DOCUMENTATION QUERY 72 yo female with elevated creatinine levels falling into the RIFLE criteria: Acute Kidney Injury is defined as any of the following: o Increase in SCr by (>/=) 0.3 mg/dl within 48 hours; or o Increase in SCr to (>/=)1.5 times baseline, which is known or presumed to have occurred within the prior 7 days; or o Urine volume <0.5 ml/kg/h for 6 hours. In your clinical opinion is this patient being managed for: (x) Acute kidney failure ( ) Not Agree ( ) Other explanation of clinical findings (Please Explain) ( ) Unable to determine (Please Define) ( ) Need to Discuss The medical record reflects the following clinical findings, treatment, and risk factors. Clinical Indicators: Creatinine 1.73 trending up from 1.31 and a baseline of 1.15 on admission Treatment: IV hydration, serial PRPs Risk Factors: Age, CHF, HTN Please clarify and document your clinical opinion in the progress notes and discharge summary. Terms such as "probable", "suspected", "likely", "questionable", "possible", or "still to be ruled out" are acceptable. IF IN AGREEMENT, YOU MUST DOCUMENT ABOVE DIAGNOSTIC STATEMENT IN DAILY PROGRESS NOTES AND DISCHARGE SUMMARY. This document is not part of the patient's record. Thank You, Fern Wise RN [phone]
[2017-11-15] MEDS ORDERED: ALBUT/IPRATROP 3MG/0.5MG NEB 3 ML VIAL INH PRN (12:03)
[2017-11-15 14:47] VITALS: BP 121/79; PULSE 74; TEMP 36.6; O2SAT 96
[2017-11-15 15:00] VITALS: BP 126/68; PULSE 78; TEMP 36.6; O2SAT 95
--- NOTE | 2017-11-15 17:47 | Family Medicine Progress Note ---
Progress Note Date of Service Nov 15, 2017. Subjective Pt evaluation today including: conversation w/ patient, physical exam, chart review, lab review Patient is doing well. Amendable to outpatient rehab. Constitutional: No fever, No chills Respiratory: + cough, + shortness of breath, No sputum, No wheezing Cardiovascular: No chest pain, No palpitations Abdomen: No pain, No nausea, No vomiting, No diarrhea Female : No dysuria Medications Current Inpatient Medications Medications (Trade) Dose Ordered Sig/Jeannie Route Start Time Stop Time Status Last Admin Dose Admin Acetaminophen (Tylenol Tab) 650 mg Q4H PRN PO 11/07/17 21:30 12/07/17 21:29 Al Hydrox/Mg Hydrox/Simethicone (Maalox Max Susp) 15 ml Q4H PRN PO 11/07/17 21:30 12/07/17 21:29 11/13/17 08:34 15 ML Magnesium Hydroxide (Milk Of Magnesia Susp) 30 ml Q6H PRN PO 11/07/17 21:30 12/07/17 21:29 11/14/17 10:00 30 ML Polyethylene (Miralax Powder Packet) 17 gm DAILY PRN PO 11/07/17 23:00 12/07/17 22:59 11/14/17 16:19 17 GM Ondansetron HCl (Zofran Inj) 4 mg Q6H PRN IV 11/07/17 21:30 12/07/17 21:29 11/15/17 06:02 4 MG Heparin Sodium (Porcine) (Heparin Sq 5000 Unit/0.5ml) 5,000 unit Q12 SQ 11/07/17 23:15 12/07/17 23:14 11/15/17 21:03 5,000 UNIT Guaifenesin (Organidin Nr Tab) 200 mg Q4 PO 11/07/17 22:15 12/07/17 22:14 11/15/17 20:56 200 MG Insulin Aspart (novoLOG ASPART) SLIDING SCALE G... ACHS SC 11/08/17 06:30 12/08/17 06:59 11/15/17 18:01 1 UNITS Amitriptyline HCl (Elavil Tab) 50 mg HS PO 11/08/17 21:00 12/08/17 20:59 11/15/17 20:59 50 MG Amlodipine Besylate (Norvasc Tab) 5 mg QAM PO 11/08/17 09:00 12/08/17 08:59 11/15/17 08:22 5 MG Baclofen (Lioresal Tab) 10 mg TID PO 11/08/17 09:00 12/08/17 08:59 11/15/17 20:56 10 MG Buspirone HCl (Buspar Tab) 5 mg BID PO 11/08/17 09:00 12/08/17 08:59 11/15/17 20:57 5 MG Carbamazepine (Tegretol Tab) 200 mg BID PO 11/08/17 09:00 12/08/17 08:59 11/15/17 20:58 200 MG Clopidogrel Bisulfate (plAVix TAB) 75 mg QAM PO 11/08/17 09:00 12/08/17 08:59 11/15/17 08:23 75 MG Cyanocobalamin (Vitamin B-12 Tab) 500 mcg QAM PO 11/08/17 09:00 12/08/17 08:59 11/15/17 08:22 500 MCG Famotidine (Pepcid Tab) 20 mg QAM PO 11/08/17 09:00 12/08/17 08:59 11/15/17 08:22 20 MG Gabapentin (Neurontin Tab) 600 mg TID PO 11/08/17 09:00 12/08/17 08:59 11/15/17 20:56 600 MG Hydrochlorothiazide (Hydrochlorothiazide Tab) 25 mg QAM PO 11/08/17 09:00 12/08/17 08:59 11/15/17 08:21 25 MG Levothyroxine Sodium (Synthroid Tab) 125 mcg DAILYBB PO 11/08/17 06:30 12/08/17 06:29 11/15/17 06:02 125 MCG Losartan Potassium (coZAAR TAB) 100 mg QAM PO 11/08/17 09:00 12/08/17 08:59 11/15/17 08:21 100 MG Sertraline HCl (Zoloft Tab) 75 mg QAM PO 11/08/17 09:00 12/08/17 08:59 11/15/17 08:23 75 MG Simvastatin (Zocor Tab) 20 mg QPM PO 1/24/18 21:00 12/08/17 20:59 11/15/17 20:55 20 MG Calcium/Vitamin D (Caltrate Plus Tab) 1 tab DAILY PO 11/08/17 09:00 12/08/17 08:59 11/15/17 08:21 1 TAB Pantoprazole Sodium (Protonix Tab) 40 mg BID PO 11/08/17 09:00 12/08/17 08:59 11/15/17 20:57 40 MG Glucose (Glucose 40% Gel) 15-30 GRAMS 15 GRAMS... UD PRN PO 11/07/17 22:45 12/07/17 22:44 Glucose (Glucose Chew Tab) 4-8 Tablets 4 Tabl... UD PRN PO 11/07/17 22:45 12/07/17 22:44 Dextrose (Dextrose 50% 50ML Syringe) 25-50ML OF 50% DW IV FOR... UD PRN IV 11/07/17 22:45 12/07/17 22:44 Glucagon (Glucagon Inj) 1 mg UD PRN SQ 11/07/17 22:45 12/07/17 22:44 Hydrocodone Bit/ Homatropine Methylb (Hycodan Syrup) 5 ml QID PRN PO 11/08/17 00:00 11/22/17 00:00 11/09/17 00:00 5 ML Prednisone (PredniSONE TAB) 60 mg QAM PO 11/13/17 09:00 11/16/17 00:00 11/15/17 08:23 60 MG Albuterol/ Ipratropium (Duoneb) 3 ml Q4R PRN INH 11/15/17 12:03 12/15/17 12:02 Prednisone (PredniSONE TAB) 40 mg QAM PO 11/16/17 08:00 12/16/17 07:59 Objective Vital Signs Date Time Temp Pulse Resp B/P (MAP) Pulse Ox O2 Delivery O2 Flow Rate FiO2 11/15/17 16:00 Room Air 11/15/17 15:00 36.6 78 16 126/68 (87) 95 Room Air 11/15/17 14:47 36.6 74 20 121/79 (93) 96 Room Air 11/15/17 11:43 Room Air 11/15/17 10:45 68 16 96 Room Air 11/15/17 08:25 36.6 70 20 131/69 (89) 97 Room Air 11/15/17 07:19 66 16 96 Room Air 11/15/17 00:30 Room Air 11/14/17 23:32 36.7 80 19 123/71 (88) 95 Room Air 11/14/17 22:50 36.6 74 22 127/75 (92) 96 Room Air Physical Exam General Appearance: WD/WN, no apparent distress Respiratory/Chest: chest non-tender, lungs clear, normal breath sounds Cardiovascular: regular rate, rhythm, no edema, no gallop, no murmur Abdomen: normal bowel sounds, non tender, soft Neurologic/Psychiatric: alert, normal mood/affect, oriented x 3 Skin: normal color, warm/dry, no rash Laboratory Results 11/15/17 05:29 11/15/17 05:29 Test 11/15/17 05:29 11/15/17 19:28 Red Blood Count 3.20 M/uL (4.2-5.4) Mean Corpuscular Volume 96.6 fL (80-100) Mean Corpuscular Hemoglobin 32.5 pg (25-34) Mean Corpuscular Hemoglobin Concent 33.7 g/dl (32-36) RDW Standard Deviation 52.3 fL (36.4-46.3) RDW Coefficient of Variation 14.9 % (11.5-14.5) Mean Platelet Volume 8.1 fL (7.4-10.4) Anion Gap 6.0 mmol/L (3-11) Est Creatinine Clear Calc Drug Dose 38.3 ml/min Estimated GFR () 46.8 Estimated GFR (Non- 40.4 BUN/Creatinine Ratio 29.8 (10-20) Calcium Level 8.9 mg/dl (8.5-10.1) Bedside Glucose 135 mg/dl (70-90) Assessment and Plan 72 yoF with hx of COPD admitted for bronchitis, hypoxia, SOB with exertion. No focal findings on imaging reflective of a bacterial infection however will cover for atypical with doxycycline. No chest pain or EKG changes concerning for ischemia and Troponin neg. Influenza PCR neg. 11/15--Patient waiting for placement to outpatient rehab. Patient is doing well. Reports chest tightness. Patient will require the following medications at discharge; Prednisone taper, Combivent inhaler and Doxycycline (4 more doses). In addition, patient will need follow up BMP in the outpatient and incentive spirometry script at discharge. Resp distress 2/2 to bronchitis - Flu PCR neg - Prednisone 60 mg PO daily - Continue on Doxycycline 100mg BID PO (day 8) - Continue Guaifenesin - O2 per protocol - Drop in sats on the evening of 11/10. Was given Mag 2g and started on Vanc/ Zosyn by night team however given afebrile, with no WBC and worsening of CXR/ exam dced abx. Hypoxic episode likely from mucus plug and will increase pulm toilet Hyponatremia possibly secondary to dehydration vs URI - resolving - Received NSS with 20meq of KCL @ 125cc/h on admission HTN - Continue amlodipine 5 mg, HCTZ 25 mg daily, losartan 100 mg daily TIA/ hyperlipidemia - Continue ASA and plavix - Continue zocor 20 mg Mood disorder/ anxiety /peripheral neuropathy - Continue amitryptaline 50 mg, Carbamazepine 200 mg bid - Continue zoloft 75 mg qam - Continue buspar 5 mg tid - Continue gabapentin 600 mg tid -.5 mg IV Ativan once today for acute anxiety Chronic back pain - continue baclofen 10 mg tid GERD/ Henderson's - continue protonix 20 mg bid and pepcid 20 mg daily DMII - bsg ac hs - Insulin SS - metformin held Hypothyroidism - continue levothyroxine 100 mcg daily DVT prophylaxis - SCD and hep bid History Pt reports gradual improvement of shortness of breath and tightness with deep inspiration with improving fatigue and increased energy. Still having mild instability with ambulation and open to course of inpatient rehabilitation. General Appearance: WD/WN, no apparent distress Respiratory: chest non-tender, no respiratory distress, decreased breath sounds , rhonchi Cardiovascular: normal peripheral pulses, regular rate, rhythm, no edema, no murmur Gastrointestinal: normal bowel sounds, non tender, soft, no organomegaly Assessment/Plan 72 y/o female h/o HTN, DMII, GERD presents with severe bronchitis Deconditioning - PT/OT assessment inclined for rehabilitation, agree w/ assessment - awaiting placement Bronchitis - complete course of doxycycline w/ combivent and prednisone therapy (taper) - would recommend eval by spirometry after recovery Elevated creatinine - improved with IVF, likely related to poor oral hydration - strongly encourage PO hydration and recheck as outpatient Hyponatremia - stable and improved HTN - continue amlodipine, HCTZ and losartan, monitor BP DMII - holding home metformin, continue ISS h/o TIA in the setting of HLD - continue ASA/Plavix, Zocor Hypothyroidism - continue levothyroxine Mood disorder - continue present regimen Chronic back pain - continue baclofen GERD - continue PPI/H2 therapy VTE PPX - heparin
[2017-11-15] MEDS: SIMVASTATIN 20 MG TAB PO SCH (20:55)
[2017-11-15] MEDS: AMITRIPTYLINE HCL 50 MG TAB PO SCH (20:59)
[2017-11-16] MEDS: GUAIFENESIN 200 MG TAB PO SCH ×5 (00:14→17:11)
[2017-11-16] MEDS: LEVOTHYROXINE 125 MCG TAB PO SCH (05:21)
--- NOTE | 2017-11-16 07:34 | Family Medicine Progress Note ---
Progress Note Date of Service Nov 16, 2017.
[2017-11-16 07:44] VITALS: BP 145/79; PULSE 64; TEMP 36.6; O2SAT 98
[2017-11-16] MEDS: LOSARTAN POTASSIUM 50 MG TAB PO SCH (07:55)
[2017-11-16] MEDS: SERTRALINE HCL 50 MG TAB PO SCH (07:56)
[2017-11-16] MEDS: BACLOFEN 10 MG TAB PO SCH ×2 (07:56→14:41)
[2017-11-16] MEDS: CARBAMAZEPINE 200 MG TAB PO SCH (07:56)
[2017-11-16] MEDS: GABAPENTIN 600 MG TAB PO SCH ×2 (07:56→14:41)
[2017-11-16] MEDS: CLOPIDOGREL BISULFATE 75 MG TAB PO SCH (07:57)
[2017-11-16] MEDS: HYDROCHLOROTHIAZIDE 25 MG TAB PO SCH (07:57)
[2017-11-16] MEDS: FAMOTIDINE 20 MG TAB PO SCH (07:57)
[2017-11-16] MEDS: PANTOprazole SOD 40 MG TAB PO SCH (07:57)
[2017-11-16] MEDS: AMLODIPINE BESYLATE 5 MG TAB PO SCH (07:57)
[2017-11-16] MEDS: CALCIUM 600MG + VIT D 400 IU TAB PO SCH (07:58)
[2017-11-16] MEDS: CYANOCOBALAMIN 500 MCG TAB (VIT B-12) PO SCH (07:58)
[2017-11-16] MEDS: INSULIN ASPART 100 UNITS/ML 3 ML PEN SC SCH ×2 (07:58→12:38)
[2017-11-16] MEDS: HEPARIN SOD 5000 UNIT/0.5 ML CARP SQ SCH (08:52)
[2017-11-16 09:06] VITALS: O2SAT 98
[2017-11-16] MEDS ORDERED: PRD20 PO (13:53)
[2017-11-16] MEDS ORDERED: IPRA1AER2 INH (13:56)
--- NOTE | 2017-11-16 14:13 | Discharge Instructions ---
Discharge Instructions Date of Service Nov 16, 2017. Admission Reason for Admission: Copd Exacerbation, Hyponatremia Discharge Discharge Diagnosis / Problem: Bronchitis Discharge Goals Goal(s): Improve function, Increase independence, Learn about illness Activity Recommendations Activity Limitations: per Instructions/Follow-up section . Instructions / Follow-Up Instructions / Follow-Up 72 yo female with PMH of HTN, DMII and TIA presented to [facility] with SOB and was treated for suspected COPD exacerbation with antibiotics and steroids. After careful evaluation of the patients records, it was determined that the patient' s most recent PFT's didn't qualify her for a diagnosis of obstructive disease. There is a possibility that this still remains true and that the patient is suffering from bronchitis. Regardless, the patients appeared to get better throughout the course with standard therapy. Of concern, the patient demonstrated ambulatory dysfunction 2/2 deconditioning and thus PT recommend outpatient rehab. The patient is being discharged with two medications; Prednisone and Combivent inhaler. Patient would benefit from continued pulmonary follow including post-treatment spirometry. Patient also saw a slight increase in Cr during hospitalization and was treated with IVF and encouragement of PO intake. Plan; 1. Rehab for ambulatory dysfunction 2. Complete medication course; Prednisone and combivent 3. Follow up spirometry 4. Follow BMP for increased Cr. Encourage PO intake. Hospitalist team managed the following patient problems: Resp distress 2/2 to bronchitis Hyponatremia possibly secondary to dehydration vs URI ARASELI 2/2 to dehydration HTN TIA/ hyperlipidemia Mood disorder/ anxiety /peripheral neuropathy Chronic back pain GERD/ Henderson's DMII Hypothyroidism DVT prophylaxis Current Hospital Diet Patient's current hospital diet: Diabetes Type 2 Diet, AHA Diet (Heart Healthy) Discharge Diet Recommended Diet: AHA Diet (Heart Healthy), Diabetes Type 2 Diet Pending Studies Studies pending at discharge: no Medical Emergencies . Who to Call and When: Medical Emergencies: If at any time you feel your situation is an emergency, please call 911 immediately. . Non-Emergent Contact Non-Emergency issues call your: Primary Care Provider . . "Provider Documentation" section prepared by Amando De La Torre. . VTE Core Measure Inpt VTE Proph given/why not?: Unfractionated heparin SQ, SCD's
--- NOTE | 2017-11-16 14:17 | Discharge Summary ---
Discharge Summary Date of Service Nov 16, 2017. Discharge Summary Admission Date: Nov 07, 2017 at 21:21 Discharge Date: Nov 16, 2017 Discharge Disposition: Rehab Principal Diagnosis: bronchitis Immunizations: Have You Had Influenza Vaccine: N/A Influenza Vaccine Date: May 18, 2011 History of Tetanus Vaccine?: Yes Tetanus Immunization Date: May 18, 2011 History of Pneumococcal: Yes Pneumococcal Date: May 20, 2011 History of Hepatitis B Vaccine: Unknown Hepatitis Immunization Date: May 18, 2011 Medication Reconciliation New Medications: Ipratropium-Albuterol (Combivent Respimat) 1 Aer Aer 1 PUFFS INH QID for 30 Days, #1 INH Prednisone (Prednisone) 20 Mg Tab 10 MG PO QAM for 9 Days, #21 TAB day1 40mg day2 40mg day3 40mg day4 20mg day5 20mg day6 20mg day7 10mg day8 10mg day9 10mg Continued Medications: Albuterol Sulf (Proventil 0.083% 2.5MG/3ML) 2.5 Mg/3 Ml Nebu 2.5 MG INH QID PRN for SOB/Wheezing Amitriptyline HCl (Amitriptyline HCl) 50 Mg Tab 50 MG PO HS Amlodipine (Norvasc) 5 Mg Tab 5 MG PO QAM Baclofen (Baclofen) 10 Mg Tab 10 MG PO TID Buspirone HCl (Buspirone HCl) 5 Mg Tab 5 MG PO BID Calcium Carbonate-Cholecalcife (Calcium 600+D 600-800 mg-Unit) 1 Tab Tab 1 TAB PO DAILY Carbamazepine (Carbamazepine) 200 Mg Tab 200 MG PO BID Clopidogrel (Plavix) 75 Mg Tab 75 MG PO QAM Cyanocobalamin (Vitamin B-12) 500 Mcg Tab 500 MCG PO QAM Famotidine (Pepcid) 20 Mg Tab 20 MG PO QAM Gabapentin (Gabapentin) 600 Mg Tab 600 MG PO TID Hydrochlorothiazide (Hctz) 25 Mg Tab 25 MG PO QAM Levothyroxine Sodium (Levothyroxine Sodium) 125 Mcg Tab 125 MCG PO QAM Losartan Potassium (Cozaar) 100 Mg Tab 100 MG PO QAM Metformin HCl (Metformin HCl) 500 Mg Tab 500 MG PO BID Pantoprazole (Protonix) 20 Mg Tab 20 MG PO BID Sertraline (Zoloft) 50 Mg Tab 75 MG PO QAM Simvastatin (Zocor) 20 Mg Tab 20 MG PO QPM Discontinued Medications: Oseltamivir Phosphate (Oseltamivir Phosphate) 75 Mg Cap 75 MG PO BID 5 DAY TREATMENT STARTED 11/06/17 Prednisone (Prednisone) 20 Mg Tab 1 DOSE PO DAILY, #15 5 DAY TREATMENT STARTED 11/06/17 Discharge Exam Review of Systems: Constitutional: No fever, No chills, No sweats Respiratory: + cough, + shortness of breath, No sputum Cardiovascular: No chest pain, No palpitations Abdomen: No pain, No nausea, No vomiting Genitourinary - Female: No dysuria, No hematuria Physical Exam: General Appearance: WD/WN, no apparent distress Respiratory/Chest: chest non-tender, lungs clear, normal breath sounds, no respiratory distress, no accessory muscle use, + decreased breath sounds ( bilateral bases) Cardiovascular: regular rate, rhythm, no edema, no gallop Abdomen / GI: normal bowel sounds, non tender, soft Neurologic/Psychiatric: alert, normal mood/affect, normal reflexes Skin: normal color, warm/dry, no rash Hospital Course 72 yo female with PMH of HTN, DMII and TIA presented to [facility] with SOB and was treated for suspected COPD exacerbation with antibiotics and steroids. After careful evaluation of the patients records, it was determined that the patient' s most recent PFT's didn't qualify her for a diagnosis of obstructive disease. There is a possibility that this still remains true and that the patient is suffering from bronchitis. Regardless, the patients appeared to get better throughout the course with standard therapy. Of concern, the patient demonstrated ambulatory dysfunction 2/2 deconditioning and thus PT recommend outpatient rehab. The patient is being discharged with two medications; Prednisone and Combivent inhaler. Patient would benefit from continued pulmonary follow including post-treatment spirometry. Patient also saw a slight increase in Cr during hospitalization and was treated with IVF and encouragement of PO intake. Plan; 1. Rehab for ambulatory dysfunction 2. Complete medication course; Prednisone and combivent 3. Follow up spirometry 4. Follow BMP for increased Cr. Encourage PO intake. Hospitalist team managed the following patient problems: Resp distress 2/2 to bronchitis Hyponatremia possibly secondary to dehydration vs URI ARASELI 2/2 to dehydration HTN TIA/ hyperlipidemia Mood disorder/ anxiety /peripheral neuropathy Chronic back pain GERD/ Henderson's DMII Hypothyroidism DVT prophylaxis Total Time Spent: Less than 30 minutes This includes examination of the patient, discharge planning, medication reconciliation, and communication with other providers. Discharge Instructions Please refer to the electronic Patient Visit Report (Discharge Instructions) for additional information. Additional Copies To Airam Malcolm C.R.N.P History Resident Physician Supervision Note: I was present with Dr. De La Torre during the history and exam. I discussed the case with the resident and agree with the findings and plan as documented in the note. Any exceptions or clarifications are listed here. Pt reports continued gradual improvement of shortness of breath. Persistent easy fatiguability and difficulty with independent ambulation. Looking forward to rehab. General Appearance: WD/WN, no apparent distress Respiratory: chest non-tender, no respiratory distress, decreased breath sounds , wheezing (mild end exp) Cardiovascular: normal peripheral pulses, regular rate, rhythm, no edema, no murmur Assessment/Plan 72 y/o female h/o HTN, DMII, GERD presents with severe bronchitis Deconditioning - transition to inpatient rehab Bronchitis - complete course of doxycycline w/ combivent and prednisone therapy (taper) - would recommend eval by spirometry after recovery Elevated creatinine - improved with IVF, likely related to poor oral hydration - strongly encourage PO hydration and recheck as outpatient Hyponatremia - stable and improved, recheck BMP at f/u HTN - continue amlodipine, HCTZ and losartan DMII - resume outpatient regimen h/o TIA in the setting of HLD - continue Plavix, Zocor Hypothyroidism - continue levothyroxine Mood disorder - continue present regimen Chronic back pain - continue baclofen GERD - continue PPI/H2 therapy
[2017-11-16] MEDS: MAGNESIUM HYDROXIDE SUSP 30 ML UDC PO PRN (14:47)
[2017-11-16] MEDS: POLYETHYLENE (MIRALAX) 17 GM PACK PO PRN (14:47)
[2017-11-16 15:27] VITALS: BP 145/79; PULSE 64; TEMP 36.6; O2SAT 98
[2017-11-16 15:47] VITALS: BP 155/81; PULSE 73; TEMP 36.6; O2SAT 97
[2017-11-16] MEDS ORDERED: NURSING VERBAL MED ORDER ONE (17:00)
[2017-11-16] MEDS ORDERED: BISACODYL 10 MG SUPP ONE (17:03)
== END 2017-11-16 19:30 | DRG 202 ==
LOC: C.EDB 11:37 → C.MS2W 21:21 → ENRESERV 21:36 → C.2E 11-10 02:13 → ENRESERV 11-12 15:31 → C.MED 11-12 17:21 → C.4E 11-13 22:38
PROVIDERS: ADMIT Hospitalist; ATTEND Family Medicine
DX: J40 Bronchitis, not specified as acute or chronic (principal); E87.1 Hypo-osmolality and hyponatremia; R06.03 Acute respiratory distress; K21.9 Gastro-esophageal reflux disease without esophagitis; E03.9 Hypothyroidism, unspecified; E86.0 Dehydration; E78.5 Hyperlipidemia, unspecified; I10 Essential (primary) hypertension; E11.40 Type 2 diabetes mellitus with diabetic neuropathy, unspecified; F32.9 Major depressive disorder, single episode, unspecified; F41.9 Anxiety disorder, unspecified; G89.29 Other chronic pain; M54.9 Dorsalgia, unspecified; Z79.01 Long term (current) use of anticoagulants; Z79.02 Long term (current) use of antithrombotics/antiplatelets; Z79.52 Long term (current) use of systemic steroids; Z79.84 Long term (current) use of oral hypoglycemic drugs; Z79.899 Other long term (current) drug therapy; Z77.22 Contact with and (suspected) exposure to environmental tobacco smoke (acute) (chronic); Z91.81 History of falling; Z98.890 Other specified postprocedural states; Z86.718 Personal history of other venous thrombosis and embolism; Z88.5 Allergy status to narcotic agent; Z86.73 Personal history of transient ischemic attack (TIA), and cerebral infarction without residual deficits

== ENCOUNTER 2017-11-22 11:20 | Emergency (ER) | payer OTHER ==
[~2017-11-22] VITALS: Ht 160 cm; Wt 92.3 kg
[~2017-11-22 11:20] MED LIST changes: -AMIT25TA9 PO; +AMT/50 PO; +IPRA1AER2 INH; -NRN/300 PO; +NRN600 PO; +PRD20 PO
[2017-11-22 11:29] VITALS: TEMP 36.9; O2SAT 99; Ht 160 cm; Wt 92.3 kg
[2017-11-22] MEDS ORDERED: ASPIRIN 324 MG CHEW ONE (11:30)
[2017-11-22] MEDS ORDERED: CYCLOBENZAPRINE HCL 10 MG TAB PO STA (11:39)
[2017-11-22] MEDS ORDERED: ACETAMINOPHEN 325 MG TAB PO STA (11:39)
--- NOTE | 2017-11-22 11:48 | EMERGENCY ROOM VISIT NOTE ---
History Report prepared by Anup: Dianna Olson Under the Supervision of: Dr. Zain Michelle M.D. First contact with patient: 11:21 Chief Complaint: CHEST PAIN Stated Complaint: CHEST PAIN History of Present Illness The patient is a 72 year old white female with a past medical history of DVTs, COPD who presents to the ED with a cc of an episode of sharp left sided chest pain beginning about an hour ago. Positive cough. Negative nausea, diaphoresis, blood thinners, leg pain, urinary symptoms, tobacco use, alcohol use, or more recent falls. Presently, the pt states her pain has slightly improved since it' s onset. The pt was at PT at [facility]. When she laid down after her PT her chest pain began. The pt was seen in the ED about 2 weeks ago for an episode of a fall where she injured her left shoulder. Source of History: patient Onset: an hour ago Position: chest (left) Quality: sharp Timing: other (episode) Associated Symptoms: + cough, + chest pain, No nausea, No abdominal pain, No urinary symptoms Review of Systems See HPI for pertinent positives and negatives. A total of ten systems were reviewed and were otherwise negative. 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 (17) Seizure disorder (18) Thyroidectomy (19) TIA (20) Weakness Family History FH: HTN (hypertension) FH: diabetes mellitus FH: heart disease FH: lung disease FHx: cancer FHx: gallbladder disease Social History Smoking Status: Never Smoker Alcohol Use: none Drug Use: none Marital Status: Housing Status: lives with significant other Occupation Status: retired Current/Historical Medications Scheduled Amitriptyline HCl (Amitriptyline HCl), 50 MG PO HS Amlodipine (Norvasc), 5 MG PO QAM Atorvastatin (Lipitor), 10 MG PO HS Azelastine Hcl-Fluticasone Pro (Dymista), 137 MCG ANDRADE BID Baclofen (Baclofen), 10 MG PO Q8 Buspirone HCl (Buspirone HCl), 5 MG PO BID Calcium Carbonate-Cholecalcife (Calcium 600+D 600-800 mg-Unit), 1 TAB PO DAILY Carbamazepine (Carbamazepine), 100 MG PO Q12 Clopidogrel (Plavix), 75 MG PO QAM Cyanocobalamin (Vitamin B-12), 500 MCG PO QAM Famotidine (Pepcid), 20 MG PO QAM Gabapentin (Neurontin), 600 MG PO DAILY Hydrochlorothiazide (Hctz), 25 MG PO QAM Insulin Aspart (Novolog), 1 DOSE SC ACHS Ipratropium-Albuterol (Combivent Respimat), 1 PUFFS INH QID Levothyroxine Sodium (Levothyroxine Sodium), 125 MCG PO QAM Losartan Potassium (Cozaar), 100 MG PO QAM Pantoprazole (Protonix), 20 MG PO BID Prednisone (Prednisone), 10 MG PO QAM Senna/Docusate Sod (Senokot S), 1 TAB PO DAILY Sertraline (Zoloft), 75 MG PO DAILY Scheduled PRN Acetaminophen (Tylenol), 500 MG PO Q4 PRN for Pain or Fever Albuterol Sulf (Proventil 0.083% 2.5MG/3ML), 2.5 MG INH QID PRN for SOB/Wheezing Bisacodyl (Bisac-Evac), 10 MG VT DAILY PRN for Constipation Dextrose (Diabetic Use) (Glucose), 1 APPLN PO UD PRN for Hypoglycemia Protocol Docusate Sodium (Docusate Sodium), 100 MG PO BID PRN for Constipation Glucagon (Glucagon Emergency Kit), 1 DOSE SC UD PRN for Hypoglycemia Protocol Magnesium Hydroxide (Milk of Magnesia), 30 ML PO DAILY PRN for Constipation Polyethylene Glycol 3350 (Miralax), 17 GM PO DAILY PRN for Constipation Sodium Phosphate/Biphosphate (Fleet Enema), 1 EA VT DAILY PRN for Constipation Allergies Coded Allergies: Adhesives (Verified Allergy, Intermediate, TAPE-HIVES, 11/22/17) Fentanyl (Verified Adverse Reaction, Intermediate, CONFUSION, 11/22/17) pt was using fentanyl transdermal patch and states that she did not realize that she was supposed to remove the old patch when applying new one; caused confusion Meloxicam (Verified Adverse Reaction, Intermediate, SWELLING OF LEGS, ) Morphine (Verified Adverse Reaction, Intermediate, "I GET REALLY CRAZY", ) Pregabalin (Verified Adverse Reaction, Intermediate, DIZZINESS, CONFUSION WITH HIGHER DOSES, 11/22/17) Physical Exam Vital Signs Date Time Temp Pulse Resp B/P (MAP) Pulse Ox O2 Delivery O2 Flow Rate FiO2 11/22/17 12:44 70 16 168/81 97 Room Air 11/22/17 12:03 74 11/22/17 11:29 36.9 72 16 177/98 99 Room Air 11/22/17 11:29 99 Room Air Physical Exam GENERAL: Awake, alert, well-appearing, NAD HENT: Normocephalic, atraumatic. EYES: Normal conjunctiva. Sclera non-icteric. NECK: Supple. No nuchal rigidity. FROM. RESPIRATORY: CTAB, no rhonchi, wheezing, crackles CARDIAC: RRR, no MRG ABDOMEN: Soft, NTND, BS+ MSK: No LE edema. Trace ecchymosis to left shoulder. Reproducible left CW TTP. NEURO: GCS 15, CN 2-12 intact, moves all 4s on command SKIN: No rash or jaundice noted. Medical Decision & Procedures ER Provider Diagnostic Interpretation: Radiology results as stated below per my review and radiologist interpretation: CHEST ONE VIEW PORTABLE FINDINGS: Mild stable cardiomegaly. Mild chronic elevation right hemidiaphragm. No focal infiltrate. IMPRESSION: Chronic change. No acute process. The above report was generated using voice recognition software. It may contain grammatical, syntax or spelling errors. Electronically signed by: Jatin Bhandari M.D. Laboratory Results 11/22/17 12:31 Red Blood Count 3.58, Mean Corpuscular Volume 96.9, Mean Corpuscular Hemoglobin 33.0, Mean Corpuscular Hemoglobin Concent 34.0, Mean Platelet Volume 8.4, Neutrophils (%) (Auto) 64.8, Lymphocytes (%) (Auto) 20.9, Monocytes (%) (Auto) 12.2, Eosinophils (%) (Auto) 1.2, Basophils (%) (Auto) 0.1, Neutrophils # (Auto ) 5.89, Lymphocytes # (Auto) 1.90, Monocytes # (Auto) 1.11, Eosinophils # (Auto ) 0.11, Basophils # (Auto) 0.01 11/22/17 12:31 Test 11/22/17 12:31 White Blood Count 9.09 K/uL (4.8-10.8) Red Blood Count 3.58 M/uL (4.2-5.4) Hemoglobin 11.8 g/dL (12.0-16.0) Hematocrit 34.7 % (37-47) Mean Corpuscular Volume 96.9 fL (80-100) Mean Corpuscular Hemoglobin 33.0 pg (25-34) Mean Corpuscular Hemoglobin Concent 34.0 g/dl (32-36) Platelet Count 222 K/uL (130-400) Mean Platelet Volume 8.4 fL (7.4-10.4) Neutrophils (%) (Auto) 64.8 % Lymphocytes (%) (Auto) 20.9 % Monocytes (%) (Auto) 12.2 % Eosinophils (%) (Auto) 1.2 % Basophils (%) (Auto) 0.1 % Neutrophils # (Auto) 5.89 K/uL (1.4-6.5) Lymphocytes # (Auto) 1.90 K/uL (1.2-3.4) Monocytes # (Auto) 1.11 K/uL (0.11-0.59) Eosinophils # (Auto) 0.11 K/uL (0-0.5) Basophils # (Auto) 0.01 K/uL (0-0.2) RDW Standard Deviation 51.8 fL (36.4-46.3) RDW Coefficient of Variation 14.5 % (11.5-14.5) Immature Granulocyte % (Auto) 0.8 % Immature Granulocyte # (Auto) 0.07 K/uL (0.00-0.02) Prothrombin Time 10.0 SECONDS (9.0-12.0) Prothromb Time International Ratio 1.0 (0.9-1.1) Activated Partial Thromboplast Time 22.9 SECONDS (21.0-31.0) Partial Thromboplastin Ratio 0.9 Anion Gap 8.0 mmol/L (3-11) Est Creatinine Clear Calc Drug Dose 42.9 ml/min Estimated GFR () 49.6 Estimated GFR (Non- 42.8 BUN/Creatinine Ratio 24.0 (10-20) Calcium Level 9.6 mg/dl (8.5-10.1) Total Bilirubin 0.3 mg/dl (0.2-1) Direct Bilirubin < 0.1 mg/dl (0-0.2) Aspartate Amino Transf (AST/SGOT) 14 U/L (15-37) Alanine Aminotransferase (ALT/SGPT) 24 U/L (12-78) Alkaline Phosphatase 107 U/L (45-117) Troponin I < 0.015 ng/ml (0-0.045) Pro-B-Type Natriuretic Peptide 233 pg/ml (0-900) Total Protein 7.6 gm/dl (6.4-8.2) Albumin 3.5 gm/dl (3.4-5.0) Lipase 236 U/L (73-393) Laboratory results reviewed by me Medications Administered Medications (Trade) Dose Ordered Sig/Jeannie Route Start Time Stop Time Status Last Admin Dose Admin Acetaminophen (Tylenol Tab) 650 mg NOW STAT PO 11/22/17 11:39 11/22/17 11:43 DC 11/22/17 12:00 650 MG Cyclobenzaprine HCl (Flexeril Tab) 5 mg NOW STAT PO 11/22/17 11:39 11/22/17 11:43 DC 11/22/17 12:00 5 MG ECG Indication: chest pain Rate (beats per minute): 70 Rhythm: normal sinus Findings: Q waves (Inferior), left axis deviation, other (normal intervals, no other STS changes or TWI ) Comparison ECG Date: 11/10/17 Change: Q waves are old. EKG interpreted by me. ED Course 1130: The patient was evaluated in room B4B. A complete history and physical exam was performed. 1250: I updated the patient on her test results. She is feeling better. 0130: I reevaluated the patient. Discussed results and discharge instructions: She verbalized understanding and agreement. The patient is ready for discharge. Medical Decision The patient is a 72 year old white female with a past medical history of DVTs, COPD who presents to the ED with a cc of an episode of sharp left sided chest pain beginning about an hour ago. Differential diagnosis: Etiologies such as cardiac ischemia, aortic dissection, pulmonary embolism, pneumonia, pneumothorax, musculoskeletal, infections, pericarditis, myocarditis , esophageal rupture, gastrointestinal, as well as others were entertained. Patient was seen and evaluated the bedside. Patient was complaining of some left-sided sharp chest pains. Patient denies any radiation to the arm or neck. Patient did state at one to one shoulder. Patient states this happened all after having some physical therapy. Patient was recently discharged to [facility] to help with conditioning as the patient was deconditioned. Patient has clear breath sounds in stable vital signs. Patient had a negative chest x-ray. Patient's white blood cell count within normal limits. Patient does have a prior history of DVTs however the patient has not had any hemoptysis and with normal vitals and no complaints of shortness of breath I believe this less likely. Patient had no asymmetric leg swelling. Patient had no calf pain. Patient had no lower extremity edema. Believe that this is less likely DVT propagating a PE. Patient's other blood work was fairly unremarkable. White blood cell count within normal limits. Anemia is chronic and stable. Patient's hyponatremia improved. Patient's BUN/creatinine improved compared to priors. Patient's EKG was nonischemic with old Q waves that were not new. Patient had negative troponin. Given this I believe this less likely ACS. Given the patient's reproducible discomfort I believe this is likely chest wall pain. After receiving medications upon reexamination the patient's exam improved and she no longer complained of any chest wall pain. She may have an element of bronchitis as she does have a nonproductive cough but w/ prior h/o of COPD likely 2/2 to 2nd hand smoke - smoked 4 ppd for many years. I belive the patient is suitable for outpatient follow-up and treatment at this time. She is able to resume care at [facility]. Patient was given strict follow-up, discharge, and return precautions. All questions were answered. Patient was deemed suitable for outpatient follow-up at this time. Patient agreed with the plan of care and was safely discharged home. The chart was completed utilizing [employer] voice recognition software. Grammatical errors, random word insertions, pronoun errors, and incomplete sentences are an occasional consequence of this system due to software limitations, ambient noise, and hardware issues. Any formal questions or concerns about the content, text, or information contained within the body of this dictation should be directly addressed to the physician for clarification. Medication Reconcilliation Current Medication List: was personally reviewed by me Blood Pressure Screening Patient's blood pressure: Elevated blood pressure Blood pressure disposition: Referred to PCP Impression Primary Impression: Chest wall pain Additional Impressions: Anemia Hyponatremia CKD (chronic kidney disease) stage 3, GFR 30-59 ml/min Scribe Attestation The scribe's documentation has been prepared under my direction and personally reviewed by me in its entirety. I confirm that the note above accurately reflects all work, treatment, procedures, and medical decision making performed by me. Departure Information Dispostion Home / Self-Care Referrals Airam Malcolm C.R.N.P (PCP) Forms Call Back Authorization, HOME CARE DOCUMENTATION FORM, IMPORTANT VISIT INFORMATION Patient Instructions Chest Pain - [facility], My [facility] Additional Instructions Please return to the emergency department if you have worsening or recurrent symptoms not amenable to at-home treatment. Please call for a follow-up appointment with her primary care physician. Please take your medications as prescribed. If you have other concerns and/or complaints please feel free to also call your primary care physician's office or return the ED for further evaluation, management, and treatment. You were found to have an elevated blood pressure today (>120 sytolic or >90 diastolic). Per medicare guidelines, you need to follow up with this blood pressure screening with your Primary Care Physician (PCP). For a new PCP call [phone]. You may take tylenol 650 mg every 6 hours as needed for pain. Take your medications as prescribed. You have been examined and treated today on an emergency basis only. This is not a substitute for, or an effort to provide, complete comprehensive medical care. It is impossible to recognize and treat all injuries or illnesses in a single emergency department visit. It is therefore important that you follow up closely with [facility], your PCP, and/or your specialist(s). Call as soon as possible for an appointment. Thank you for your time and consideration. I look forward to speaking with you again soon. Please don't hesitate to call us if you have any questions. Problem Qualifiers Additional Impressions: Anemia Anemia type: unspecified type Qualified Codes: D64.9 - Anemia, unspecified
--- NOTE | 2017-11-22 12:01 | DIAGNOSTIC IMAGING REPORT ---
CHEST ONE VIEW PORTABLE CLINICAL HISTORY: CHEST PAIN dyspnea COMPARISON STUDY: 11/10/2017 FINDINGS: Mild stable cardiomegaly. Mild chronic elevation right hemidiaphragm. No focal infiltrate. IMPRESSION: Chronic change. No acute process. The above report was generated using voice recognition software. It may contain grammatical, syntax or spelling errors. Electronically signed by: Jatin Bhandari M.D. 11/22/2017 11:59 AM Dictated Date/Time: 11/22/2017 11:59 AM
[2017-11-22] MEDS ORDERED: DLCS PR (12:15)
[2017-11-22] MEDS ORDERED: AZEL30SP NAE (12:15)
[2017-11-22] MEDS ORDERED: CLC100X PO (12:15)
[2017-11-22] MEDS ORDERED: SODIENE PR (12:15)
[2017-11-22] MEDS ORDERED: POLY335019 PO (12:15)
[2017-11-22] MEDS ORDERED: DEXT40GE20 PO (12:15)
[2017-11-22] MEDS ORDERED: ACET-1256 PO (12:15)
[2017-11-22] MEDS ORDERED: GABA-113 PO (12:15)
[2017-11-22] MEDS ORDERED: MOMLX PO (12:15)
[2017-11-22] MEDS ORDERED: SERT25TA PO (12:15)
[2017-11-22] MEDS ORDERED: GLGKIT SC (12:15)
[2017-11-22] MEDS ORDERED: AMT25 PO (12:15)
[2017-11-22] MEDS ORDERED: NVLG SC (12:15)
[2017-11-22] MEDS ORDERED: ATOR10TA82 PO (12:15)
[2017-11-22] MEDS ORDERED: SENN-65 PO (12:15)
[2017-11-22] MEDS ORDERED: PRED10TA PO (12:15)
[2017-11-22 12:43] LABS: BASO % 0.1 %; BASO ABS # 0.01 K/uL (0-0.2); EOS % 1.2 %; EOS ABS # 0.11 K/uL (0-0.5); HEMATOCRIT 34.7 % (37-47); HEMOGLOBIN 11.8 g/dL (12.0-16.0); IG# 0.07 K/uL (0.00-0.02); LYMPH % 20.9 %; MEAN CELL VOLUME 96.9 fL (80-100); MEAN PLATELET VOLUME 8.4 fL (7.4-10.4); MONO % 12.2 %; MONO ABS # 1.11 K/uL (0.11-0.59); NEUT % 64.8 %; NEUT ABS # 5.89 K/uL (1.4-6.5); PLATELET COUNT 222 K/uL (130-400); RED CELL DISTRIBUTION WIDTH CV 14.5 % (11.5-14.5); RED CELL DISTRIBUTION WIDTH SD 51.8 fL (36.4-46.3); WHITE BLOOD COUNT 9.09 K/uL (4.8-10.8)
[2017-11-22 12:51] LABS: PTT PATIENT 22.9 SECONDS (21.0-31.0)
[2017-11-22 13:01] LABS: ALBUMIN 3.5 gm/dl (3.4-5.0); ALT/SGPT 24 U/L (12-78); BLOOD UREA NITROGEN 30 mg/dl (7-18); CALCIUM 9.6 mg/dl (8.5-10.1); CARBON DIOXIDE 30 mmol/L (21-32); CREATININE 1.24 mg/dl (0.60-1.20); GLUCOSE 94 mg/dl (70-99); LIPASE 236 U/L (73-393); POTASSIUM 3.5 mmol/L (3.5-5.1); SODIUM 133 mmol/L (136-145)
[2017-11-22 13:06] LABS: ALKALINE PHOSPHATASE 107 U/L (45-117); AST/SGOT 14 U/L (15-37); TOTAL PROTEIN 7.6 gm/dl (6.4-8.2)
[2017-11-22 13:53] VITALS: BP 170/92; PULSE 74; O2SAT 100
== END 2017-11-22 14:00 | disposition home or self-care (01) ==
LOC: EDBD 11:20 → C.EDB 11:21
DX: R07.89 Other chest pain (principal); D64.9 Anemia, unspecified; E87.1 Hypo-osmolality and hyponatremia; N18.3 Chronic kidney disease, stage 3 (moderate); F41.9 Anxiety disorder, unspecified; J44.9 Chronic obstructive pulmonary disease, unspecified; F32.9 Major depressive disorder, single episode, unspecified; K21.9 Gastro-esophageal reflux disease without esophagitis; E03.9 Hypothyroidism, unspecified; I27.20 Pulmonary hypertension, unspecified; G40.909 Epilepsy, unspecified, not intractable, without status epilepticus; Z79.02 Long term (current) use of antithrombotics/antiplatelets; Z79.4 Long term (current) use of insulin; Z77.22 Contact with and (suspected) exposure to environmental tobacco smoke (acute) (chronic); Z86.718 Personal history of other venous thrombosis and embolism; Z86.73 Personal history of transient ischemic attack (TIA), and cerebral infarction without residual deficits; Z91.048 Other nonmedicinal substance allergy status; Z88.6 Allergy status to analgesic agent; Z88.8 Allergy status to other drugs, medicaments and biological substances; Z82.49 Family history of ischemic heart disease and other diseases of the circulatory system; Z83.3 Family history of diabetes mellitus; Z80.9 Family history of malignant neoplasm, unspecified; Z83.79 Family history of other diseases of the digestive system

== ENCOUNTER → 2018-02-01 | Outpatient (CLI) | payer OTHER ==
[~2018-02-01] MED LIST changes: +ACET-1256 PO; -AMT/50 PO; +AMT25 PO; +ATOR10TA82 PO; +AZEL30SP NAE; +CLC100X PO; +DEXT40GE20 PO; +DLCS PR; +GABA-113 PO; -GLC500 PO; +GLGKIT SC; -IPRA1AER2 INH; +MOMLX PO; -NRN600 PO; +NVLG SC; +POLY335019 PO; -PRD20 PO; +PRED10TA PO; +SENN-65 PO; +SERT25TA PO; -SERT50TA PO; -SIMV20TA5 PO; +SODIENE PR
[2018-02-01 18:16] LABS: BLOOD UREA NITROGEN 18 mg/dl (7-18); CALCIUM 8.9 mg/dl (8.5-10.1); CARBON DIOXIDE 29 mmol/L (21-32); GLUCOSE 100 mg/dl (70-99); POTASSIUM 3.8 mmol/L (3.5-5.1); SODIUM 139 mmol/L (136-145)
[2018-02-01 18:27] LABS: CHOLESTEROL 159 mg/dl (0-200); LDL CHOLESTEROL CALCULATED 54 mg/dl
== END | disposition home or self-care (01) ==
LOC: C.LABBFT 11:31
PROVIDERS: ATTEND Nurse Practitioner
DX: I10 Essential (primary) hypertension (principal); E03.9 Hypothyroidism, unspecified; E78.5 Hyperlipidemia, unspecified; E11.9 Type 2 diabetes mellitus without complications

== ENCOUNTER 2018-02-15 12:37 | Emergency (ER) | payer OTHER ==
[~2018-02-15] VITALS: Ht 160 cm; Wt 81.3 kg
[2018-02-15 12:44] VITALS: TEMP 36.7; Ht 160 cm; Wt 81.3 kg
[2018-02-15 13:26] VITALS: O2SAT 96
[2018-02-15] MEDS ORDERED: FENTANYL CITRATE INJ 50 MCG/1 ML 2 ML VIAL IV STA (13:38)
[2018-02-15] MEDS ORDERED: ONDANSETRON INJ 2 MG/ML 2 ML VIAL IV STA (13:38)
[2018-02-15 14:03] LABS: PTT PATIENT 22.2 SECONDS (21.0-31.0)
[2018-02-15 14:19] LABS: ALBUMIN 3.6 gm/dl (3.4-5.0); ALKALINE PHOSPHATASE 155 U/L (45-117); ALT/SGPT 25 U/L (12-78); BLOOD UREA NITROGEN 12 mg/dl (7-18); CALCIUM 8.5 mg/dl (8.5-10.1); CARBON DIOXIDE 29 mmol/L (21-32); CREATININE 1.09 mg/dl (0.60-1.20); GLUCOSE 99 mg/dl (70-99); SODIUM 142 mmol/L (136-145); TOTAL PROTEIN 7.5 gm/dl (6.4-8.2)
[2018-02-15 14:52] LABS: BASO % 0.5 %; BASO ABS # 0.03 K/uL (0-0.2); EOS % 2.3 %; EOS ABS # 0.14 K/uL (0-0.5); IG# 0.03 K/uL (0.00-0.02); LYMPH % 27.7 %; MEAN CELL VOLUME 92.8 fL (80-100); MEAN CORPUSCULAR HEMOGLOBIN 29.9 pg (25-34); MEAN CORPUSCULAR HGB CONC 32.3 g/dl (32-36); MEAN PLATELET VOLUME 8.1 fL (7.4-10.4); MONO % 14.3 %; MONO ABS # 0.88 K/uL (0.11-0.59); NEUT % 54.7 %; NEUT ABS # 3.36 K/uL (1.4-6.5); PLATELET COUNT 209 K/uL (130-400); RED CELL DISTRIBUTION WIDTH CV 14.1 % (11.5-14.5); RED CELL DISTRIBUTION WIDTH SD 48.1 fL (36.4-46.3); WHITE BLOOD COUNT 6.14 K/uL (4.8-10.8)
[2018-02-15 15:04] LABS: POTASSIUM 3.6 mmol/L (3.5-5.1)
[2018-02-15 15:11] LABS: AST/SGOT 35 U/L (15-37)
--- NOTE | 2018-02-15 15:31 | DIAGNOSTIC IMAGING REPORT ---
CT SCAN OF THE BRAIN WITHOUT IV CONTRAST CLINICAL HISTORY: Trauma. COMPARISON STUDY: CT of the brain dated 11/07/2017. TECHNIQUE: Unenhanced axial CT scan of the brain is performed from the vertex to the skull base. A dose lowering technique was utilized adhering to the principles of ALARA. CT DOSE: 1531.90 mGy.cm FINDINGS: Brain parenchyma: There are age-related involutional changes noting moderate patchy subcortical and periventricular microangiopathic change. There is no hemorrhage, mass effect, or evidence of acute territorial ischemia by CT criteria. Blankenship-white matter is preserved. No extra-axial fluid collection is seen. Ventricles, sulci, cisterns: Prominent secondary to involutional change. Intracranial vasculature: There is atherosclerotic calcification of the cavernous carotid and vertebral arteries. Calvarium: The skeletal structures are osteopenic. There is no depressed calvarial fracture. Sinuses and mastoids: The visualized paranasal sinuses are clear. The mastoid air cells are well pneumatized. Orbits: The bony orbits are grossly intact. There are bilateral ocular lens implants. IMPRESSION: Senescent changes as above with no hemorrhage, mass effect, or evidence of acute territorial ischemia by CT criteria. Electronically signed by: Jono Romero M.D. 02/15/2018 3:29 PM Dictated Date/Time: 02/15/2018 3:28 PM
--- NOTE | 2018-02-15 15:35 | DIAGNOSTIC IMAGING REPORT ---
CT SCAN OF THE CERVICAL SPINE CLINICAL HISTORY: Trauma. COMPARISON STUDY: CT scan of the cervical spine dated 01/22/2016. TECHNIQUE: CT scan of the cervical spine is performed from the skull base to the upper thoracic spine. Images are reviewed in the axial, sagittal, and coronal planes. IV contrast was not administered for this examination. A dose lowering technique was utilized adhering to the principles of ALARA. FINDINGS: Skeletal structures: The skeletal structures are osteopenic. There is no evidence of fracture or subluxation involving the cervical spine. Vertebral body height and alignment are maintained. There is straightening of the cervical lordosis. The odontoid process and lateral masses are intact. The atlantoaxial articulation is preserved noting productive degenerative change. The spinous processes appear intact. There is mild to moderate multilevel cervical spondylosis. Uncovertebral and facet arthropathy are present at several levels. Intervertebral discs: There is moderate disc space narrowing at C5-C6. Mild disc space narrowing is seen at the remaining cervical levels. Central canal: A large posterior disc osteophyte complex at C5-C6 likely contributes to acquired compromise of the central canal. Soft tissues: The prevertebral and paraspinous soft tissues are within normal limits. There is atherosclerotic calcification of the carotid bulbs. The left lobe of the thyroid gland is diminutive versus surgically absent. A coarse calcification is noted in the right thyroid lobe. A large calcified sialolith is present in the left submandibular gland. Calvarium: The visualized calvarium at the skull base appears intact. Brain parenchyma: Partially visualized brain parenchyma the skull base is within normal limits noting age-related involutional change. Sinuses and mastoids: Trace dependent mucosal thickening is seen in the maxillary antra. The mastoid air cells are well pneumatized. Lung apices: Clear as visualized. IMPRESSION: 1. There is no evidence of fracture or subluxation involving the cervical spine. 2. Osteopenia and spondylotic change as above. Electronically signed by: Jono Romero M.D. 02/15/2018 3:33 PM Dictated Date/Time: 02/15/2018 3:30 PM
--- NOTE | 2018-02-15 15:35 | DIAGNOSTIC IMAGING REPORT ---
(CHEST) THORAX WITHOUT CLINICAL HISTORY: 72 years-old Female with Trauma. Acute chest trauma TECHNIQUE: Multiaxial CT images of the chest were performed without contrast. A dose lowering technique was utilized adhering to the principles of ALARA. COMPARISON: CTA of the chest 11/07/2017, CT abdomen and pelvis 09/14/2016. FINDINGS: Large right thyroid lobe with 4 mm calcification. No pathologic adenopathy. Mild multichamber cardiac enlargement with coronary arterial calcifications. Calcifications of the aortic annulus are also noted. No thoracic aneurysm identified. There is mild dilation of the main pulmonary artery, 3.1 cm which may reflect pulmonary arterial hypertension within the appropriate clinical setting. No pneumothorax or pleural effusion. Linear subsegmental bibasilar and anterior midlung opacities suggest areas of atelectasis/scarring. No suspicious pulmonary nodules or masses identified. Central airways are patent. 1.2 cm intermediate attenuating exophytic lesion of the lateral interpolar left kidney appears unchanged from comparison. No acute process of the imaged upper abdomen. Soft tissues are within normal limits. The bones appear intact. Multilevel spondylitic spurring with Schmorl's nodes and intervertebral disc space narrowing. IMPRESSION: 1. No acute posttraumatic abnormality of the chest identified. No pneumothorax or fracture. 2. Linear subsegmental bibasilar and midlung opacities suggest areas of atelectasis/scarring. 3. Cardiomegaly. 4. Dilation of the main pulmonary artery may reflect pulmonary arterial hypertension within the appropriate clinical setting. Electronically signed by: Iggy Salter M.D. 02/15/2018 3:34 PM Dictated Date/Time: 02/15/2018 3:28 PM
--- NOTE | 2018-02-15 15:41 | DIAGNOSTIC IMAGING REPORT ---
FACIAL BONES-MXILLOFAC WITHOUT CLINICAL HISTORY: 72 years-old Female presenting with EVALUATE FOR TRAUMA/INJURY. Acute facial trauma COMPARISON STUDY: CT maxillofacial to 03/02/2016 TECHNIQUE: High-resolution CT scan of the facial bones is performed. Images are reviewed in the axial, sagittal, and coronal planes. IV contrast was not administered for this examination. A dose lowering technique was utilized adhering to the principles of ALARA. FINDINGS: There is no evidence of facial bone fracture. The bony orbits are intact and the orbital contents are within normal limits. The zygomatic arches, nasal bones, and pterygoid plates are preserved. The maxilla and mandible are intact. Unchanged linear metallic density structure of the right improvement specialist space which appears to measure at least 2 cm in length. Mild rightward bowing and spurring of the nasal septum. Mild mucoperiosteal thickening of the maxillary and ethmoid sinuses. The imaged calvarium and upper cervical spine demonstrate no acute fracture. Degenerative changes of the cervical spine are noted. Heterogeneous right lobe of the thyroid with calcifications. Calcification of the bilateral carotid bulbs. 4 mm nonobstructing sialolith of the left submandibular gland. Partially imaged brain parenchyma is within normal limits. IMPRESSION: 1. No acute facial bone fracture. 2.4 mm nonobstructing sialolith of the left submandibular gland. 3. Additional findings as above. The above report was generated using voice recognition software. It may contain grammatical, syntax or spelling errors. Electronically signed by: Iggy Salter M.D. 02/15/2018 3:39 PM Dictated Date/Time: 02/15/2018 3:34 PM
--- NOTE | 2018-02-15 15:46 | DIAGNOSTIC IMAGING REPORT ---
SINGLE VIEW PELVIS; 2 VIEWS LEFT HIP CLINICAL HISTORY: Fall with left hip pain. FINDINGS: An AP view of the pelvis with AP and frog-leg views of the left hip obtained. Comparison is made to study dated 11/07/2017. The skeletal structures are osteopenic. There is no radiographic evidence of acute fracture involving the hips or bony pelvis. There is mild joint space narrowing and arthritic change in the hips. The sacroiliac joints appear maintained. Sclerosis is noted at the symphysis pubis. Fusion hardware is seen at L4-L5. The overlying soft tissues are normal in appearance. A large calcified gluteal granuloma is noted on the left. There is no evidence of bowel obstruction. IMPRESSION: Osteopenia with no radiographic evidence of acute fracture involving the hips or bony pelvis. Electronically signed by: Jono Romero M.D. 02/15/2018 3:45 PM Dictated Date/Time: 02/15/2018 3:44 PM
[2018-02-15] MEDS ORDERED: AMT50 PO (17:10)
[2018-02-15] MEDS ORDERED: ASPI1TAB2 PO (17:11)
[2018-02-15] MEDS ORDERED: IPRA1AER2 INH (17:16)
[2018-02-15] MEDS ORDERED: NRN/600 PO (17:16)
[2018-02-15] MEDS ORDERED: MULT-506 PO (17:16)
[2018-02-15] MEDS ORDERED: SERT50TA PO (17:16)
[2018-02-15] MEDS ORDERED: HYZ/10015 PO (17:16)
[2018-02-15] MEDS ORDERED: SIMV20TA2 PO (17:16)
[2018-02-15] MEDS ORDERED: GLC/500 PO (17:16)
[2018-02-15] MEDS ORDERED: CHOL1000 PO (17:16)
[2018-02-15] MEDS ORDERED: VNTHFA/IN INH (17:17)
--- NOTE | 2018-02-15 17:43 | EMERGENCY ROOM VISIT NOTE ---
History Report prepared by Anup: Costa Smith Under the Supervision of: Dr. Zain Michelle M.D. First contact with patient: 13:23 Chief Complaint: FALL Stated Complaint: NONE History of Present Illness The patient is a 72 year old white female with a past medical history of TIAs, hypertension, hyperlipidemia, depression, and diabetes who presents to the Emergency Room from [facility] with complaints of multiple falling episodes that began yesterday. The patient states that she fell yesterday, and again today at 1100, 2.5 hours ago. She is currently complaining of constant pain in her chin. The patient states that there was a missing piece in the concrete that she was walking on and she fell directly forward and hit her chin on the solid concrete. She did not lose consciousness today or yesterday. The patient notes that she did feel "lightheaded" before her fall yesterday. Source of History: patient Onset: Fall yesterday, 2.5 hours ago fall today Position: head (Chin) Quality: other (Injuries from traumatic fall) Timing: constant (pain in chin) Associated Symptoms: No LOC Review of Systems See HPI for pertinent positives and negatives. A total of ten systems were reviewed and were otherwise negative. Past Medical & Surgical Medical Problems: (1) Anxiety (2) Appendectomy (3) Arthritis (4) Henderson's esophagus (5) Chest pain (6) CHF (7) Confusion (8) COPD (9) Depression (10) Depression (11) Diabetes (12) Diabetes (13) DVT (14) Gastroesophageal reflux disease (15) HTN (hypertension) (16) HTN (hypertension) (17) Hyperlipemia (18) Hyperlipidemia (19) Hyponatremia (20) Hypothyroidism (21) Lumbar spinal stenosis (22) Pulmonary hypertension (23) Replacement of total knee joint (24) Seizure disorder (25) Thyroidectomy (26) TIA (27) Weakness Social History Problems: (1) TIA (transient ischemic attack) Depression Diabetes HTN (hypertension) Hyperlipemia Family History Omitted Secondary to patient's advanced age. Social History Smoking Status: Never Smoker Marital Status: Housing Status: other ([facility]) Occupation Status: retired Current/Historical Medications Scheduled Amitriptyline Hcl (Elavil), 75 MG PO HS Amlodipine (Norvasc), 5 MG PO QAM Aspirin (Tracy Aspirin Ec Low Dose), 81 MG PO DAILY Buspirone HCl (Buspirone HCl), 5 MG PO BID Calcium Carbonate-Cholecalcife (Calcium 600+D 600-800 mg-Unit), 1 TAB PO DAILY Carbamazepine (Carbamazepine), 200 MG PO TID Cholecalciferol (Vitamin D3), 1,000 UNITS PO DAILY Clopidogrel (Plavix), 75 MG PO HS Cyanocobalamin (Vitamin B-12), 500 MCG PO QAM Gabapentin (Neurontin), 600 MG PO TID Hctz/Losartan (Hyzaar 25MG/100MG), 1 TAB PO DAILY Levothyroxine Sodium (Levothyroxine Sodium), 125 MCG PO QAM Metformin Hcl (Glucophage), 500 MG PO BID Multivitamin (Multivitamin), 1 TAB PO DAILY Pantoprazole (Protonix), 20 MG PO BID Sertraline (Zoloft), 75 MG PO DAILY Simvastatin (Zocor), 20 MG PO QPM Scheduled PRN Albuterol Hfa (Ventolin Hfa), 2 PUFFS INH Q4H PRN for SOB/Wheezing Baclofen (Baclofen), 5-10 MG PO TID PRN for Muscle Spasms Ipratropium-Albuterol (Combivent Respimat), 1 PUFFS INH QID PRN for SOB/Wheezing Allergies Coded Allergies: Adhesives (Verified Allergy, Intermediate, TAPE-HIVES, 11/22/17) Fentanyl (Verified Adverse Reaction, Intermediate, CONFUSION, 11/22/17) pt was using fentanyl transdermal patch and states that she did not realize that she was supposed to remove the old patch when applying new one; caused confusion Meloxicam (Verified Adverse Reaction, Intermediate, SWELLING OF LEGS, ) Morphine (Verified Adverse Reaction, Intermediate, "I GET REALLY CRAZY", ) Pregabalin (Verified Adverse Reaction, Intermediate, DIZZINESS, CONFUSION WITH HIGHER DOSES, 11/22/17) Physical Exam Vital Signs Date Time Temp Pulse Resp B/P (MAP) Pulse Ox O2 Delivery O2 Flow Rate FiO2 02/15/18 18:30 78 19 176/62 93 Room Air 02/15/18 16:00 86 25 177/81 94 02/15/18 15:57 173/76 02/15/18 15:00 84 16 02/15/18 14:20 84 18 174/73 95 Room Air 02/15/18 13:48 83 02/15/18 13:26 96 Room Air 02/15/18 12:44 36.7 94 18 190/80 96 Room Air Physical Exam GENERAL: Awake, alert, well-appearing, NAD HENT: There is ecchymosis to the chin. No swelling or injury intraorally. EYES: Normal conjunctiva. Sclera non-icteric. PERRL. No anisocoria. NECK: Supple. No nuchal rigidity. FROM. RESPIRATORY: CTAB, no rhonchi, wheezing, crackles CARDIAC: RRR, no RG. Systolic ejection murmur appreciated. ABDOMEN: Soft, NTND, BS+ MSK: No chest wall TTP no crepitous, no step off, no flail chest. There is mild left sided paraspinal TTP. no LE edema. There is left sided hip and gorin pain. NVI distally, does not appear short. NEURO: CN 2-12 intact, 5/5 upper and lower extremity strength, with the exception of 4/5 strength in the LLE secondary to pain. no dysmetria, no drift , good finger to nose, no sensory deficits. Finger count grossly normal. SKIN: No rash or jaundice noted. Medical Decision & Procedures ER Provider Diagnostic Interpretation: Radiology results as stated below per my review and radiologist interpretation: CT brain impression: Senescent changes as above with no hemorrhage, mass-effect, or evidence of acute territorial ischemia by CT criteria CT cervical spine impression: There is no evidence of fracture or subluxation involving the cervical spine. Osteo-osteopenia and spondylitic change as above. CT chest without IV contrast impression: No acute posttraumatic abnormality of the chest identified. No pneumothorax or fracture. Linear subsegmental bibasilar and midlung opacity suggest areas of atelectasis/ scarring Cardiomegaly. Dilation of the main pulmonary artery may reflect pulmonary arterial hypertension within the appropriate clinical setting. Facial bones maxillofacial without IV contrast impression: No acute facial bone fracture. 4 mm nonobstructing sialolith of the left submandibular gland. Additional findings as above. Single view pelvis 2 views left hip impression: Osteopenia with no radiographic evidence of acute fracture involving the hips or bony pelvis. Laboratory Results 02/15/18 13:35 Test 02/15/18 13:35 02/15/18 14:03 02/15/18 14:19 Prothrombin Time 10.0 SECONDS (9.0-12.0) Prothromb Time International Ratio 1.0 (0.9-1.1) Activated Partial Thromboplast Time 22.2 SECONDS (21.0-31.0) Partial Thromboplastin Ratio 0.9 Anion Gap 6.0 mmol/L (3-11) Est Creatinine Clear Calc Drug Dose 45.7 ml/min Estimated GFR () 57.9 Estimated GFR (Non- 50.0 BUN/Creatinine Ratio 10.8 (10-20) Calcium Level 8.5 mg/dl (8.5-10.1) Total Bilirubin 0.3 mg/dl (0.2-1) Alanine Aminotransferase (ALT/SGPT) 25 U/L (12-78) Alkaline Phosphatase 155 U/L (45-117) Total Protein 7.5 gm/dl (6.4-8.2) Albumin 3.6 gm/dl (3.4-5.0) Laboratory results reviewed by me Medications Administered Medications (Trade) Dose Ordered Sig/Jeannie Route Start Time Stop Time Status Last Admin Dose Admin Ondansetron HCl (Zofran Inj) 4 mg NOW STAT IV 02/15/18 13:38 02/15/18 13:41 DC 02/15/18 14:16 4 MG Fentanyl Citrate (Fentanyl Inj) 50 mcg NOW STAT IV 02/15/18 13:38 02/15/18 13:41 DC 02/15/18 14:17 50 MCG ECG Per My Interpretation Indication: other (Traumatic Fall) Rate (beats per minute): 84 Rhythm: normal sinus Findings: prolonged QT, no ectopy, other (No STS changes or TWI) ED Course 1331: The patient was evaluated in room A2. A complete history and physical exam was performed. 1742: I reevaluated the patient. Discussed results and discharge instructions: She verbalized understanding and agreement. The patient is ready for discharge. Medical Decision The patient is a 72 year old white female with a past medical history of TIAs, hypertension, hyperlipidemia, depression, and diabetes who presents to the Emergency Room with complaints of multiple falling episodes that began yesterday. Nursing notes reviewed. Ancillary studies and prior records reviewed. Differential diagnosis: Etiologies such as fracture, dislocation, intra-abdominal, pneumothorax, intrathoracic , intracranial, neurologic, as well as other traumatic pathologies were entertained. Patient was seen and evaluated the bedside. Patient reportedly suffered 2 falls in [id number] days. The patient states that she fell face forward today on the pavement. The patient struck her chin and chest. On exam the patient does have a small area of ecchymosis to the chin without any laceration. The patient does not have any intraoral abnormality. The patient did have some left chest wall discomfort. Patient had blood work completed along with EKG and CT C-spine CT head and CT of the chest. Patient also did complain of some left hip and groin pain and did have a left hip and pelvis series. Patient's blood work was not crossing over however it was obtained. The patient had a normal white blood cell count 6000. H&H of 10 and 31. Platelet count was 209,000. Patient's glucose is normal. Creatinine of 1. Troponin was negative. Patient's EKG did show some mild prolonged QT but no other abnormality. Patient CTs also did not crossover however they were faxed and they were reviewed. The patient had no acute fracture dislocation ICH or other abnormality based on her CTs were her plain films. The patient was able to ambulate without difficulty. I did have renal case manager combined speak with the patient as she does live alone. Patient is comfortable going home and is willing to do so. Patient was given some resources as an outpatient per renal case manager. Patient deemed suitable for outpatient follow-up and treatment at this time. Patient was given strict follow-up, discharge, and return precautions. All questions were answered. Patient was deemed suitable for outpatient follow-up at this time. Patient agreed with the plan of care and was safely discharged home. Medication Reconcilliation Current Medication List: was personally reviewed by me Blood Pressure Screening Patient's blood pressure: Elevated blood pressure Blood pressure disposition: Referred to PCP Impression Primary Impression: Fall Additional Impressions: Contusion of multiple sites Anemia Scribe Attestation The scribe's documentation has been prepared under my direction and personally reviewed by me in its entirety. I confirm that the note above accurately reflects all work, treatment, procedures, and medical decision making performed by me. Departure Information Dispostion Home / Self-Care Patient Instructions ED Mechanical Fall, ED Prevention Fall, [facility] Additional Instructions Please return to the emergency department if you have worsening or recurrent symptoms not amenable to at-home treatment. Please call for a follow-up appointment with her primary care physician. Please take your medications as prescribed. If you have other concerns and/or complaints please feel free to also call your primary care physician's office or return the ED for further evaluation, management, and treatment. You may take tylenol 650 mg every 6 hours as needed for pain/fever unless told by your physician to not take it or have liver problems. Take your medications as prescribed. You may apply ice to your areas of soreness. You have been examined and treated today on an emergency basis only. This is not a substitute for, or an effort to provide, complete comprehensive medical care. It is impossible to recognize and treat all injuries or illnesses in a single emergency department visit. It is therefore important that you follow up closely with [facility], your PCP, and/or your specialist(s). Call as soon as possible for an appointment. Thank you for your time and consideration. I look forward to speaking with you again soon. Please don't hesitate to call us if you have any questions. Problem Qualifiers Primary Impression: Fall Encounter type: initial encounter Qualified Codes: W19.XXXA - Unspecified fall, initial encounter Additional Impressions: Anemia Anemia type: unspecified type Qualified Codes: D64.9 - Anemia, unspecified
[2018-02-15 18:30] VITALS: BP 176/62; PULSE 78; O2SAT 93
== END 2018-02-15 18:32 | disposition home or self-care (01) ==
LOC: MERGE 12:39 → C.EDB 12:39 → C.EDA 18:32
DX: T14.8XXA Other injury of unspecified body region, initial encounter (principal); W19.XXXA Unspecified fall, initial encounter; Y92.480 Sidewalk as the place of occurrence of the external cause; D64.9 Anemia, unspecified; F41.9 Anxiety disorder, unspecified; M19.90 Unspecified osteoarthritis, unspecified site; J44.9 Chronic obstructive pulmonary disease, unspecified; F32.9 Major depressive disorder, single episode, unspecified; E11.9 Type 2 diabetes mellitus without complications; Z86.718 Personal history of other venous thrombosis and embolism; K21.9 Gastro-esophageal reflux disease without esophagitis; I10 Essential (primary) hypertension; E03.9 Hypothyroidism, unspecified; Z86.73 Personal history of transient ischemic attack (TIA), and cerebral infarction without residual deficits; Z79.82 Long term (current) use of aspirin; Z79.02 Long term (current) use of antithrombotics/antiplatelets; Z79.84 Long term (current) use of oral hypoglycemic drugs; Z79.899 Other long term (current) drug therapy; Z91.048 Other nonmedicinal substance allergy status; Z88.5 Allergy status to narcotic agent; Z88.8 Allergy status to other drugs, medicaments and biological substances

== ENCOUNTER → 2018-03-02 | Outpatient (CLI) | payer OTHER ==
[~2018-03-02] MED LIST changes: -ACET-1256 PO; -ALBINS/ INH; -AMT25 PO; +AMT50 PO; +ASPI1TAB2 PO; -ATOR10TA82 PO; -AZEL30SP NAE; +CHOL1000 PO; -CLC100X PO; -DEXT40GE20 PO; -DLCS PR; -FAMO20TA11 PO; -GABA-113 PO; +GLC/500 PO; -GLGKIT SC; -HYDR25TA4 PO; +HYZ/10015 PO; +IPRA1AER2 INH; -LOSA1TAB38 PO; -MOMLX PO; +MULT-506 PO; +NRN/600 PO; -NVLG SC; -POLY335019 PO; -PRED10TA PO; -SENN-65 PO; -SERT25TA PO; +SERT50TA PO; +SIMV20TA2 PO; -SODIENE PR; +VNTHFA/IN INH
[2018-03-02 17:47] LABS: BASO % 0.3 %; BASO ABS # 0.02 K/uL (0-0.2); EOS % 2.2 %; EOS ABS # 0.13 K/uL (0-0.5); HEMATOCRIT 33.3 % (37-47); HEMOGLOBIN 10.7 g/dL (12.0-16.0); IG# 0.03 K/uL (0.00-0.02); LYMPH % 30.4 %; LYMPH ABS # 1.82 K/uL (1.2-3.4); MEAN CELL VOLUME 93.8 fL (80-100); MEAN CORPUSCULAR HEMOGLOBIN 30.1 pg (25-34); MEAN CORPUSCULAR HGB CONC 32.1 g/dl (32-36); MEAN PLATELET VOLUME 8.4 fL (7.4-10.4); MONO ABS # 0.72 K/uL (0.11-0.59); NEUT % 54.6 %; NEUT ABS # 3.27 K/uL (1.4-6.5); PLATELET COUNT 255 K/uL (130-400); RED CELL DISTRIBUTION WIDTH CV 15.2 % (11.5-14.5); RED CELL DISTRIBUTION WIDTH SD 51.8 fL (36.4-46.3); WHITE BLOOD COUNT 5.99 K/uL (4.8-10.8)
[2018-03-02 17:58] LABS: BLOOD UREA NITROGEN 13 mg/dl (7-18); CALCIUM 8.8 mg/dl (8.5-10.1); CARBON DIOXIDE 30 mmol/L (21-32); CREATININE 1.13 mg/dl (0.60-1.20); GLUCOSE 102 mg/dl (70-99); POTASSIUM 3.4 mmol/L (3.5-5.1); SODIUM 141 mmol/L (136-145)
== END | disposition home or self-care (01) ==
LOC: C.LABPVFM 15:43
PROVIDERS: ATTEND Nurse Practitioner
DX: I10 Essential (primary) hypertension (principal); R07.89 Other chest pain; R60.9 Edema, unspecified

== ENCOUNTER 2019-09-17 16:24 | Observation (INO) ==
--- NOTE | 2019-09-17 17:02 | XRay Report ---
XR chest 1V portable CLINICAL HISTORY: Chest Pain pain COMPARISON STUDY: 09/16/2019 FINDINGS: The bones soft tissues and hemidiaphragms are normal. The cardiomediastinal silhouette is n ormal. The lungs are clear. The pulmonary vasculature is normal. IMPRESSION: Negative chest. The above report was generated using voice recognition software. It may contain grammatical, syntax or spelling errors. Electronically signed by: Jatin Bhandari M.D. 09/17/2019 5:01 PM
[2019-09-17 18:11] LABS: Basophils # (auto) 0.02 K/uL (0-0.2); Basophils % (auto) 0.3 %; Eosinophils # (auto) 0.12 K/uL (0-0.5); Eosinophils % (auto) 2.1 %; Hematocrit (blood only) 45.2 % (37-47); Hemoglobin 15.6 g/dL (12.0-16.0); Immature Granulocytes # (auto) 0.01 K/uL (0.00-0.02); Immature Granulocytes % (auto) 0.2 %; Lymphocytes # (auto) 2.31 K/uL (1.2-3.4); Lymphocytes % (auto) 39.6 %; Mean Corpuscular Hemoglobin 33.3 pg (25-34); Mean Corpuscular Hgb Conc 34.5 g/dL (32-36); Mean Corpuscular Volume 96.6 fL (80-100); Mean Platelet Volume 9.5 fL (7.4-10.4); Monocytes # (auto) 0.62 K/uL (0.11-0.59); Monocytes % (auto) 10.6 %; Neutrophils # (auto) 2.75 K/uL (1.4-6.5); Neutrophils % (auto) 47.2 %; Platelet Count 211 K/uL (130-400); RDW Coefficient of Variation 13.7 % (11.5-14.5); RDW Standard Deviation 47.9 fL (36.4-46.3); Red Blood Count 4.68 M/uL (4.2-5.4); White Blood Count 5.83 K/uL (4.8-10.8)
[2019-09-17 18:12] LABS: Partial Thromboplastin Ratio 0.9; Partial Thromboplastin Time 25.4 Seconds (21.0-31.0); Prothrombin Time 10.1 Seconds (9.0-12.0)
[2019-09-17 18:24] LABS: Alanine Aminotransferase 31 U/L (12-78); Albumin Level 4.6 gm/dl (3.4-5.0); Aspartate Aminotransferase 24 U/L (15-37); Blood Urea Nitrogen 17 mg/dl (7-18); Calcium 10.5 mg/dl (8.5-10.1); Carbon Dioxide 27 mmol/L (21-32); Chloride 107 mmol/L (98-107); Creatinine Clr Calc Pharmacy 39.9 ml/min; Est GFR (African American) 50.3; Est GFR (Non-African American) 43.4; Glucose 93 mg/dl (70-99); Lipase 166 U/L (73-393); Potassium 3.9 mmol/L (3.5-5.1); Sodium 141 mmol/L (136-145)
[2019-09-17 18:29] LABS: Albumin Globulin Ratio 1.1 (0.9-2); Alkaline Phosphatase 142 U/L (45-117); Bilirubin,Total 0.4 mg/dl (0.2-1); Globulin 4.2 gm/dl (2.5-4.0); Total Protein 8.8 gm/dl (6.4-8.2); Troponin I < 0.015 ng/ml (0-0.045)
[2019-09-17] MEDS ORDERED: ACETAMINOPHEN 325 MG TAB PO STA (18:42)
[2019-09-17] MEDS ORDERED: NITROGLYCERIN SL 0.4 MG/TAB TAB SL STA (18:42)
--- NOTE | 2019-09-17 18:45 | Emergency Department Note ---
Entered by Jasmine Naranjo acting as a scribe for History of Present Illness General Chief complaint: Chest Pain Stated complaint: CHEST PAIN Time Seen by Provider: 09/17/19 16:31 Source: patient and EMS Mode of arrival: EMS History of Present Illness Provider complaint: left sided chest pain Onset (ago): hour(s) less than 1 Location: chest and left Radiation: non-radiation Pain Consistency: + intermittent Quality: + other (pressure) Associated symptoms: + denies other symptoms; no nausea/vomiting The patient is a 74 y/o female with a past medical history of pleurisy, arthrit is, diabetes, HTN and TIA, who presents to the emergency department [facility] via EMS for evaluation of intermittent left sided chest pain that began prior to arrival. The patient states that the pain was a 4/10 pain that feels like pressure that she has episodes of from time to time. She notes she had aspirin and nitroglycerin on the way here which helped the pain. The patient reports that she does have a history of heart issues and is on medications for it. The patient denies leg swelling, nausea, vomiting, and any other symptoms. Home Medications Home Medications Medication Instructions Recorded Confirmed Type nitroglycerin 0.4 mg SUBLINGUAL DIRECTED PRN 03/07/19 09/17/19 History multivitamin 1 tab PO QAM 05/02/19 09/17/19 History ibuprofen 600 mg tablet 600 mg PO Q6H PRN #45 tab 05/17/19 09/17/19 History clopidogrel 75 mg tablet 75 mg PO QPM #30 tab 05/23/19 09/17/19 Rx ferrous gluconate 324 mg (37.5 mg 324 mg PO QAM #30 tab 05/23/19 09/17/19 Rx iron) tablet pantoprazole 20 mg tablet,delayed 20 mg PO QAM #30 tab 05/23/19 09/17/19 Rx release amlodipine 5 mg tablet 5 mg PO QAM #30 tab 07/02/19 09/17/19 Rx metformin 500 mg tablet 500 mg PO BID #60 tab 07/02/19 09/17/19 Rx simvastatin 20 mg tablet 20 mg PO HS #30 tab 07/02/19 09/17/19 Rx gabapentin 300 mg PO UD 09/16/19 09/17/19 History levothyroxine 112 mcg PO QAM 09/16/19 09/17/19 History acetaminophen [Tylenol] 325 mg PO UD PRN 09/17/19 09/17/19 History duloxetine 60 mg PO QAM 09/17/19 09/17/19 History isosorbide mononitrate 30 mg PO QAM 09/17/19 09/17/19 History metoprolol succinate 25 mg PO QAM 09/17/19 09/17/19 History mirabegron [Myrbetriq] 25 mg PO QAM 09/17/19 09/17/19 History Allergies Allergy/AdvReac Type Severity Reaction Status Date / Time adhesive Allergy Intermediate TAPE-HIVES Verified 09/17/19 17:36 fentanyl AdvReac Intermediate CONFUSION Verified 09/17/19 17:36 meloxicam AdvReac Intermediate SWELLING Verified 09/17/19 17:36 OF LEGS morphine AdvReac Intermediate "I GET Verified 09/17/19 17:36 REALLY CRAZY" pregabalin AdvReac Intermediate DIZZINESS, Verified 09/17/19 17:36 CONFUSION WITH HIGHER DOSES Past Med/Surg History Medical History Angina at rest (Acute) Anginal pain Anxiety Cardiac murmur Chest pain (Acute) Chronic obstructive pulmonary disease no inhalers Congestive heart failure Depression (Chronic) Diabetes Diabetes mellitus, type 2 GERD (gastroesophageal reflux disease) Vinnie's thyroiditis HTN (hypertension) (Chronic) Hyperlipemia (Chronic) Hypothyroidism Kidney stones On anticoagulant therapy Pleurisy Spinal stenosis TIA (transient ischemic attack) (Inactive) multiple--last around 2010--no deficits--reason for clopidogrel Urinary tract infection currently has Surgical History History of appendectomy History of bilateral cataract extraction History of bilateral tubal ligation History of carpal tunnel surgery of right wrist History of colonoscopy History of dilatation and curettage History of esophagogastroduodenoscopy (EGD) History of mandibular surgery wired shut for denture surgery History of nephrolithotomy with removal of calculi x2 History of partial thyroidectomy 3/4 removed History of tooth extraction all teeth History of total hysterectomy with bilateral salpingo-oophorectomy (BSO) History of total left knee replacement (TKR) Hx of spinal surgery coccygectomy Family History Mother Family history of diabetes mellitus Other No family history of adverse response to anesthesia Social History Preferred Language: Ukrainian Communication Ability: Effective Live Hanger Required: No Beliefs That Will Affect Care: None marital status: / Current Living Situation: Alone Other Information That Helps Us Care for You: No Feels Safe at Home: Yes Safety Concerns: Feels Safe At This Time Smoking Status: Never smoker Do You Dip or Chew Tobacco: No ; Second Hand Exposure: No ; Tobacco Cessation Education Requested by Patient: No Hx Alcohol Use: No Hx Substance Use: No Review of Systems See HPI for pertinent positives & negatives. and A total of 10 systems reviewed and were otherwise negative Physical Exam Vital Signs Vital Signs - 24 hr 09/17/19 16:32 09/17/19 16:42 09/17/19 18:34 Temperature 36.6 C Temperature Source Oral Pulse Rate 78 Pulse Rate [Apical] 83 Pulse Rate from SpO2 Sensor Respiratory Rate 18 18 Respiratory Effort / Characteristics Non-Labored Spontaneous Respiratory Depth Normal Blood Pressure 180/71 H Blood Pressure [Right Arm] 180/93 H Blood Pressure Mean 107 Blood Pressure Mean [Right Arm] 122 Pulse Oximetry 96 96 97 Oxygen Delivery Method Room Air Room Air Sepsis Recent Fever Within 48 Hours No Sepsis New/Unexplained Change in Mental Status No Sepsis Action Taken by Nursing No Action Required 09/17/19 19:00 09/17/19 19:30 09/17/19 19:50 Temperature Temperature Source Pulse Rate 74 80 78 Pulse Rate [Apical] Pulse Rate from SpO2 Sensor 75 73 71 Respiratory Rate 14 16 27 H Respiratory Effort / Characteristics Respiratory Depth Blood Pressure 208/86 H Blood Pressure [Right Arm] Blood Pressure Mean 123 Blood Pressure Mean [Right Arm] Pulse Oximetry 96 95 95 Oxygen Delivery Method Room Air Room Air Room Air Sepsis Recent Fever Within 48 Hours Sepsis New/Unexplained Change in Mental Status Sepsis Action Taken by Nursing 09/17/19 20:00 09/17/19 20:01 Temperature Temperature Source Pulse Rate 76 76 Pulse Rate [Apical] Pulse Rate from SpO2 Sensor 77 73 Respiratory Rate 20 17 Respiratory Effort / Characteristics Respiratory Depth Blood Pressure 199/91 H Blood Pressure [Right Arm] Blood Pressure Mean 136 Blood Pressure Mean [Right Arm] Pulse Oximetry 97 96 Oxygen Delivery Method Room Air Room Air Sepsis Recent Fever Within 48 Hours Sepsis New/Unexplained Change in Mental Status Sepsis Action Taken by Nursing GENERAL: Well appearing, well nourished, NAD, non-toxic. EYE EXAM: Normal conjunctiva. PERRL, no anisocoria and EOM's grossly intact w/o pain. OROPHARYNX: Moist mucus membranes. Grossly normal dentition. NECK: Supple, no nuchal rigidity, no adenopathy, non-tender. No signs of meningismus. LUNGS: Clear to auscultation. Normal chest wall mechanics. HEART: NSR, no MRG. ABDOMEN: Abdomen soft, non-tender, normo-active bowel sounds, no masses, no rebound or guarding. BACK: No CVA TTP. SKIN: No rashes and no bruising. UPPER EXTREMITIES: Upper extremities are grossly normal. LOWER EXTREMITIES: Trace bilateral edema. No calf pain. Negative Baudilio's sign. NEURO EXAM: A&O x3, cranial nerves II-XII grossly intact, normal speech, moves all 4 extremities on command w/o issue. Course Course 1634: Past medical records reviewed. The patient was evaluated in room B12. A complete history and physical exam was performed. 1640: Patient was seen yesterday and diagnosed with pleurisy and had a negative CT angiogram. 1642: Patient was placed on continuous cardiac monitoring. I checked on the patient and update her on the results. I spoke with Dr. Jocelyne Villanueva -[facility] [place]. Will evaluate for further management. Administered Medications Acetaminophen (Tylenol) 650 mg PO Q4H PRN PRN Reason: Pain or Fever Stop: 10/17/19 21:31 Last Admin: 09/17/19 22:24 Dose: 650 mg Documented by: [id number] Clopidogrel Bisulfate (Plavix) 75 mg PO QPM SEVEN Stop: 10/17/19 20:59 Last Admin: 09/17/19 22:25 Dose: 75 mg Documented by: [id number] Enoxaparin Sodium (Lovenox) 40 mg SQ Q24H SEVEN Stop: 10/17/19 21:31 Last Admin: 09/17/19 22:26 Dose: 40 mg Documented by: [id number] Gabapentin (Neurontin) 600 mg PO HS SEVEN Stop: 10/17/19 21:59 Last Admin: 09/17/19 22:25 Dose: 600 mg Documented by: [id number] Levothyroxine Sodium (Synthroid) 112 mcg PO DAILYBB SEVEN Stop: 10/18/19 06:29 Last Admin: 09/18/19 06:13 Dose: 112 mcg Documented by: [id number] Simvastatin (Zocor) 20 mg PO HS SEVEN Stop: 10/17/19 20:59 Last Admin: 09/17/19 22:25 Dose: 20 mg Documented by: [id number] Discontinued Medications Acetaminophen (Tylenol) 650 mg PO NOW STA Stop: 09/17/19 18:43 Last Admin: 09/17/19 18:47 Dose: 650 mg Documented by: [id number] Nitroglycerin (Nitrostat) 0.4 mg SL NOW STA Stop: 09/17/19 18:43 Last Admin: 09/17/19 18:47 Dose: 0.4 mg Documented by: [id number] Potassium Chloride (Klor-Con M20) 20 meq PO NOW STA Stop: 09/17/19 21:46 Last Admin: 09/17/19 22:25 Dose: 20 meq Documented by: [id number] Medical Decision Making Differential Diagnosis the differential was considered includes acute myocardial infarction, acute coronary syndrome, myocarditis, pericarditis, pericardial effusions /tamponad, esophageal perforation, thoracic aortic dissection, pulmonary embolism, pn eumonia, pneumothorax, pancreatitis, shingles, acute cholecystitis, perforated abdominal viscus. Medical Records Attestation: I reviewed the patient's medical records. Home Medications Current Medication List: was personally reviewed by me Laboratory Data Result diagrams: 09/18/19 05:53 09/18/19 05:53 Lab Results 09/17/19 09/17/19 09/17/19 Range/Units 17:49 17:49 17:49 WBC 5.83 (4.8-10.8) K/uL RBC 4.68 (4.2-5.4) M/uL Hgb 15.6 (12.0-16.0) g/dL Hct 45.2 (37-47) % MCV 96.6 (80-100) fL MCH 33.3 (25-34) pg MCHC 34.5 (32-36) g/dL RDW Std Deviation 47.9 H (36.4-46.3) fL RDW Coeff of Adryan 13.7 (11.5-14.5) % Plt Count 211 (130-400) K/uL MPV 9.5 (7.4-10.4) fL Immature Gran % (Auto) 0.2 % Neut % (Auto) 47.2 % Lymph % (Auto) 39.6 % [place] % (Auto) 10.6 % Eos % (Auto) 2.1 % Baso % (Auto) 0.3 % Immature Gran # (Auto) 0.01 (0.00-0.02) K/uL Neut # (Auto) 2.75 (1.4-6.5) K/uL Lymph # (Auto) 2.31 (1.2-3.4) K/uL [place] # (Auto) 0.62 H (0.11-0.59) K/uL Eos # (Auto) 0.12 (0-0.5) K/uL Baso # (Auto) 0.02 (0-0.2) K/uL PT 10.1 (9.0-12.0) Seconds INR 1.0 (0.9-1.1) APTT 25.4 (21.0-31.0) Seconds PTT Ratio 0.9 Sodium 141 (136-145) mmol/L Potassium 3.9 (3.5-5.1) mmol/L Chloride 107 (98-107) mmol/L Carbon Dioxide 27 (21-32) mmol/L Anion Gap 6.0 (3-11) BUN 17 (7-18) mg/dl Creatinine 1.21 H (0.6-1.2) mg/dl Est Cr Clr Drug Dosing 39.9 ml/min Est GFR ( Amer) 50.3 Est GFR (Non-Af Amer) 43.4 BUN/Creatinine Ratio 14.0 (10-20) Glucose 93 (70-99) mg/dl Calcium 10.5 H (8.5-10.1) mg/dl Magnesium 2.0 (1.8-2.4) mg/dl Total Bilirubin 0.4 (0.2-1) mg/dl AST 24 (15-37) U/L ALT 31 (12-78) U/L Alkaline Phosphatase 142 H (45-117) U/L Troponin I < 0.015 (0-0.045) ng/ml Total Protein 8.8 H (6.4-8.2) gm/dl Albumin 4.6 (3.4-5.0) gm/dl Globulin 4.2 H (2.5-4.0) gm/dl Albumin/Globulin Ratio 1.1 (0.9-2) Lipase 166 (73-393) U/L Imaging Data Radiologist's Impression: Radiology results as stated below per my review and the radiologist's interpretation: XR chest 1V portable CLINICAL HISTORY: Chest Pain pain COMPARISON STUDY: 09/16/2019 FINDINGS: The bones soft tissues and hemidiaphragms are normal. The cardiome diastinal silhouette is normal. The lungs are clear. The pulmonary vasculature is normal. IMPRESSION: Negative chest. The above report was generated using voice recognition software. It may contain grammatical, syntax or spelling errors. Electronically signed by: Jatin Bhandari M.D. 09/17/2019 5:01 PM ECG Data Attestation: I personally reviewed and interpreted this ECG as follows: Indication: + chest pain Rate (beats per minute): 73 Rhythm: + sinus rhythm ECG [place]: + Normal ECG ST segments: no ST depression and no ST elevation ECG Findings: + PVCs and + Other (normal interval ) Blood Pressure Blood Pressure Findings: Elevated blood pressure Blood Pressure Disposition: Referred to patients primary care provider MDM Narrative The patient is a 74 y/o female with a past medical history of pleurisy, a rthritis, diabetes, HTN and TIA, who presents to the emergency department [facility] via EMS for evaluation of intermittent left sided chest pain that began prior to arrival Patient was seen in [facility] at the bedside. Patient did have a recent visits to the emergency department for chest pain did have a CT angios study which was negative and diagnosed with pleurisy. Patient was seen in the outpatient setting referred here due to left-sided pressure-like chest pain associated diaphoresis. The patient is unsure as to whether or not she had any exertional symptoms and she was not doing anything at the time that it occurred. The aspirin nitro did relieve her discomfort. Patient denies any fevers or chills. The patient does have some trace lower extremity swelling but it is symmetric. No calf pain no prior history of DVT or PE. Upon reassessment the patient was still having some mild chest discomfort. Additional nitro and Tylenol was ordered. The patient does not have any acute EKG changes but notably does show some PVCs. I did speak the on-call hospitalist who agreed to further evaluate treat the patient. Patient was subsequently admitted to the medicine service for atypical chest pain. Impression & Plan Atypical chest pain, Heart palpitations, Frequent PVCs Discharge Plan Visit Data *Final* Discharge Date/Time: 09/17/19 21:23 Chief Complaint: Chest Pain Stated Complaint: CHEST PAIN ED Provider: Zain Michelle Discharge Problem: Atypical chest pain, Heart palpitations, Frequent PVCs Patient Disposition: Admitted As Inpatient Discharge Instructions Interventions: ED Discharge Assessment Last Done: 09/17/19 21:23 The scribe's documentation has been prepared under my direction and personally reviewed by me in its entirety. I confirm that the note above accurately reflects all work, treatment, procedures, and medical decision making performed by me.
[2019-09-17] MEDS ORDERED: NITROGLYCERIN SL 0.4 MG/TAB TAB SL PRN (20:16)
--- NOTE | 2019-09-17 20:49 | History & Physical Report ---
Date of Service September 17, 2019 Assessment & Plan (1) Atypical chest pain: Patient is a 74yo F PMH pAfib, TIA, HLD, HTN, T2DM, hypothyroid, mild cognitive impairment, depression and anxiety, admitted for atypical chest pain and frequent PVCs on EKG. Atypical CP/Arrhythmia -Admit to tele -Trend troponins -No evidence of echo in last year, will order -Check mag and optimize K -Consult cards, appreciate recs -Prev discussion on increasing isosorbide dose and or ordering lexiscan as outpatient; will defer to cardiology -Keep NPO from midnight DM2 -Pt only on metformin at home -Check A1c -ISS prn Hypothyroid -Cont home regimen HTN -Cont home meds; optimize as tolerated HLD -Cont home meds; optimize as tolerated h/o TIA -Pt on plavix/statin Neuropathy -Cont gabapentin Anxiety/depression -cont duloxetine Code: DNI, but ok with compressions/meds/defib Dispo: admit to tele, obs admit DVTP: lovenox (2) Heart palpitations: (3) Frequent PVCs: (4) Chest pain: (5) Angina at rest: (6) Hypothyroidism: (7) Diabetes: (8) HTN (hypertension): (9) Hyperlipidemia: (10) Depression: (11) Anxiety: History of Present Illness Chief Complaint: Chest discomfort, palpitations Primary Care Provider: HELEN Irvin Patient is a 74yo F PMH pAfib, TIA, HLD, HTN, T2DM, hypothyroid, mild cognitive impairment who presents with an acute episode of L-sided chest discomfort which started ~1 hour 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 Patient notes the sensation felt like "pressure" and was a/w feeling like her heart was skipping a beat. Denies ass'd exertion, diaphoresis, pre-syncopal symptoms. She notes she not-infrequently feels this sensation, but it usually resolves on its own, but this time the symptoms persisted. She saw her PCP this afternoon and on EKG, frequent PVCs were noted and 2 nitro were administered in the office, and she was sent in for evaluation. In the ER, workup was relatively normal, including a negative troponin and EKG findings of PVCs. Of note, patient was in the ER and was diagnosed with pleurisy yesterday evening after presenting with atypical CP. Patient sees Dr. Vila, cardiology. At cardiology visit in 06/2019, they discussed her ongoing L-sided chest pain that is usually associated with anxiety, and she was initiated on metoprolol and isosorbide. Dr. Vila notes that if symptoms persisted the isosorbide dose could be increased +/- obtaining lexiscan for further evaluation. Patient believes she is due to see Dr. Vila in the coming weeks for follow up. Allergies Allergy/AdvReac Type Severity Reaction Status Date / Time adhesive Allergy Intermediate TAPE-HIVES Verified 09/17/19 17:36 fentanyl AdvReac Intermediate CONFUSION Verified 09/17/19 17:36 meloxicam AdvReac Intermediate SWELLING Verified 09/17/19 17:36 OF LEGS morphine AdvReac Intermediate "I GET Verified 09/17/19 17:36 REALLY CRAZY" pregabalin AdvReac Intermediate DIZZINESS, Verified 09/17/19 17:36 CONFUSION WITH HIGHER DOSES Home Medications Home Medications Medication Instructions Recorded Confirmed Type nitroglycerin 0.4 mg SUBLINGUAL DIRECTED PRN 03/07/19 09/17/19 History multivitamin 1 tab PO QAM 05/02/19 09/17/19 History ibuprofen 600 mg tablet 600 mg PO Q6H PRN #45 tab 05/17/19 09/17/19 History clopidogrel 75 mg tablet 75 mg PO QPM #30 tab 05/23/19 09/17/19 Rx ferrous gluconate 324 mg (37.5 mg 324 mg PO QAM #30 tab 05/23/19 09/17/19 Rx iron) tablet pantoprazole 20 mg tablet,delayed 20 mg PO QAM #30 tab 05/23/19 09/17/19 Rx release amlodipine 5 mg tablet 5 mg PO QAM #30 tab 07/02/19 09/17/19 Rx metformin 500 mg tablet 500 mg PO BID #60 tab 07/02/19 09/17/19 Rx simvastatin 20 mg tablet 20 mg PO HS #30 tab 07/02/19 09/17/19 Rx gabapentin 300 mg PO UD 09/16/19 09/17/19 History levothyroxine 112 mcg PO QAM 09/16/19 09/17/19 History acetaminophen [Tylenol] 325 mg PO UD PRN 09/17/19 09/17/19 History duloxetine 60 mg PO QAM 09/17/19 09/17/19 History isosorbide mononitrate 30 mg PO QAM 09/17/19 09/17/19 History metoprolol succinate 25 mg PO QAM 09/17/19 09/17/19 History mirabegron [Myrbetriq] 25 mg PO QAM 09/17/19 09/17/19 History Past Med/Surg History Medical History Angina at rest (Acute) Anginal pain Anxiety Cardiac murmur Chest pain (Acute) Chronic obstructive pulmonary disease no inhalers Congestive heart failure Depression (Chronic) Diabetes Diabetes mellitus, type 2 GERD (gastroesophageal reflux disease) Vinnie's thyroiditis HTN (hypertension) (Chronic) Hyperlipemia (Chronic) Hypothyroidism Kidney stones On anticoagulant therapy Pleurisy Spinal stenosis TIA (transient ischemic attack) (Inactive) multiple--last around 2010--no deficits--reason for clopidogrel Urinary tract infection currently has Surgical History History of appendectomy History of bilateral cataract extraction History of bilateral tubal ligation History of carpal tunnel surgery of right wrist History of colonoscopy History of dilatation and curettage History of esophagogastroduodenoscopy (EGD) History of mandibular surgery wired shut for denture surgery History of nephrolithotomy with removal of calculi x2 History of partial thyroidectomy 3/4 removed History of tooth extraction all teeth History of total hysterectomy with bilateral salpingo-oophorectomy (BSO) History of total left knee replacement (TKR) Hx of spinal surgery coccygectomy Family History Mother Family history of diabetes mellitus Other No family history of adverse response to anesthesia Social History Preferred Language: Thai Communication Ability: Effective Product Development Engineer 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: No Beliefs That Will Affect Care: None marital status: / Current Living Situation: Alone Other Information That Helps Us Care for You: No Feels Safe at Home: Yes Safety Concerns: Feels Safe At This Time Smoking Status: Never smoker Do You Dip or Chew Tobacco: No ; Second Hand Exposure: No ; Tobacco Cessation Education Requested by Patient: No Hx Alcohol Use: No Hx Substance Use: No Review of Systems Review of Systems: All systems reviewed & are unremarkable except as noted in HPI & below Constitutional: no fever, no body aches, no fatigue and no weakness Respiratory: no cough and no dyspnea Cardiovascular: + chest pain, + chest pain at rest and + palpitations; no chest pain with activity, no radiating jaw, neck or arm pain, no dyspnea at rest, no dyspnea on exertion, no lightheadedness, no syncope, no edema and no calf pain Gastrointestinal: no abdominal pain, no heartburn, no nausea and no vomiting Genitourinary: no dysuria Integumentary: no rash Psychiatric: + anhedonia and + anxiety Physical Exam Constitutional: WD/WN, vitals as above Eyes: PERRL, conjunctivae normal, anicteric sclerae ENMT: external ear and nose normal, oropharynx normal Neck: normal visual inspection Respiratory: normal respiratory effort, lungs clear to auscultation Cardiovascular: Rate/Rhythm: regular rate and regular rhythm (with occ extra beats) Heart Sounds: + murmur (JOCELYN) Extremities: no calf tenderness and no pedal edema Gastrointestinal (Abdomen): normal bowel sounds, soft, nontender, no hepatosplenomegaly Musculoskeletal: no cyanosis or clubbing, extremities motor strength 5/5 Skin: no rashes, warm and dry Neurologic: patellar DTR's 2+ bilat, sensation intact Psychiatric: A+Ox3, euthymic affect Affect: + anxious affect Results & Data Vital Signs (Past 12 Hours) Vital Signs Temp Pulse Pulse Resp BP BP Pulse Ox 09/17/19 18:34 83 18 180/93 H 97 09/17/19 16:42 96 09/17/19 16:32 97.9 F 78 18 180/71 H 96 Laboratory Results 09/17/19 09/17/19 09/17/19 Range/Units 17:49 17:49 17:49 WBC 5.83 (4.8-10.8) K/uL RBC 4.68 (4.2-5.4) M/uL Hgb 15.6 (12.0-16.0) g/dL Hct 45.2 (37-47) % MCV 96.6 (80-100) fL MCH 33.3 (25-34) pg MCHC 34.5 (32-36) g/dL RDW Std Deviation 47.9 H (36.4-46.3) fL RDW Coeff of Adryan 13.7 (11.5-14.5) % Plt Count 211 (130-400) K/uL MPV 9.5 (7.4-10.4) fL Immature Gran % (Auto) 0.2 % Neut % (Auto) 47.2 % Lymph % (Auto) 39.6 % [place] % (Auto) 10.6 % Eos % (Auto) 2.1 % Baso % (Auto) 0.3 % Immature Gran # (Auto) 0.01 (0.00-0.02) K/uL Neut # (Auto) 2.75 (1.4-6.5) K/uL Lymph # (Auto) 2.31 (1.2-3.4) K/uL [place] # (Auto) 0.62 H (0.11-0.59) K/uL Eos # (Auto) 0.12 (0-0.5) K/uL Baso # (Auto) 0.02 (0-0.2) K/uL PT 10.1 (9.0-12.0) Seconds INR 1.0 (0.9-1.1) APTT 25.4 (21.0-31.0) Seconds PTT Ratio 0.9 Sodium 141 (136-145) mmol/L Potassium 3.9 (3.5-5.1) mmol/L Chloride 107 (98-107) mmol/L Carbon Dioxide 27 (21-32) mmol/L Anion Gap 6.0 (3-11) BUN 17 (7-18) mg/dl Creatinine 1.21 H (0.6-1.2) mg/dl Est Cr Clr Drug Dosing 39.9 ml/min Est GFR ( Amer) 50.3 Est GFR (Non-Af Amer) 43.4 BUN/Creatinine Ratio 14.0 (10-20) Glucose 93 (70-99) mg/dl Calcium 10.5 H (8.5-10.1) mg/dl Total Bilirubin 0.4 (0.2-1) mg/dl AST 24 (15-37) U/L ALT 31 (12-78) U/L Alkaline Phosphatase 142 H (45-117) U/L Troponin I < 0.015 (0-0.045) ng/ml Total Protein 8.8 H (6.4-8.2) gm/dl Albumin 4.6 (3.4-5.0) gm/dl Globulin 4.2 H (2.5-4.0) gm/dl Albumin/Globulin Ratio 1.1 (0.9-2) Lipase 166 (73-393) U/L Code Status & VTE Plan Code Status Conditional: No intubation, but ok with compressions, medications, defibrillation VTE Prophylaxis Plan VTE Prophylaxis will be ordered: Yes Supervising Physician Co-Signing Physician Notes Patient was seen and examined by me personally. I reviewed the chart, the orders and discussed the case in detail with Dr. Iliana Ravi MD . I read this H&P and agree with its contents to entirety. Resident Activity Tracking Resident Involvement: Resident Care Provided Care Provided: Adult Hospital Medicine (1) Chest pain Chest pain type: chest pain on breathing Qualified Code(s): R07.1 - Chest pain on breathing
[2019-09-17] MEDS ORDERED: CLOPIDOGREL BISULFATE 75 MG TAB PO SCH (21:00)
[2019-09-17] MEDS ORDERED: SIMVASTATIN 20 MG TAB PO SCH (21:00)
[2019-09-17] MEDS ORDERED: ALUMINUM/MAGNESIUM SUSP 30 ML UDC PO PRN (21:32)
[2019-09-17] MEDS ORDERED: ACETAMINOPHEN 325 MG TAB PO PRN (21:32)
[2019-09-17] MEDS ORDERED: MoRPHine SULFATE 2 MG/ML CARP IV PRN (21:32)
[2019-09-17] MEDS ORDERED: POLYETHYLENE (MIRALAX) 17 GM PACK PO PRN (21:32)
[2019-09-17] MEDS ORDERED: MAGNESIUM HYDROXIDE SUSP 30 ML UDC PO PRN (21:32)
[2019-09-17] MEDS ORDERED: ONDANSETRON INJ 2 MG/ML 2 ML VIAL IV PRN (21:32)
[2019-09-17] MEDS ORDERED: POTASSIUM CHLORIDE 20 MEQ TABCR PO STA (21:45)
[2019-09-17] MEDS ORDERED: DEXTROSE 50% 50 ML SYRINGE IV PRN (21:45)
[2019-09-17] MEDS ORDERED: GLUCOSE 10 TABS/TUBE PO PRN (21:45)
[2019-09-17] MEDS ORDERED: GLUCOSE 40% GEL 15 GM TUBE PO PRN (21:45)
[2019-09-17] MEDS ORDERED: CARBOHYDRATES FOR HYPOGLYCEMIA PO PRN (21:45)
[2019-09-17] MEDS ORDERED: GLUCAGON FOR INJ 1 MG VIAL SQ PRN (21:45)
[2019-09-17] MEDS ORDERED: GABAPENTIN 600 MG TAB PO SCH (22:00)
[2019-09-17] MEDS ORDERED: ENOXAPARIN INJ 40 MG/0.4 ML SYR SQ SCH (23:00)
--- NOTE | 2019-09-18 03:10 | Billing Data ---
Coding Level of Care Code 34854 OBS Care - Level 2
[2019-09-18] MEDS ORDERED: LEVOTHYROXINE SODIUM 112 MCG TABLET PO SCH (06:30)
[2019-09-18 07:19] LABS: Hematocrit (blood only) 41.3 % (37-47); Hemoglobin 14.3 g/dL (12.0-16.0); Mean Corpuscular Hemoglobin 33.4 pg (25-34); Mean Corpuscular Hgb Conc 34.6 g/dL (32-36); Mean Corpuscular Volume 96.5 fL (80-100); Mean Platelet Volume 9.9 fL (7.4-10.4); Platelet Count 190 K/uL (130-400); RDW Coefficient of Variation 13.7 % (11.5-14.5); RDW Standard Deviation 47.8 fL (36.4-46.3); Red Blood Count 4.28 M/uL (4.2-5.4)
[2019-09-18 07:20] LABS: Albumin Level 3.6 gm/dl (3.4-5.0); BUN Creatinine Ratio 16.3 (10-20); Calcium 9.4 mg/dl (8.5-10.1); Creatinine Clr Calc Pharmacy 47.7 ml/min; Est GFR (African American) 64.9; Potassium 3.7 mmol/L (3.5-5.1)
[2019-09-18 07:28] LABS: Bilirubin,Total 0.4 mg/dl (0.2-1); Globulin 3.7 gm/dl (2.5-4.0); Total Protein 7.3 gm/dl (6.4-8.2)
[2019-09-18 07:51] LABS: Basophils # (auto) 0.02 K/uL (0-0.2); Basophils % (auto) 0.4 %; Eosinophils # (auto) 0.15 K/uL (0-0.5); Eosinophils % (auto) 2.7 %; Immature Granulocytes # (auto) 0.01 K/uL (0.00-0.02); Immature Granulocytes % (auto) 0.2 %; Lymphocytes # (auto) 2.32 K/uL (1.2-3.4); Lymphocytes % (auto) 41.4 %; Monocytes # (auto) 0.75 K/uL (0.11-0.59); Monocytes % (auto) 13.4 %; Neutrophils # (auto) 2.35 K/uL (1.4-6.5); Neutrophils % (auto) 41.9 %
[2019-09-18 08:09] LABS: Estimated Average Glucose 131 mg/dl; Hemoglobin A1C 6.2 % (4.5-5.6)
[2019-09-18] MEDS: INSULIN ASPART 100 UNITS/ML 3 ML PEN SC SCH ×2 (08:54→14:27)
[2019-09-18] MEDS ORDERED: PANTOprazole 40 MG TAB PO SCH (09:00)
[2019-09-18] MEDS ORDERED: MIRABEGRON ER 25 MG TAB PO SCH (09:00)
[2019-09-18] MEDS ORDERED: ISOSORBIDE MONO EXTENDED REL 30 MG TABCR PO SCH (09:00)
[2019-09-18] MEDS ORDERED: AMLODIPINE BESYLATE 5 MG TAB PO SCH (09:00)
[2019-09-18] MEDS ORDERED: METOPROLOL SUCC 25MG EXT REL TAB PO SCH (09:00)
[2019-09-18] MEDS ORDERED: DULOXETINE HCL 60 MG CAP PO SCH (09:00)
--- NOTE | 2019-09-18 09:48 | Cardiology Consultation ---
Date of Consultation September 18, 2019 Assessment & Plan (1) Chest pain: 2. History of nonobstructive CAD 3. Palpitations 4. Hypertension 5. Dyslipidemia 6. Diabetes Patient has had extensive cardiac testing in the past for evaluation of chest pain. Only with mild nonobstructive coronary disease on most recent cath in 2011 (20-30% mid RCA stenosis). More recently has been experiencing left sided chest and arm discomfort worsened by exertion and relieved by sublingual nitroglycerin. She has been following with Dr. Vila as an outpatient and there has been some concern her symptoms represent myocardial ischemia. Admitted yesterday after a more severe episode of left sided chest pain while at her PCP office. EKG without ST changes and serial troponin negative. Echo is pending. Recommend ischemic evaluation with Lexiscan nuclear stress test. Regarding her palpitations she has evidence of PVCs on telemetry. No arrhythmia. Recommend increasing metoprolol succinate to 50 mg daily which hopefully will help suppress PVCs and also improve BP. Supervising Physician Co-Signing Physician Notes I saw and examined the patient and agree with the documentation Tamara BHATT. Briefly, the patient has had intermittent symptoms of atypical chest discomfort as well as palpitations for some time. There was some concern regarding a change in these symptoms. Patient's evaluation to date has been unremarkable. There has been no objective evidence of ischemia or an acute coronary syndrome. Nuclear perfusion study performed today was normal. Echocardiogram demonstrated preserved LV systolic function. Prior stress testing did not reveal any evidence of ischemia. At this point I think we can't discount her symptoms as ischemia related. She can continue to be treated symptomatically with metoprolol and nitroglycerin if this provides relief. History of Present Illness Reason for Consultation: Chest pain Attending Physician: Adam Muhammad MD History of Present Illness Mrs. Gonzalez is a 74 year old female with a medical history significant for hypertension, dyslipidemia, diabetes mellitus, history of TIA, history of GERD and Henderson's esophagus, history of atypical chest pain and palpitations. She is followed by Dr. Vila in the outpatient clinic. Patient has a longstanding history of atypical chest pain. Previously followed by [facility] cardiology. She has undergone 3 cardiac catheterizations in the past. The most recent in 2011 demonstrated 20-30% mid RCA stenosis and luminal irregularities of LAD and left circumflex. A dobutamine stress echo in November 2018 was negative for ischemia at 86% MPHR. Resting echo showed normal LV systolic function, normal wall motion and mild aortic stenosis. She was recently seen in consultation by Dr. Vila for left sided dull chest pain with radiation into the left shoulder and arm. Symptoms often occurred while lying in bed and were relieved with sublinguinal nitroglycerin. Also had milder type of discomfort with exertion. There was concern her symptoms represented myocardial ischemia and she was initiated on metoprolol succinate 25 mg daily and isosorbide mononitrate 30 mg daily with significant improvement of her symptoms. Patient reports she continues to have less severe chest pain several days per week. Again often at rest but worse with exertion. On 09/16/19 presented to the ED with right shoulder/chest pain different than left sided chest pain. She was told she had bursitis and sent home. Yesterday she was seen at her PCP office and during her visit developed significant left sided chest pain with radiation into her left arm. She also reports having palpitations at the time feeling like a "skipped beat." She often experiences palpitations with her chest pain but the two can also occur independently. She was given 2 nitroglycerin at her PCP of [place] and symptoms did not improve. 911 was notified and she was brought to [facility] ED. EKG without acute changes and troponin remains undetectable. Her significant chest pain resolved within an hour she reports. Since then has had intermittent, less severe left chest/arm pain which lasts about 5 minutes in duration. No shortness of breath, nausea or diaphoresis. Continues to have intermittent palpitations. No lightheadedness, near syncope or syncope. No abnormal bleeding. Family history: Siblings and father all from heart disease. Social history: . Lives in an apartment in [place] [employer] [place]. She has 3 daughters, one lives in the area. No tobacco, alcohol or drug use. Allergies Allergy/AdvReac Type Severity Reaction Status Date / Time adhesive Allergy Intermediate TAPE-HIVES Verified 09/17/19 17:36 fentanyl AdvReac Intermediate CONFUSION Verified 09/17/19 17:36 meloxicam AdvReac Intermediate SWELLING Verified 09/17/19 17:36 OF LEGS morphine AdvReac Intermediate "I GET Verified 09/17/19 17:36 REALLY CRAZY" pregabalin AdvReac Intermediate DIZZINESS, Verified 09/17/19 17:36 CONFUSION WITH HIGHER DOSES Home Medications Home Medications Medication Instructions Recorded Confirmed Type nitroglycerin 0.4 mg SUBLINGUAL DIRECTED PRN 03/07/19 09/17/19 History multivitamin 1 tab PO QAM 05/02/19 09/17/19 History ibuprofen 600 mg tablet 600 mg PO Q6H PRN #45 tab 05/17/19 09/17/19 History clopidogrel 75 mg tablet 75 mg PO QPM #30 tab 05/23/19 09/17/19 Rx ferrous gluconate 324 mg (37.5 mg 324 mg PO QAM #30 tab 05/23/19 09/17/19 Rx iron) tablet pantoprazole 20 mg tablet,delayed 20 mg PO QAM #30 tab 05/23/19 09/17/19 Rx release amlodipine 5 mg tablet 5 mg PO QAM #30 tab 07/02/19 09/17/19 Rx metformin 500 mg tablet 500 mg PO BID #60 tab 07/02/19 09/17/19 Rx simvastatin 20 mg tablet 20 mg PO HS #30 tab 07/02/19 09/17/19 Rx gabapentin 300 mg PO UD 09/16/19 09/17/19 History levothyroxine 112 mcg PO QAM 09/16/19 09/17/19 History Myrbetriq 25 mg PO QAM 09/17/19 09/17/19 History acetaminophen [Tylenol] 325 mg PO UD PRN 09/17/19 09/17/19 History duloxetine 60 mg PO QAM 09/17/19 09/17/19 History isosorbide mononitrate 30 mg PO QAM 09/17/19 09/17/19 History metoprolol succinate 50 mg PO QAM 30 Days #30 tab 09/18/19 Rx Patient History Medical History Angina at rest (Acute) Anginal pain Anxiety Cardiac murmur Chest pain (Acute) Chronic obstructive pulmonary disease no inhalers Congestive heart failure Depression (Chronic) Diabetes Diabetes mellitus, type 2 GERD (gastroesophageal reflux disease) Vinnie's thyroiditis HTN (hypertension) (Chronic) Hyperlipemia (Chronic) Hypothyroidism Kidney stones On anticoagulant therapy Pleurisy Spinal stenosis TIA (transient ischemic attack) (Inactive) multiple--last around 2010--no deficits--reason for clopidogrel Urinary tract infection currently has Surgical History History of appendectomy History of bilateral cataract extraction History of bilateral tubal ligation History of carpal tunnel surgery of right wrist History of colonoscopy History of dilatation and curettage History of esophagogastroduodenoscopy (EGD) History of mandibular surgery wired shut for denture surgery History of nephrolithotomy with removal of calculi x2 History of partial thyroidectomy 3/4 removed History of tooth extraction all teeth History of total hysterectomy with bilateral salpingo-oophorectomy (BSO) History of total left knee replacement (TKR) Hx of spinal surgery coccygectomy Family History Mother Family history of diabetes mellitus Other No family history of adverse response to anesthesia Social History Preferred Language: Martiniquais Communication Ability: Effective 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 HEENT: Head is normal. PERRLA. EOMI. Sclerae anicteric. Ears, nose and throat unremarkable. Mucous membranes moist. Neck: Normal carotid upstrokes, no bruits. No appreciable JVD. Lungs: Clear to auscultation bilaterally without rales, rhonchi or wheezes. Cardiac: Regular rate and rhythm. S1-S2 normal. 1-2/6 systolic ejection murmur Chest wall tenderness to palpation Abdomen: Soft and nontender. Bowel sounds normal. No mass or organomegaly. No abdominal bruit. Extremities/vascular: Well perfused. No peripheral edema. Radial, DP and PT pulses 2+ bilaterally Skin: No rash or abnormal lesions. Normal turgor. Neurologic: Nonfocal Psychiatric: Affect appropriate. Alert and oriented. Results & Data Vital Signs (Past 12 Hours) Vital Signs Temp Pulse Pulse Resp BP Pulse Ox 09/18/19 07:31 36.6 C 73 18 155/80 H 97 09/18/19 03:10 36.4 C L 76 18 143/66 H 95 09/17/19 23:20 36.4 C L 71 18 156/72 H 95 09/17/19 23:12 73 Laboratory Results Laboratory Results - last 24 hr 09/17/19 09/17/19 09/17/19 17:49 17:49 17:49 WBC 5.83 RBC 4.68 Hgb 15.6 Hct 45.2 MCV 96.6 MCH 33.3 MCHC 34.5 RDW Std Deviation 47.9 H RDW Coeff of Adryan 13.7 Plt Count 211 MPV 9.5 Immature Gran % (Auto) 0.2 Neut % (Auto) 47.2 Lymph % (Auto) 39.6 Clinch % (Auto) 10.6 Eos % (Auto) 2.1 Baso % (Auto) 0.3 Immature Gran # (Auto) 0.01 Neut # (Auto) 2.75 Lymph # (Auto) 2.31 Clinch # (Auto) 0.62 H Eos # (Auto) 0.12 Baso # (Auto) 0.02 PT 10.1 INR 1.0 APTT 25.4 PTT Ratio 0.9 Sodium 141 Potassium 3.9 Chloride 107 Carbon Dioxide 27 Anion Gap 6.0 BUN 17 Creatinine 1.21 H Est Cr Clr Drug Dosing 39.9 Est GFR ( Amer) 50.3 Est GFR (Non-Af Amer) 43.4 BUN/Creatinine Ratio 14.0 Glucose 93 POC Glucose Estimat Average Glucose Hemoglobin A1c Calcium 10.5 H Magnesium 2.0 Total Bilirubin 0.4 AST 24 ALT 31 Alkaline Phosphatase 142 H Troponin I < 0.015 Total Protein 8.8 H Albumin 4.6 Globulin 4.2 H Albumin/Globulin Ratio 1.1 Lipase 166 09/17/19 09/18/19 09/18/19 23:10 05:53 05:53 WBC 5.60 RBC 4.28 Hgb 14.3 Hct 41.3 MCV 96.5 MCH 33.4 MCHC 34.6 RDW Std Deviation 47.8 H RDW Coeff of Adryan 13.7 Plt Count 190 MPV 9.9 Immature Gran % (Auto) 0.2 Neut % (Auto) 41.9 Lymph % (Auto) 41.4 Clinch % (Auto) 13.4 Eos % (Auto) 2.7 Baso % (Auto) 0.4 Immature Gran # (Auto) 0.01 Neut # (Auto) 2.35 Lymph # (Auto) 2.32 Clinch # (Auto) 0.75 H Eos # (Auto) 0.15 Baso # (Auto) 0.02 PT INR APTT PTT Ratio Sodium 141 Potassium 3.7 Chloride 108 H Carbon Dioxide 28 Anion Gap 5.0 BUN 16 Creatinine 0.98 Est Cr Clr Drug Dosing 47.7 Est GFR ( Amer) 64.9 Est GFR (Non-Af Amer) 56.0 BUN/Creatinine Ratio 16.3 Glucose 88 POC Glucose Estimat Average Glucose Hemoglobin A1c Calcium 9.4 Magnesium Total Bilirubin 0.4 AST 22 ALT 26 Alkaline Phosphatase 113 Troponin I < 0.015 Total Protein 7.3 Albumin 3.6 Globulin 3.7 Albumin/Globulin Ratio 1.0 Lipase 09/18/19 09/18/19 09/18/19 05:53 05:53 07:12 WBC RBC Hgb Hct MCV MCH MCHC RDW Std Deviation RDW Coeff of Adryan Plt Count MPV Immature Gran % (Auto) Neut % (Auto) Lymph % (Auto) Clinch % (Auto) Eos % (Auto) Baso % (Auto) Immature Gran # (Auto) Neut # (Auto) Lymph # (Auto) Clinch # (Auto) Eos # (Auto) Baso # (Auto) PT INR APTT PTT Ratio Sodium Potassium Chloride Carbon Dioxide Anion Gap BUN Creatinine Est Cr Clr Drug Dosing Est GFR ( Amer) Est GFR (Non-Af Amer) BUN/Creatinine Ratio Glucose POC Glucose 94 Estimat Average Glucose 131 Hemoglobin A1c 6.2 H Calcium Magnesium Total Bilirubin AST ALT Alkaline Phosphatase Troponin I < 0.015 Total Protein Albumin Globulin Albumin/Globulin Ratio Lipase PG Care Time/CCT Total # of Minutes Spent Total Time Spent with Patient: Total time spent is greater than 50% in coordination of care (as documented) at patient's floor/unit and/or counseling patient: (1) Chest pain Chest pain type: chest pain on breathing Qualified Code(s): R07.1 - Chest pain on breathing
[2019-09-18] MEDS ORDERED: REGADENOSON 0.4 MG/5 ML SYR IV ONE (11:24)
[2019-09-18] MEDS ORDERED: GABAPENTIN 300 MG CAP PO SCH (12:00)
--- NOTE | 2019-09-18 15:35 | Discharge Summary ---
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 Patient notes the sensation felt like "pressure" and was a/w feeling like her heart was skipping a beat. Denies ass'd exertion, diaphoresis, pre-syncopal symptoms. She notes she not-infrequently feels this sensation, but it usually resolves on its own, but this time the symptoms persisted. She saw her PCP this afternoon and on EKG, frequent PVCs were noted and 2 nitro were administered in the office, and she was sent in for evaluation. In the ER, workup was relatively normal, including a negative troponin and EKG findings of PVCs. Of note, patient was in the ER and was diagnosed with pleurisy yesterday evening after presenting with atypical CP. Patient sees Dr. Vila, cardiology. At cardiology visit in 06/2019, they discussed her ongoing L-sided chest pain that is usually associated with anxiety, and she was initiated on metoprolol and isosorbide. Dr. Vila notes that if symptoms persisted the isosorbide dose could be increased +/- obtaining lexiscan for further evaluation. Patient believes she is due to see Dr. Vila in the coming weeks for follow up. Principal Diagnosis PVCs, atypical chest pain Discharge Exam Constitutional WD/WN, vitals as above Eyes PERRL and EOM intact bilaterally ENMT external ear and nose normal, oropharynx normal Neck normal visual inspection and trachea midline Respiratory normal respiratory effort, lungs clear to auscultation Cardiovascular RRR, no murmur, no edema Gastrointestinal (Abdomen) Percussion/Palpation: abdomen soft; abdomen nontender Musculoskeletal Head/Neck/Chest: normocephalic and head atraumatic Skin no rashes, warm and dry Neurologic moves all extremities and awake Psychiatric A+Ox3, euthymic affect Discharge Data Allergies Allergy/AdvReac Type Severity Reaction Status Date / Time adhesive Allergy Intermediate TAPE-HIVES Verified 09/17/19 17:36 fentanyl AdvReac Intermediate CONFUSION Verified 09/17/19 17:36 meloxicam AdvReac Intermediate SWELLING Verified 09/17/19 17:36 OF LEGS morphine AdvReac Intermediate "I GET Verified 09/17/19 17:36 REALLY CRAZY" pregabalin AdvReac Intermediate DIZZINESS, Verified 09/17/19 17:36 CONFUSION WITH HIGHER DOSES Consultations 09/17/19 18:42 ED Decision to Admit Stat 09/17/19 21:32 Consult Cardiology Routine Consult Case Management - Discharge Planning Routine Hospital Course (1) Frequent PVCs: Aniyah had unremarkable workup during stay and was discharged home with plan to increase her Metoprolol Succinate from 25mg to 50mg for her PVCs, with hopes that this would lessen PVCs and her symptoms of palpitations "skipping beats." She had negative troponins x3; an echocardiogram was performed with: Normal LV EF; Normal RV systolic pressures; Mild mitral regurg; mild mitral annular calcification. She also had stress echo as well while inpatient. Other routine inpatient lab work was unremarkable including electrolytes, CBC, lipase. A Hgb A1C was performed which was 6.2%. No other medication changes were made to home medications for chronic conditions. (2) Anxiety: (3) Atypical chest pain: (4) Heart palpitations: (5) Peripheral neuropathy: (6) Diabetes: (7) HTN (hypertension): (8) Hyperlipidemia: (9) Depression: (10) Arthritis: Total Time Total Time Spent Total Time Spent (In Minutes): 35 Total Time Includes: Examination of the Patient, Discharge Planning, Medication Reconciliation and Communication With Other Providers Discharge Plan Discharge Items Patient Disposition: Home - Self-Care Reason For Visit: CHEST PAIN, FREQ PVCS Discharge Diagnosis: CHEST PAIN, FREQ PVCS Activity: As commented below Lifting: Gradually increase as tolerated Bathing: No limitations Exercise/Sports: Gradually increase as tolerated Non-emergency contact: Primary Care Provider and Pharmacy Aide Call non-emergency contact if: you have any medication questions and your symptoms worsen Follow-up/Referrals: Airam Malcolm CRNP [Primary Care Provider] - 09/23/19 2:30 pm (Please, follow up at [facility] with Airam CERVANTES on MondaySeptember 23 at 2:30 pm. *If you need to change this appointment, call the office at [phone].) Matt Vila Jr, MD, FACC [Physician] - 10/03/19 1:45 pm (Please, follow up at [facility] Office with Dr. Vila on October 03 at 1:45 pm. *If you need to change this appointment, call the office at [phone].) Diet: Carb Consistent or DM2 and Heart Healthy Addtl Attending Provider Instructions: You were admitted for chest pain - a stress echo performed here was normal. Your heart rhythm shows frequent "PVCs" which is similar to extra beats from time to time - cardiology saw you and increased your metoprolol. This new script is being sent to your pharmacy - it is now 50mg (instead of 25mg) daily. Please follow up with your packager and strapper in 1-3 weeks to discuss your heart health. Please call your primary doctor or Dr. Vila's office if you are concerned about your heart health or begin to feel chest pain symptoms, or persistent shortness of breath or if you are concerned. Be well Pending Studies at Discharge: No Stand-Alone Forms: Call Back Authorization, My [facility], Smoking Cessation Medications and DC Order Prescriptions: New metoprolol succinate 50 mg Tablet Extended Release 24 Hr 50 mg PO QAM 30 Days Qty: 30 RF: 0 Continued pantoprazole 20 mg tablet,delayed release (DR/EC) 20 mg PO QAM Qty: 30 RF: 5 ferrous gluconate 324 mg (37.5 mg iron) tablet 324 mg PO QAM Qty: 30 RF: 5 clopidogrel 75 mg tablet 75 mg PO QPM Qty: 30 RF: 5 simvastatin 20 mg tablet 20 mg PO HS Qty: 30 RF: 5 amlodipine 5 mg tablet 5 mg PO QAM Qty: 30 RF: 5 metformin 500 mg tablet 500 mg PO BID Qty: 60 RF: 5 multivitamin tablet 1 tab PO QAM RF: 0 ibuprofen 600 mg tablet 600 mg PO Q6H PRN (Reason: Pain) Qty: 45 RF: 0 acetaminophen [Tylenol] 325 mg Tablet 325 mg PO UD PRN (Reason: Pain) RF: 0 isosorbide mononitrate 30 mg tablet extended release 24 hr 30 mg PO QAM RF: 0 duloxetine 60 mg capsule,delayed release(DR/EC) 60 mg PO QAM RF: 0 Myrbetriq 25 mg tablet extended release 24 hr 25 mg PO QAM RF: 0 nitroglycerin 0.4 mg tablet, sublingual 0.4 mg sublingual DIRECTED PRN (Reason: Chest Pain) RF: 0 levothyroxine 112 mcg tablet 112 mcg PO QAM RF: 0 gabapentin 300 mg capsule 300 mg PO UD RF: 0 Discontinued metoprolol succinate 25 mg tablet extended release 24 hr 25 mg PO QAM RF: 0 Discharge Orders: Discharge Order (Routine); Ordered 09/18/19 Ordered By: Patricia Donato/Other Patient Handouts: A1C Admission Data Admit Date/Time: 09/17/19 20:26 Attending Provider: Adam Muhammad Admit Provider: Iliana Ravi Primary Care Provider: Airam Malcolm Other Providers: Jocelyne Villanueva Christophe W. Other Interventions: Discharge Summary Assessment (RN) Last Done: 09/18/19 16:48 Supervising Physician Co-Signing Physician Notes Attending attestation Pt seen and examined in concert with Dr. Rodriguez. In agreement with the documented findings as noted in the resident documentation with any exceptions or additions as noted here. Resolution and non-recurrence of chest pain symptoms upon presentation, no apparent complaint during or following stress testing. On examination, S1/S2 nl RRR no MCG. CTAB. Abd NT/ND BS+ve Frequent PVCs and episodic chest pain - negative evaluation in hospital including stress testing. Increased metoprolol for symptom and BP control as noted. Follow up with packager and strapper and PCP DMII w/ peripheral neuropathy - A1c 6.2%, resume metformin on discharge HLD - statin therapy Else see resident documentation as noted. Resident Activity Tracking Resident Involvement: Resident Care Provided Care Provided: Adult Hospital Medicine
[2019-09-18] MEDS ORDERED: METFORMIN HCL 500 MG TAB PO SCH (21:00)
[2019-09-19] MEDS ORDERED: METOPROLOL SUCC 50MG EXT REL TAB PO SCH (09:00)
--- NOTE | 2019-09-19 14:43 | Myocardial Perfusion Study ---
Date of Service September 19, 2019 Myocardial Perfusion Study [facility] Myocardial Perfusion Study Report Myocardial Perfusion Study Report One day nuclear medicine technetium 99m Cardiolite myocardial perfusion scan Clinical history: This stress test is being performed because of a chest pain syndrome in a patient with known coronary artery disease. Comparison: None Technique: For the stress portion of the study, 32.9 mCi of technetium 99m Cardiolite IV was injected at 1:15 p.m. on September 18, 2019. Thirty minutes following the injection, imaging of the heart was performed in multiple projections. For the rest portion of the study, 11.0 mCi of technetium 99m Cardiolite was injected IV at 11:35 a.m. on September 18, 2019. One hour following the injection, imaging of the heart was performed in the same projections. Lexiscan administration: For the stress portion of the study, the patient received 0.4 mg of Lexiscan injected intravenously. The patient did not experience Lexiscan induced chest discomfort. There were no EKG changes. Following the study, the patient was hemodynamically stable without complaints. Findings: The short axis, vertical long axis, horizontal long axis, rotating, and gated images were reviewed in detail. There was normal myocardial perfusion at both stress and rest thus excluding a prior myocardial infarction or evidence of stress induced myocardial ischemia. The left ventricle demonstrates normal systolic function without wall motion abnormalities. The left ventricular ejection fraction is 78 %. Conclusions: 1. No scintigraphic evidence of a prior myocardial infarction or stress-induced myocardial ischemia. 2. No Lexiscan induced chest pain. 3. No Lexiscan induced EKG changes. 4. Normal left ventricular systolic function without wall motion abnormality. Left ventricular ejection fraction is 78 %. Myocardial perfusion codes Indication for Procedure (1) Chest pain: (2) HTN (hypertension): (3) Hyperlipidemia: Procedure Code Procedure 1: Myocardial Perfusion Codes: 66548 Cardiovascular Stress Test, multiple Procedure 2: Myocardial Perfusion Codes: 93660 Cardiovascular Stress Test, supervision only Procedure 3: Myocardial Perfusion Codes: 57098 Cardiovascular Stress Test, interpretation and report
--- NOTE | 2019-09-19 14:46 | Myocardial Perfusion Study ---
Date of Service September 19, 2019 Myocardial perfusion codes Indication for Procedure (1) Chest pain: (2) HTN (hypertension): (3) Hyperlipidemia:
== END 2019-09-18 17:33 | disposition home or self-care (01) ==
LOC: 2E 16:24 → ED 16:24 → SUATTDRO 20:26 → 2E 21:23

== ENCOUNTER 2020-08-15 19:00 | Inpatient (IN) ==
[2020-08-15] MEDS ORDERED: SODIUM CHLORIDE 0.9% 1000ML 1,000 ML IV ONE (19:13)
--- NOTE | 2020-08-15 19:30 | Emergency Department Note ---
Impression & Plan Altered mental status, Lumbar spinal stenosis, Dehydration ED Provider Note NAME: KAILA MESA AGE: 74 SEX: F ARRIVES VIA: Ambulance INFORMANT: Patient, ED PROVIDER(S): Ernst Campos MD CHIEF COMPLAINT: Altered mental status PLAN: Disposition: Admit MEDICAL DECISION MAKING: The patient is a 74-year-old woman with a past medical history of pAfib, TIA, HLD, HTN, T2DM, hypothyroid, mild cognitive impairment chronic back pain with previous decompression with recent repeat evaluations for back pain found to have stable evidence of loosening of prior hardware who presents emergency department from home after her daughter noticed that she was more confused than usual which concerned her as "this is how she gets when she is 'sick'". Per EMS the patient was walking and alert and oriented when she was found by her daughter but again confused and minimally verbal. She is moving her extremities equally without any deficits. Of note, the patient was seen by her PCP on and had her hydrocodone switched to oxycodone. She was also started on baclofen. On arrival the patient is ill-appearing, confused but in no acute distress, afebrile with elevated blood pressures and vital signs otherwise stable. She will follow simple commands and say her name. However she does appear drowsy and confused. He has no focal neurologic deficits and is using moving all extremities equally. No, it is unclear whether the patient is having any urinary retention as she reports a sensation to urinate but does not want to be placed on a bedpan because she feels it hurts her back too much. However upon straight cath by nursing she had over 1L of urine. Subsequently went at CT she then again had to urinate and had another liter of urine. EKG without overt acute ischemia. Chest x-ray negative for acute process. WBC, hemoglobin, and platelets within normal limits. VBG unremarkable. Chemistry without acidosis. BUN is elevated at 19 consistent with the patient's clinically dry appearance. Electrolytes and LFTs unremarkable. CPK within normal limits. Troponin negative/undetectable. Procalcitonin <0.05. UA without evidence of infection. Drug screen is positive for opiates. CT of the head was negative for acute process. CTA of the chest with dissection protocol was negative for acute aortic pathology, PE or acute infectious process. There is bladder distention but no hydronephrosis. Of note the patient does have moderate fecal retention. Previously noted hardware loosening appears uncha nged. During the patient's ED observation after IV fluid hydration and no further sedating medications the patient did gradually improving her alertness and ability to have a conversation. Given the patient's reassuring evaluation unlikely to have emergent process. Suspect patient's altered mental status may be related to polypharmacy and specifically related to recent medication changes from hydrocodone to oxycodone and the addition of baclofen in this elderly patient who is already on numerous sedating medications. Patient's daughter feels that she is unable to care for her mother in the current state and they are both agreeable with plan for admission. Case was discussed with Dr. Clark, [facility] hospitalist, who will evaluate the patient for admission. Triage Nursing notes reviewed and agree them. Additional history obtained from EMS Prior medical records reviewed Vital Signs: reviewed and remarkable for no significant abnormalities Differential diagnosis: Infection, hypoglycemia, electrolyte abnormalities, overdose, toxicologic, cardiac sources, intracerebral event, neurologic, trauma, as well as other pathologies. ER treatment provided: See below. Diagnostics interpreted by me: ECG: Normal sinus rhythm, 71 bpm, no ectopy, no overt ST elevation or depression, QTC 449, QRS 80. Cardiac Monitoring: An order for continuous cardiac monitoring was placed and demonstrated NSR, 71 bpm, no ectopy. Laboratory studies: See below Imaging studies: SINGLE VIEW CHEST CLINICAL HISTORY: Sepsis. FINDINGS: An AP, portable, semierect chest radiograph is compared to study dated 06/27/2020 and correlated with chest CT dated 09/16/2019. The heart is top normal for projection noting atherosclerotic calcification of the thoracic aorta. Chr onic interstitial thickening is similar to previous. The lungs and pleural spaces are clear. No pneumothorax is seen. The skeletal structures are osteopenic. Degenerative change is seen in the thoracic spine. There is chronic posttraumatic deformity of the left proximal humerus. IMPRESSION: No active disease in the chest. -- CT SCAN OF THE BRAIN WITHOUT IV CONTRAST CLINICAL HISTORY: Change in mental status. COMPARISON STUDY: CT of the brain dated 06/27/2020. TECHNIQUE: Unenhanced axial CT scan of the brain is performed from the vertex to the skull base. A dose lowering technique was utilized adhering to the principles of ALARA. FINDINGS: Brain parenchyma: There are age-related involutional changes noting moderate to advanced subcortical and periventricular microangiopathic change. There is no hemorrhage, mass effect, or evidence of acute territorial ischemia by CT criteria. Blankenship-white matter differentiation is preserved. No extra-axial fluid collection is seen. Ventricles, sulci, cisterns: Prominent secondary to involutional change. Intracranial vasculature: There is advanced atherosclerotic calcification of the cavernous carotid and vertebral arteries. Calvarium: Unremarkable. Soft tissues: A small metallic foreign body or suture material is seen deep to the right zygomatic arch on image #3. Sinuses and mastoids: The visualized paranasal sinuses are clear. The mastoid air cells are well pneumatized. Orbits: The bony orbits are grossly intact. There are bilateral ocular lens implants. IMPRESSION: There is no hemorrhage, mass effect, or evidence of acute terr itorial ischemia by CT criteria. -- CT ANGIOGRAM OF THE CHEST COMBO; CT ANGIOGRAM OF THE ABDOMEN AND PELVIS CLINICAL HISTORY: Atypical chest pain. Back pain. Generalized abdominal pain. COMPARISON STUDY: Chest x-ray dated 08/15/2020. Chest CT scans dated 09/16/2019 and 02/15/2018. Abdominal CT dated 12/17/2019. TECHNIQUE: Unenhanced CT scan of the chest is performed. Subsequently, following the IV administration of 118 cc of Optiray 320, CT angiogram of the chest, abdomen, and pelvis was performed from the thoracic inlet to the proximal femora. Images are reviewed in the axial, sagittal, and coronal planes. 3-D MIPS images are created and assessed. IV contrast was administered without compli cation. A dose lowering technique was utilized adhering to the principles of ALARA. The examination is degraded by motion artifact, as well as by streak artifact from the arms which could not be elevated above the chest or abdomen. CT DOSE: 3157.49 mGy.cm FINDINGS: CHEST: Thyroid: Right lobe of the thyroid gland is normal in size and heterogeneous in attenuation. The left lobe is diminutive versus surgically absent. Thoracic aorta: No intramural hematoma is seen on the unenhanced series. There is mild atherosclerotic calcification of the thoracic aorta, which is normal in course and caliber. The aortic arch demonstrates bovine variant anatomy. The arch vessels are widely patent. No dissection is seen. Pulmonary vasculature: The pulmonary trunk is normal in caliber. There are no filling defects identified in the main, lobar, or segmental pulmonary arteries to suggest pulmonary embolus. Heart: The heart is mildly enlarged and without pericardial effusion. The coronary arteries are densely calcified. Lungs and pleural spaces: Evaluation of the lung parenchyma is degraded by pb on artifact. No airspace consolidation or pleural effusion is identified. Foci of scarring/atelectasis are seen bilaterally. The trachea and central airways are clear. Mediastinum: There is no mediastinal lymphadenopathy. Jessi: Clear. Axillae: There is no axillary lymphadenopathy. Bony thorax: The skeletal structures are osteopenic. Degenerative change and mild kyphoscoliosis is noted in the thoracic spine. No lytic or blastic bony lesions are identified. ABDOMEN AND PELVIS: Liver: The contrast-enhanced liver is normal in size, contour, and attenuation. There is no intrahepatic biliary ductal dilatation. The main portal veins appear patent. Gallbladder: Unremarkable. Spleen: Normal in size and attenuation noting heterogeneous arterial phase enhancement. Pancreas: Unremarkable. Adrenal glands: Unremarkable. Kidneys: The contrast enhanced kidneys demonstrate cortical atrophy and are without hydronephrosis. The kidneys enhance symmetrically. Hypodense renal lesions measure up to 2.2 cm. These are not well evaluated due to streak and motion artifact, but are unchanged from the 12/17/2019 CT urogram. Nonobstructing calculus is seen in the lower pole of the left kidney. Abdominal aorta and iliac arteries: The abdominal aorta is normal in course and caliber noting advanced atherosclerotic calcification. The iliac arteries are patent bilaterally. No dissection is seen. Major branches of the abdominal aorta: The celiac trunk, superior mesenteric, and inferior mesenteric arteries are patent. Atherosclerotic plaque causes less than 50% narrowing of the proximal superior mesenteric artery is seen on image #163. Hepatic arterial anatomy is conventional. There is a 10 mm peripherally calcified splenic artery aneurysm seen on image #100. The splenic artery is patent. Single bilateral renal arteries are patent. Bowel: There is moderate colonic fecal retention. No bowel obstruction is seen. The appendix is not visualized. Peritoneum: There is no intraperitoneal free air or abdominal ascites. Lymphadenopathy: None. Pelvic viscera: The bladder is distended but otherwise normal in appearance. The uterus is surgically absent. No adnexal lesion is seen. Skeletal structures: The skeletal structures are osteopenic. There is mild to moderate lumbosacral spondylosis with postoperative change from L4-L5 spinal fusion. Lucency around the right interpedicular screw at L4 suggests loosening. No lytic or blastic bony lesions are seen. IMPRESSION: 1. Unremarkable CT angiogram of the thoracic aorta. 2. There is no evidence of pulmonary embolus in the main, lobar, or segmental pulmonary arteries. 3. Mild cardiac enlargement. 4. There is no airspace consolidation or pleural effusion. 5. There are no acute infectious or inflammatory findings in the abdomen or p shruti. 6. Unremarkable CT angiogram of the abdominal aorta noting advanced atherosclerotic calcification. 7. There is a 10 mm peripherally calcified splenic artery aneurysm. 8. Moderate colonic fecal retention. 9. Bladder distention. 10. Additional findings as above. Consultation(s): Case was discussed with Dr. Clark, [facility] hospitalist, who will evaluate the patient for admission. HPI: The patient is a 74-year-old woman with a past medical history of pAfib, TIA, HLD, HTN, T2DM, hypothyroid, mild cognitive impairment chronic back pain with previous decompression with recent repeat evaluations for back pain found to have stable evidence of loosening of prior hardware who presents emergency department from home after her daughter noticed that she was more confused than usual which concerned her as "this is how she gets when she is 'sick'". Per EMS the patient was walking and alert and oriented when she was found by her daughter but again confused and minimally verbal. She is moving her extremities equally without any deficits. Of note, the patient was seen by her PCP on and had her hydrocodone switched to oxycodone. She was also started on baclofen. ROS: See above HPI for pertinent positives & negatives. A total of 10 systems reviewed and were otherwise negative. PAST MEDICAL HISTORY:See Below PAST SURGICAL HISTORY:See Below FAMILY HISTORY:See Below SOCIAL HISTORY:See Below HOME MEDICATIONS:See Below ALLERGIES:See Below VITALS:See Below PHYSICAL EXAMINATION: GENERAL: Awake, alert to self, drowsy, ill-appearing, in no distress HENT: Normocephalic, atraumatic. Oropharynx with dry mucous membranes and otherwise unremarkable. EYES: Normal conjunctiva. Sclera non-icteric. EOMI. No nystamgus. PEARRL. NECK: Supple. No nuchal rigidity. FROM. No JVD. RESPIRATORY: Clear to auscultation. CARDIAC: Regular rate, normal rhythm. Extremities warm and well perfused. Pulses equal. ABDOMEN: Soft, non-distended. No tenderness to palpation. No rebound or guar ding. No masses. RECTAL: Deferred. MUSCULOSKELETAL: Chest examination reveals no tenderness. The back is symmetrical on inspection without obvious abnormality. There is no CVA tenderness to palpation. No joint edema. LOWER EXTREMITIES: Calves are equal size bilaterally and non-tender. No edema. No discoloration. NEURO: Normal sensorium. No sensory or motor deficits noted. Moving all extremities equally with generalized weakness. SKIN: No rash or jaundice noted. Ernst Campos MD Past Med/Surg History Medical History Angina at rest Anginal pain Cardiac murmur Chest pain Chronic obstructive pulmonary disease no inhalers Congestive heart failure Diabetes Diabetes mellitus, type 2 GERD (gastroesophageal reflux disease) Vinnie's thyroiditis Influenza B Kidney stones On anticoagulant therapy Pleurisy Spinal stenosis TIA (transient ischemic attack) multiple--last around 2010--no deficits--reason for clopidogrel Urinary tract infection currently has Surgical History H/O ureter repair History of appendectomy History of bilateral cataract extraction History of bilateral tubal ligation History of carpal tunnel surgery of right wrist History of colonoscopy History of dilatation and curettage History of esophagogastroduodenoscopy (EGD) History of mandibular surgery wired shut for denture surgery History of nephrolithotomy with removal of calculi x2 History of partial thyroidectomy 3/4 removed History of tooth extraction all teeth History of total hysterectomy with bilateral salpingo-oophorectomy (BSO) History of total left knee replacement (TKR) Hx of spinal surgery coccygectomy Family History Mother Family history of diabetes mellitus Father Myocardial infarction Brother Myocardial infarction Sister Myocardial infarction Other No family history of adverse response to anesthesia Denies family history of Ovarian cancer Prostate cancer Breast cancer Colorectal cancer Social History Smoking Status: Never smoker Second Hand Exposure: No; Hx Alcohol Use: Yes Alcohol type: wine Hx Substance Use: Yes Preferred Language: Martiniquais Communication Ability: Effective 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 Beliefs That Will Affect Care: None marital status: / Current Living Situation: Personal Care Facility current occupational status: retired Other Information That Helps Us Care for You: No Feels Safe at Home: Yes Safety Concerns: Feels Safe At This Time caffeine: Yes Dental Care, Regularly: No Physical Activity Frequency: 1-2 Times per Week Seatbelt Use: always Sunscreen Use: Yes Assistive Devices: Cane, Walker and Wheelchair Allergies Allergies Allergy/AdvReac Type Severity Reaction Status Date / Time adhesive Allergy Intermediate TAPE-HIVES Verified 08/13/20 13:47 fentanyl AdvReac Intermediate CONFUSION Verified 08/13/20 13:47 meloxicam AdvReac Intermediate SWELLING Verified 08/13/20 13:47 OF LEGS morphine AdvReac Intermediate "I GET Verified 08/13/20 13:47 REALLY CRAZY" pregabalin AdvReac Intermediate DIZZINESS, Verified 08/13/20 13:47 CONFUSION WITH HIGHER DOSES Home Meds Home Medications Medication Instructions Recorded Confirmed nitroglycerin 0.4 mg SUBLINGUAL DIRECTED PRN 03/07/19 08/15/20 multivitamin 1 tab PO QAM 05/02/19 08/15/20 pregabalin [Lyrica] 50 mg PO BID 08/11/20 08/15/20 Previous Rx's Medication Instructions Recorded buspirone 5 mg tablet 5 mg PO BID #60 tab 01/27/20 metformin 500 mg tablet 500 mg PO BID #60 tab 01/27/20 mirabegron 25 mg tablet,extended 25 mg PO QAM #30 tab 01/27/20 release 24 hr metoprolol succinate 50 mg 50 mg PO QAM 30 Days #30 tab 03/30/20 tablet,extended release 24 hr isosorbide mononitrate 30 mg 30 mg PO QAM #90 tab 04/30/20 tablet,extended release 24 hr clopidogrel 75 mg tablet 75 mg PO HS #90 tab 05/26/20 ferrous gluconate 324 mg (37.5 mg 324 mg PO QAM #90 tab 05/26/20 iron) tablet levothyroxine 112 mcg tablet 112 mcg PO QAM #90 tab 05/26/20 pantoprazole 20 mg tablet,delayed 20 mg PO QAM #90 tab 05/26/20 release hydrocodone-acetaminophen [Marfa] 1 tab PO Q6H PRN #12 tab 06/27/20 amlodipine 5 mg tablet 5 mg PO QAM #30 tab 07/21/20 duloxetine 60 mg capsule,delayed 60 mg PO QAM #30 cap 07/21/20 release simvastatin 20 mg tablet 20 mg PO HS #30 tab 07/21/20 baclofen 10 mg tablet 10 mg PO TID PRN #30 tab 08/13/20 oxycodone 5 mg tablet 5 mg PO Q8H PRN #30 tab 08/13/20 Results & Data (ED) Vital Signs Vital Signs - 24 hr 08/15/20 19:06 08/15/20 19:09 08/15/20 19:10 Temperature 36.8 C Temperature Source Oral Pulse Rate 72 71 75 Pulse Rate from SpO2 Sensor 71 71 73 Respiratory Rate 16 13 Respiratory Effort / Characteristics Non-Labored Respiratory Depth Normal Blood Pressure 208/91 H 208/91 H Blood Pressure Mean 107 130 Pulse Oximetry 99 99 99 Oxygen Delivery Method Room Air Sepsis Recent Fever Within 48 Hours No Sepsis New/Unexplained Change in Mental Status Yes Sepsis Action Taken by Nursing No Action Required 08/15/20 19:20 08/15/20 19:28 08/15/20 19:30 Temperature Temperature Source Pulse Rate 69 72 Pulse Rate from SpO2 Sensor 70 72 Respiratory Rate 18 27 H Respiratory Effort / Characteristics Respiratory Depth Blood Pressure Blood Pressure Mean Pulse Oximetry 100 100 Oxygen Delivery Method Room Air Sepsis Recent Fever Within 48 Hours Sepsis New/Unexplained Change in Mental Status Sepsis Action Taken by Nursing 08/15/20 19:31 08/15/20 19:40 08/15/20 19:50 Temperature Temperature Source Pulse Rate 69 73 71 Pulse Rate from SpO2 Sensor 73 72 71 Respiratory Rate 16 18 14 Respiratory Effort / Characteristics Respiratory Depth Blood Pressure 169/81 H Blood Pressure Mean 118 Pulse Oximetry 100 100 99 Oxygen Delivery Method Sepsis Recent Fever Within 48 Hours Sepsis New/Unexplained Change in Mental Status Sepsis Action Taken by Nursing 08/15/20 20:00 08/15/20 20:10 08/15/20 20:20 Temperature Temperature Source Pulse Rate 74 70 69 Pulse Rate from SpO2 Sensor 73 70 69 Respiratory Rate 12 14 17 Respiratory Effort / Characteristics Respiratory Depth Blood Pressure Blood Pressure Mean Pulse Oximetry 100 99 100 Oxygen Delivery Method Sepsis Recent Fever Within 48 Hours Sepsis New/Unexplained Change in Mental Status Sepsis Action Taken by Nursing 08/15/20 20:21 08/15/20 20:22 08/15/20 20:30 Temperature Temperature Source Pulse Rate 67 67 68 Pulse Rate from SpO2 Sensor 69 68 68 Respiratory Rate 15 17 14 Respiratory Effort / Characteristics Respiratory Depth Blood Pressure 188/92 H 197/74 H Blood Pressure Mean 102 131 Pulse Oximetry 100 100 100 Oxygen Delivery Method Sepsis Recent Fever Within 48 Hours Sepsis New/Unexplained Change in Mental Status Sepsis Action Taken by Nursing 08/15/20 20:40 08/15/20 20:50 08/15/20 21:00 Temperature Temperature Source Pulse Rate 68 67 77 Pulse Rate from SpO2 Sensor 68 67 75 Respiratory Rate 16 14 18 Respiratory Effort / Characteristics Respiratory Depth Blood Pressure 203/93 H Blood Pressure Mean 150 Pulse Oximetry 99 99 98 Oxygen Delivery Method Sepsis Recent Fever Within 48 Hours Sepsis New/Unexplained Change in Mental Status Sepsis Action Taken by Nursing 08/15/20 21:10 08/15/20 21:53 08/15/20 21:54 Temperature Temperature Source Pulse Rate 73 73 Pulse Rate from SpO2 Sensor 73 76 73 Respiratory Rate 16 7 L 20 Respiratory Effort / Characteristics Respiratory Depth Blood Pressure 174/88 H Blood Pressure Mean 100 Pulse Oximetry 97 100 100 Oxygen Delivery Method Sepsis Recent Fever Within 48 Hours Sepsis New/Unexplained Change in Mental Status Sepsis Action Taken by Nursing 08/15/20 22:00 08/15/20 22:10 08/15/20 22:20 Temperature Temperature Source Pulse Rate 77 72 75 Pulse Rate from SpO2 Sensor 80 72 75 Respiratory Rate 22 21 12 Respiratory Effort / Characteristics Respiratory Depth Blood Pressure 197/111 H Blood Pressure Mean 160 Pulse Oximetry 99 96 98 Oxygen Delivery Method Sepsis Recent Fever Within 48 Hours Sepsis New/Unexplained Change in Mental Status Sepsis Action Taken by Nursing 08/15/20 22:22 08/15/20 22:30 08/15/20 22:31 Temperature Temperature Source Pulse Rate 76 71 71 Pulse Rate from SpO2 Sensor 75 69 69 Respiratory Rate 20 21 15 Respiratory Effort / Characteristics Respiratory Depth Blood Pressure 158/73 H 164/75 H Blood Pressure Mean 109 113 Pulse Oximetry 98 98 98 Oxygen Delivery Method Sepsis Recent Fever Within 48 Hours Sepsis New/Unexplained Change in Mental Status Sepsis Action Taken by Nursing 08/15/20 22:40 08/15/20 22:50 08/15/20 23:00 Temperature Temperature Source Pulse Rate 64 70 65 Pulse Rate from SpO2 Sensor 63 70 66 Respiratory Rate 20 10 L 19 Respiratory Effort / Characteristics Respiratory Depth Blood Pressure 157/71 H Blood Pressure Mean 112 Pulse Oximetry 95 98 97 Oxygen Delivery Method Sepsis Recent Fever Within 48 Hours Sepsis New/Unexplained Change in Mental Status Sepsis Action Taken by Nursing 08/15/20 23:30 08/16/20 00:00 Temperature Temperature Source Pulse Rate 66 63 Pulse Rate from SpO2 Sensor Respiratory Rate 13 15 Respiratory Effort / Characteristics Respiratory Depth Blood Pressure 136/78 181/91 H Blood Pressure Mean 107 116 Pulse Oximetry 93 95 Oxygen Delivery Method Sepsis Recent Fever Within 48 Hours Sepsis New/Unexplained Change in Mental Status Sepsis Action Taken by Nursing Laboratory Data Attestation: I reviewed the patient's lab results. Result diagrams: 08/15/20 20:20 08/15/20 20:20 Lab Results 08/15/20 08/15/20 08/15/20 Range/Units 19:56 19:56 20:05 WBC (4.8-10.8) K/uL RBC (4.2-5.4) M/uL Hgb (12.0-16.0) g/dL Hct (37-47) % MCV (80-100) fL MCH (25-34) pg MCHC (32-36) g/dL RDW Std Deviation (36.4-46.3) fL RDW Coeff of Adryan (11.5-14.5) % Plt Count (130-400) K/uL MPV (7.4-10.4) fL Immature Gran % (Auto) % Neut % (Auto) % Lymph % (Auto) % [place] % (Auto) % Eos % (Auto) % Baso % (Auto) % Neut # (Auto) (1.4-6.5) K/uL Lymph # (Auto) (1.2-3.4) K/uL [place] # (Auto) (0.11-0.59) K/uL Eos # (Auto) (0-0.5) K/uL Baso # (Auto) (0-0.2) K/uL Immature Gran # (Auto) (0.00-0.02) K/uL PT (9.0-12.0) Seconds INR (0.9-1.1) APTT (21.0-31.0) Seconds PTT Ratio VBG pH Cancelled VBG pCO2 Cancelled VBG pO2 Cancelled VBG HCO3 Cancelled VBG O2 Saturation Cancelled VBG Base Excess Cancelled Barometric Pressure Cancelled Sodium (136-145) mmol/L Potassium (3.5-5.1) mmol/L Chloride (98-107) mmol/L Carbon Dioxide (21-32) mmol/L Anion Gap (3-11) BUN (7-18) mg/dl Creatinine (0.6-1.2) mg/dl Est Cr Clr Drug Dosing ml/min Est GFR ( Amer) Est GFR (Non-Af Amer) BUN/Creatinine Ratio (10-20) Glucose (70-99) mg/dl Lactate (0.4-2.0) mmol/L Calcium (8.5-10.1) mg/dl Phosphorus (2.5-4.9) mg/dl Magnesium (1.8-2.4) mg/dl Total Bilirubin (0.2-1) mg/dl Direct Bilirubin (0-0.2) mg/dl AST (15-37) U/L ALT (12-78) U/L Alkaline Phosphatase (45-117) U/L Total Creatine Kinase (26-192) U/L Troponin I (0-0.045) ng/ml Total Protein (6.4-8.2) gm/dl Albumin (3.4-5.0) gm/dl Globulin (2.5-4.0) gm/dl Albumin/Globulin Ratio (0.9-2) Procalcitonin (0-0.5) ng/ml TSH (0.300-4.500) uIu/ml Specimen Hemolysis Urine Color Urine Appearance (Clear) Urine pH (4.5-7.5) Ur Specific [place] (1.000-1.030) Urine Protein (Negative) Urine Glucose (UA) (Negative) Urine Ketones (Negative) Urine Blood (Negative) Urine Nitrite (Negative) Urine Bilirubin (Negative) Urine Urobilinogen (Negative) Ur Leukocyte Esterase (Negative) Urine Opiates Screen Pos H (Neg) Ur Methadone, Qual Neg (Neg) Urine Barbiturates Neg (Neg) Ur Phencyclidine (PCP) Neg (Neg) U Amphetamin/Meth Scrn Neg (Neg) MDMA (Ecstasy) Screen Neg (Neg) U Benzodiazepines Scrn Neg (Neg) Ur Cocaine Metabolite Neg (Neg) U Marijuana (THC) Screen Neg (Neg) Ethyl Alcohol mg/dL < 3.0 (0-3) mg/dl 08/15/20 08/15/20 08/15/20 Range/Units 20:05 20:20 20:20 WBC 6.32 (4.8-10.8) K/uL RBC 4.87 (4.2-5.4) M/uL Hgb 15.8 (12.0-16.0) g/dL Hct 47.4 H (37-47) % MCV 97.3 (80-100) fL MCH 32.4 (25-34) pg MCHC 33.3 (32-36) g/dL RDW Std Deviation 47.2 H (36.4-46.3) fL RDW Coeff of Adryan 13.4 (11.5-14.5) % Plt Count 206 (130-400) K/uL MPV 9.6 (7.4-10.4) fL Immature Gran % (Auto) 0.2 % Neut % (Auto) 62.1 % Lymph % (Auto) 25.6 % [place] % (Auto) 10.4 % Eos % (Auto) 1.4 % Baso % (Auto) 0.3 % Neut # (Auto) 3.92 (1.4-6.5) K/uL Lymph # (Auto) 1.62 (1.2-3.4) K/uL [place] # (Auto) 0.66 H (0.11-0.59) K/uL Eos # (Auto) 0.09 (0-0.5) K/uL Baso # (Auto) 0.02 (0-0.2) K/uL Immature Gran # (Auto) 0.01 (0.00-0.02) K/uL PT (9.0-12.0) Seconds INR (0.9-1.1) APTT (21.0-31.0) Seconds PTT Ratio VBG pH VBG pCO2 VBG pO2 VBG HCO3 VBG O2 Saturation VBG Base Excess Barometric Pressure Sodium (136-145) mmol/L Potassium (3.5-5.1) mmol/L Chloride (98-107) mmol/L Carbon Dioxide (21-32) mmol/L Anion Gap (3-11) BUN (7-18) mg/dl Creatinine (0.6-1.2) mg/dl Est Cr Clr Drug Dosing ml/min Est GFR ( Amer) Est GFR (Non-Af Amer) BUN/Creatinine Ratio (10-20) Glucose (70-99) mg/dl Lactate (0.4-2.0) mmol/L Calcium (8.5-10.1) mg/dl Phosphorus (2.5-4.9) mg/dl Magnesium (1.8-2.4) mg/dl Total Bilirubin (0.2-1) mg/dl Direct Bilirubin (0-0.2) mg/dl AST (15-37) U/L ALT (12-78) U/L Alkaline Phosphatase (45-117) U/L Total Creatine Kinase (26-192) U/L Troponin I (0-0.045) ng/ml Total Protein (6.4-8.2) gm/dl Albumin (3.4-5.0) gm/dl Globulin (2.5-4.0) gm/dl Albumin/Globulin Ratio (0.9-2) Procalcitonin < 0.05 (0-0.5) ng/ml TSH (0.300-4.500) uIu/ml Specimen Hemolysis Urine Color Yellow Urine Appearance Clear (Clear) Urine pH 7.0 (4.5-7.5) Ur Specific [place] 1.009 (1.000-1.030) Urine Protein Negative (Negative) Urine Glucose (UA) Negative (Negative) Urine Ketones Negative (Negative) Urine Blood Negative (Negative) Urine Nitrite Negative (Negative) Urine Bilirubin Negative (Negative) Urine Urobilinogen Negative (Negative) Ur Leukocyte Esterase Negative (Negative) Urine Opiates Screen (Neg) Ur Methadone, Qual (Neg) Urine Barbiturates (Neg) Ur Phencyclidine (PCP) (Neg) U Amphetamin/Meth Scrn (Neg) MDMA (Ecstasy) Screen (Neg) U Benzodiazepines Scrn (Neg) Ur Cocaine Metabolite (Neg) U Marijuana (THC) Screen (Neg) Ethyl Alcohol mg/dL (0-3) mg/dl 08/15/20 08/15/20 08/15/20 Range/Units 20:20 20:20 21:44 WBC (4.8-10.8) K/uL RBC (4.2-5.4) M/uL Hgb (12.0-16.0) g/dL Hct (37-47) % MCV (80-100) fL MCH (25-34) pg MCHC (32-36) g/dL RDW Std Deviation (36.4-46.3) fL RDW Coeff of Adryan (11.5-14.5) % Plt Count (130-400) K/uL MPV (7.4-10.4) fL Immature Gran % (Auto) % Neut % (Auto) % Lymph % (Auto) % [place] % (Auto) % Eos % (Auto) % Baso % (Auto) % Neut # (Auto) (1.4-6.5) K/uL Lymph # (Auto) (1.2-3.4) K/uL [place] # (Auto) (0.11-0.59) K/uL Eos # (Auto) (0-0.5) K/uL Baso # (Auto) (0-0.2) K/uL Immature Gran # (Auto) (0.00-0.02) K/uL PT 10.7 (9.0-12.0) Seconds INR 1.0 (0.9-1.1) APTT 23.6 (21.0-31.0) Seconds PTT Ratio 0.8 VBG pH VBG pCO2 VBG pO2 VBG HCO3 VBG O2 Saturation VBG Base Excess Barometric Pressure Sodium 142 (136-145) mmol/L Potassium 4.0 (3.5-5.1) mmol/L Chloride 108 H (98-107) mmol/L Carbon Dioxide 29 (21-32) mmol/L Anion Gap 4.0 (3-11) BUN 19 H (7-18) mg/dl Creatinine 1.04 (0.6-1.2) mg/dl Est Cr Clr Drug Dosing 45.6 ml/min Est GFR ( Amer) 60.4 Est GFR (Non-Af Amer) 52.1 BUN/Creatinine Ratio 18.2 (10-20) Glucose 94 (70-99) mg/dl Lactate 1.0 (0.4-2.0) mmol/L Calcium 9.0 (8.5-10.1) mg/dl Phosphorus 2.7 (2.5-4.9) mg/dl Magnesium 2.0 (1.8-2.4) mg/dl Total Bilirubin 0.5 (0.2-1) mg/dl Direct Bilirubin (0-0.2) mg/dl AST 29 (15-37) U/L ALT 30 (12-78) U/L Alkaline Phosphatase 130 H (45-117) U/L Total Creatine Kinase 98 (26-192) U/L Troponin I < 0.015 (0-0.045) ng/ml Total Protein 8.3 H (6.4-8.2) gm/dl Albumin 4.0 (3.4-5.0) gm/dl Globulin 4.3 H (2.5-4.0) gm/dl Albumin/Globulin Ratio 0.9 (0.9-2) Procalcitonin (0-0.5) ng/ml TSH 0.548 (0.300-4.500) uIu/ml Specimen Hemolysis Urine Color Urine Appearance (Clear) Urine pH (4.5-7.5) Ur Specific [place] (1.000-1.030) Urine Protein (Negative) Urine Glucose (UA) (Negative) Urine Ketones (Negative) Urine Blood (Negative) Urine Nitrite (Negative) Urine Bilirubin (Negative) Urine Urobilinogen (Negative) Ur Leukocyte Esterase (Negative) Urine Opiates Screen (Neg) Ur Methadone, Qual (Neg) Urine Barbiturates (Neg) Ur Phencyclidine (PCP) (Neg) U Amphetamin/Meth Scrn (Neg) MDMA (Ecstasy) Screen (Neg) U Benzodiazepines Scrn (Neg) Ur Cocaine Metabolite (Neg) U Marijuana (THC) Screen (Neg) Ethyl Alcohol mg/dL (0-3) mg/dl 08/15/20 Range/Units 21:44 WBC (4.8-10.8) K/uL RBC (4.2-5.4) M/uL Hgb (12.0-16.0) g/dL Hct (37-47) % MCV (80-100) fL MCH (25-34) pg MCHC (32-36) g/dL RDW Std Deviation (36.4-46.3) fL RDW Coeff of Adryan (11.5-14.5) % Plt Count (130-400) K/uL MPV (7.4-10.4) fL Immature Gran % (Auto) % Neut % (Auto) % Lymph % (Auto) % [place] % (Auto) % Eos % (Auto) % Baso % (Auto) % Neut # (Auto) (1.4-6.5) K/uL Lymph # (Auto) (1.2-3.4) K/uL [place] # (Auto) (0.11-0.59) K/uL Eos # (Auto) (0-0.5) K/uL Baso # (Auto) (0-0.2) K/uL Immature Gran # (Auto) (0.00-0.02) K/uL PT (9.0-12.0) Seconds INR (0.9-1.1) APTT (21.0-31.0) Seconds PTT Ratio VBG pH 7.32 L VBG pCO2 50 VBG pO2 44 VBG HCO3 25 VBG O2 Saturation 76.4 VBG Base Excess -1.7 Barometric Pressure 742.1 Sodium (136-145) mmol/L Potassium (3.5-5.1) mmol/L Chloride (98-107) mmol/L Carbon Dioxide (21-32) mmol/L Anion Gap (3-11) BUN (7-18) mg/dl Creatinine (0.6-1.2) mg/dl Est Cr Clr Drug Dosing ml/min Est GFR ( Amer) Est GFR (Non-Af Amer) BUN/Creatinine Ratio (10-20) Glucose (70-99) mg/dl Lactate (0.4-2.0) mmol/L Calcium (8.5-10.1) mg/dl Phosphorus (2.5-4.9) mg/dl Magnesium (1.8-2.4) mg/dl Total Bilirubin (0.2-1) mg/dl Direct Bilirubin (0-0.2) mg/dl AST (15-37) U/L ALT (12-78) U/L Alkaline Phosphatase (45-117) U/L Total Creatine Kinase (26-192) U/L Troponin I (0-0.045) ng/ml Total Protein (6.4-8.2) gm/dl Albumin (3.4-5.0) gm/dl Globulin (2.5-4.0) gm/dl Albumin/Globulin Ratio (0.9-2) Procalcitonin (0-0.5) ng/ml TSH (0.300-4.500) uIu/ml Specimen Hemolysis Urine Color Urine Appearance (Clear) Urine pH (4.5-7.5) Ur Specific [place] (1.000-1.030) Urine Protein (Negative) Urine Glucose (UA) (Negative) Urine Ketones (Negative) Urine Blood (Negative) Urine Nitrite (Negative) Urine Bilirubin (Negative) Urine Urobilinogen (Negative) Ur Leukocyte Esterase (Negative) Urine Opiates Screen (Neg) Ur Methadone, Qual (Neg) Urine Barbiturates (Neg) Ur Phencyclidine (PCP) (Neg) U Amphetamin/Meth Scrn (Neg) MDMA (Ecstasy) Screen (Neg) U Benzodiazepines Scrn (Neg) Ur Cocaine Metabolite (Neg) U Marijuana (THC) Screen (Neg) Ethyl Alcohol mg/dL (0-3) mg/dl Administered Medications Potassium Chloride/Sodium Chloride (Normal Saline W/20 Meq Kcl) 20 meq in 1,000 mls @ 70 mls/hr IV .[id number] SEVEN Stop: 09/15/20 01:19 Last Admin: 08/16/20 02:07 Dose: 70 mls/hr Documented by: [id number] Discontinued Medications Hydrocodone Bitart/Acetaminophen (Hydrocodone/Acetamophen 5/325mg Tab) 1 tab PO NOW STA Stop: 08/15/20 22:25 Last Admin: 08/15/20 22:47 Dose: 1 tab Documented by: [id number] Bisacodyl (Bisacodyl 5 Mg Tabec) 5 mg PO NOW ONE Stop: 08/15/20 22:25 Last Admin: 08/15/20 22:47 Dose: 5 mg Documented by: [id number] Docusate Sodium (Docusate Sodium Syrup 100 Mg/10 Ml Udc) 100 mg PO NOW STA Stop: 08/15/20 22:25 Last Admin: 08/15/20 22:47 Dose: 100 mg Documented by: [id number] Sodium Chloride (Nss 1000ml) 1,000 mls @ 999 mls/hr IV .Q1H1M ONE Stop: 08/15/20 20:13 Last Infusion: 08/15/20 21:13 Dose: 0 mls/hr Documented by: [id number] Admin: 08/15/20 19:23 Dose: 999 mls/hr Documented by: [id number] Acetaminophen (Ofirmev) 1,000 mg in 100 mls @ 400 mls/hr IV NOW STA Stop: 08/15/20 22:14 Last Infusion: 08/15/20 23:12 Dose: 0 mls/hr Documented by: [id number] Admin: 08/15/20 22:11 Dose: 400 mls/hr Documented by: [id number] Ioversol (Optiray 320 125ml) 118 ml IV ONCE ONE Stop: 08/15/20 21:38 Last Admin: 08/15/20 21:37 Dose: 118 ml Documented by: [id number] Pregabalin (Pregabalin 50 Mg Cap) 50 mg PO NOW STA Stop: 08/15/20 22:25 Last Admin: 08/15/20 22:48 Dose: 50 mg Documented by: [id number] Discharge Plan Visit Data Chief Complaint: Altered Mental Status Stated Complaint: BACK PAIN, AMS ED Provider: Ernst Campos Discharge Problem: Altered mental status, Lumbar spinal stenosis, Dehydration Patient Disposition: Admitted As Inpatient Discharge Instructions Interventions: ED Discharge Assessment Last Done: 08/16/20 00:37 Discharge Problem: Altered mental status Qualifiers: Altered mental status type: unspecified Qualified Code(s): R41.82 - Altered mental status, unspecified
--- NOTE | 2020-08-15 19:38 | XRay Report ---
SINGLE VIEW CHEST CLINICAL HISTORY: Sepsis. FINDINGS: An AP, portable, semierect chest radiograph is compared to study dated 06/27/2020 and correl ated with chest CT dated 09/16/2019. The heart is top normal for projection noting atherosclerotic edgar cification of the thoracic aorta. Chronic interstitial thickening is similar to previous. The lungs a nd pleural spaces are clear. No pneumothorax is seen. The skeletal structures are osteopenic. Degene rative change is seen in the thoracic spine. There is chronic posttraumatic deformity of the left pro ximal humerus. IMPRESSION: No active disease in the chest. ACT 112: Negative or not required by law. Electronically signed by: Jono Romero M.D. 08/15/2020 7:37 PM
[2020-08-15 20:30] LABS: Appearance Urine Clear (Clear); Bilirubin Urine Negative (Negative); Blood Urine Negative (Negative); Color Urine Yellow; Glucose Urine UA Negative (Negative); Ketones Urine Negative (Negative); Leukocyte Esterase Urine Negative (Negative); Nitrite Urine Negative (Negative); Protein Urine Negative (Negative); Specific Gravity Urine 1.009 (1.000-1.030); Urobilinogen Urine Negative (Negative)
[2020-08-15 20:34] LABS: Basophils # (auto) 0.02 K/uL (0-0.2); Basophils % (auto) 0.3 %; Eosinophils # (auto) 0.09 K/uL (0-0.5); Eosinophils % (auto) 1.4 %; Hematocrit (blood only) 47.4 % (37-47); Hemoglobin 15.8 g/dL (12.0-16.0); Immature Granulocytes # (auto) 0.01 K/uL (0.00-0.02); Immature Granulocytes % (auto) 0.2 %; Lymphocytes # (auto) 1.62 K/uL (1.2-3.4); Lymphocytes % (auto) 25.6 %; Mean Corpuscular Hemoglobin 32.4 pg (25-34); Mean Corpuscular Hgb Conc 33.3 g/dL (32-36); Mean Corpuscular Volume 97.3 fL (80-100); Mean Platelet Volume 9.6 fL (7.4-10.4); Monocytes # (auto) 0.66 K/uL (0.11-0.59); Monocytes % (auto) 10.4 %; Neutrophils # (auto) 3.92 K/uL (1.4-6.5); Neutrophils % (auto) 62.1 %; Platelet Count 206 K/uL (130-400); RDW Coefficient of Variation 13.4 % (11.5-14.5); RDW Standard Deviation 47.2 fL (36.4-46.3); Red Blood Count 4.87 M/uL (4.2-5.4); White Blood Count 6.32 K/uL (4.8-10.8)
[2020-08-15 20:45] LABS: Partial Thromboplastin Ratio 0.8; Partial Thromboplastin Time 23.6 Seconds (21.0-31.0); Prothrombin Time 10.7 Seconds (9.0-12.0)
[2020-08-15 20:59] LABS: Amphetamines+Metham, Urine Neg (Neg); Barbiturates, Urine Neg (Neg); Benzodiazepine, Urine Neg (Neg); Cocaine, Urine Neg (Neg); MDMA (Ecstacy), Urine Neg (Neg); Methadone, Urine Neg (Neg); Opiate, Urine Pos (Neg); Phencyclidine, Urine Neg (Neg)
[2020-08-15 21:10] LABS: Alanine Aminotransferase 30 U/L (12-78); Albumin Globulin Ratio 0.9 (0.9-2); Alkaline Phosphatase 130 U/L (45-117); Aspartate Aminotransferase 29 U/L (15-37); BUN Creatinine Ratio 18.2 (10-20); Bilirubin,Total 0.5 mg/dl (0.2-1); Blood Urea Nitrogen 19 mg/dl (7-18); Carbon Dioxide 29 mmol/L (21-32); Chloride 108 mmol/L (98-107); Creatine Kinase 98 U/L (26-192); Creatinine Clr Calc Pharmacy 45.6 ml/min; Est GFR (African American) 60.4; Est GFR (Non-African American) 52.1; Globulin 4.3 gm/dl (2.5-4.0); Glucose 94 mg/dl (70-99); Phosphorus 2.7 mg/dl (2.5-4.9); Sodium 142 mmol/L (136-145); Thyroid Stimulating Hormone 0.548 uIu/ml (0.300-4.500); Total Protein 8.3 gm/dl (6.4-8.2); Troponin I < 0.015 ng/ml (0-0.045)
[2020-08-15] MEDS ORDERED: OPTIRAY 320 125ml IV ONE (21:37)
--- NOTE | 2020-08-15 21:48 | CT Scan Report ---
CT SCAN OF THE BRAIN WITHOUT IV CONTRAST CLINICAL HISTORY: Change in mental status. COMPARISON STUDY: CT of the brain dated 06/27/2020. TECHNIQUE: Unenhanced axial CT scan of the brain is performed from the vertex to the skull base. A do se lowering technique was utilized adhering to the principles of ALARA. FINDINGS: Brain parenchyma: There are age-related involutional changes noting moderate to advanced subcortical and periventricular microangiopathic change. There is no hemorrhage, mass effect, or evidence of acu te territorial ischemia by CT criteria. Blankenship-white matter differentiation is preserved. No extra-axia l fluid collection is seen. Ventricles, sulci, cisterns: Prominent secondary to involutional change. Intracranial vasculature: There is advanced atherosclerotic calcification of the cavernous carotid an d vertebral arteries. Calvarium: Unremarkable. Soft tissues: A small metallic foreign body or suture material is seen deep to the right zygomatic ar ch on image #3. Sinuses and mastoids: The visualized paranasal sinuses are clear. The mastoid air cells are well pneu matized. Orbits: The bony orbits are grossly intact. There are bilateral ocular lens implants. IMPRESSION: There is no hemorrhage, mass effect, or evidence of acute territorial ischemia by CT [place]. ACT 112: Negative or not required by law. Electronically signed by: Jono Romero M.D. 08/15/2020 9:47 PM
[2020-08-15] MEDS ORDERED: ACETAMINOPHEN 1,000 MG/100 ML VIAL IV STA (22:00)
[2020-08-15 22:03] LABS: Base Excess VBG -1.7 mEq/L; Oxygen Saturation VBG 76.4 %; pH VBG 7.32 (7.36-7.41)
--- NOTE | 2020-08-15 22:12 | CT Scan Report ---
CT ANGIOGRAM OF THE CHEST COMBO; CT ANGIOGRAM OF THE ABDOMEN AND PELVIS CLINICAL HISTORY: Atypical chest pain. Back pain. Generalized abdominal pain. COMPARISON STUDY: Chest x-ray dated 08/15/2020. Chest CT scans dated 09/16/2019 and 02/15/2018. Abdomin al CT dated 12/17/2019. TECHNIQUE: Unenhanced CT scan of the chest is performed. Subsequently, following the IV administratio n of 118 cc of Optiray 320, CT angiogram of the chest, abdomen, and pelvis was performed from the tho racic inlet to the proximal femora. Images are reviewed in the axial, sagittal, and coronal planes. 3 -D MIPS images are created and assessed. IV contrast was administered without complication. A dose lo wering technique was utilized adhering to the principles of ALARA. The examination is degraded by mot ion artifact, as well as by streak artifact from the arms which could not be elevated above the chest or abdomen. CT DOSE: 3157.49 mGy.cm FINDINGS: CHEST: Thyroid: Right lobe of the thyroid gland is normal in size and heterogeneous in attenuation. The left lobe is diminutive versus surgically absent. Thoracic aorta: No intramural hematoma is seen on the unenhanced series. There is mild atheroscleroti c calcification of the thoracic aorta, which is normal in course and caliber. The aortic arch demonst rates bovine variant anatomy. The arch vessels are widely patent. No dissection is seen. Pulmonary vasculature: The pulmonary trunk is normal in caliber. There are no filling defects identif ied in the main, lobar, or segmental pulmonary arteries to suggest pulmonary embolus. Heart: The heart is mildly enlarged and without pericardial effusion. The coronary arteries are dense ly calcified. Lungs and pleural spaces: Evaluation of the lung parenchyma is degraded by motion artifact. No airspa ce consolidation or pleural effusion is identified. Foci of scarring/atelectasis are seen bilaterally . The trachea and central airways are clear. Mediastinum: There is no mediastinal lymphadenopathy. Jessi: Clear. Axillae: There is no axillary lymphadenopathy. Bony thorax: The skeletal structures are osteopenic. Degenerative change and mild kyphoscoliosis is n oted in the thoracic spine. No lytic or blastic bony lesions are identified. ABDOMEN AND PELVIS: Liver: The contrast-enhanced liver is normal in size, contour, and attenuation. There is no intrahepa tic biliary ductal dilatation. The main portal veins appear patent. Gallbladder: Unremarkable. Spleen: Normal in size and attenuation noting heterogeneous arterial phase enhancement. Pancreas: Unremarkable. Adrenal glands: Unremarkable. Kidneys: The contrast enhanced kidneys demonstrate cortical atrophy and are without hydronephrosis. T he kidneys enhance symmetrically. Hypodense renal lesions measure up to 2.2 cm. These are not well ev aluated due to streak and motion artifact, but are unchanged from the 12/17/2019 CT urogram. Nonobstruc ting calculus is seen in the lower pole of the left kidney. Abdominal aorta and iliac arteries: The abdominal aorta is normal in course and caliber noting advanc ed atherosclerotic calcification. The iliac arteries are patent bilaterally. No dissection is seen. Major branches of the abdominal aorta: The celiac trunk, superior mesenteric, and inferior mesenteric arteries are patent. Atherosclerotic plaque causes less than 50% narrowing of the proximal superior mesenteric artery is seen on image #163. Hepatic arterial anatomy is conventional. There is a 10 mm p eripherally calcified splenic artery aneurysm seen on image #100. The splenic artery is patent. Singl e bilateral renal arteries are patent. Bowel: There is moderate colonic fecal retention. No bowel obstruction is seen. The appendix is not visualized. Peritoneum: There is no intraperitoneal free air or abdominal ascites. Lymphadenopathy: None. Pelvic viscera: The bladder is distended but otherwise normal in appearance. The uterus is surgically absent. No adnexal lesion is seen. Skeletal structures: The skeletal structures are osteopenic. There is mild to moderate lumbosacral sp ondylosis with postoperative change from L4-L5 spinal fusion. Lucency around the right interpedicular screw at L4 suggests loosening. No lytic or blastic bony lesions are seen. IMPRESSION: 1. Unremarkable CT angiogram of the thoracic aorta. 2. There is no evidence of pulmonary embolus in the main, lobar, or segmental pulmonary arteries. 3. Mild cardiac enlargement. 4. There is no airspace consolidation or pleural effusion. 5. There are no acute infectious or inflammatory findings in the abdomen or pelvis. 6. Unremarkable CT angiogram of the abdominal aorta noting advanced atherosclerotic calcification. 7. There is a 10 mm peripherally calcified splenic artery aneurysm. 8. Moderate colonic fecal retention. 9. Bladder distention. 10. Additional findings as above. ACT 112: Negative or not required by law. Electronically signed by: Jono Romero M.D. 08/15/2020 10:10 PM
[2020-08-15] MEDS ORDERED: HYDROCODONE/ACETAMOPHEN 5/325MG TAB PO STA (22:24)
[2020-08-15] MEDS ORDERED: PREGABALIN 50 MG CAP PO STA (22:24)
[2020-08-15] MEDS ORDERED: DOCUSATE SODIUM SYRUP 100 MG/10 ML UDC PO STA (22:24)
[2020-08-15] MEDS ORDERED: bisacodyL 5 MG TABEC PO ONE (22:24)
--- NOTE | 2020-08-16 00:11 | History & Physical Report ---
Date of Service August 15, 2020 Assessment & Plan (1) Altered mental status: Aniyah is a 74-year-old female with a past medical history of chronic back pain, acute on chronic low back pain, type 2 diabetes mellitus, cognitive impairment, CHF, HLD, HTN, and TIA who presents with altered mental status suspected due to polypharmacy after being started on oxycodone and baclofen. Metabolic Encephalopathy 2/2 polypharmacy Patient recently started on oxycodone 5 mg every 8 hours as needed and baclofen 10 mg p.o. 3 times daily just prior to symptom onset Patient also on pregabalin, mirabegron on, and buspirone at baseline. Lyrica given in ED, holding other sedating medications at this time. Symptoms slowly progressive over 48 hours since starting baclofen, at time of assessment patient is arousable but extremely somnolent Admit for polypharmacy washout and reassessment of pain control for back Patient arouses transiently, follows brief commands, and can cough on command. Protecting airway at time of assessment. Aspiration precautions Follow clinically Troponin negative, pro-Bar negative, TSH normal, lactate normal Back pain Patient with acute on chronic back pain following a fall, 2 prior ED visits with evaluation showing no acute fracture or changes Hold sedating/narcotic medications Lidocaine patch, Tylenol 650 every 4 hours, Voltaren gel, heat application for pain control History of type 2 diabetes Hold p.o. Metformin twice daily Lantus 8 units twice daily, sliding scale CF 50 ratio 1:20. Glucose checks AC/at bedtime Insulin sliding scale Systolic murmur Do not see on prior physical exams Per daughter patient has not had a murmur to her knowledge TTE ordered Hypothyroidism Continue Synthroid 112 mcg daily Hypertension Continue amlodipine 5 mg daily History of CHF Continue isosorbide Continue Plavix Continue simvastatin History of TIA On Plavix as above (2) Back pain: (3) Diabetes mellitus, type 2: (4) Hypothyroidism: (5) Fatigue: History of Present Illness Chief Complaint: Altered mental status Primary Care Provider: HELEN Irvin Aniyah is seen at the bedside with her daughter Raquel. Aniyah is extremely somnolent, and arouses transiently before falling back asleep. History is mostly obtained from her daughter at bedside. Her daughter reports that Aniyah has chronic back pain for which she has been seen in the hospital twice in the last couple of weeks. She reports that Aniyah has chronic back pain with a history of laminectomy with L4/L5 debbi and screw fusion. She reports that that he has had gradually worsening low back pain worse with twisting and bending which began after a fall in mid July. Her ED evaluation at that time did not show any fracture or acute changes. She was discharged to outpatient follow-up. She reports that she was seen for follow-up at her outpatient providers office 2 days ago and was switched from hydrocodone to oxycodone and placed on baclofen for discomfort. She had some confusion on the phone with her daughter that day, and yesterday appeared to be slightly more confused. She reports that this morning she got a call from one of her friend that she was walking around confused, and was found to have a sleep on her couch. When her daughter saw her her mother was extremely confused, sleepy, and disoriented and was not sure where she was. She also reports that she was not able to find the bathroom in her own home. This prompted her daughter to have her transported to the emergency department for evaluation. Aniyah arouses briefly to voice and name, and expresses that she has some backache and is otherwise tired but does not give other meaningful history before falling back asleep. Medications: Reviewed. Of note recently converted from hydrocodone to oxycodone every 8 hours as needed and started on black less than 10 mg 3 times daily Surgical history: Reviewed Allergies: Reviewed. Notable for mental status change with morphine in the past Medical history: Reviewed CODE STATUS: Full code, discussed with daughter at bedside and affirmed by patient Allergies Allergy/AdvReac Type Severity Reaction Status Date / Time adhesive Allergy Intermediate TAPE-HIVES Verified 08/13/20 13:47 fentanyl AdvReac Intermediate CONFUSION Verified 08/13/20 13:47 meloxicam AdvReac Intermediate SWELLING Verified 08/13/20 13:47 OF LEGS morphine AdvReac Intermediate "I GET Verified 08/13/20 13:47 REALLY CRAZY" pregabalin AdvReac Intermediate DIZZINESS, Verified 08/13/20 13:47 CONFUSION WITH HIGHER DOSES Home Medications Home Medications Medication Instructions Recorded Confirmed Type nitroglycerin 0.4 mg SUBLINGUAL DIRECTED PRN 03/07/19 08/15/20 History multivitamin 1 tab PO QAM 05/02/19 08/15/20 History buspirone 5 mg tablet 5 mg PO BID #60 tab 01/27/20 08/15/20 Rx metformin 500 mg tablet 500 mg PO BID #60 tab 01/27/20 08/15/20 Rx mirabegron 25 mg tablet,extended 25 mg PO QAM #30 tab 01/27/20 08/15/20 Rx release 24 hr metoprolol succinate 50 mg 50 mg PO QAM 30 Days #30 tab 03/30/20 08/15/20 Rx tablet,extended release 24 hr isosorbide mononitrate 30 mg 30 mg PO QAM #90 tab 04/30/20 08/15/20 Rx tablet,extended release 24 hr clopidogrel 75 mg tablet 75 mg PO HS #90 tab 05/26/20 08/15/20 Rx ferrous gluconate 324 mg (37.5 mg 324 mg PO QAM #90 tab 05/26/20 08/15/20 Rx iron) tablet levothyroxine 112 mcg tablet 112 mcg PO QAM #90 tab 05/26/20 08/15/20 Rx pantoprazole 20 mg tablet,delayed 20 mg PO QAM #90 tab 05/26/20 08/15/20 Rx release hydrocodone-acetaminophen [[place]] 1 tab PO Q6H PRN #12 tab 06/27/20 08/15/20 Rx amlodipine 5 mg tablet 5 mg PO QAM #30 tab 07/21/20 08/15/20 Rx duloxetine 60 mg capsule,delayed 60 mg PO QAM #30 cap 07/21/20 08/15/20 Rx release simvastatin 20 mg tablet 20 mg PO HS #30 tab 07/21/20 08/15/20 Rx pregabalin [Lyrica] 50 mg PO BID 08/11/20 08/15/20 History baclofen 10 mg tablet 10 mg PO TID PRN #30 tab 08/13/20 08/15/20 Rx oxycodone 5 mg tablet 5 mg PO Q8H PRN #30 tab 08/13/20 08/15/20 Rx Past Med/Surg History Medical History (Updated 08/16/20 @ 13:36 by HELEN Sebastian) Angina at rest Anginal pain Cardiac murmur Chest pain Chronic obstructive pulmonary disease no inhalers Congestive heart failure Diabetes Diabetes mellitus, type 2 GERD (gastroesophageal reflux disease) Vinnie's thyroiditis Influenza B Kidney stones On anticoagulant therapy Pleurisy Spinal stenosis TIA (transient ischemic attack) multiple--last around 2010--no deficits--reason for clopidogrel Urinary tract infection currently has Surgical History H/O ureter repair History of appendectomy History of bilateral cataract extraction History of bilateral tubal ligation History of carpal tunnel surgery of right wrist History of colonoscopy History of dilatation and curettage History of esophagogastroduodenoscopy (EGD) History of mandibular surgery wired shut for denture surgery History of nephrolithotomy with removal of calculi x2 History of partial thyroidectomy 3/4 removed History of tooth extraction all teeth History of total hysterectomy with bilateral salpingo-oophorectomy (BSO) History of total left knee replacement (TKR) Hx of spinal surgery coccygectomy Family History Mother Family history of diabetes mellitus Father Myocardial infarction Brother Myocardial infarction Sister Myocardial infarction Other No family history of adverse response to anesthesia Denies family history of Ovarian cancer Prostate cancer Breast cancer Colorectal cancer Social History Smoking Status: Never smoker Second Hand Exposure: No; Hx Alcohol Use: Yes Alcohol type: wine Hx Substance Use: Yes Preferred Language: Citizen [place] Communication Ability: Effective [employer] Switch[employer] Operator Required: No Beliefs That Will Affect Care: None marital status: / Current Living Situation: Personal Care Facility current occupational status: retired Other Information That Helps Us Care for You: No Feels Safe at Home: Yes Safety Concerns: Feels Safe At This Time caffeine: Yes Dental Care, Regularly: No Physical Activity Frequency: 1-2 Times per Week Seatbelt Use: always Sunscreen Use: Yes Assistive Devices: Cane, Walker and Wheelchair Review of Systems Review of Systems: Unobtainable due to cognitive status and Unobtainable due to reduced consciousness Physical Exam Physical Exam: General: Extremely somnolent, arouses transiently to voice bef ore falling back asleep. He is able to verbalize name, not to place or date. Pulm: CTAB A&P. -wheezes, -rales, -rhonchi. Symmetrical chest rise. No increase work of breathing. No respiratory distress. Cardiac: RRR, systolic murmur appreciated. Radial pulses intact and symmetrical. Abdominal: Nontender, nondistended, soft. BS present. CRANIAL NERVES: Limited by sedation. II: Pupils equal and reactive, no relative afferent pupillary defect, no VF cuts III, IV, : EOM intact, no gaze preference or deviation, no nystagmus. V: normal sensation in V1, V2, and V3 segments bilaterally VII: no asymmetry, no nasolabial fold flattening MOTOR: Patient with 4+/5 tracer powder blender strength and ankle plantar flexion bilaterally without asymmetry before falling back asleep. Arouses to soft touch and pinch of lower extremities bilaterally and ankles bilaterally. Results & Data Results & Data ([facility]) Vital Signs (Past 12 Hours) Vital Signs Temp Pulse Resp BP Pulse Ox 08/15/20 23:00 65 19 157/71 H 97 08/15/20 22:50 70 10 L 98 08/15/20 22:40 64 20 95 08/15/20 22:31 71 15 164/75 H 98 08/15/20 22:30 71 21 98 08/15/20 22:22 76 20 158/73 H 98 08/15/20 22:20 75 12 98 08/15/20 22:10 72 21 96 08/15/20 22:00 77 22 197/111 H 99 08/15/20 21:54 73 20 100 08/15/20 21:53 7 L 174/88 H 100 08/15/20 21:10 73 16 97 08/15/20 21:00 77 18 203/93 H 98 08/15/20 20:50 67 14 99 08/15/20 20:40 68 16 99 08/15/20 20:30 68 14 197/74 H 100 08/15/20 20:22 67 17 100 08/15/20 20:21 67 15 188/92 H 100 08/15/20 20:20 69 17 100 08/15/20 20:10 70 14 99 08/15/20 20:00 74 12 100 08/15/20 19:50 71 14 99 08/15/20 19:40 73 18 100 08/15/20 19:31 69 16 169/81 H 100 08/15/20 19:30 72 27 H 100 10/31/20 19:20 69 18 100 08/15/20 19:10 75 99 08/15/20 19:09 36.8 C 71 13 208/91 H 99 08/15/20 19:06 72 16 / H 99 Supervising Physician Co-Signing Physician Notes Attending addendum: I have physically seen this patient, have supervised the medical residents activities, and agree with the H&P unless as otherwise noted. Assessment and Plan: Altered mental status/metabolic encephalopathy/polypharmacy- Admit to monitored bed, monitor for arrhythmias Likely secondary to recent change to oxycodone and baclofen. Hold all sedating medications at this time. Placed on IV fluids. Follow clinical examination, and gradually resume medications as appropriate. Chronic back pain- Hold narcotics and sedating medications. Continue lidocaine patch, Voltaren gel, moist heat and Tylenol as needed. Diabetes mellitus,- Hold metformin and Lantus insulin. Place on Accu-Cheks AC and at bedtime with NovoLog coverage per scale Remaining orders and notations as noted Resident Activity Tracking Resident Involvement: Resident Care Provided Care Provided: Adult [facility] (1) Back pain Back pain laterality: bilateral Back pain location: low back pain Chronicity: acute Sciatica laterality: bilateral sciatica Sciatica presence: with sciatica Qualified Code(s): M54.42 - Lumbago with sciatica, left side; M5 4.41 - Lumbago with sciatica, right side (2) Altered mental status Altered mental status type: unspecified Qualified Code(s): R41.82 - Altered mental status, unspecified
[2020-08-16] MEDS ORDERED: CARBOHYDRATES FOR HYPOGLYCEMIA PO PRN (01:20)
[2020-08-16] MEDS ORDERED: DEXTROSE 50% 50 ML SYRINGE IV PRN (01:20)
[2020-08-16] MEDS ORDERED: GLUCOSE 40% GEL 15 GM TUBE PO PRN (01:20)
[2020-08-16] MEDS ORDERED: GLUCOSE 10 TABS/TUBE PO PRN (01:20)
[2020-08-16] MEDS ORDERED: GLUCAGON FOR INJ 1 MG VIAL SQ PRN (01:20)
[2020-08-16] MEDS ORDERED: ACETAMINOPHEN 325 MG TAB PO PRN (01:20)
[2020-08-16] MEDS: NSS + 20MEQ KCL 20 MEQ/1,000 ML BAG IV SCH ×2 (02:07→16:05)
[2020-08-16] MEDS: LEVOTHYROXINE SODIUM 112 MCG TABLET PO SCH (05:39)
[2020-08-16 06:57] LABS: Basophils # (auto) 0.02 K/uL (0-0.2); Basophils % (auto) 0.3 %; Eosinophils # (auto) 0.09 K/uL (0-0.5); Eosinophils % (auto) 1.4 %; Hematocrit (blood only) 45.3 % (37-47); Hemoglobin 14.9 g/dL (12.0-16.0); Immature Granulocytes # (auto) 0.01 K/uL (0.00-0.02); Immature Granulocytes % (auto) 0.2 %; Lymphocytes # (auto) 2.31 K/uL (1.2-3.4); Lymphocytes % (auto) 35.1 %; Mean Corpuscular Hemoglobin 32.1 pg (25-34); Mean Corpuscular Hgb Conc 32.9 g/dL (32-36); Mean Corpuscular Volume 97.6 fL (80-100); Mean Platelet Volume 9.5 fL (7.4-10.4); Monocytes # (auto) 0.77 K/uL (0.11-0.59); Monocytes % (auto) 11.7 %; Neutrophils # (auto) 3.38 K/uL (1.4-6.5); Neutrophils % (auto) 51.3 %; Platelet Count 227 K/uL (130-400); RDW Coefficient of Variation 13.6 % (11.5-14.5); RDW Standard Deviation 48.5 fL (36.4-46.3); Red Blood Count 4.64 M/uL (4.2-5.4); White Blood Count 6.58 K/uL (4.8-10.8)
[2020-08-16 07:22] LABS: Albumin Level 3.9 gm/dl (3.4-5.0); BUN Creatinine Ratio 18.8 (10-20); Calcium 9.2 mg/dl (8.5-10.1); Creatinine Clr Calc Pharmacy 53.5 ml/min; Est GFR (Non-African American) 61.3; Potassium 3.8 mmol/L (3.5-5.1)
[2020-08-16 07:25] LABS: Albumin Globulin Ratio 0.9 (0.9-2); Bilirubin,Total 0.5 mg/dl (0.2-1); Globulin 4.1 gm/dl (2.5-4.0)
--- NOTE | 2020-08-16 07:54 | Electrocardiogram Report ---
Test Reason : Blood Pressure : / mmHG Vent. Rate : 071 BPM Atrial Rate : 071 BPM P-R Int : 190 ms QRS Dur : 080 ms QT Int : 414 ms P-R-T Axes : 062 005 038 degrees QTc Int : 449 ms Normal sinus rhythm Normal ECG When compared with ECG of 25-NOV-2019 13:28, Premature ventricular complexes are no longer Present Confirmed by Campos Gary ([id number]) on 08/16/2020 7:54:22 AM Referred By: REFERRED SELF Confirmed By:Campos Gary
[2020-08-16] MEDS ORDERED: INSULIN GLARGINE SOLOSTAR 100 UNITS/ML 3 ML PEN SC SCH (09:00)
[2020-08-16] MEDS: INSULIN ASPART 100 UNITS/ML 3 ML PEN SC SCH ×4 (09:14→21:23)
[2020-08-16] MEDS: PANTOprazole 40 MG TAB PO SCH (11:32)
[2020-08-16] MEDS: amLODIPine BESYLATE 5 MG TAB PO SCH (11:32)
[2020-08-16] MEDS: ISOSORBIDE MONO EXTENDED REL 30 MG TABCR PO SCH (11:33)
[2020-08-16] MEDS: LIDOCAINE 5% 1 PATCH TD SCH (11:33)
[2020-08-16] MEDS: METOPROLOL SUCC 50MG EXT REL TAB PO SCH (11:33)
[2020-08-16] MEDS: DULoxetine HCL 60 MG CAP PO SCH (11:34)
[2020-08-16] MEDS: DICLOFENAC SOD 1% GEL 100 GM TUBE EXT SCH ×4 (11:34→21:21)
[2020-08-16] MEDS: HEPARIN SOD 5,000 UNIT/0.5 ML VIAL SQ SCH ×2 (11:35→21:16)
[2020-08-16] MEDS: ACETAMINOPHEN 500 MG TAB PO SCH ×2 (11:38→16:07)
--- NOTE | 2020-08-16 12:35 | XCELERA ---
[id number]
--- NOTE | 2020-08-16 13:37 | Hospitalist Progress Note ---
Date of Service August 16, 2020 Assessment & Plan (1) Altered mental status: Secondary to polypharmacy - resolving Patient recently started on oxycodone 5 mg every 8 hours as needed and baclofen 10 mg p.o. 3 times daily just prior to symptom onset. Per outpatient notes, had been tolerating Gem. Patient also on pregabalin, mirabegron on, and buspirone at baseline. Lyrica given in ED, will hold for today as well as other sedating medications at this time. Will resume Buspar Symptoms slowly progressive over 48 hours since starting baclofen, at time of assessment patient is arousable but extremely somnolent Troponin negative, pro-Bar negative, TSH normal, lactate normal, BC pending (2) Back pain: Patient with acute on chronic back pain following a fall, 2 prior ED visits with evaluation showing no acute fracture or changes. CT 08/12 shows L4 and L5 pedicle screw loosening Hold sedating/narcotic medications Lidocaine patch, Tylenol 650 every 4 hours, Voltaren gel, heat application for pain control - May need assistance from pain management after mental status resolves (3) Diabetes mellitus, type 2: History of type 2 diabetes Hold p.o. Metformin twice daily Sliding scale Glucose checks AC/at bedtime (4) Hypothyroidism: Hypothyroidism Continue Synthroid 112 mcg daily (5) Murmur: Systolic murmur TTE ordered - EF 60%, no wma, sigmoid septum, (6) HTN (hypertension): Continue amlodipine 5 mg daily (7) Mild CAD: Continue isosorbide Continue Plavix Continue simvastatin (8) TIA (transient ischemic attack): continue statin and clopidogrel (9) DVT prophylaxis: SCDs Admission and Anticipated Discharge Date Admission Date: August 16, 2020 Subjective Ms Gonzalez is more awake and today though still confused. She denies any specific complaints ROS Constitutional: no chills, aches, sweats or fever Respiratory: no sob,cough, sputum, or wheezing Cardiac: no chest pain, palpitations, edema, orthopnea or lightheadedness GI: no abdominal pain, nausea, vomiting, diarrhea or constipation : no dysuria or hesitancy Extremities: no joint pain or weakness Skin: no rash All other systems reviewed and negative Physical Exam Physical Exam: General: no distress Eyes: normal inspection, PERLL Respiratory: chest non tender, clear to auscultation, normal breath sounds, no respiratory distress, no accessory muscle use Cardiac: regular rate and rhythm, no rub or gallop, systolic murmur, no edema, no jvd GI/: active bowel sounds, no abd pain or tenderness, soft, non distended Extremities: normal range of motion, normal strength, non tender Neuro/Psych: alert and oriented to person and place but confused, anxious, CN II - XII intact Skin: normal color, dry Results & Data Results & Data ([facility]) Vital Signs (Past 12 Hours) Vital Signs Temp Pulse Pulse Resp BP BP Pulse Ox 08/16/20 09:00 64 160/76 H 162/78 H 08/16/20 07:15 36.5 C 70 18 200/77 H 190/84 H 94 08/16/20 01:20 EST 59 L Pulse Ox 08/16/20 09:00 08/16/20 07:15 08/16/20 01:20 EST 98 PG Care Time/CCT Total # of Minutes Spent Total Time Spent with Patient: Total time spent is greater than 50% in coordination of care (as documented) at patient's floor/unit and/or counseling patient: Coding Level of Care Code 91106 Subseq Hosp Care Lvl 3 Diagnoses Altered mental status R41.82 Altered mental status type: unspecified Back pain M54.42; M54.41 Back pain laterality: bilateral Back pain location: low back pain Chronicity: acute Sciatica laterality: bilateral sciatica Sciatica presence: with sciatica Diabetes mellitus, type 2 E11.9 Hypothyroidism E03.9 Murmur R01.1 HTN (hypertension) I10 Mild CAD I25.10 TIA (transient ischemic attack) G45.9 DVT prophylaxis Z29.9 (1) Altered mental status Altered mental status type: unspecified Qualified Code(s): R41.82 - Altered mental status, unspecified (2) Back pain Back pain laterality: bilateral Back pain location: low back pain Chronicity: acute Sciatica laterality: bilateral sciatica Sciatica presence: with sciatica Qualified Code(s): M54.42 - Lumbago with sciatica, left side; M54.41 - Lumbago with sciatica, right side
[2020-08-16] MEDS: PREGABALIN 50 MG CAP PO SCH (21:16)
[2020-08-16] MEDS: CLOPIDOGREL BISULFATE 75 MG TAB PO SCH (21:21)
[2020-08-16] MEDS: SIMVASTATIN 20 MG TAB PO SCH (21:21)
[2020-08-16] MEDS: busPIRone 5 MG TAB PO SCH (21:36)
--- NOTE | 2020-08-16 23:43 | Billing Data ---
Date of Service August 16, 2020 Coding Level of Care Code 05989 Initial Inpt Care Lvl 3
[2020-08-17] MEDS: ACETAMINOPHEN 500 MG TAB PO SCH ×3 (01:33→17:14)
[2020-08-17] MEDS: NSS + 20MEQ KCL 20 MEQ/1,000 ML BAG IV SCH ×2 (05:41→20:53)
[2020-08-17 05:43] LABS: Estimated Average Glucose 131 mg/dl; Hemoglobin A1C 6.2 % (4.5-5.6)
[2020-08-17] MEDS: LEVOTHYROXINE SODIUM 112 MCG TABLET PO SCH (05:43)
[2020-08-17 07:49] LABS: Hemoglobin 14.9 g/dL (12.0-16.0); Mean Corpuscular Hgb Conc 33.1 g/dL (32-36); Mean Corpuscular Volume 96.6 fL (80-100); Mean Platelet Volume 9.5 fL (7.4-10.4); Platelet Count 196 K/uL (130-400); RDW Coefficient of Variation 13.7 % (11.5-14.5); RDW Standard Deviation 48.3 fL (36.4-46.3); Red Blood Count 4.66 M/uL (4.2-5.4); White Blood Count 5.58 K/uL (4.8-10.8)
[2020-08-17] MEDS: LIDOCAINE 5% 1 PATCH TD SCH (07:53)
[2020-08-17] MEDS: METOPROLOL SUCC 50MG EXT REL TAB PO SCH (07:53)
[2020-08-17] MEDS: ISOSORBIDE MONO EXTENDED REL 30 MG TABCR PO SCH (07:54)
[2020-08-17] MEDS: busPIRone 5 MG TAB PO SCH ×2 (07:54→20:46)
[2020-08-17] MEDS: FERROUS GLUCONATE 324 MG TAB PO SCH (07:54)
[2020-08-17] MEDS: PANTOprazole 40 MG TAB PO SCH (07:54)
[2020-08-17] MEDS: amLODIPine BESYLATE 5 MG TAB PO SCH (07:55)
[2020-08-17] MEDS: DULoxetine HCL 60 MG CAP PO SCH (07:57)
[2020-08-17] MEDS: PREGABALIN 50 MG CAP PO SCH ×2 (08:05→20:49)
[2020-08-17 08:31] LABS: BUN Creatinine Ratio 20.6 (10-20); Calcium 9.2 mg/dl (8.5-10.1); Creatinine Clr Calc Pharmacy 50.5 ml/min; Est GFR (African American) 65.8; Est GFR (Non-African American) 56.7; Potassium 3.8 mmol/L (3.5-5.1)
[2020-08-17] MEDS: INSULIN ASPART 100 UNITS/ML 3 ML PEN SC SCH ×4 (08:52→20:49)
[2020-08-17] MEDS: HEPARIN SOD 5,000 UNIT/0.5 ML VIAL SQ SCH ×2 (08:53→20:47)
[2020-08-17] MEDS: DICLOFENAC SOD 1% GEL 100 GM TUBE EXT SCH ×4 (08:53→20:51)
--- NOTE | 2020-08-17 09:13 | Pain Management Consultation ---
Date of Consultation August 17, 2020 Assessment & Plan (1) Lumbar spinal stenosis: 1. Recommend assistance of psychiatric social worker supervisor to ensure patient has a safe manner of utilizing prescription medications. 2. Recommend signing a formal pain contract as well as random urine drug screening to ensure patient is only receiving opiates from 1 provider in 1 pharmacy. 3. Recommend continuation of Lyrica 50 mg p.o. twice daily and Cymbalta 60 mg p.o. every morning. 4. Patient currently does not complain of intractable pain and is fairly comfortable on examination. Recommend utilization of tramadol 50 mg p.o. every 8 versus hydrocodone 5/3 25 mg 1 p.o. every 8 as needed pain if opiates are deemed necessary at discharge. 5. Recommend lumbar spine MRI with and without contrast to better delineate anatomy and determine if other interventional pain management procedures are possible to minimize patient's pain and minimize necessity of opiates. 6. Thank you for this consultation we will follow up with the patient tomorrow. (2) Back pain: Back pain laterality: bilateral Back pain location: low back pain Chronicity: acute Sciatica laterality: bilateral sciatica Sciatica presence: with sciatica Qualified Code(s): M54.42 - Lumbago with sciatica, left side; M54.41 - Lumbago with sciatica, right side (3) Diabetes mellitus, type 2: (4) Depression with anxiety: History of Present Illness Attending Physician: Gus Delgado MD Allergies Allergy/AdvReac Type Severity Reaction Status Date / Time adhesive Allergy Intermediate TAPE-HIVES Verified 08/13/20 13:47 fentanyl AdvReac Intermediate CONFUSION Verified 08/13/20 13:47 meloxicam AdvReac Intermediate SWELLING Verified 08/13/20 13:47 OF LEGS morphine AdvReac Intermediate "I GET Verified 08/13/20 13:47 REALLY CRAZY" pregabalin AdvReac Intermediate DIZZINESS, Verified 08/13/20 13:47 CONFUSION WITH HIGHER DOSES Home Medications Home Medications Medication Instructions Recorded Confirmed Type nitroglycerin 0.4 mg SUBLINGUAL DIRECTED PRN 03/07/19 08/15/20 History multivitamin 1 tab PO QAM 05/02/19 08/15/20 History buspirone 5 mg tablet 5 mg PO BID #60 tab 01/27/20 08/15/20 Rx metformin 500 mg tablet 500 mg PO BID #60 tab 01/27/20 08/15/20 Rx mirabegron 25 mg tablet,extended 25 mg PO QAM #30 tab 01/27/20 08/15/20 Rx release 24 hr metoprolol succinate 50 mg 50 mg PO QAM 30 Days #30 tab 03/30/20 08/15/20 Rx tablet,extended release 24 hr isosorbide mononitrate 30 mg 30 mg PO QAM #90 tab 04/30/20 08/15/20 Rx tablet,extended release 24 hr clopidogrel 75 mg tablet 75 mg PO HS #90 tab 05/26/20 08/15/20 Rx ferrous gluconate 324 mg (37.5 mg 324 mg PO QAM #90 tab 05/26/20 08/15/20 Rx iron) tablet levothyroxine 112 mcg tablet 112 mcg PO QAM #90 tab 05/26/20 08/15/20 Rx pantoprazole 20 mg tablet,delayed 20 mg PO QAM #90 tab 05/26/20 08/15/20 Rx release hydrocodone-acetaminophen [Ursa] 1 tab PO Q6H PRN #12 tab 06/27/20 08/15/20 Rx amlodipine 5 mg tablet 5 mg PO QAM #30 tab 07/21/20 08/15/20 Rx duloxetine 60 mg capsule,delayed 60 mg PO QAM #30 cap 07/21/20 08/15/20 Rx release simvastatin 20 mg tablet 20 mg PO HS #30 tab 07/21/20 08/15/20 Rx pregabalin [Lyrica] 50 mg PO BID 08/11/20 08/15/20 History baclofen 10 mg tablet 10 mg PO TID PRN #30 tab 08/13/20 08/15/20 Rx oxycodone 5 mg tablet 5 mg PO Q8H PRN #30 tab 08/13/20 08/15/20 Rx Pain History Chief Complaint Chief Complaint: 74-year-old female who was brought to the [facility] emergency room with confusion and suspected polypharmacy. She fell in mid July and had acute exacerbation of chronic low back pain. She is a previous history significant for lumbar spinal stenosis failing interventional pain management procedures most recently in 2012 subsequently resulting in an L4-5 posterior decompression and [place] [address] Rodríguez. She states that her pain currently is 100% axial without radicular component. Pain is currently tolerable rating at about 4 out of 10. Pain tends to increase with higher levels of activity and better with rest. She denies any bowel or bladder incontinence, motor weakness, footdrop, fever, chills, and or night sweats at this time. She does admit to a solitary fall in mid July. Pain is characterized as sharp stabbing aching, but reports it is tolerable currently. Of note, patient is receiving opiates from 2 separate offices. She has been receiving oxycodone and hydrocodone in addition to her other medications. She has received approximately 120 tablets of opiates with an a month time span. Upon questioning the patient about why she had been receiving opiates from 2 [facility] offices, she was unable to provide an answer and simply stated " I do not know." She is unable to provide me with how she took the tablets and is not able to name her opiates. She tells me that prior to her admission she is unsure of the type or number of tablets she ingested. She states she does not have a pillbox at home and lives alone. She does have senior help (home alone) but they are not involved in her medication regimen. Pain Location Full Body Front + Back: 1. Patient History Medical History Angina at rest Anginal pain Cardiac murmur Chest pain Chronic obstructive pulmonary disease no inhalers Congestive heart failure Diabetes Diabetes mellitus, type 2 GERD (gastroesophageal reflux disease) Vinnie's thyroiditis Influenza B Kidney stones On anticoagulant therapy Pleurisy Spinal stenosis TIA (transient ischemic attack) multiple--last around 2010--no deficits--reason for clopidogrel Urinary tract infection currently has Surgical History H/O ureter repair History of appendectomy History of bilateral cataract extraction History of bilateral tubal ligation History of carpal tunnel surgery of right wrist History of colonoscopy History of dilatation and curettage History of esophagogastroduodenoscopy (EGD) History of mandibular surgery wired shut for denture surgery History of nephrolithotomy with removal of calculi x2 History of partial thyroidectomy 3/4 removed History of tooth extraction all teeth History of total hysterectomy with bilateral salpingo-oophorectomy (BSO) History of total left knee replacement (TKR) Hx of spinal surgery coccygectomy L4-[address] Rodríguez Family History Mother Family history of diabetes mellitus Father Myocardial infarction Brother Myocardial infarction Sister Myocardial infarction Other No family history of adverse response to anesthesia Denies family history of Ovarian cancer Prostate cancer Breast cancer Colorectal cancer Social History Smoking Status: Never smoker Second Hand Exposure: No; Hx Alcohol Use: Yes Alcohol type: wine Hx Substance Use: Yes Preferred Language: American Communication Ability: Effective Railroad Detective Required: No Beliefs That Will Affect Care: None marital status: / Current Living Situation: Personal Care Facility current occupational status: retired Other Information That Helps Us Care for You: No Feels Safe at Home: Yes Safety Concerns: Feels Safe At This Time caffeine: Yes Dental Care, Regularly: No Physical Activity Frequency: 1-2 Times per Week Seatbelt Use: always Sunscreen Use: Yes Physical Exam Physical Exam: Constitutional: Well-developed, well-nourished, obese and deconditioned Psych: Awake, alert, and oriented 3 with normal affect and mood. Recent memory appears grossly intact Eyes: Pupils are equally round and reactive to light with normal size pupils, eyelids appear normal Ear, nose, mouth, and throat: Moist nasal and oral membranes, lips and tongues appear normal, no external ear abnormalities are noted Neck: The trachea is midline without deviation and no thyromegaly is noted Respiratory: Normal respiratory effort without distress, no audible wheezes or rhonchi CV: Normal S1 and S2, warm extremities with 2+ dorsalis pedis and posterior tibial pulses Chest: Deferred GI/abdomen: Nontender, protuberant Musculoskeletal: Head is normocephalic and atraumatic, gait Cervical: Lordotic curve: Normal Range of motion is normal with extension, flexion, side-bending, rotation Strength: Strength is equal bilaterally with 5 out of 5 strength in all planes Sensation of upper extremities: Intact bilaterally Deep tendon reflexes: Rated at 2+ in bilateral biceps, triceps, brachial radialis Myofascial spasm: No appreciable spasm. No discrete trigger points noted Thoracic: Kyphotic curve: Normal Range of motion is normal with extension, flexion, side-bending, rotation Tenderness: Nontender over the axial midline Lumbar: Lordotic curve: Complete loss of lumbar lordosis with a well-healed midline surgical scar Range of motion is decreased in all planes Tenderness: Significantly tender over the axial midline from L4-S1 Facet provocation: Marginally positive bilaterally Straight leg raise: Negative bilaterally. (Patient has increased axial low back pain but no radicular symptoms) Step-off injuries: None Strength: Strength is equal bilaterally with 5 out of 5 strength in all planes Sensation of lower extremities: Intact bilaterally Deep tendon reflexes: Rated at 2+ in bilateral L4 and S1 Myofascial spasm: No appreciable spasm. No discrete trigger points noted Greater trochanters: Nontender bilaterally Sacroiliac joints: Nontender bilaterally Pathologic reflexes noted: None Skin: No rashes, lesions, ulcers, or induration noted Neuro: No nystagmus noted, the tongue is midline, the patient is able to rotate their head bilaterally : Deferred Results (Pain Clinic) Laboratory Review Laboratory results: currently pending (Opiate quantitative screen) Diagnostic Review CT: non enhanced, reports reviewed and findings discussed with patient CT Findings: CT OF THE LUMBAR SPINE CLINICAL HISTORY: Back pain. COMPARISON STUDY: Lumbar spine CT August 10, 2020. TECHNIQUE: Helical axial images of the lumbar spine were obtained. Sagittal and coronal reconstructions were viewed. Automated exposure control was utilized for the study. A dose lowering technique was utilized adhering to the principles of ALARA. FINDINGS: 3 mm of anterolisthesis of L4 and L5 is unchanged since prior exam. There is a posterior decompression with bilateral pedicle screws at the L4 and L5 levels. Note is made of lucency surrounding the bilateral L4 screws as well as lucency surrounding the left L5 pedicle screw. Hardware is intact. No acute lumbar spine fracture is noted. There is no suspicious osseous lesion. There is moderate multilevel facet arthrosis and degenerative disc disease within the lum bar spine. The central canal and neural foramen are suboptimally assessed by CT. Sacroiliac joints are intact. Bilateral renal lesions likely reflect a combination of simple and hyperdense cysts when correlating with prior abdominal CT. Paraspinal soft tissues are unremarkable. IMPRESSION: 1. No acute lumbar spine fracture or subluxation. 2. Posterior decompression with L4-L5 bilateral pedicle screw fusion. Lucency surrounding the bilateral L4 pedicle screws and the left L5 pedicle screws prasad ggests loosening. 2. Moderate multilevel degenerative disc disease and facet arthrosis within lumbar spine. Suboptimal evaluation of the central canal and neural foramen given CT technique Previous Records Review Previous Records: personally reviewed by me Opioid Risk Assessment Opioid Risk Assessment: risk assessment performed and moderate risk identified
--- NOTE | 2020-08-17 09:47 | Hospitalist Progress Note ---
Date of Service August 17, 2020 Assessment & Plan (1) Altered mental status: Secondary to polypharmacy - resolving. Also, did have UE cellulitis and was treated with Bactrim recently which may have also contributed. * Patient recently started on oxycodone 5 mg every 8 hours as needed and b aclofen 10 mg p.o. 3 times daily just prior to symptom onset. Per outpatient notes, had been tolerating [place]. * Patient also on pregabalin, mirabegron on, and buspirone at baseline. Lyrica given in ED, will hold for today as well as other sedating medications at this time. Will resume Buspar * Symptoms slowly progressive over 48 hours since starting baclofen, at time of assessment patient is arousable but extremely somnolent * Troponin negative, pro-Bar negative, TSH normal, lactate normal, BC NGTD (2) Back pain: * Patient with acute on chronic back pain following a fall, 2 prior ED visits with evaluation showing no acute fracture or changes. CT 08/12 shows L4 and L5 pedicle screw loosening * Hold sedating/narcotic medications * Lidocaine patch, Tylenol 650 every 4 hours, Voltaren gel for pain * Kpad ordered * - May need assistance from pain management after mental status resolves * PT/OT evals pending * ECHO completed for murmur on examination - LV normal size and function, EF 60- 65%, no wma. Mild LVH. Basal septum thickened and angulated c/w sigmoid septum. Grade I diastolic dysfunction. Right ventricle borderline dilated. Right ventricular systolic function normal. Moderate mitral annular calcification. Mitral calcification precludes definitive assessment of MR. L atrium moderately dilated. * Pain management consulted - appreciate assistance * --> "Recommend signing a formal pain contract as well as random urine drug screening to ensure patient is only receiving opiates from 1 provider in 1 pharmacy. Recommend continuation of Lyrica 50 mg p.o. twice daily and Cymbalta 60 mg p.o. every morning. Patient currently does not complain of intractable pain and is fairly comfortable on examination. Recommend utilization of tramadol 50 mg p.o. every 8 versus hydrocodone 5/3 25 mg 1 p.o. every 8 as needed pain if opiates are deemed necessary at discharge. " * Will ordered tramadol prn as well per rec's * MRI Lumbar spine w/w/o ordered -- Interval progression of the 6 x 5 mm right paracentral disc extrusion at L5-S1. This compresses the transiting right S1 nerve root. [id number] central canal narrowing at L5-S1 has also pr ogressed. * Reached out to Dr. Chambers -- patient to be seen in AM (3) Diabetes mellitus, type 2: * History of type 2 diabetes * Hold p.o. Metformin twice daily * SSI while inpatient * BSGs acceptable (4) Hypothyroidism: * Continue Synthroid 112 mcg daily (5) Fatigue: * TSH wnl. Improved today * Likely combination of deconditioning -- PT/OT evals pending (6) Hypertension: * Chronic. * Continue metoprolol, isosorbide, amlodipine daily * BP 155/79 * Continue to monitor (7) CAD (coronary atherosclerotic disease): * Non-obstructive CAD. Follows with [facility]/Dr. Vila. Last seen Nov 2019. Negative Cardiolite 09/19/2019. * Continue metoprolol succinate 50mg daily, isosorbide mononitrate 30mg, amlodipine 5mg, plavix 75mg daily (8) Hyperlipidemia: * Continue simvastatin 20mg daily (9) Barretts esophagus: * Hx of. Continue daily protonix (10) DVT prophylaxis: * SCDs * Heparin SQ Admission and Anticipated Discharge Date Admission Date: August 16, 2020 Subjective Patient evaluated this morning. Much clearer mind. States she had been taking pain medications from multiple providers and that she had doubled up. Main complaint is lower back pain. Hx of surgery but unsure of who/when was performed "it's been a while." Was evaluated by pain management this morning and was answered questions for dietetic technician registered during our encounter. Agreeable to trial heating pad for now to see if relief and pending MRI may need to get ortho involved. Has not been out of bed since admission per her account. Will have seen by PT/OT. She denies fever, chill, chest pain, shortness of breath, nausea or vomiting. Eating/drinking without issue but states she is having a little abd discomfort/passing gas. No BM since admission and usually goes daily. Will order bowel regimen. Questions/concerns addressed at this time. Review of Systems Review of Systems: All systems reviewed & are unremarkable except as noted in HPI & below Physical Exam Constitutional: WD/WN, vitals as above no acute distress Eyes: + anicteric sclerae and PERRL Neck: normal visual inspection and trachea midline Respiratory: normal respiratory effort, lungs clear to auscultation Cardiovascular: Rate/Rhythm: regular rate and regular rhythm Heart Sounds: + murmur (systolic) Extremities: no calf tenderness and no edema Gastrointestinal (Abdomen): normal bowel sounds, soft, nontender, no hepatosplenomegaly Musculoskeletal: tender to palpation in lumbar region over spinous process worsened with flexion 5/5 strength b/l legs with flexion although RLE 3/5 dorsiflexion, 5/5 LLE Skin: warm, dry Psychiatric: Orientation: alert and oriented x 3 Lymphatic: no cervical or axillary lymphadenopathy Results & Data Results & Data ([facility]) Vital Signs (Past 12 Hours) Vital Signs Temp Pulse Pulse Resp BP Pulse Ox 08/17/20 07:39 36.7 C 62 18 170/73 H 97 08/17/20 03:49 36.5 C 64 17 172/78 H 98 08/17/20 00:21 66 08/16/20 23:07 36.7 C 62 19 169/72 H 95 Laboratory Results 08/17/20 08/17/20 08/17/20 Range/Units 07:30 07:23 07:23 WBC 5.58 (4.8-10.8) K/uL RBC 4.66 (4.2-5.4) M/uL Hgb 14.9 (12.0-16.0) g/dL Hct 45.0 (37-47) % MCV 96.6 (80-100) fL MCH 32.0 (25-34) pg MCHC 33.1 (32-36) g/dL RDW Std Deviation 48.3 H (36.4-46.3) fL RDW Coeff of Adryan 13.7 (11.5-14.5) % Plt Count 196 (130-400) K/uL MPV 9.5 (7.4-10.4) fL Sodium 141 (136-145) mmol/L Potassium 3.8 (3.5-5.1) mmol/L Chloride 111 H (98-107) mmol/L Carbon Dioxide 25 (21-32) mmol/L Anion Gap 5.0 (3-11) BUN 20 H (7-18) mg/dl Creatinine 0.97 (0.6-1.2) mg/dl Est Cr Clr Drug Dosing 50.5 ml/min Est GFR ( Amer) 65.8 Est GFR (Non-Af Amer) 56.7 BUN/Creatinine Ratio 20.6 H (10-20) Glucose 92 (70-99) mg/dl POC Glucose 93 (70-99) mg/dl Estimat Average Glucose mg/dl Hemoglobin A1c (4.5-5.6) % Calcium 9.2 (8.5-10.1) mg/dl 08/16/20 08/16/20 08/16/20 Range/Units 20:35 16:30 11:23 WBC (4.8-10.8) K/uL RBC (4.2-5.4) M/uL Hgb (12.0-16.0) g/dL Hct (37-47) % MCV (80-100) fL MCH (25-34) pg MCHC (32-36) g/dL RDW Std Deviation (36.4-46.3) fL RDW Coeff of Adryan (11.5-14.5) % Plt Count (130-400) K/uL MPV (7.4-10.4) fL Sodium (136-145) mmol/L Potassium (3.5-5.1) mmol/L Chloride (98-107) mmol/L Carbon Dioxide (21-32) mmol/L Anion Gap (3-11) BUN (7-18) mg/dl Creatinine (0.6-1.2) mg/dl Est Cr Clr Drug Dosing ml/min Est GFR ( Amer) Est GFR (Non-Af Amer) BUN/Creatinine Ratio (10-20) Glucose (70-99) mg/dl POC Glucose 111 H 119 H 145 H (70-99) mg/dl Estimat Average Glucose mg/dl Hemoglobin A1c (4.5-5.6) % Calcium (8.5-10.1) mg/dl 08/16/20 Range/Units 06:36 WBC (4.8-10.8) K/uL RBC (4.2-5.4) M/uL Hgb (12.0-16.0) g/dL Hct (37-47) % MCV (80-100) fL MCH (25-34) pg MCHC (32-36) g/dL RDW Std Deviation (36.4-46.3) fL RDW Coeff of Adryan (11.5-14.5) % Plt Count (130-400) K/uL MPV (7.4-10.4) fL Sodium (136-145) mmol/L Potassium (3.5-5.1) mmol/L Chloride (98-107) mmol/L Carbon Dioxide (21-32) mmol/L Anion Gap (3-11) BUN (7-18) mg/dl Creatinine (0.6-1.2) mg/dl Est Cr Clr Drug Dosing ml/min Est GFR ( Amer) Est GFR (Non-Af Amer) BUN/Creatinine Ratio (10-20) Glucose (70-99) mg/dl POC Glucose (70-99) mg/dl Estimat Average Glucose 131 mg/dl Hemoglobin A1c 6.2 H (4.5-5.6) % Calcium (8.5-10.1) mg/dl Diagnostic Findings MRI Lumbar Spine IMPRESSION: 1. Interval progression of the 6 x 5 mm right paracentral disc extrusion at L5- S1. This compresses the transiting right S1 nerve root. 2. [id number] central canal narrowing at L5-S1 has also progressed. 3. L4-5 posterior decompression fusion with pedicle screws and rods. 4. Additional degenerative changes as described above. PG Care Time/CCT Total # of Minutes Spent Total Time Spent with Patient: Total time spent is greater than 50% in coordination of care (as documented) at patient's floor/unit and/or counseling patient: Coding Level of Care Code 51179 Subseq Hosp Care Lvl 3 Diagnoses Altered mental status R41.82 Altered mental status type: unspecified Back pain M54.42; M54.41 Back pain laterality: bilateral Back pain location: low back pain Chronicity: acute Sciatica laterality: bilateral sciatica Sciatica presence: with sciatica Diabetes mellitus, type 2 E11.9 Hypothyroidism E03.9 Fatigue R53.83 Hypertension I10 CAD (coronary atherosclerotic disease) I25.10 Hyperlipidemia E78.5 Barretts esophagus K22.70 DVT prophylaxis Z29.9 (1) Back pain Back pain laterality: bilateral Back pain location: low back pain Chronicity: acute Sciatica laterality: bilateral sciatica Sciatica presence: with sciatica Qualified Code(s): M54.42 - Lumbago with sciatica, left side; M54.41 - Lumbago with sciatica, right side (2) Altered mental status Altered mental status type: unspecified Qualified Code(s): R41.82 - Altered mental status, unspecified
[2020-08-17 10:28] LABS: Alanine Aminotransferase 25 U/L (12-78); Albumin Level 3.6 gm/dl (3.4-5.0); Alkaline Phosphatase 118 U/L (45-117); Aspartate Aminotransferase 29 U/L (15-37); Bilirubin Direct < 0.1 mg/dl (0-0.2); Bilirubin,Total 0.5 mg/dl (0.2-1); Total Protein 7.5 gm/dl (6.4-8.2)
[2020-08-17] MEDS: DOCUSATE SODIUM/SENNA 50/8.6MG TAB PO SCH (11:16)
[2020-08-17] MEDS: POLYETHYLENE (MIRALAX) 17 GM PACK PO SCH (11:16)
[2020-08-17] MEDS ORDERED: GADOBUTROL 65ML VIAL IV ONE (13:19)
--- NOTE | 2020-08-17 14:29 | Magnetic Resonance Report ---
LUMBAR SPINE MRI WITH AND WITHOUT CONTRAST HISTORY: hx L4-5 fusion, fall, intractable low back pain TECHNIQUE: Multiplanar multisequence MRI of the lumbar spine was performed both before and after the intravenous administration of contrast. COMPARISON: Lumbar spine CT 08/04/2020. Lumbar spine MRI 04/05/2015. FINDINGS: For the purpose of the report the L5-S1 disc space will be located on axial image 23 of 25. Stable 2 mm of anterolisthesis of L4 and L5. Disc spaces are relatively preserved for age. Small endp late osteophytes within the lumbar spine. The conus terminates at the L1-L2 disc space level. Posteri or decompression fusion at L4-L5 with pedicle screws and rods. The sacrum appears intact. A few T2 hy perintense lesions within the kidneys are again noted. These are suboptimally assessed due to motion artifact but appear stable. L1-L2: No significant central canal or neural foraminal narrowing. L2-L3: No significant central canal or neural foraminal narrowing. L3-L4: Small broad-based posterior disc bulge with ligamentum and facet hypertrophy resulting in mild central canal and mild bilateral neural foraminal narrowing. This has slightly progressed. L4-L5: No central canal narrowing due to the posterior decompression. Small broad-based posterior dis c bulge is noted. There is moderate right and mild left neural foraminal narrowing. This is unchanged . L5-S1: Interval progression of a right paracentral disc extrusion which now measures 6 x 5 mm. This c ompresses the transiting right S1 nerve root. There is also mild to moderate central canal narrowing at this level due to the disc bulge and ligamentum flavum and facet hypertrophy. This has also progre ssed. No significant neural foraminal narrowing. IMPRESSION: 1. Interval progression of the 6 x 5 mm right paracentral disc extrusion at L5-S1. This compresses th e transiting right S1 nerve root. 2. Jmqm-zo-[id number] central canal narrowing at L5-S1 has also progressed. 3. L4-5 posterior decompression fusion with pedicle screws and rods. 4. Additional degenerative changes as described above. ACT 112: Negative or not required by law. Electronically signed by: Venkat Oneal M.D. 08/17/2020 2:28 PM
[2020-08-17] MEDS ORDERED: traMADol HCL 50 MG TABLET PO PRN (16:13)
[2020-08-17] MEDS: CLOPIDOGREL BISULFATE 75 MG TAB PO SCH (20:50)
[2020-08-17] MEDS: SIMVASTATIN 20 MG TAB PO SCH (20:51)
[2020-08-18] MEDS: ACETAMINOPHEN 500 MG TAB PO SCH ×3 (01:27→16:57)
[2020-08-18] MEDS: LEVOTHYROXINE SODIUM 112 MCG TABLET PO SCH (06:05)
[2020-08-18 07:01] LABS: Basophils # (auto) 0.02 K/uL (0-0.2); Basophils % (auto) 0.3 %; Eosinophils # (auto) 0.23 K/uL (0-0.5); Eosinophils % (auto) 3.3 %; Hematocrit (blood only) 44.1 % (37-47); Hemoglobin 14.5 g/dL (12.0-16.0); Immature Granulocytes # (auto) 0.03 K/uL (0.00-0.02); Immature Granulocytes % (auto) 0.4 %; Lymphocytes # (auto) 2.58 K/uL (1.2-3.4); Lymphocytes % (auto) 37.3 %; Mean Corpuscular Hemoglobin 31.8 pg (25-34); Mean Corpuscular Hgb Conc 32.9 g/dL (32-36); Mean Corpuscular Volume 96.7 fL (80-100); Mean Platelet Volume 9.6 fL (7.4-10.4); Monocytes # (auto) 0.62 K/uL (0.11-0.59); Neutrophils # (auto) 3.44 K/uL (1.4-6.5); Neutrophils % (auto) 49.7 %; Platelet Count 207 K/uL (130-400); RDW Coefficient of Variation 13.7 % (11.5-14.5); RDW Standard Deviation 48.3 fL (36.4-46.3); Red Blood Count 4.56 M/uL (4.2-5.4); White Blood Count 6.92 K/uL (4.8-10.8)
[2020-08-18 07:29] LABS: Albumin Level 3.5 gm/dl (3.4-5.0); BUN Creatinine Ratio 19.3 (10-20); Calcium 9.2 mg/dl (8.5-10.1); Creatinine Clr Calc Pharmacy 50.3 ml/min; Est GFR (African American) 65.8; Est GFR (Non-African American) 56.7; Potassium 3.9 mmol/L (3.5-5.1)
[2020-08-18 07:32] LABS: Albumin Globulin Ratio 0.9 (0.9-2); Bilirubin,Total 0.5 mg/dl (0.2-1); Globulin 3.9 gm/dl (2.5-4.0); Total Protein 7.4 gm/dl (6.4-8.2)
[2020-08-18] MEDS: LIDOCAINE 5% 1 PATCH TD SCH (07:57)
[2020-08-18] MEDS: PREGABALIN 50 MG CAP PO SCH (07:57)
[2020-08-18] MEDS: FERROUS GLUCONATE 324 MG TAB PO SCH (07:58)
[2020-08-18] MEDS: amLODIPine BESYLATE 5 MG TAB PO SCH (07:58)
[2020-08-18] MEDS: METOPROLOL SUCC 50MG EXT REL TAB PO SCH (07:58)
[2020-08-18] MEDS: POLYETHYLENE (MIRALAX) 17 GM PACK PO SCH (07:58)
[2020-08-18] MEDS: ISOSORBIDE MONO EXTENDED REL 30 MG TABCR PO SCH (07:59)
[2020-08-18] MEDS: DOCUSATE SODIUM/SENNA 50/8.6MG TAB PO SCH (07:59)
[2020-08-18] MEDS: DULoxetine HCL 60 MG CAP PO SCH (07:59)
[2020-08-18] MEDS: PANTOprazole 40 MG TAB PO SCH (08:00)
[2020-08-18] MEDS: DICLOFENAC SOD 1% GEL 100 GM TUBE EXT SCH ×3 (08:00→16:57)
[2020-08-18] MEDS: HEPARIN SOD 5,000 UNIT/0.5 ML VIAL SQ SCH (08:00)
[2020-08-18] MEDS: busPIRone 5 MG TAB PO SCH (08:00)
[2020-08-18] MEDS: INSULIN ASPART 100 UNITS/ML 3 ML PEN SC SCH ×3 (08:05→16:56)
--- NOTE | 2020-08-18 09:01 | Pain Management Progress Note ---
Date of Service August 18, 2020 Assessment & Plan (1) Altered mental status: Altered mental status type: unspecified Qualified Code(s): R41.82 - Altered mental status, unspecified (2) Acute low back pain: * Pain is well controlled. Continue current medication regimen of pregabalin 50 mg twice daily, duloxetine 60 mg daily, and tramadol 50 mg if needed for breakthrough pain. * We have discussed the lumbar MRI results that show a new disc protrusion at L5-S1. CT showed some screw loosening at L4-5 from her previous surgery. We have discussed possible lumbar epidural injections vs surgery. She would prefer a surgical option. She would like to follow with Dr. Chambers for surgical intervention. Admission and Anticipated Discharge Date Admission Date: August 16, 2020 Subjective Mrs. Gonzalez is a 74 year old female that has been admitted to the [facility] for confusion and polypharmacy. She has had acute on chronic low back pain due to a fall last month. She was receiving both Oxycodone and Hydrocodone from different offices. Currently she is receiving Lyrica 50mg BID, Cymbalta 60mg AM, and Tramadol PRN breakthrough pain. She took one Tramadol last evening and states that her pain was well controlled. She states that last night was the first night in weeks that she got quality sleep. Pain is rated 4/10 currently. Pain is located in the low back. No radicular symptoms. Case discussed with Dr. Adalgisa Slaughter Pain Assessment Pain Assessment Full Body Front + Back: 1. Physical Exam Physical Exam: GENERAL: Speech and cognition is intact. Mood and affect is appropriate. Does not appear in acute distress. BACK: Well healed surgical incision. Mild lumbosacral tenderness. There is no paraspinal, quadratus lumborum, piriformis, or gluteal tenderness or spasm. NEURO: Awake, alert, and oriented x 3. Results (Pain Clinic) Diagnostic Review MRI Findings: LUMBAR SPINE MRI WITH AND WITHOUT CONTRAST HISTORY: hx L4-5 fusion, fall, intractable low back pain TECHNIQUE: Multiplanar multisequence MRI of the lumbar spine was performed both before and after the intravenous administration of contrast. COMPARISON: Lumbar spine CT 08/04/2020. Lumbar spine MRI 04/05/2015. FINDINGS: For the purpose of the report the L5-S1 disc space will be located on axial image 23 of 25. Stable 2 mm of anterolisthesis of L4 and L5. Disc spaces are relatively preserved for age. Small endplate osteophytes within the lumbar spine. The conus terminates at the L1-L2 disc space level. Posterior decompression fusion at L4- L5 with pedicle screws and rods. The sacrum appears intact. A few T2 hyperintense lesions within the kidneys are again noted. These are suboptimally assessed due to motion artifact but appear stable. L1-L2: No significant central canal or neural foraminal narrowing. L2-L3: No significant central canal or neural foraminal narrowing. L3-L4: Small broad-based posterior disc bulge with ligamentum and facet hypertrophy resulting in mild central canal and mild bilateral neural foraminal narrowing. This has slightly progressed. L4-L5: No central canal narrowing due to the posterior decompression. Small broad-based posterior disc bulge is noted. There is moderate right and mild left neural foraminal narrowing. This is unchanged. L5-S1: Interval progression of a right paracentral disc extrusion which now measures 6 x 5 mm. This compresses the transiting right S1 nerve root. There is also mild to moderate central canal narrowing at this level due to the disc bulge and ligamentum flavum and facet hypertrophy. This has also progressed. No significant neural foraminal narrowing. IMPRESSION: 1. Interval progression of the 6 x 5 mm right paracentral disc extrusion at L5- S1. This compresses the transiting right S1 nerve root. 2. [id number] central canal narrowing at L5-S1 has also progressed. 3. L4-5 posterior decompression fusion with pedicle screws and rods. 4. Additional degenerative changes as described above. ACT 112: Negative or not required by law. Electronically signed by: Venkat Oneal M.D. 08/17/2020 2:28 PM
--- NOTE | 2020-08-18 13:41 | XRay Report ---
LUMBAR SPINE 2 VIEWS HISTORY: standing views, back pain COMPARISON: Lumbar spine CT 08/04/2020. FINDINGS: There is no fracture. No subluxation. Posterior decompression fusion at L4-L5 with pedicle screws and rods. The hardware appears intact. Mild periprosthetic lucency within the bilateral L4 pe dicle screws, unchanged. This suggests loosening. The visualized sacrum appears intact. Mild disc spa ce narrowing at L5-S1. Small endplate osteophytes seen throughout the lumbar spine. IMPRESSION: 1. No fracture or subluxation within the lumbar spine. 2. L4-5 posterior decompression and fusion. The hardware appears intact. 3. No change in the mild periprosthetic lucency at the L4 pedicle screws. This suggests loosening. ACT 112: Negative or not required by law. Electronically signed by: Venkat Oneal M.D. 08/18/2020 1:40 PM
--- NOTE | 2020-08-18 13:51 | Hospitalist Progress Note ---
Date of Service August 18, 2020 Assessment & Plan Admission and Anticipated Discharge Date Admission Date: August 16, 2020 Results & Data Results & Data ([facility]) Vital Signs (Past 12 Hours) Vital Signs Temp Pulse Resp BP BP Pulse Ox 08/18/20 11:02 36.4 C L 70 18 135/81 96 08/18/20 07:59 36.4 C L 71 18 171/82 H 99 08/18/20 04:00 36.5 C 65 18 162/84 H 96 PG Care Time/CCT Total # of Minutes Spent Total Time Spent with Patient: Total time spent is greater than 50% in coordination of care (as documented) at patient's floor/unit and/or counseling patient: Coding
--- NOTE | 2020-08-18 14:17 | Discharge Summary ---
Date of Service August 18, 2020 Admission HPI Per Admitting Provider Aniyah is seen at the bedside with her daughter Raquel. Aniyah is extremely somnolent, and arouses transiently before falling back asleep. History is mostly obtained from her daughter at bedside. Her daughter reports that Aniyah has chronic back pain for which she has been seen in the hospital twice in the last couple of weeks. She reports that Aniyah has chronic back pain with a history of laminectomy with L4/L5 debbi and screw fusion. She reports that that he has had gradually worsening low back pain worse with twisting and bending which began after a fall in mid July. Her ED evaluation at that time did not show any fracture or acute changes. She was discharged to outpatient follow-up. She reports that she was seen for follow-up at her outpatient providers office 2 days ago and was switched from hydrocodone to oxycodone and placed on baclofen for discomfort. She had some confusion on the phone with her daughter that day, and yesterday appeared to be slightly more confused. She reports that this morning she got a call from one of her friend that she was walking around confused, and was found to have a sleep on her couch. When her daughter saw her her mother was extremely confused, sleepy, and disoriented and was not sure where she was. She also reports that she was not able to find the bathroom in her own home. This prompted her daughter to have her transported to the emergency department for evaluation. Aniyah arouses briefly to voice and name, and expresses that she has some backache and is otherwise tired but does not give other meaningful history before falling back asleep. Medications: Reviewed. Of note recently converted from hydrocodone to oxycodone every 8 hours as needed and started on black less than 10 mg 3 times daily Surgical history: Reviewed Allergies: Reviewed. Notable for mental status change with morphine in the past Medical history: Reviewed CODE STATUS: Full code, discussed with daughter at bedside and affirmed by patient Admission Exam Per Admitting Provider General: Extremely somnolent, arouses transiently to voice before falling back asleep. He is able to verbalize name, not to place or date. Pulm: CTAB A&P. -wheezes, -rales, -rhonchi. Symmetrical chest rise. No increase work of breathing. No respiratory distress. Cardiac: RRR, systolic murmur appreciated. Radial pulses intact and symmetrical. Abdominal: Nontender, nondistended, soft. BS present. CRANIAL NERVES: Limited by sedation. II: Pupils equal and reactive, no relative afferent pupillary defect, no VF cuts III, IV, : EOM intact, no gaze preference or deviation, no nystagmus. V: normal sensation in V1, V2, and V3 segments bilaterally VII: no asymmetry, no nasolabial fold flattening MOTOR: Patient with 4+/5 chief investment officer strength and ankle plantar flexion bilaterally without asymmetry before falling back asleep. Arouses to soft touch and pinch of lower extremities bilaterally and ankles bilaterally. Principal Diagnosis Polypharmacy Discharge Exam Constitutional WD/WN, vitals as above no acute distress Eyes + anicteric sclerae and PERRL ENMT mmm dentures intact Neck normal visual inspection and trachea midline Respiratory normal respiratory effort, lungs clear to auscultation Cardiovascular RRR, no murmur, no edema Rate/Rhythm: regular rate and regular rhythm Heart Sounds: + murmur (systolic) Extremities: no calf tenderness and no edema Gastrointestinal (Abdomen) normal bowel sounds, soft, nontender, no hepatosplenomegaly Musculoskeletal lumbar spine tender to palpation pain with flexion >4/5 strength RLE, 4/5 LLE with dorsiflexion Skin warm, dry Neurologic patellar DTR's 2+ bilat, sensation intact and PERRL, EOMI, accommodation nl, no face palsy, no dysarthria Psychiatric Orientation: alert and oriented x 3 Lymphatic no cervical or axillary lymphadenopathy Discharge Data Allergies Allergy/AdvReac Type Severity Reaction Status Date / Time adhesive Allergy Intermediate TAPE-HIVES Verified 08/13/20 13:47 fentanyl AdvReac Intermediate CONFUSION Verified 08/13/20 13:47 meloxicam AdvReac Intermediate SWELLING Verified 08/13/20 13:47 OF LEGS morphine AdvReac Intermediate "I GET Verified 08/13/20 13:47 REALLY CRAZY" pregabalin AdvReac Intermediate DIZZINESS, Verified 08/13/20 13:47 CONFUSION WITH HIGHER DOSES Consultations 08/15/20 22:13 ED Decision to Admit Stat 08/16/20 16:38 Consult Pain Management Routine 08/17/20 15:08 Consult Orthopedic Surgery Routine Ordered Studies 08/15/20 19:13 CT angio chest dissec wo/w con Stat CT head/brain wo con Stat 08/15/20 19:21 CT angio abdomen pelvis w con Stat CXR ECHO 08/17/20 08:55 MR lumbar spine wo/w con Routine 08/18/20 Lumbar Spine 2 View Hospital Course (1) Altered mental status: Secondary to polypharmacy as being treated for her backpain - Resolved. Of note, did have UE cellulitis and was treated with Bactrim recently which may have also contributed. * Patient recently started on oxycodone 5 mg every 8 hours as needed and baclofen 10 mg p.o. 3 times daily just prior to symptom onset. Per outpatient notes, had been tolerating Excello without issue but had worsening pain following fall. Discharged on her Excello as she had been tolerating, Lyrica, and Cymbalta. Can continue topical lidocaine patches and scheduled tylenol. Pain management and orthopedics consulted Contacted pharmacy to review medications to ensure proper medications filled moving forward Trop negative, pro-edgar negative, TSH wnl, lactate wnl. BCx NGTD Patient discharged home with home therapy and will be called in AM by pain management office to set up injection for pain relief If continues to have issues, may follow up with Dr. Chambers as an outpatient but not a great surgical candidate NO OXYCODONE/BACLOFEN at discharge. Recommended getting pain contract and utilizing one provider and one pharmacy to ensure no further issues with this at discharge (2) Back pain: Patient with acute on chronic back pain following a fall, 2 prior ED visi ts with evaluation showing no acute fracture or changes. CT 08/12 shows L4 and L5 pedicle screw loosening Held sedating/narcotic medications Lidocaine patch, Tylenol scheduled, Voltaren gel for pain, Kpad ordered PT/OT evals -- Home with therapy as previously arranged ECHO completed for murmur on examination - LV normal size and function, EF 60- 65%, no wma. Mild LVH. Basal septum thickened and angulated c/w sigmoid septum. Grade I diastolic dysfunction. Right ventricle borderline dilated. Right ventricular systolic function normal. Moderate mitral annular calcification. Mitral calcification precludes definitive assessment of MR. L atrium moderately dilated. Pain management consulted - see above "Recommend signing a formal pain contract as well as random urine drug screening to ensure patient is only receiving opiates from 1 provider in 1 pharmacy. Recommend continuation of Lyrica 50 mg p.o. twice daily and Cymbalta 60 mg p.o. every morning. Patient currently does not complain of intractable pain and is fairly comfortable on examination. Recommend utilization of tramadol 50 mg p.o. every 8 versus hydrocodone 5/3 25 mg 1 p.o. every 8 as needed pain if opiates are deemed necessary at discharge. " MRI Lumbar spine w/w/o ordered -- Interval progression of the 6 x 5 mm right paracentral disc extrusion at L5-S1. This compresses the transiting right S1 nerve root. [id number]-[id number] central canal narrowing at L5-S1 has also progressed. Initially patient declined injection and wanted recommendations from Dr. Chambers but after further discussion and no surgery at this time, she would like to pursue this option. Ideally done outpatient and current pain managed with ordered medications. Plans for discharged and they will call her in AM to arrange for this. Reached out to Dr. Chambers -- no surgery at this time but would be happy to see in the office if continued issues following injection by pain management to be arranged in the next day when they call her in AM Resumed her Excello and utilize prn tramadol at night as had been effective for pain and without mental status change (3) Diabetes mellitus, type 2: * History of type 2 diabetes * Held p.o. Metformin twice daily and utilized SSI while inpatient * Resumed home medications at discharge (4) Hypothyroidism: * Continued Synthroid 112 mcg daily (5) Fatigue: * TSH wnl. Improved today * Likely combination of deconditioning -- PT/OT evaluated as above (6) Hypertension: * Chronic. Stable * BP 138/79 * Continued metoprolol, isosorbide, amlodipine daily (7) CAD (coronary atherosclerotic disease): * Non-obstructive CAD. Follows with [facility]/Dr. Vila. Last seen Nov 2019. Negative Cardiolite 09/19/2019. * Continued metoprolol succinate 50mg daily, isosorbide mononitrate 30mg, amlodipine 5mg, plavix 75mg daily (8) Hyperlipidemia: * Continued simvastatin 20mg daily (9) Barretts esophagus: * Hx of. Continued daily protonix (10) DVT prophylaxis: * SCDs * Heparin SQ while inpatient Discharged home with home therapy. Pain management to call in AM to arrange injection. Can follow up with Dr. Chambers if needed in future. Imaging does show hardward intact, but loosening of screw at L5-S1. (Hx back surgery 2015, Dr. Rodríguez) Total Time Total Time Spent Total Time Spent (In Minutes): 90 Discharge Plan Discharge Items Patient Disposition: Home - Home Health Services Reason For Visit: metabolic encephalopathy uspect polypharmacy Discharge Diagnosis: Polypharmacy, Metabolic Encephalopathy, Back Pain Goals: You have been hospitalized for an acute medical problem. During your stay at [facility], we have made an effort to correct the problem that brought you to the hospital while keeping you as comfortable as possible. Medications were used to bring your condition under control and your discharge instructions will include directions for any medications you should take after leaving the hospital. Please make sure you see your Primary Care Provider as part of your follow up plan. Activity: As commented below Activity Comment: advance as tolerated with therapy at home Non-emergency contact: Primary Care Provider Call non-emergency contact if: you have any medication questions, your symptoms worsen and your pain is not controlled Follow-up/Referrals: Airam Malcolm CRNP [Primary Care Provider] - 08/24/20 11:30 am (You have a follow up appt with Dr Bustamante on Friday 08/24 @ 11:30am. Please arrive 15 minutes prior to your appt time. It is important that you keep this appt, if it does not fit your schedule, please call [phone] to reschedule ) Adalgisa Slaughter DO [Physician] - (they will call in AM) Hema Chambers DO [Surgeon] - (1 month, or sooner if needed) Diet: Carb Consistent or DM2 and Heart Healthy Addtl Attending Provider Instructions: You have been hospitalized for acute metabolic encephalopathy (confusion) likely related to polypharmacy and filling multiple pain medications from multiple providers. It is important in the future to make sure you are receiving pain medications from one provider to prevent confusion. Imaging of your back was performed and you do have a herniation with impingement on your nerve root. Orthopedic spine does not think this is an urgent or emergency surgical issue and that surgery may not be your best option. Pain management was also consulted and we will plan for an injection to help with inflammation/pain to help provide relief along with the medication changes we have made while you have been in the hospital. They will call you tomorrow morning to get you in in the next couple of days for this injection. You have also been provided a prescription of tramadol to use as needed -- this is to help with pain but has also been helpful at getting to sleep. You may want to just utilize this at night. You should also utilize 1,000mg acetaminophen (tylenol) around the clock to help keep pain under control for short term, then as needed but make sure not to exceed 3,000mg in a 24 hour period of time. Case management has called your pharmacy and we have verified medications at discharge to be correct to prevent further issues. Physical therapy has already been arranged and you have been in contact with them. Please follow up with your primary care provider in the next couple weeks to monitor your progress. Please return to the emergency department with any worsening pain, confusion, or other symptoms that are concerning for you. Pending Studies at Discharge: No Stand-Alone Forms: My [facility] Medications and DC Order Prescriptions: New tramadol 50 mg Tablet 50 mg PO Q4H PRN (Reason: pain) Qty: 12 RF: 0 lidocaine 5 % Adhesive Patch,Medicated 1 patch transdermal QAM Qty: 0 RF: 0 acetaminophen 500 mg Tablet 1,000 mg PO Q8H Qty: 0 RF: 0 Continued buspirone 5 mg tablet 5 mg PO BID Qty: 60 RF: 5 metformin 500 mg tablet 500 mg PO BID Qty: 60 RF: 5 Myrbetriq 25 mg tablet extended release 24 hr 25 mg PO QAM Qty: 30 RF: 5 metoprolol succinate 50 mg tablet extended release 24 hr 50 mg PO QAM 30 Days Qty: 30 RF: 5 isosorbide mononitrate 30 mg tablet extended release 24 hr 30 mg PO QAM Qty: 90 RF: 3 clopidogrel 75 mg tablet 75 mg PO HS Qty: 90 RF: 1 levothyroxine 112 mcg tablet 112 mcg PO QAM Qty: 90 RF: 1 ferrous gluconate 324 mg (37.5 mg iron) tablet 324 mg PO QAM Qty: 90 RF: 3 pantoprazole 20 mg tablet,delayed release (DR/EC) 20 mg PO QAM Qty: 90 RF: 3 duloxetine 60 mg capsule,delayed release(DR/EC) 60 mg PO QAM Qty: 30 RF: 5 simvastatin 20 mg tablet 20 mg PO HS Qty: 30 RF: 5 amlodipine 5 mg tablet 5 mg PO QAM Qty: 30 RF: 5 multivitamin tablet 1 tab PO QAM RF: 0 pregabalin [Lyrica] 50 mg capsule 50 mg PO BID RF: 0 nitroglycerin 0.4 mg tablet, sublingual 0.4 mg sublingual DIRECTED PRN (Reason: Chest Pain) RF: 0 hydrocodone-acetaminophen [Excello] 5-325 mg tablet 1 tab PO Q6H PRN (Reason: pain, severe) Qty: 12 RF: 0 Discontinued baclofen 10 mg tablet 10 mg PO TID PRN (Reason: back pain) Qty: 30 RF: 1 oxycodone 5 mg tablet 5 mg PO Q8H PRN (Reason: pain) Qty: 30 RF: 0 Discharge Orders: Discharge Order (Routine); Ordered 08/18/20 Ordered By: Iliana Donato/Other Patient Handouts: Managing Type 2 Diabetes Admission Data Admit Date/Time: 08/16/20 00:14 Attending Provider: Gus Delgado Admit Provider: Anselmo Long Primary Care Provider: Airam Malcolm Other Providers: Ned Clark ; Adalgisa Slaughter ; [facility],Home Healthcare ; Hema Chambers Coding Level of Care Code D/C Day Management >30 mins Diagnoses Altered mental status R41.82 Altered mental status type: unspecified Back pain M54.42; M54.41 Back pain laterality: bilateral Back pain location: low back pain Chronicity: acute Sciatica laterality: bilateral sciatica Sciatica presence: with sciatica Diabetes mellitus, type 2 E11.9 Hypothyroidism E03.9 Fatigue R53.83 Hypertension I10 CAD (coronary atherosclerotic disease) I25.10 Hyperlipidemia E78.5 Barretts esophagus K22.70 DVT prophylaxis Z29.9
[2020-08-19 12:36] LABS: Codeine Urine NEGATIVE ng/mL (<50); Hydrocodone Urine 107 ng/mL (<50); Hydromor Urine NEGATIVE ng/mL (<50); Morphine Urine NEGATIVE ng/mL (<50); Norhydrocodone Conf Ur 119 ng/mL (<50); Noroxycodone Urine 740 ng/mL (<50); Oxycodone Urine 744 ng/mL (<50); Oxymorph Urine 94 ng/mL (<50)
--- NOTE | 2020-08-26 11:07 | Orthopedic Consultation ---
Date of Consultation August 26, 2020 Assessment & Plan (1) Spondylisthesis: The patient was discharged prior to my ability to perform a consultation Present on Admission?: Yes History of Present Illness Reason for Consultation: Back pain Attending Physician: Gus Delgado MD Allergies Allergy/AdvReac Type Severity Reaction Status Date / Time adhesive Allergy Intermediate TAPE-HIVES Verified 08/24/20 11:08 fentanyl AdvReac Intermediate CONFUSION Verified 08/24/20 11:08 meloxicam AdvReac Intermediate SWELLING Verified 08/24/20 11:08 OF LEGS morphine AdvReac Intermediate "I GET Verified 08/24/20 11:08 REALLY CRAZY" pregabalin AdvReac Intermediate DIZZINESS, Verified 08/24/20 11:08 CONFUSION WITH HIGHER DOSES Home Medications Home Medications Medication Instructions Recorded Confirmed Type nitroglycerin 0.4 mg SUBLINGUAL DIRECTED PRN 03/07/19 08/24/20 History multivitamin 1 tab PO QAM 05/02/19 08/24/20 History isosorbide mononitrate 30 mg 30 mg PO QAM #90 tab 04/30/20 08/24/20 Rx tablet,extended release 24 hr clopidogrel 75 mg tablet 75 mg PO HS #90 tab 05/26/20 08/24/20 Rx ferrous gluconate 324 mg (37.5 mg 324 mg PO QAM #90 tab 05/26/20 08/24/20 Rx iron) tablet levothyroxine 112 mcg tablet 112 mcg PO QAM #90 tab 05/26/20 08/24/20 Rx pantoprazole 20 mg tablet,delayed 20 mg PO QAM #90 tab 05/26/20 08/24/20 Rx release hydrocodone-acetaminophen [[place]] 1 tab PO Q6H PRN #12 tab 06/27/20 08/24/20 Rx amlodipine 5 mg tablet 5 mg PO QAM #30 tab 07/21/20 08/24/20 Rx duloxetine 60 mg capsule,delayed 60 mg PO QAM #30 cap 07/21/20 08/24/20 Rx release simvastatin 20 mg tablet 20 mg PO HS #30 tab 07/21/20 08/24/20 Rx pregabalin [Lyrica] 50 mg PO BID 08/11/20 08/24/20 History acetaminophen 1,000 mg PO Q8H #0 tab 08/18/20 08/24/20 Rx lidocaine 1 patch TRANSDERMAL QAM #0 ea 08/18/20 08/24/20 Rx buspirone 5 mg tablet 5 mg PO BID #60 tab 08/20/20 08/24/20 Rx metformin 500 mg tablet 500 mg PO BID #60 tab 08/20/20 08/24/20 Rx metoprolol succinate 50 mg 50 mg PO QAM 30 Days #30 tab 08/20/20 08/24/20 Rx tablet,extended release 24 hr mirabegron 25 mg tablet,extended 25 mg PO QAM #30 tab 08/20/20 08/24/20 Rx release 24 hr tramadol 50 mg tablet 50 mg PO Q6H PRN #30 tab 08/24/20 Rx Patient History Medical History Angina at rest Anginal pain Cardiac murmur Chest pain Chronic obstructive pulmonary disease Congestive heart failure Diabetes Diabetes mellitus, type 2 GERD (gastroesophageal reflux disease) Vinnie's thyroiditis Influenza B Kidney stones On anticoagulant therapy Pleurisy Spinal stenosis TIA (transient ischemic attack) Urinary tract infection Surgical History H/O ureter repair History of appendectomy History of bilateral cataract extraction History of bilateral tubal ligation History of carpal tunnel surgery of right wrist History of colonoscopy History of dilatation and curettage History of esophagogastroduodenoscopy (EGD) History of mandibular surgery History of nephrolithotomy with removal of calculi History of partial thyroidectomy History of tooth extraction History of total hysterectomy with bilateral salpingo-oophorectomy (BSO) History of total left knee replacement (TKR) Hx of spinal surgery Family History Mother Family history of diabetes mellitus Father Myocardial infarction Brother Myocardial infarction Sister Myocardial infarction Other No family history of adverse response to anesthesia Denies family history of Ovarian cancer Prostate cancer Breast cancer Colorectal cancer Social History Smoking Status: Never smoker Second Hand Exposure: No; Hx Alcohol Use: Yes Alcohol type: wine Hx Substance Use: Yes Preferred Language: Wolof Communication Ability: Effective Diamond Cutter Required: No Beliefs That Will Affect Care: None marital status: / Current Living Situation: Personal Care Facility current occupational status: retired Feels Safe at Home: Yes caffeine: Yes Dental Care, Regularly: No Physical Activity Frequency: 1-2 Times per Week Seatbelt Use: always Sunscreen Use: Yes Assistive Devices: Walker
== END 2020-08-18 18:40 | disposition home health service (06) | DRG 72 ==
LOC: ED 19:00 → 2W 08-16 00:14 → SUATTDRO 08-16 00:14 → 2W 08-16 00:37

== ENCOUNTER 2020-09-03 12:01 | Inpatient (IN) ==
[2020-09-03] MEDS ORDERED: ACETAMINOPHEN 1000 MG/100 ML IV IV STA (12:13)
[2020-09-03] MEDS ORDERED: HYDROmorphone INJ 0.5 MG/0.5 ML SYR IV STA (12:13)
[2020-09-03] MEDS ORDERED: ONDANSETRON INJ 2 MG/ML 2 ML VIAL IV STA (12:13)
[2020-09-03] MEDS ORDERED: SODIUM CHLORIDE 0.9% 1000ML 1,000 ML IV ONE (12:13)
[2020-09-03] MEDS ORDERED: KETOROLAC TROMETHAMINE 15 MG/ML VIAL IV STA (12:13)
--- NOTE | 2020-09-03 12:24 | Emergency Department Note ---
Impression & Plan Weakness, Pain of right leg, Sciatica, Lumbar disc herniation, Failure of outpatient treatment ED Provider Note NAME: KAILA MESA AGE: 74 SEX: F : 1945 ARRIVES VIA: Ambulance INFORMANT: [Patient] ED PROVIDER(S): [Jono Lazcano MD] CHIEF COMPLAINT: Weakness HISTORY OF PRESENT ILLNESS: The patient is a 74-year-old female who presents to the ED with weakness and the inability to function at home. She lives alone. The patient has complaints of some right lower back pain that radiates down to her right groin and right leg. This makes her right leg weak. She cannot function. The pain is a 9 on a scale of 1-10. She is not currently on any pain medication. She was told that she had a right sided lumbar disc herniation. The patient spoke with her doctors office today over the phone, she was referred to the ED as she is not functioning at home. She has been in the ED lately for back pain. She was admitted earlier this month for polypharmacy. The patient states that she is not functioning well. She has a headache, she feels short of breath. There has been no diarrhea, no vomiting. She does have urinary frequency but this is baseline. Patient states that there has been no real cough or nasal congestion, no sore throat. No known coronavirus exposures. Of note, her doctors office was concerned that this could be atypical Covid. That was one of the reason she was sent here. REVIEW OF SYSTEMS: See HPI for pertinent positives and negatives. A total of ten systems were reviewed and were otherwise negative. PMHx/PSHx: See Below SOCIAL HISTORY: See Below. PHYSICAL EXAM: GENERAL: Patient is in no acute distress. HEENT: No acute trauma, normocephalic atraumatic, mucous membranes moist, no nasal congestion, no scleral icterus. NECK: No stridor, no adenopathy, no meningismus, trachea is midline. LUNGS: Clear to auscultation bilaterally, no wheeze, no rhonchi, breath sounds equal. HEART: Subtle systolic murmur, regular rate and rhythm. ABDOMEN: Soft, nontender, bowel sounds positive, no hernias, no peritonitis. EXTREMITIES: No cyanosis, mild bilateral pedal edema, full range of motion of all the joints without pain or difficulty, no signs for acute trauma. NEUROLOGIC: Oriented x 3, no acute motor or sensory deficits, no focal weakness. SKIN: No rash, no jaundice, no diaphoresis. Back: Movement in any direction causes increased lower back pain with radiation down the right leg. DIFFERENTIAL DIAGNOSIS: Infection, dehydration, metabolic abnormality, hypo/hyperglycemia, electrolyte d isturbance, rhinovirus, disc herniation, failed outpatient treatment, anemia, hypoxia, cardiac sources, intracerebral event, toxicologic, neurologic, as well as other pathologies. EMERGENCY DEPARTMENT COURSE/PROCEDURES: ECG: Indication was weakness. The ECG shows a normal sinus rhythm with a rate of 64. There is no ST elevation, no PVCs. The QTc is 437. Continuous Cardiac Monitoring: An order was placed for continuous cardiac monitoring. The monitor shows a rate of 62 with normal sinus rhythm. MEDICAL DECISION MAKING: There is no leukocytosis or concerning anemia. There is a normal platelet count. No significant electrolyte abnormality or kidney failure. Alk phos slightly elevated, the remaining liver enzymes were unremarkable. Total CK was not elevated making rhabdomyolysis unlikely. The patient appeared to be in a euthyroid state. ECG shows a sinus rhythm, no acute ischemia. Cardiac enzyme testing x1 is not consistent with acute cardiac injury. Urinalysis does not show any evidence for infection. Covid testing was negative. Chest film did not show pneumonia or free air. I was able to review a recent MRI. This shows a right-sided disc herniation pushing on the S1 nerve root. Patient received IV Tylenol, IV Dilaudid, IV Toradol, IV Zofran and IV saline, she is still having pain but seems somewhat more comfortable. The patient is failing outpatient treatment. She has a large disc herniation which is causing a lot of pain and sciatica. She is weak and cannot function at home. She is failing outpatient treatment. She was referred to the ED by her doctors office because of all the above. I spoke to the patient, I talked to case management. Hospitalization is warranted. Patient may benefit from an injection to the area during her hospital stay. Pain management and spinal surgery can be consulted. The on-call hospitalist was consulted. Past Med/Surg History Medical History Angina at rest Anginal pain Cardiac murmur Chest pain Chronic obstructive pulmonary disease no inhalers Congestive heart failure Diabetes Diabetes mellitus, type 2 GERD (gastroesophageal reflux disease) Vinnie's thyroiditis Influenza B Kidney stones On anticoagulant therapy Pleurisy Spinal stenosis TIA (transient ischemic attack) multiple--last around 2010--no deficits--reason for clopidogrel Urinary tract infection currently has Surgical History H/O ureter repair History of appendectomy History of bilateral cataract extraction History of bilateral tubal ligation History of carpal tunnel surgery of right wrist History of colonoscopy History of dilatation and curettage History of esophagogastroduodenoscopy (EGD) History of mandibular surgery History of nephrolithotomy with removal of calculi History of partial thyroidectomy History of tooth extraction History of total hysterectomy with bilateral salpingo-oophorectomy (BSO) History of total left knee replacement (TKR) Hx of spinal surgery Family History Mother Family history of diabetes mellitus Father Myocardial infarction Brother Myocardial infarction Sister Myocardial infarction Other No family history of adverse response to anesthesia Denies family history of Ovarian cancer Prostate cancer Breast cancer Colorectal cancer Social History Smoking Status: Never smoker Second Hand Exposure: No; Hx Alcohol Use: Yes Alcohol type: wine Hx Substance Use: Yes Preferred Language: Kittitian Communication Ability: Effective Career Orientation Teacher Required: No Beliefs That Will Affect Care: None marital status: / Current Living Situation: Personal Care Facility current occupational status: retired Feels Safe at Home: Yes caffeine: Yes Dental Care, Regularly: No Physical Activity Frequency: 1-2 Times per Week Seatbelt Use: always Sunscreen Use: Yes Assistive Devices: Walker Allergies Allergies Allergy/AdvReac Type Severity Reaction Status Date / Time adhesive Allergy Intermediate TAPE-HIVES Verified 09/03/20 13:35 fentanyl AdvReac Intermediate CONFUSION Verified 09/03/20 13:35 meloxicam AdvReac Intermediate SWELLING Verified 09/03/20 13:35 OF LEGS morphine AdvReac Intermediate "I GET Verified 09/03/20 13:35 REALLY CRAZY" pregabalin AdvReac Intermediate DIZZINESS, Verified 09/03/20 13:35 CONFUSION WITH HIGHER DOSES Home Meds Home Medications Medication Instructions Recorded Confirmed nitroglycerin 0.4 mg SUBLINGUAL DIRECTED PRN 03/07/19 09/03/20 multivitamin 1 tab PO QAM 05/02/19 09/03/20 pregabalin [Lyrica] 50 mg PO BID 08/11/20 09/03/20 Previous Rx's Medication Instructions Recorded isosorbide mononitrate 30 mg 30 mg PO QAM #90 tab 04/30/20 tablet,extended release 24 hr clopidogrel 75 mg tablet 75 mg PO HS #90 tab 05/26/20 ferrous gluconate 324 mg (37.5 mg 324 mg PO QAM #90 tab 05/26/20 iron) tablet levothyroxine 112 mcg tablet 112 mcg PO QAM #90 tab 05/26/20 pantoprazole 20 mg tablet,delayed 20 mg PO QAM #90 tab 05/26/20 release hydrocodone-acetaminophen [[place]] 1 tab PO Q6H PRN #12 tab 06/27/20 amlodipine 5 mg tablet 5 mg PO QAM #30 tab 07/21/20 duloxetine 60 mg capsule,delayed 60 mg PO QAM #30 cap 07/21/20 release simvastatin 20 mg tablet 20 mg PO HS #30 tab 07/21/20 acetaminophen 1,000 mg PO Q8H #0 tab 08/18/20 lidocaine 1 patch TRANSDERMAL QAM #0 ea 08/18/20 buspirone 5 mg tablet 5 mg PO BID #60 tab 08/20/20 metformin 500 mg tablet 500 mg PO BID #60 tab 08/20/20 metoprolol succinate 50 mg 50 mg PO QAM 30 Days #30 tab 08/20/20 tablet,extended release 24 hr mirabegron 25 mg tablet,extended 25 mg PO QAM #30 tab 08/20/20 release 24 hr tramadol 50 mg tablet 50 mg PO Q6H PRN #30 tab 08/24/20 Results & Data (ED) Vital Signs Vital Signs - 24 hr 09/03/20 12:12 09/03/20 12:14 09/03/20 13:13 Temperature 37 C Temperature Source Oral Pulse Rate 71 66 Pulse Rate from SpO2 Sensor Pulse Rhythm Regular Pulse Strength Normal Respiratory Rate 16 21 Respiratory Effort / Characteristics Non-Labored Respiratory Depth Normal Respiratory Pattern Regular Blood Pressure 173/84 H Blood Pressure Mean 113 Blood Pressure Position Lying Pulse Oximetry 96 95 Oxygen Delivery Method Room Air Room Air Sepsis Recent Fever Within 48 Hours No Sepsis New/Unexplained Change in Mental Status N/A Sepsis Action Taken by Nursing No Action Required 09/03/20 13:30 09/03/20 14:00 09/03/20 14:23 Temperature Temperature Source Pulse Rate 67 65 62 Pulse Rate from SpO2 Sensor 61 Pulse Rhythm Pulse Strength Respiratory Rate 16 14 13 Respiratory Effort / Characteristics Respiratory Depth Respiratory Pattern Blood Pressure 137/64 Blood Pressure Mean 72 Blood Pressure Position Pulse Oximetry 96 Oxygen Delivery Method Sepsis Recent Fever Within 48 Hours Sepsis New/Unexplained Change in Mental Status Sepsis Action Taken by Nursing 09/03/20 14:30 09/03/20 15:04 09/03/20 15:05 Temperature Temperature Source Pulse Rate 62 64 62 Pulse Rate from SpO2 Sensor 63 64 62 Pulse Rhythm Pulse Strength Respiratory Rate 19 15 19 Respiratory Effort / Characteristics Respiratory Depth Respiratory Pattern Blood Pressure 132/69 122/63 Blood Pressure Mean 89 87 Blood Pressure Position Pulse Oximetry 93 90 91 Oxygen Delivery Method Sepsis Recent Fever Within 48 Hours Sepsis New/Unexplained Change in Mental Status Sepsis Action Taken by Nursing 09/03/20 15:30 09/03/20 16:00 Temperature Temperature Source Pulse Rate 59 L 60 Pulse Rate from SpO2 Sensor 60 60 Pulse Rhythm Pulse Strength Respiratory Rate 10 L 17 Respiratory Effort / Characteristics Respiratory Depth Respiratory Pattern Blood Pressure 136/65 115/61 Blood Pressure Mean 97 77 Blood Pressure Position Pulse Oximetry 94 93 Oxygen Delivery Method Sepsis Recent Fever Within 48 Hours Sepsis New/Unexplained Change in Mental Status Sepsis Action Taken by Half-Way Medications Current Medication List: was personally reviewed by me Laboratory Data Attestation: I reviewed the patient's lab results. Result diagrams: 09/03/20 14:02 09/03/20 13:08 Lab Results 09/03/20 09/03/20 09/03/20 Range/Units 12:23 12:23 13:08 WBC (4.8-10.8) K/uL RBC (4.2-5.4) M/uL Hgb (12.0-16.0) g/dL Hct (37-47) % MCV (80-100) fL MCH (25-34) pg MCHC (32-36) g/dL RDW Std Deviation (36.4-46.3) fL RDW Coeff of Adryan (11.5-14.5) % Plt Count (130-400) K/uL MPV (7.4-10.4) fL Immature Gran % (Auto) % Neut % (Auto) % Lymph % (Auto) % [place] % (Auto) % Eos % (Auto) % Baso % (Auto) % Neut # (Auto) (1.4-6.5) K/uL Lymph # (Auto) (1.2-3.4) K/uL [place] # (Auto) (0.11-0.59) K/uL Eos # (Auto) (0-0.5) K/uL Baso # (Auto) (0-0.2) K/uL Immature Gran # (Auto) (0.00-0.02) K/uL Sodium 139 (136-145) mmol/L Potassium 3.9 (3.5-5.1) mmol/L Chloride 106 (98-107) mmol/L Carbon Dioxide 31 (21-32) mmol/L Anion Gap 2.0 L (3-11) BUN 16 (7-18) mg/dl Creatinine 1.00 (0.6-1.2) mg/dl Est Cr Clr Drug Dosing 49.8 ml/min Est GFR ( Amer) 63.4 Est GFR (Non-Af Amer) 54.7 BUN/Creatinine Ratio 16.3 (10-20) Glucose 112 H (70-99) mg/dl Calcium 9.1 (8.5-10.1) mg/dl Magnesium 2.0 (1.8-2.4) mg/dl Total Bilirubin 0.3 (0.2-1) mg/dl AST 24 (15-37) U/L ALT 35 (12-78) U/L Alkaline Phosphatase 135 H (45-117) U/L Total Creatine Kinase 80 (26-192) U/L Troponin I < 0.015 (0-0.045) ng/ml Total Protein 7.6 (6.4-8.2) gm/dl Albumin 3.7 (3.4-5.0) gm/dl Globulin 3.9 (2.5-4.0) gm/dl Albumin/Globulin Ratio 0.9 (0.9-2) TSH 0.333 (0.300-4.500) uIu/ml Urine Color Urine Appearance (Clear) Urine pH (4.5-7.5) Ur Specific [place] (1.000-1.030) Urine Protein (Negative) Urine Glucose (UA) (Negative) Urine Ketones (Negative) Urine Blood (Negative) Urine Nitrite (Negative) Urine Bilirubin (Negative) Urine Urobilinogen (Negative) Ur Leukocyte Esterase (Negative) Urine WBC (Auto) (0-5) /hpf Urine RBC (Auto) (0-4) /hpf U Hyaline Cast (Auto) (0-5) /lpf U Epithel Cells (Auto) (0-5) /lpf Urine Bacteria (Auto) (Negative) COVID-19 Eval Order Covid19 IDNow atMPAC SARS-CoV-2, RNA, NAAT NEGATIVE (NEGATIVE) 09/03/20 09/03/20 Range/Units 14:02 15:04 WBC 6.23 (4.8-10.8) K/uL RBC 4.15 L (4.2-5.4) M/uL Hgb 13.5 (12.0-16.0) g/dL Hct 40.1 (37-47) % MCV 96.6 (80-100) fL MCH 32.5 (25-34) pg MCHC 33.7 (32-36) g/dL RDW Std Deviation 47.1 H (36.4-46.3) fL RDW Coeff of Adryan 13.3 (11.5-14.5) % Plt Count 197 (130-400) K/uL MPV 9.3 (7.4-10.4) fL Immature Gran % (Auto) 0.3 % Neut % (Auto) 54.6 % Lymph % (Auto) 28.3 % [place] % (Auto) 14.0 % Eos % (Auto) 2.6 % Baso % (Auto) 0.2 % Neut # (Auto) 3.41 (1.4-6.5) K/uL Lymph # (Auto) 1.76 (1.2-3.4) K/uL [place] # (Auto) 0.87 H (0.11-0.59) K/uL Eos # (Auto) 0.16 (0-0.5) K/uL Baso # (Auto) 0.01 (0-0.2) K/uL Immature Gran # (Auto) 0.02 (0.00-0.02) K/uL Sodium (136-145) mmol/L Potassium (3.5-5.1) mmol/L Chloride (98-107) mmol/L Carbon Dioxide (21-32) mmol/L Anion Gap (3-11) BUN (7-18) mg/dl Creatinine (0.6-1.2) mg/dl Est Cr Clr Drug Dosing ml/min Est GFR ( Amer) Est GFR (Non-Af Amer) BUN/Creatinine Ratio (10-20) Glucose (70-99) mg/dl Calcium (8.5-10.1) mg/dl Magnesium (1.8-2.4) mg/dl Total Bilirubin (0.2-1) mg/dl AST (15-37) U/L ALT (12-78) U/L Alkaline Phosphatase (45-117) U/L Total Creatine Kinase (26-192) U/L Troponin I (0-0.045) ng/ml Total Protein (6.4-8.2) gm/dl Albumin (3.4-5.0) gm/dl Globulin (2.5-4.0) gm/dl Albumin/Globulin Ratio (0.9-2) TSH (0.300-4.500) uIu/ml Urine Color Yellow Urine Appearance Clear (Clear) Urine pH 5.5 (4.5-7.5) Ur Specific [place] 1.021 (1.000-1.030) Urine Protein Trace H (Negative) Urine Glucose (UA) Negative (Negative) Urine Ketones Negative (Negative) Urine Blood Negative (Negative) Urine Nitrite Negative (Negative) Urine Bilirubin Negative (Negative) Urine Urobilinogen Negative (Negative) Ur Leukocyte Esterase Negative (Negative) Urine WBC (Auto) 1-5 (0-5) /hpf Urine RBC (Auto) 0-4 (0-4) /hpf U Hyaline Cast (Auto) 1-5 (0-5) /lpf U Epithel Cells (Auto) >30 H (0-5) /lpf Urine Bacteria (Auto) Negative (Negative) COVID-19 Eval Order SARS-CoV-2, RNA, NAAT (NEGATIVE) Administered Medications Discontinued Medications Acetaminophen (Acetaminophen 1000 Mg/100 Ml Iv) 1,000 mg IV NOW STA Stop: 09/03/20 12:14 Last Admin: 09/03/20 14:17 Dose: 1,000 mg Documented by: [id number] Hydromorphone HCl (Hydromorphone Inj 0.5 Mg/0.5 Ml Syr) 0.5 mg IV NOW STA Stop: 09/03/20 12:14 Last Admin: 09/03/20 14:16 Dose: 0.5 mg Documented by: [id number] Sodium Chloride (Nss 1000ml) 1,000 mls @ 999 mls/hr IV .Q1H1M ONE Stop: 09/03/20 13:13 Last Infusion: 09/03/20 16:19 Dose: 0 mls/hr Documented by: [id number] Admin: 09/03/20 14:15 Dose: 999 mls/hr Documented by: [id number] Ketorolac Tromethamine (Ketorolac Tromethamine 15 Mg/Ml Vial) 15 mg IV NOW STA Stop: 09/03/20 12:14 Last Admin: 09/03/20 14:20 Dose: 15 mg Documented by: [id number] Ondansetron HCl (Ondansetron Inj 2 Mg/Ml 2 Ml Vial) 4 mg IV NOW STA Stop: 09/03/20 12:14 Last Admin: 09/03/20 14:20 Dose: 4 mg Documented by: [id number] Imaging Data Radiologist's Impression: 08/17/2020 LUMBAR SPINE MRI WITH AND WITHOUT CONTRAST HISTORY: hx L4-5 fusion, fall, intractable low back pain TECHNIQUE: Multiplanar multisequence MRI of the lumbar spine was performed both before and after the intravenous administration of contrast. COMPARISON: Lumbar spine CT 08/04/2020. Lumbar spine MRI 04/05/2015. FINDINGS: For the purpose of the report the L5-S1 disc space will be located on axial image 23 of 25. Stable 2 mm of anterolisthesis of L4 and L5. Disc spaces are relatively preserved for age. Small endplate osteophytes within the lumbar spine. The conus terminates at the L1-L2 disc space level. Posterior decompression fusion at L4- L5 with pedicle screws and rods. The sacrum appears intact. A few T2 hyperintense lesions within the kidneys are again noted. These are suboptimally assessed due to motion artifact but appear stable. L1-L2: No significant central canal or neural foraminal narrowing. L2-L3: No significant central canal or neural foraminal narrowing. L3-L4: Small broad-based posterior disc bulge with ligamentum and facet h ypertrophy resulting in mild central canal and mild bilateral neural foraminal narrowing. This has slightly progressed. L4-L5: No central canal narrowing due to the posterior decompression. Small bro ad-based posterior disc bulge is noted. There is moderate right and mild left neural foraminal narrowing. This is unchanged. L5-S1: Interval progression of a right paracentral disc extrusion which now measures 6 x 5 mm. This compresses the transiting right S1 nerve root. There is also mild to moderate central canal narrowing at this level due to the disc bulge and ligamentum flavum and facet hypertrophy. This has also progressed. No significant neural foraminal narrowing. IMPRESSION: 1. Interval progression of the 6 x 5 mm right paracentral disc extrusion at L5- S1. This compresses the transiting right S1 nerve root. 2. [id number] central canal narrowing at L5-S1 has also progressed. 3. L4-5 posterior decompression fusion with pedicle screws and rods. 4. Additional degenerative changes as described above. SINGLE VIEW CHEST CLINICAL HISTORY: Generalized weakness. FINDINGS: 2 AP, portable, upright chest radiographs are compared to chest x-ray and chest CT dated 08/15/2020. The examination is degraded by portable technique and patient rotation. The heart is mildly enlarged noting atherosclerotic calcification of the thoracic aorta. The pulmonary vasculature is noncongested. Chronic interstitial thickening is similar to previous. There is mild elevation of the right hemidiaphragm with bibasilar scarring/atelectasis. No airspace con solidation or large pleural effusion is identified. No pneumothorax is seen. The skeletal structures are osteopenic. There is chronic posterior matter deformity of the left proximal humerus. IMPRESSION: No acute cardiopulmonary abnormality. Discharge Plan Visit Data Chief Complaint: Flank Pain Stated Complaint: FLANK PAIN ED Provider: Jono Lazcano Discharge Problem: Weakness, Pain of right leg, Sciatica, Lumbar disc herniation, Failure of outpatient treatment Patient Disposition: Admitted As Inpatient Condition: Fair Forms Stand Alone Forms: [facility], Virtual Emergency Department, Important Visit Information Prescriptions Prescriptions: No Action isosorbide mononitrate 30 mg tablet extended release 24 hr 30 mg PO QAM Qty: 90 RF: 3 clopidogrel 75 mg tablet 75 mg PO HS Qty: 90 RF: 1 levothyroxine 112 mcg tablet 112 mcg PO QAM Qty: 90 RF: 1 ferrous gluconate 324 mg (37.5 mg iron) tablet 324 mg PO QAM Qty: 90 RF: 3 pantoprazole 20 mg tablet,delayed release (DR/EC) 20 mg PO QAM Qty: 90 RF: 3 duloxetine 60 mg capsule,delayed release(DR/EC) 60 mg PO QAM Qty: 30 RF: 5 simvastatin 20 mg tablet 20 mg PO HS Qty: 30 RF: 5 amlodipine 5 mg tablet 5 mg PO QAM Qty: 30 RF: 5 Myrbetriq 25 mg tablet extended release 24 hr 25 mg PO QAM Qty: 30 RF: 5 metformin 500 mg tablet 500 mg PO BID Qty: 60 RF: 5 metoprolol succinate 50 mg tablet extended release 24 hr 50 mg PO QAM 30 Days Qty: 30 RF: 5 buspirone 5 mg tablet 5 mg PO BID Qty: 60 RF: 5 tramadol 50 mg tablet 50 mg PO Q6H PRN (Reason: pain) Qty: 30 RF: 0 multivitamin tablet 1 tab PO QAM RF: 0 pregabalin [Lyrica] 50 mg capsule 50 mg PO BID RF: 0 nitroglycerin 0.4 mg tablet, sublingual 0.4 mg sublingual DIRECTED PRN (Reason: Chest Pain) RF: 0 hydrocodone-acetaminophen [[place]] 5-325 mg tablet 1 tab PO Q6H PRN (Reason: pain, severe) Qty: 12 RF: 0 lidocaine 5 % Adhesive Patch,Medicated 1 patch transdermal QAM Qty: 0 RF: 0 acetaminophen 500 mg Tablet 1,000 mg PO Q8H Qty: 0 RF: 0 Referrals Referrals: Airam Malcolm CRNP [Primary Care Provider] - Discharge Problem: Sciatica Qualifiers: Laterality: right Qualified Code(s): M54.31 - Sciatica, right side
--- NOTE | 2020-09-03 13:44 | XRay Report ---
SINGLE VIEW CHEST CLINICAL HISTORY: Generalized weakness. FINDINGS: 2 AP, portable, upright chest radiographs are compared to chest x-ray and chest CT dated . The examination is degraded by portable technique and patient rotation. The heart is mild ly enlarged noting atherosclerotic calcification of the thoracic aorta. The pulmonary vasculature is noncongested. Chronic interstitial thickening is similar to previous. There is mild elevation of the right hemidiaphragm with bibasilar scarring/atelectasis. No airspace consolidation or large pleural e ffusion is identified. No pneumothorax is seen. The skeletal structures are osteopenic. 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 IMPRESSION: No acute cardiopulmonary abnormality. ACT 112: Negative or not required by law. Electronically signed by: Jono Romero M.D. 09/03/2020 1:43 PM
[2020-09-03 14:25] LABS: Basophils # (auto) 0.01 K/uL (0-0.2); Basophils % (auto) 0.2 %; Eosinophils # (auto) 0.16 K/uL (0-0.5); Eosinophils % (auto) 2.6 %; Hematocrit (blood only) 40.1 % (37-47); Hemoglobin 13.5 g/dL (12.0-16.0); Immature Granulocytes # (auto) 0.02 K/uL (0.00-0.02); Immature Granulocytes % (auto) 0.3 %; Lymphocytes # (auto) 1.76 K/uL (1.2-3.4); Lymphocytes % (auto) 28.3 %; Mean Corpuscular Hemoglobin 32.5 pg (25-34); Mean Corpuscular Hgb Conc 33.7 g/dL (32-36); Mean Corpuscular Volume 96.6 fL (80-100); Mean Platelet Volume 9.3 fL (7.4-10.4); Monocytes # (auto) 0.87 K/uL (0.11-0.59); Neutrophils # (auto) 3.41 K/uL (1.4-6.5); Neutrophils % (auto) 54.6 %; Platelet Count 197 K/uL (130-400); RDW Coefficient of Variation 13.3 % (11.5-14.5); RDW Standard Deviation 47.1 fL (36.4-46.3); Red Blood Count 4.15 M/uL (4.2-5.4); White Blood Count 6.23 K/uL (4.8-10.8)
[2020-09-03 14:37] LABS: Alanine Aminotransferase 35 U/L (12-78); Albumin Level 3.7 gm/dl (3.4-5.0); Aspartate Aminotransferase 24 U/L (15-37); BUN Creatinine Ratio 16.3 (10-20); Blood Urea Nitrogen 16 mg/dl (7-18); Calcium 9.1 mg/dl (8.5-10.1); Carbon Dioxide 31 mmol/L (21-32); Chloride 106 mmol/L (98-107); Creatinine Clr Calc Pharmacy 49.8 ml/min; Est GFR (African American) 63.4; Est GFR (Non-African American) 54.7; Glucose 112 mg/dl (70-99); Potassium 3.9 mmol/L (3.5-5.1); Sodium 139 mmol/L (136-145)
[2020-09-03 14:48] LABS: Albumin Globulin Ratio 0.9 (0.9-2); Alkaline Phosphatase 135 U/L (45-117); Bilirubin,Total 0.3 mg/dl (0.2-1); Creatine Kinase 80 U/L (26-192); Globulin 3.9 gm/dl (2.5-4.0); Thyroid Stimulating Hormone 0.333 uIu/ml (0.300-4.500); Total Protein 7.6 gm/dl (6.4-8.2); Troponin I < 0.015 ng/ml (0-0.045)
[2020-09-03 15:28] LABS: Appearance Urine Clear (Clear); Bacteria Urine Automated Negative (Negative); Bilirubin Urine Negative (Negative); Blood Urine Negative (Negative); Color Urine Yellow; Epithelial Cell Urine Auto >30 /lpf (0-5); Glucose Urine UA Negative (Negative); Ketones Urine Negative (Negative); Leukocyte Esterase Urine Negative (Negative); Nitrite Urine Negative (Negative); Protein Urine Trace (Negative); RBC Urine Automated 0-4 /hpf (0-4); Specific Gravity Urine 1.021 (1.000-1.030); Urobilinogen Urine Negative (Negative); pH Urine 5.5 (4.5-7.5)
[2020-09-03] MEDS ORDERED: NITROGLYCERIN SL 0.4 MG/TAB TAB SL PRN (18:21)
[2020-09-03] MEDS ORDERED: GLUCOSE 10 TABS/TUBE PO PRN (18:21)
[2020-09-03] MEDS ORDERED: CARBOHYDRATES FOR HYPOGLYCEMIA PO PRN (18:21)
[2020-09-03] MEDS ORDERED: GLUCOSE 40% GEL 15 GM TUBE PO PRN (18:21)
[2020-09-03] MEDS ORDERED: DEXTROSE 50% 50 ML SYRINGE IV PRN (18:21)
[2020-09-03] MEDS ORDERED: ALUMINUM/MAGNESIUM SUSP 30 ML UDC PO PRN (18:21)
[2020-09-03] MEDS ORDERED: GLUCAGON FOR INJ 1 MG VIAL SQ PRN (18:21)
[2020-09-03] MEDS ORDERED: ONDANSETRON INJ 2 MG/ML 2 ML VIAL IV PRN (18:21)
[2020-09-03] MEDS ORDERED: ACETAMINOPHEN 325 MG TAB PO PRN (18:21)
--- NOTE | 2020-09-03 20:42 | History & Physical Report ---
Date of Service September 03, 2020 Assessment & Plan (1) Pain of right leg: Lumbar disc herniation/right leg pain/generalized weakness/sciatica/failure of outpatient treatment- Patient's presentation is very similar to when I admitted her on 08/15. We will keep narcotic medications to a minimum, as patient appears to be oversedated again this visit as when admitted last time. We will consult pain management for their input. Present on Admission?: Yes (2) Lumbar disc herniation: (3) Failure of outpatient treatment: (4) CAD (coronary atherosclerotic disease): CAD/hypertension- Continue all routine medications except clopidogrel Present on Admission?: Yes (5) Hypertension: See above Present on Admission?: Yes (6) Weakness: See above Present on Admission?: Yes (7) Sciatica: See above Present on Admission?: Yes (8) Anxiety: Continue usual medications Present on Admission?: Yes (9) Hypothyroidism: Continue usual medications Present on Admission?: Yes Admission and Anticipated Discharge Date Admission Date: September 03, 2020 History of Present Illness Chief Complaint: The patient presented to the emergency department with complaint of low back and right hip and leg pain, with generalized weakness, making it unable for her to function at home Primary Care Provider: HELEN Irvin The patient is a 74-year-old female was recently admitted to [facility] from 08/15-08/18 with similar complaints. At that visit, she had been prescribed higher doses of medications, including oxycodone and baclofen, to which she seemed to be oversedated. She reports taking less pain medications now, and has which she feels is more pain. She was to see pain management in the outpatient setting, but has not seen them yet. In the emergency department, she appears lethargic but is somewhat able to answer questions Allergies Allergy/AdvReac Type Severity Reaction Status Date / Time adhesive Allergy Intermediate TAPE-HIVES Verified 09/03/20 13:35 fentanyl AdvReac Intermediate CONFUSION Verified 09/03/20 13:35 meloxicam AdvReac Intermediate SWELLING Verified 09/03/20 13:35 OF LEGS morphine AdvReac Intermediate "I GET Verified 09/03/20 13:35 REALLY CRAZY" pregabalin AdvReac Intermediate DIZZINESS, Verified 09/03/20 13:35 CONFUSION WITH HIGHER DOSES Home Medications Medication Instructions Recorded Confirmed Type nitroglycerin 0.4 mg SUBLINGUAL DIRECTED PRN 03/07/19 09/03/20 History multivitamin 1 tab PO QAM 05/02/19 09/03/20 History isosorbide mononitrate 30 mg 30 mg PO QAM #90 tab 04/30/20 09/03/20 Rx tablet,extended release 24 hr clopidogrel 75 mg tablet 75 mg PO HS #90 tab 05/26/20 09/03/20 Rx ferrous gluconate 324 mg (37.5 mg 324 mg PO QAM #90 tab 05/26/20 09/03/20 Rx iron) tablet levothyroxine 112 mcg tablet 112 mcg PO QAM #90 tab 05/26/20 09/03/20 Rx pantoprazole 20 mg tablet,delayed 20 mg PO QAM #90 tab 05/26/20 09/03/20 Rx release hydrocodone-acetaminophen [[place]] 1 tab PO Q6H PRN #12 tab 06/27/20 09/03/20 Rx amlodipine 5 mg tablet 5 mg PO QAM #30 tab 07/21/20 09/03/20 Rx duloxetine 60 mg capsule,delayed 60 mg PO QAM #30 cap 07/21/20 09/03/20 Rx release simvastatin 20 mg tablet 20 mg PO HS #30 tab 07/21/20 09/03/20 Rx pregabalin [Lyrica] 50 mg PO BID 08/11/20 09/03/20 History acetaminophen 1,000 mg PO Q8H #0 tab 08/18/20 09/03/20 Rx lidocaine 1 patch TRANSDERMAL QAM #0 ea 08/18/20 09/03/20 Rx buspirone 5 mg tablet 5 mg PO BID #60 tab 08/20/20 09/03/20 Rx metformin 500 mg tablet 500 mg PO BID #60 tab 08/20/20 09/03/20 Rx metoprolol succinate 50 mg 50 mg PO QAM 30 Days #30 tab 08/20/20 09/03/20 Rx tablet,extended release 24 hr mirabegron 25 mg tablet,extended 25 mg PO QAM #30 tab 08/20/20 09/03/20 Rx release 24 hr tramadol 50 mg tablet 50 mg PO Q6H PRN #30 tab 08/24/20 09/03/20 Rx Past Med/Surg History Medical History Angina at rest Anginal pain Cardiac murmur Chest pain Chronic obstructive pulmonary disease no inhalers Congestive heart failure Diabetes Diabetes mellitus, type 2 GERD (gastroesophageal reflux disease) Vinnie's thyroiditis Influenza B Kidney stones On anticoagulant therapy Pleurisy Spinal stenosis TIA (transient ischemic attack) multiple--last around 2010--no deficits--reason for clopidogrel Urinary tract infection currently has Surgical History H/O ureter repair History of appendectomy History of bilateral cataract extraction History of bilateral tubal ligation History of carpal tunnel surgery of right wrist History of colonoscopy History of dilatation and curettage History of esophagogastroduodenoscopy (EGD) History of mandibular surgery History of nephrolithotomy with removal of calculi History of partial thyroidectomy History of tooth extraction History of total hysterectomy with bilateral salpingo-oophorectomy (BSO) History of total left knee replacement (TKR) Hx of spinal surgery Family History Mother Family history of diabetes mellitus Father Myocardial infarction Brother Myocardial infarction Sister Myocardial infarction Other No family history of adverse response to anesthesia Denies family history of Ovarian cancer Prostate cancer Breast cancer Colorectal cancer Social History Smoking Status: Never smoker Second Hand Exposure: No; Hx Alcohol Use: No Hx Substance Use: No Preferred Language: Norwegian Communication Ability: Effective 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 Beliefs That Will Affect Care: None marital status: / Current Living Situation: Alone Current Living Situation Comment: Apartment current occupational status: retired Feels Safe at Home: Yes Safety Concerns: Feels Safe At This Time caffeine: Yes Dental Care, Regularly: No Physical Activity Frequency: 1-2 Times per Week Seatbelt Use: always Sunscreen Use: Yes Assistive Devices: Denture - Upper, Denture - Lower and Walker Review of Systems Review of Systems: Review of systems is limited due to decreased responsive state Physical Exam Physical Exam: The patient is awake, but lethargic, well developed and well nourished, normocephalic and atraumatic, lying in bed and in no acute distress. HEENT--PERRL, EOMI, mucous membranes and oropharynx dry. Neck--supple. No JVD. No bruits. Thyroid normal, trachea midline, no adenopathy. Heart--normal S1 and S2. No murmurs, rubs or gallops. Lungs--clear bilaterally, no respiratory distress, no accessory muscle use. Abdomen--normal bowel sounds and soft. Nontender. Nondistended. Extremities--no cyanosis or clubbing. No edema. Dermatologic--normal skin turgor, normal color, no abnormal lymph nodes, no rash . Neurologic--cranial nerves II through XII grossly intact. Rheumatologic--limited exam due to limited responsiveness Psychiatric--lethargic Results & Data Results & Data ([facility]) Vital Signs (Past 12 Hours) Vital Signs Temp Pulse Resp BP BP Pulse Ox 09/03/20 18:07 98.4 F 18 159/82 H 96 09/03/20 17:00 62 20 132/70 94 09/03/20 16:30 61 13 141/64 H 93 09/03/20 16:00 60 17 115/61 93 09/03/20 15:30 59 L 10 L 136/65 94 09/03/20 15:05 62 19 91 09/03/20 15:04 64 15 122/63 90 09/03/20 14:30 62 19 132/69 93 09/03/20 14:23 62 13 137/64 96 09/03/20 14:00 65 14 09/03/20 13:30 67 16 09/03/20 13:13 66 21 09/03/20 12:14 95 09/03/20 12:12 98.6 F 71 16 173/84 H 96 Laboratory Results Laboratory Results WBC 6.23 K/uL (4.8-10.8) 09/03/20 14:02 RBC 4.15 M/uL (4.2-5.4) L 09/03/20 14:02 Hgb 13.5 g/dL (12.0-16.0) 09/03/20 14:02 Hct 40.1 % (37-47) 09/03/20 14:02 MCV 96.6 fL (80-100) 09/03/20 14:02 MCH 32.5 pg (25-34) 09/03/20 14:02 MCHC 33.7 g/dL (32-36) 09/03/20 14:02 RDW Std Deviation 47.1 fL (36.4-46.3) H 09/03/20 14:02 RDW Coeff of Adryan 13.3 % (11.5-14.5) 09/03/20 14:02 Plt Count 197 K/uL (130-400) 09/03/20 14:02 MPV 9.3 fL (7.4-10.4) 09/03/20 14:02 Immature Gran % (Auto) 0.3 % 09/03/20 14:02 Neut % (Auto) 54.6 % 09/03/20 14:02 Lymph % (Auto) 28.3 % 09/03/20 14:02 [place] % (Auto) 14.0 % 09/03/20 14:02 Eos % (Auto) 2.6 % 09/03/20 14:02 Baso % (Auto) 0.2 % 09/03/20 14:02 Neut # (Auto) 3.41 K/uL (1.4-6.5) 09/03/20 14:02 Lymph # (Auto) 1.76 K/uL (1.2-3.4) 09/03/20 14:02 [place] # (Auto) 0.87 K/uL (0.11-0.59) H 09/03/20 14:02 Eos # (Auto) 0.16 K/uL (0-0.5) 09/03/20 14:02 Baso # (Auto) 0.01 K/uL (0-0.2) 09/03/20 14:02 Immature Gran # (Auto) 0.02 K/uL (0.00-0.02) 09/03/20 14:02 Sodium 139 mmol/L (136-145) 09/03/20 13:08 Potassium 3.9 mmol/L (3.5-5.1) 09/03/20 13:08 Chloride 106 mmol/L (98-107) 09/03/20 13:08 Carbon Dioxide 31 mmol/L (21-32) 09/03/20 13:08 Anion Gap 2.0 (3-11) L 09/03/20 13:08 BUN 16 mg/dl (7-18) 09/03/20 13:08 Creatinine 1.00 mg/dl (0.6-1.2) 09/03/20 13:08 Est Cr Clr Drug Dosing 49.8 ml/min 09/03/20 13:08 Est GFR ( Amer) 63.4 09/03/20 13:08 Est GFR (Non-Af Amer) 54.7 09/03/20 13:08 BUN/Creatinine Ratio 16.3 (10-20) 09/03/20 13:08 Glucose 112 mg/dl (70-99) H 09/03/20 13:08 POC Glucose 141 mg/dl (70-99) H 09/03/20 20:27 Calcium 9.1 mg/dl (8.5-10.1) 09/03/20 13:08 Magnesium 2.0 mg/dl (1.8-2.4) 09/03/20 13:08 Total Bilirubin 0.3 mg/dl (0.2-1) 09/03/20 13:08 AST 24 U/L (15-37) 09/03/20 13:08 ALT 35 U/L (12-78) 09/03/20 13:08 Alkaline Phosphatase 135 U/L (45-117) H 09/03/20 13:08 Total Creatine Kinase 80 U/L (26-192) 09/03/20 13:08 Troponin I < 0.015 ng/ml (0-0.045) 09/03/20 13:08 Total Protein 7.6 gm/dl (6.4-8.2) 09/03/20 13:08 Albumin 3.7 gm/dl (3.4-5.0) 09/03/20 13:08 Globulin 3.9 gm/dl (2.5-4.0) 09/03/20 13:08 Albumin/Globulin Ratio 0.9 (0.9-2) 09/03/20 13:08 TSH 0.333 uIu/ml (0.300-4.500) 09/03/20 13:08 Urine Color Yellow 09/03/20 15:04 Urine Appearance Clear (Clear) 09/03/20 15:04 Urine pH 5.5 (4.5-7.5) 09/03/20 15:04 Ur Specific [place] 1.021 (1.000-1.030) 09/03/20 15:04 Urine Protein Trace (Negative) H 09/03/20 15:04 Urine Glucose (UA) Negative (Negative) 09/03/20 15:04 Urine Ketones Negative (Negative) 09/03/20 15:04 Urine Blood Negative (Negative) 09/03/20 15:04 Urine Nitrite Negative (Negative) 09/03/20 15:04 Urine Bilirubin Negative (Negative) 09/03/20 15:04 Urine Urobilinogen Negative (Negative) 09/03/20 15:04 Ur Leukocyte Esterase Negative (Negative) 09/03/20 15:04 Urine WBC (Auto) 1-5 /hpf (0-5) 09/03/20 15:04 Urine RBC (Auto) 0-4 /hpf (0-4) 09/03/20 15:04 U Hyaline Cast (Auto) 1-5 /lpf (0-5) 09/03/20 15:04 U Epithel Cells (Auto) >30 /lpf (0-5) H 09/03/20 15:04 Urine Bacteria (Auto) Negative (Negative) 09/03/20 15:04 COVID-19 [facility] 09/03/20 12:23 SARS-CoV-2, RNA, NAAT NEGATIVE (NEGATIVE) 09/03/20 12:23 Diagnostic Findings [facility], [id number] XRay Report Patient: KAILA MESA Date: 09/03/20MR#: [id number]: [id number] [place] [address]Acct ID:[id number]: [facility]: [facility] Zip: [place], [place] [address]Uqv: [id number]: EDSex: FRoom/Bed:Att Phy:Diagnosis: FLANK PAINPri Phy: Airam Malcolm CRNPService Date: 09/03/20Fa Phy:Interpreting Phy: Jono Romero MDAdmit Phy: Ordering Phy: Jono Lazcano M.D. cc: ~ SINGLE VIEW CHEST CLINICAL HISTORY: Generalized weakness. FINDINGS: 2 AP, portable, upright chest radiographs are compared to chest x-ray and chest CT dated 08/15/2020. The examination is degraded by portable technique and patient rotation. The heart is mildly enlarged noting atherosclerotic calcification of the thoracic aorta. The pulmonary vasculature is noncongested. Chronic interstitial thickening is similar to previous. There is mild elevation of the right hemidiaphragm with bibasilar scarring/atelectasis. No airspace consolidation or large pleural effusion is identified. No pneumothorax is seen. The skeletal structures are osteopenic. There is chronic posterior matter deformity of the left proximal humerus. IMPRESSION: No acute cardiopulmonary abnormality. ACT 112: Negative or not required by law. Electronically signed by: Jono Romero M.D. 09/03/2020 1:43 PM Dictated: 09/03/20 1341Transcribed: 09/03/20 1341 Code Status & VTE Plan Code Status Full code VTE Prophylaxis Plan VTE Prophylaxis will be ordered: Yes PG Care Time/CCT Total # of Minutes Spent Total Time Spent with Patient: Total time spent is greater than 50% in coordination of care (as documented) at patient's floor/unit and/or counseling p atient: Coding Level of Care Code 15518 Initial Inpt Care Lvl 2 Diagnoses Pain of right leg M79.604 Lumbar disc herniation M51.26 Failure of outpatient treatment Z78.9 CAD (coronary atherosclerotic disease) I25.10 Hypertension I10 Weakness R53.1 Sciatica M54.31 Laterality: right Anxiety F41.9 Hypothyroidism E03.9 (1) Sciatica Laterality: right Qualified Code(s): M54.31 - Sciatica, right side
[2020-09-03] MEDS: busPIRone 5 MG TAB PO SCH (20:50)
[2020-09-03] MEDS: ACETAMINOPHEN 500 MG TAB PO SCH (20:51)
[2020-09-03] MEDS: CLOPIDOGREL BISULFATE 75 MG TAB PO SCH (20:51)
[2020-09-03] MEDS: SIMVASTATIN 20 MG TAB PO SCH (20:51)
[2020-09-03] MEDS: PREGABALIN 50 MG CAP PO SCH (20:51)
[2020-09-03] MEDS: INSULIN ASPART 100 UNITS/ML 3 ML PEN SC SCH ×2 (21:48→21:50)
[2020-09-03] MEDS: ENOXAPARIN INJ 30 MG/0.3 ML SYR SQ SCH (21:49)
[2020-09-04] MEDS: ACETAMINOPHEN 500 MG TAB PO SCH ×3 (05:12→22:02)
[2020-09-04] MEDS: LEVOTHYROXINE SODIUM 112 MCG TABLET PO SCH (05:12)
--- NOTE | 2020-09-04 05:55 | Electrocardiogram Report ---
Test Reason : Blood Pressure : / mmHG Vent. Rate : 064 BPM Atrial Rate : 064 BPM P-R Int : 186 ms QRS Dur : 084 ms QT Int : 424 ms P-R-T Axes : 041 009 048 degrees QTc Int : 437 ms Normal sinus rhythm Cannot rule out Anterior infarct , age undetermined Abnormal ECG When compared with ECG of 15-AUG-2020 19:09, No significant change Confirmed by Vitor Cooper ([id number]) on 09/04/2020 5:54:46 AM Referred By: REFERRED SELF Confirmed By:Vitor Cooper
[2020-09-04 06:14] LABS: Estimated Average Glucose 126 mg/dl
--- NOTE | 2020-09-04 09:03 | Pain Management Consultation ---
Date of Consultation September 04, 2020 Assessment & Plan (1) Lumbar disc herniation: * Continue Hydrocodone 5/325mg x 6 hours PRN pain instead of Tramadol that she was taking at home. * Continue Lyrica 75mg twice daily. May consider increasing to 100mg BID but will wait to see if hydrocodone is effective first. * Continue Cymbalta 60mg daily. * She has seen orthopedic surgery and injection therapy was recommended. When she spoke with Dr. Ashford she was ordered physical therapy. As she is not tolerating physical therapy, she should follow up with Dr. Ashford for an epidural injection. * She is welcome to come to the [facility] if she would like. * Would not attempt an epidural injection in the inpatient setting given that she is on Plavix which would need to be held for 7 days prior to an injection. * Thank you for the consultation. History of Present Illness Attending Physician: Gus Delgado MD History of Present Illness Mrs. Gonzalez is a 74 year old female that has been readmitted for lumbar radiculopathy. She does have a know disc protrusion at L5-S1 compressing on the S1 nerve. She describes a deep aching in the low back and a sharp shooting pain down the right leg. She was discharged on 08/18/2020. She reportedly saw one of the PA's with Dr. Luna office. Surgery was not recommended at that time and she saw Dr. Ashford for a possible epidural injection. Patient states that she was asked to do physical therapy again and if not better he would then perform an injection. Patient has been doing physical therapy at home which has worsened the pain. She did not contact Dr. Ashford's office. She did no show for a new p atient appointment with our clinic last week. Home regimen includes Lyrica 75mg BID, Cymbalta 60mg daily, and Tramadol 50mg TID. No bowel/bladder incontinence, saddle anesthesia, foot drop, or falls. The right leg does feel weaker when compared to the left. Case discussed with Dr. Adalgisa Slaughter Pain Assessment Full Body Front + Back: 1. 2. 3. Allergies Allergy/AdvReac Type Severity Reaction Status Date / Time adhesive Allergy Intermediate TAPE-HIVES Verified 09/03/20 13:35 fentanyl AdvReac Intermediate CONFUSION Verified 09/03/20 13:35 meloxicam AdvReac Intermediate SWELLING Verified 09/03/20 13:35 OF LEGS morphine AdvReac Intermediate "I GET Verified 09/03/20 13:35 REALLY CRAZY" pregabalin AdvReac Intermediate DIZZINESS, Verified 09/03/20 13:35 CONFUSION WITH HIGHER DOSES Home Medications Medication Instructions Recorded Confirmed Type nitroglycerin 0.4 mg SUBLINGUAL DIRECTED PRN 03/07/19 09/03/20 History multivitamin 1 tab PO QAM 05/02/19 09/03/20 History isosorbide mononitrate 30 mg 30 mg PO QAM #90 tab 04/30/20 09/03/20 Rx tablet,extended release 24 hr clopidogrel 75 mg tablet 75 mg PO HS #90 tab 05/26/20 09/03/20 Rx ferrous gluconate 324 mg (37.5 mg 324 mg PO QAM #90 tab 05/26/20 09/03/20 Rx iron) tablet levothyroxine 112 mcg tablet 112 mcg PO QAM #90 tab 05/26/20 09/03/20 Rx pantoprazole 20 mg tablet,delayed 20 mg PO QAM #90 tab 05/26/20 09/03/20 Rx release hydrocodone-acetaminophen [[place]] 1 tab PO Q6H PRN #12 tab 06/27/20 09/03/20 Rx amlodipine 5 mg tablet 5 mg PO QAM #30 tab 07/21/20 09/03/20 Rx duloxetine 60 mg capsule,delayed 60 mg PO QAM #30 cap 07/21/20 09/03/20 Rx release simvastatin 20 mg tablet 20 mg PO HS #30 tab 07/21/20 09/03/20 Rx pregabalin [Lyrica] 50 mg PO BID 08/11/20 09/03/20 History acetaminophen 1,000 mg PO Q8H #0 tab 08/18/20 09/03/20 Rx lidocaine 1 patch TRANSDERMAL QAM #0 ea 08/18/20 09/03/20 Rx buspirone 5 mg tablet 5 mg PO BID #60 tab 08/20/20 09/03/20 Rx metformin 500 mg tablet 500 mg PO BID #60 tab 08/20/20 09/03/20 Rx metoprolol succinate 50 mg 50 mg PO QAM 30 Days #30 tab 08/20/20 09/03/20 Rx tablet,extended release 24 hr mirabegron 25 mg tablet,extended 25 mg PO QAM #30 tab 08/20/20 09/03/20 Rx release 24 hr tramadol 50 mg tablet 50 mg PO Q6H PRN #30 tab 08/24/20 09/03/20 Rx Patient History Medical History Angina at rest Anginal pain Cardiac murmur Chest pain Chronic obstructive pulmonary disease no inhalers Congestive heart failure Diabetes Diabetes mellitus, type 2 GERD (gastroesophageal reflux disease) Vinnie's thyroiditis Influenza B Kidney stones On anticoagulant therapy Pleurisy Spinal stenosis TIA (transient ischemic attack) multiple--last around 2010--no deficits--reason for clopidogrel Urinary tract infection currently has Surgical History H/O ureter repair History of appendectomy History of bilateral cataract extraction History of bilateral tubal ligation History of carpal tunnel surgery of right wrist History of colonoscopy History of dilatation and curettage History of esophagogastroduodenoscopy (EGD) History of mandibular surgery wired shut for denture surgery History of nephrolithotomy with removal of calculi x2 History of partial thyroidectomy 3/4 removed History of tooth extraction all teeth History of total hysterectomy with bilateral salpingo-oophorectomy (BSO) History of total left knee replacement (TKR) Hx of spinal surgery coccygectomy L4-[address] Rodríguez Family History Mother Family history of diabetes mellitus Father Myocardial infarction Brother Myocardial infarction Sister Myocardial infarction Other No family history of adverse response to anesthesia Denies family history of Ovarian cancer Prostate cancer Breast cancer Colorectal cancer Social History Smoking Status: Never smoker Second Hand Exposure: No; Hx Alcohol Use: No Hx Substance Use: No Preferred Language: [place]ese Communication Ability: Effective Band Nailer Required: No Beliefs That Will Affect Care: None marital status: / Current Living Situation: Alone Current Living Situation Comment: Apartment current occupational status: retired Feels Safe at Home: Yes Safety Concerns: Feels Safe At This Time caffeine: Yes Dental Care, Regularly: No Physical Activity Frequency: 1-2 Times per Week Seatbelt Use: always Sunscreen Use: Yes Assistive Devices: Denture - Upper, Denture - Lower and Walker Physical Exam Physical Exam: GENERAL: This is a 74 year old female that appears in mild pain. Laying on her left side. HEAD/FACE: Normocephalic and atraumatic. EYES: No drainage or conjunctival injection. ENT: Nose without bleeding or discharge. Oral mucosa moist. NECK: Full ROM without apparent pain. No swelling or masses noted. CHEST/AXILLA: Chest movement symmetrical. No deformities noted. BACK: Well healed surgical incision. No tenderness of the midline, facet joint, or SI joint. No myofascial spasm or trigger point noted. SKIN: [place], warm and dry. No rash noted. MS/EXTREMITY: Positive straight leg raise on the right. There is increased pain with strength testing on the right but strength is intact. NEURO: Alert and appears oriented. Speech is fluent. Cranial Nerves are grossly intact. PSYCH: Alert, pleasant, affect is calm Results (Pain Clinic) Diagnostic Review MRI Findings: LUMBAR SPINE MRI WITH AND WITHOUT CONTRAST HISTORY: hx L4-5 fusion, fall, intractable low back pain TECHNIQUE: Multiplanar multisequence MRI of the lumbar spine was performed both before and after the intravenous administration of contrast. COMPARISON: Lumbar spine CT 08/04/2020. Lumbar spine MRI 04/05/2015. FINDINGS: For the purpose of the report the L5-S1 disc space will be located on axial image 23 of 25. Stable 2 mm of anterolisthesis of L4 and L5. Disc spaces are relatively preserved for age. Small endplate osteophytes within the lumbar spine. The conus terminates at the L1-L2 disc space level. Posterior decompression fusion at L4- L5 with pedicle screws and rods. The sacrum appears intact. A few T2 hyperintense lesions within the kidneys are again noted. These are suboptimally assessed due to motion artifact but appear stable. L1-L2: No significant central canal or neural foraminal narrowing. L2-L3: No significant central canal or neural foraminal narrowing. L3-L4: Small broad-based posterior disc bulge with ligamentum and facet hypertrophy resulting in mild central canal and mild bilateral neural foraminal narrowing. This has slightly progressed. L4-L5: No central canal narrowing due to the posterior decompression. Small broad-based posterior disc bulge is noted. There is moderate right and mild left neural foraminal narrowing. This is unchanged. L5-S1: Interval progression of a right paracentral disc extrusion which now measures 6 x 5 mm. This compresses the transiting right S1 nerve root. There is also mild to moderate central canal narrowing at this level due to the disc bulge and ligamentum flavum and facet hypertrophy. This has also progressed. No significant neural foraminal narrowing. IMPRESSION: 1. Interval progression of the 6 x 5 mm right paracentral disc extrusion at L5- S1. This compresses the transiting right S1 nerve root. 2. Clce-hp-avnvybof central canal narrowing at L5-S1 has also progressed. 3. L4-5 posterior decompression fusion with pedicle screws and rods. 4. Additional degenerative changes as described above. ACT 112: Negative or not required by law. Electronically signed by: Venkat Oneal M.D. 08/17/2020 2:28 PM
--- NOTE | 2020-09-04 09:32 | XRay Report ---
XR hip RT 2V w pelvis HISTORY: 74 years-old Female R hip/thigh pain acute right lower leg and hip pain COMPARISON: CT abdomen and pelvis 08/28/2020 TECHNIQUE: AP view of the pelvis with 2 views of the right hip FINDINGS: Posterior interbody debbi and screw fusion hardware at L4-L5. Lucency surrounds the bilateral L4 pedicl e screws. 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 No acu te fracture, dislocation or avascular necrosis. The patient is slightly rotated on the AP view of the pelvis. Calcified granulomata of the left gluteal tissues. IMPRESSION: 1. No acute fracture or dislocation. 2. Laminectomy with posterior interbody debbi and screw fusion at L4-L5. Lucency surrounding the bilate ral L4 pedicle screws suggests hardware loosening. ACT 112: Negative or not required by law. The above report was generated using voice recognition software. It may contain grammatical, syntax o r spelling errors. Electronically signed by: Iggy Salter M.D. 09/04/2020 9:30 AM
[2020-09-04] MEDS: FERROUS GLUCONATE 324 MG TAB PO SCH (09:35)
[2020-09-04] MEDS: PANTOprazole 40 MG TAB PO SCH (09:35)
[2020-09-04] MEDS: MULTIVITAMIN TAB PO SCH (09:35)
[2020-09-04] MEDS: MIRABEGRON ER 25 MG TAB PO SCH (09:35)
[2020-09-04] MEDS: ISOSORBIDE MONO EXTENDED REL 30 MG TABCR PO SCH (09:36)
[2020-09-04] MEDS: DULoxetine HCL 60 MG CAP PO SCH (09:36)
[2020-09-04] MEDS: amLODIPine BESYLATE 5 MG TAB PO SCH (09:36)
[2020-09-04] MEDS: busPIRone 5 MG TAB PO SCH ×2 (09:36→20:24)
[2020-09-04] MEDS: LIDOCAINE 5% 1 PATCH TD SCH (09:36)
[2020-09-04] MEDS: METOPROLOL SUCC 50MG EXT REL TAB PO SCH (09:36)
[2020-09-04] MEDS: INSULIN ASPART 100 UNITS/ML 3 ML PEN SC SCH ×4 (09:41→20:55)
[2020-09-04] MEDS: PREGABALIN 50 MG CAP PO SCH ×2 (09:47→20:24)
[2020-09-04] MEDS: HYDROCODONE/ACETAMOPHEN 5/325MG TAB PO PRN ×2 (13:32→22:02)
--- NOTE | 2020-09-04 13:56 | Hospitalist Progress Note ---
Date of Service September 04, 2020 Assessment & Plan (1) Pain of right leg: * Lumbar disc herniation/right leg pain/generalized weakness/sciatica/failure of outpatient treatment- * Patient's presentation is very similar to when I admitted her on 08/15 and will try and limit narcotic medications when able * Continue lyrica, cymbalta, tramadol * Hydrocodone for breakthrough pain and has only utilized 1 dose since admission * Pain consulted -- patient was initially to see our group but outpt was seen by Dr. Ashford who rec therapy and if unsuccessful would consider injection however she proceeded to ER rather than calling their office at this time for acute R hip/back pain. * Consulted PT/OT to see about possible inpatient rehab and will need to arrange outpt f/u with [facility] for injection as she would like to continue with their group at this time. * --> Will need plavix held prior to injection * Xray hip/pelvis w/o fracture * Continue to monitor (2) Lumbar disc herniation: Seen on imaging prior as well. Per previous discussion with Dr. Chambers, non-operative at this time (3) Failure of outpatient treatment: See above (4) CAD (coronary atherosclerotic disease): CAD/hypertension- Continue all routine medications except clopidogrel for possible injection to be scheduled as outpatient (last dose 09/02) (5) Hypertension: BP stable 147/68 See above (6) Weakness: See above. Deconditioning likely. UA without evidence of infection. Has been afebrile, no white count PT/OT as above (7) Sciatica: See above (8) Anxiety: Continue usual medications (9) Hypothyroidism: Continue usual medications Dispo: awaiting PT/OT consultation and will need set up with [facility] for outpatient injection (holding plavix) Admission and Anticipated Discharge Date Admission Date: September 03, 2020 Subjective Patient evaluated this morning. Initially sleeping in bed but easily arousable. States pain primarily in right hip and back which has been going on for some time. No radiation/numbness/tingling or bowel/bladder incontinence or saddle p aresthesias. Utilizing tramadol [facility] [employer] given history of polypharmacy. Had been seen by [facility] outpatient whom recommended therapy and if unsuccessful would consider injection. Patient instead proceeded to ER for uncontrolled pain, currently well controlled with addition of hydrocodone. Will ask PT/OT to see while inpatient as patient agreeable to rehab if recommended and will plan for injection outpatient but will need to be off her plavix. No fever, chills, chest pain, shortness of breath, abdominal pain or dysuria at this time. Review of Systems Review of Systems: All systems reviewed & are unremarkable except as noted in HPI & below Physical Exam Physical Exam: GENERAL: This is a 74 year old female that appears in no acute distress, sleeping in bed. Minimal discomfort with movement in bed to her right hip/back. HEAD/FACE: Normocephalic and atraumatic. EYES: PERRLA, EOMI ENT: MMM. NECK: trachea midline. no abn noted CHEST/AXILLA: Chest movement symmetrical. No deformities noted. CTAB, no w/c/r. BACK: Well healed surgical incision. No tenderness of the midline, facet joint, or SI joint. No myofascial spasm or trigger point noted. strength equal bilaterally SKIN: [place], warm and dry. No rash noted. MS/EXTREMITY: Positive straight leg raise on the right. There is increased pain with strength testing on the right but strength is intact. NEURO: Alert and appears oriented. Speech is fluent. Cranial Nerves are grossly intact. PSYCH: Alert, pleasant, affect is calm Results & Data Results & Data ([facility]) Vital Signs (Past 12 Hours) Vital Signs Temp Pulse Resp BP Pulse Ox 09/04/20 07:08 36.7 C 61 16 147/68 H 95 Laboratory Results 09/04/20 09/04/20 09/03/20 Range/Units 11:59 08:16 20:27 WBC (4.8-10.8) K/uL RBC (4.2-5.4) M/uL Hgb (12.0-16.0) g/dL Hct (37-47) % MCV (80-100) fL MCH (25-34) pg MCHC (32-36) g/dL RDW Std Deviation (36.4-46.3) fL RDW Coeff of Adryan (11.5-14.5) % Plt Count (130-400) K/uL MPV (7.4-10.4) fL Immature Gran % (Auto) % Neut % (Auto) % Lymph % (Auto) % Frederick % (Auto) % Eos % (Auto) % Baso % (Auto) % Neut # (Auto) (1.4-6.5) K/uL Lymph # (Auto) (1.2-3.4) K/uL [place] # (Auto) (0.11-0.59) K/uL Eos # (Auto) (0-0.5) K/uL Baso # (Auto) (0-0.2) K/uL Immature Gran # (Auto) (0.00-0.02) K/uL Sodium (136-145) mmol/L Potassium (3.5-5.1) mmol/L Chloride (98-107) mmol/L Carbon Dioxide (21-32) mmol/L Anion Gap (3-11) BUN (7-18) mg/dl Creatinine (0.6-1.2) mg/dl Est Cr Clr Drug Dosing ml/min Est GFR ( Amer) Est GFR (Non-Af Amer) BUN/Creatinine Ratio (10-20) Glucose (70-99) mg/dl POC Glucose 127 H 107 H 141 H (70-99) mg/dl Estimat Average Glucose mg/dl Hemoglobin A1c (4.5-5.6) % Calcium (8.5-10.1) mg/dl Magnesium (1.8-2.4) mg/dl Total Bilirubin (0.2-1) mg/dl AST (15-37) U/L ALT (12-78) U/L Alkaline Phosphatase (45-117) U/L Total Creatine Kinase (26-192) U/L Troponin I (0-0.045) ng/ml Total Protein (6.4-8.2) gm/dl Albumin (3.4-5.0) gm/dl Globulin (2.5-4.0) gm/dl Albumin/Globulin Ratio (0.9-2) TSH (0.300-4.500) uIu/ml Urine Color Urine Appearance (Clear) Urine pH (4.5-7.5) Ur Specific [place] (1.000-1.030) Urine Protein (Negative) Urine Glucose (UA) (Negative) Urine Ketones (Negative) Urine Blood (Negative) Urine Nitrite (Negative) Urine Bilirubin (Negative) Urine Urobilinogen (Negative) Ur Leukocyte Esterase (Negative) Urine WBC (Auto) (0-5) /hpf Urine RBC (Auto) (0-4) /hpf U Hyaline Cast (Auto) (0-5) /lpf U Epithel Cells (Auto) (0-5) /lpf Urine Bacteria (Auto) (Negative) 09/03/20 09/03/20 09/03/20 Range/Units 18:47 15:04 14:02 WBC (4.8-10.8) K/uL RBC (4.2-5.4) M/uL Hgb (12.0-16.0) g/dL Hct (37-47) % MCV (80-100) fL MCH (25-34) pg MCHC (32-36) g/dL RDW Std Deviation (36.4-46.3) fL RDW Coeff of Adryan (11.5-14.5) % Plt Count (130-400) K/uL MPV (7.4-10.4) fL Immature Gran % (Auto) % Neut % (Auto) % Lymph % (Auto) % Frederick % (Auto) % Eos % (Auto) % Baso % (Auto) % Neut # (Auto) (1.4-6.5) K/uL Lymph # (Auto) (1.2-3.4) K/uL Frederick # (Auto) (0.11-0.59) K/uL Eos # (Auto) (0-0.5) K/uL Baso # (Auto) (0-0.2) K/uL Immature Gran # (Auto) (0.00-0.02) K/uL Sodium (136-145) mmol/L Potassium (3.5-5.1) mmol/L Chloride (98-107) mmol/L Carbon Dioxide (21-32) mmol/L Anion Gap (3-11) BUN (7-18) mg/dl Creatinine (0.6-1.2) mg/dl Est Cr Clr Drug Dosing ml/min Est GFR ( Amer) Est GFR (Non-Af Amer) BUN/Creatinine Ratio (10-20) Glucose (70-99) mg/dl POC Glucose 73 (70-99) mg/dl Estimat Average Glucose 126 mg/dl Hemoglobin A1c 6.0 H (4.5-5.6) % Calcium (8.5-10.1) mg/dl Magnesium (1.8-2.4) mg/dl Total Bilirubin (0.2-1) mg/dl AST (15-37) U/L ALT (12-78) U/L Alkaline Phosphatase (45-117) U/L Total Creatine Kinase (26-192) U/L Troponin I (0-0.045) ng/ml Total Protein (6.4-8.2) gm/dl Albumin (3.4-5.0) gm/dl Globulin (2.5-4.0) gm/dl Albumin/Globulin Ratio (0.9-2) TSH (0.300-4.500) uIu/ml Urine Color Yellow Urine Appearance Clear (Clear) Urine pH 5.5 (4.5-7.5) Ur Specific [place] 1.021 (1.000-1.030) Urine Protein Trace H (Negative) Urine Glucose (UA) Negative (Negative) Urine Ketones Negative (Negative) Urine Blood Negative (Negative) Urine Nitrite Negative (Negative) Urine Bilirubin Negative (Negative) Urine Urobilinogen Negative (Negative) Ur Leukocyte Esterase Negative (Negative) Urine WBC (Auto) 1-5 (0-5) /hpf Urine RBC (Auto) 0-4 (0-4) /hpf U Hyaline Cast (Auto) 1-5 (0-5) /lpf U Epithel Cells (Auto) >30 H (0-5) /lpf Urine Bacteria (Auto) Negative (Negative) 09/03/20 09/03/20 Range/Units 14:02 13:08 WBC 6.23 (4.8-10.8) K/uL RBC 4.15 L (4.2-5.4) M/uL Hgb 13.5 (12.0-16.0) g/dL Hct 40.1 (37-47) % MCV 96.6 (80-100) fL MCH 32.5 (25-34) pg MCHC 33.7 (32-36) g/dL RDW Std Deviation 47.1 H (36.4-46.3) fL RDW Coeff of Adryan 13.3 (11.5-14.5) % Plt Count 197 (130-400) K/uL MPV 9.3 (7.4-10.4) fL Immature Gran % (Auto) 0.3 % Neut % (Auto) 54.6 % Lymph % (Auto) 28.3 % Frederick % (Auto) 14.0 % Eos % (Auto) 2.6 % Baso % (Auto) 0.2 % Neut # (Auto) 3.41 (1.4-6.5) K/uL Lymph # (Auto) 1.76 (1.2-3.4) K/uL Frederick # (Auto) 0.87 H (0.11-0.59) K/uL Eos # (Auto) 0.16 (0-0.5) K/uL Baso # (Auto) 0.01 (0-0.2) K/uL Immature Gran # (Auto) 0.02 (0.00-0.02) K/uL Sodium 139 (136-145) mmol/L Potassium 3.9 (3.5-5.1) mmol/L Chloride 106 (98-107) mmol/L Carbon Dioxide 31 (21-32) mmol/L Anion Gap 2.0 L (3-11) BUN 16 (7-18) mg/dl Creatinine 1.00 (0.6-1.2) mg/dl Est Cr Clr Drug Dosing 49.8 ml/min Est GFR ( Amer) 63.4 Est GFR (Non-Af Amer) 54.7 BUN/Creatinine Ratio 16.3 (10-20) Glucose 112 H (70-99) mg/dl POC Glucose (70-99) mg/dl Estimat Average Glucose mg/dl Hemoglobin A1c (4.5-5.6) % Calcium 9.1 (8.5-10.1) mg/dl Magnesium 2.0 (1.8-2.4) mg/dl Total Bilirubin 0.3 (0.2-1) mg/dl AST 24 (15-37) U/L ALT 35 (12-78) U/L Alkaline Phosphatase 135 H (45-117) U/L Total Creatine Kinase 80 (26-192) U/L Troponin I < 0.015 (0-0.045) ng/ml Total Protein 7.6 (6.4-8.2) gm/dl Albumin 3.7 (3.4-5.0) gm/dl Globulin 3.9 (2.5-4.0) gm/dl Albumin/Globulin Ratio 0.9 (0.9-2) TSH 0.333 (0.300-4.500) uIu/ml Urine Color Urine Appearance (Clear) Urine pH (4.5-7.5) Ur Specific [place] (1.000-1.030) Urine Protein (Negative) Urine Glucose (UA) (Negative) Urine Ketones (Negative) Urine Blood (Negative) Urine Nitrite (Negative) Urine Bilirubin (Negative) Urine Urobilinogen (Negative) Ur Leukocyte Esterase (Negative) Urine WBC (Auto) (0-5) /hpf Urine RBC (Auto) (0-4) /hpf U Hyaline Cast (Auto) (0-5) /lpf U Epithel Cells (Auto) (0-5) /lpf Urine Bacteria (Auto) (Negative) Diagnostic Findings Hip/Pelvis 2 V Right IMPRESSION: 1. No acute fracture or dislocation. 2. Laminectomy with posterior interbody debbi and screw fusion at L4-L5. Lucency surrounding the bilateral L4 pedicle screws suggests hardware loosening. PG Care Time/CCT Total # of Minutes Spent Total Time Spent with Patient: Total time spent is greater than 50% in coordination of care (as documented) at patient's floor/unit and/or counseling patient: Coding Level of Care Code 52963 Subseq Obs Care Lvl 2 Diagnoses Pain of right leg M79.604 Lumbar disc herniation M51.26 Failure of outpatient treatment Z78.9 CAD (coronary atherosclerotic disease) I25.10 Hypertension I10 Weakness R53.1 Sciatica M54.31 Laterality: right Anxiety F41.9 Hypothyroidism E03.9 (1) Sciatica Laterality: right Qualified Code(s): M54.31 - Sciatica, right side
[2020-09-04] MEDS: MAGNESIUM HYDROXIDE SUSP 30 ML UDC PO PRN (16:18)
[2020-09-04] MEDS: CLOPIDOGREL BISULFATE 75 MG TAB PO SCH (20:24)
[2020-09-04] MEDS: ENOXAPARIN INJ 30 MG/0.3 ML SYR SQ SCH (20:24)
[2020-09-04] MEDS: traMADol HCL 50 MG TABLET PO SCH (20:24)
[2020-09-04] MEDS: SIMVASTATIN 20 MG TAB PO SCH (20:24)
[2020-09-05] MEDS ORDERED: MoRPHine SULFATE 2 MG/ML CARP IV STA (00:59)
[2020-09-05 03:27] LABS: Appearance Urine Clear (Clear); Bilirubin Urine Negative (Negative); Blood Urine Negative (Negative); Color Urine Yellow; Glucose Urine UA Negative (Negative); Ketones Urine Negative (Negative); Leukocyte Esterase Urine Negative (Negative); Nitrite Urine Negative (Negative); Protein Urine Negative (Negative); Specific Gravity Urine 1.008 (1.000-1.030); Urobilinogen Urine Negative (Negative)
[2020-09-05] MEDS: ACETAMINOPHEN 500 MG TAB PO SCH ×3 (06:08→21:58)
[2020-09-05] MEDS: LEVOTHYROXINE SODIUM 112 MCG TABLET PO SCH (06:10)
[2020-09-05] MEDS: traMADol HCL 50 MG TABLET PO SCH ×3 (08:36→20:03)
[2020-09-05] MEDS: ISOSORBIDE MONO EXTENDED REL 30 MG TABCR PO SCH (08:36)
[2020-09-05] MEDS: DULoxetine HCL 60 MG CAP PO SCH (08:37)
[2020-09-05] MEDS: FERROUS GLUCONATE 324 MG TAB PO SCH (08:37)
[2020-09-05] MEDS: PREGABALIN 50 MG CAP PO SCH ×2 (08:37→20:03)
[2020-09-05] MEDS: busPIRone 5 MG TAB PO SCH ×2 (08:38→20:04)
[2020-09-05] MEDS: PANTOprazole 40 MG TAB PO SCH (08:38)
[2020-09-05] MEDS: METOPROLOL SUCC 50MG EXT REL TAB PO SCH (08:38)
[2020-09-05] MEDS: amLODIPine BESYLATE 5 MG TAB PO SCH (08:38)
[2020-09-05] MEDS: MULTIVITAMIN TAB PO SCH (08:39)
[2020-09-05] MEDS: MIRABEGRON ER 25 MG TAB PO SCH (08:39)
[2020-09-05] MEDS: LIDOCAINE 5% 1 PATCH TD SCH (08:40)
[2020-09-05] MEDS: INSULIN ASPART 100 UNITS/ML 3 ML PEN SC SCH ×4 (08:40→21:53)
--- NOTE | 2020-09-05 12:36 | Hospitalist Progress Note ---
Date of Service September 05, 2020 Assessment & Plan (1) Radicular pain of right lower extremity: Mrs. Gonzalez is a 74 year old female with a history of Non-Obstructive CAD, Mild Aortic Stenosis, Hypertension, Dyslipidemia, Type 2 Diabetes Mellitus, history of TIA, GERD with Henderson's Esophagus, Atypical Chest Pain, and Palpitations who was admitted on 09/03/2020 with intractable back and radicular pain. -- Evaluated by Dr. Chambers who feels that this is a non-operative issue. -- Pain management evaluated her as well. -- Recommend steroid injection as an outpatient. -- Hold Plavix for 7 days leading up to that procedure. -- Continue Lyrica, Tramadol, Lidocaine Patch, and Hydrocodone/APAP as prescribed. -- IV Solumedrol 80 mg x 1 dose today. -- PT/OT to evaluate, may need a stay at a rehabilitation hospital. (2) CAD (coronary atherosclerotic disease): Patient is asymptomatic from a cardiac standpoint. Continue the followin. Plavix 75 mg daily. 2. Toprol XL 50 mg daily. 3. Imdur ER 30 mg daily. 4. Simvastatin 20 mg daily. (3) Hypertension: BP is elevated. Pain is likely playing a role in this elevation. 1. Amlodipine 5 mg daily. 2. Toprol XL 50 mg daily. 3. Imdur ER 30 mg daily. (4) Lumbar disc herniation: Management as outlined above. Admission and Anticipated Discharge Date Admission Date: September 03, 2020 Subjective Mrs. Gonzalez is a 74 year old female with a history of Non-Obstructive CAD, Mild Aortic Stenosis, Hypertension, Dyslipidemia, Type 2 Diabetes Mellitus, history of TIA, GERD with Henderson's Esophagus, Atypical Chest Pain, and Palpitations who was admitted on 09/03/2020 with intractable back and radicular pain. Evaluated by Dr. Chambers who feels that this is a non-operative issue. Pain management evaluated her as well. They recommended that she have a steroid injection as an outpatient, as she would have to hold her Plavix for 7 days leading up to that procedure. Patient continues to complain of back pain with radicular pain down her right leg. She feels that she is unable to care for herself at home. Imaging has shown grade I anterolisthesis of L4 on L5, with disc space narrowing at L4-L5 and L5-S1. Physical Exam Physical Exam: GENERAL: Patient appears uncomfortable and is tearful throughout the interview. HEENT: Head is atraumatic, normocephalic. EOM's intact. Facies symmetric. No perioral cyanosis. NECK: No JVD. JVP is at the level of the clavicle sitting upright. Carotid upstrokes are + 2 bilaterally. No bruits are noted. CHEST/LUNGS: Clear to auscultation throughout all lung garza. No wheezes, rales, or crackles. CVS: S1 and S2 are regular with a grade 1/6 basal systolic murmur heard best over the right 2nd intercostal space. No obvious diastolic murmurs, gallops, or rubs. PMI is nondisplaced. No lifts, heaves, or thrills. No abdominal aortic or renal bruits. ABDOMINAL EXAM: Bowel sounds are present. No masses, organomegaly, or tenderness. EXTREMITIES: No clubbing or cyanosis. No edema. Intact posterior tibial and radial pulses bilaterally. NEUROLOGIC EXAM: Patient is awake, alert, and oriented. Pleasant and cooperative. Answers questions appropriately. Speech is clear. She appears to have normal strength in bilateral lower extremity major muscle groups to manual muscle testing. Gait pattern was not assessed. Results & Data Results & Data ([facility]) Vital Signs (Past 12 Hours) Vital Signs Temp Pulse Resp BP Pulse Ox 09/05/20 07:04 36.4 C L 64 18 162/85 H 96 Laboratory Results Laboratory Results - last 24 hr 09/04/20 09/04/20 09/05/20 17:00 20:53 02:11 POC Glucose 113 H 76 Urine Color Yellow Urine Appearance Clear Urine pH 7.0 Ur Specific [place] 1.008 Urine Protein Negative Urine Glucose (UA) Negative Urine Ketones Negative Urine Blood Negative Urine Nitrite Negative Urine Bilirubin Negative Urine Urobilinogen Negative Ur Leukocyte Esterase Negative 09/05/20 09/05/20 07:15 11:51 POC Glucose 89 143 H Urine Color Urine Appearance Urine pH Ur Specific [place] Urine Protein Urine Glucose (UA) Urine Ketones Urine Blood Urine Nitrite Urine Bilirubin Urine Urobilinogen Ur Leukocyte Esterase Medications Administered Active Medications Generic Name Dose Route Start Last Admin Trade Name Freq PRN Reason Stop Dose Admin Acetaminophen 1,000 mg 09/03/20 22:00 09/05/20 13:27 Acetaminophen 500 Mg Tab PO 10/03/20 21:59 1,000 mg Q8H SEVEN Administration Acetaminophen 650 mg 09/03/20 18:21 Acetaminophen 325 Mg Tab PO 10/03/20 18:20 Q4H PRN pain/fever Hydrocodone Bitart/Acetaminophen 1 tab 09/03/20 18:27 09/04/20 22:02 Hydrocodone/Acetamophen 5/325mg Tab PO 09/17/20 18:26 1 tab Q6H PRN Administration pain, severe Al Hydrox/Mg Hydrox/Simethicone 30 ml 09/03/20 18:21 Aluminum/Magnesium Susp 30 Ml Udc PO 10/03/20 18:20 Q6H PRN Dyspepsia Amlodipine Besylate 5 mg 09/04/20 09:00 09/05/20 08:38 Amlodipine Besylate 5 Mg Tab PO 10/04/20 08:59 5 mg QAM SEVEN Administration Buspirone HCl 5 mg 09/03/20 21:00 09/05/20 08:38 Buspirone 5 Mg Tab PO 10/03/20 20:59 5 mg BID SEVEN Administration Clopidogrel Bisulfate 75 mg 09/03/20 21:00 09/04/20 20:24 Clopidogrel Bisulfate 75 Mg Tab PO 10/03/20 20:59 75 mg HS SEVEN Administration Dextrose 25 - 50 ml 09/03/20 18:21 Dextrose 50% 50 Ml Syringe IV 10/03/20 18:20 UD PRN Hypoglycemia Protocol Protocol Duloxetine HCl 60 mg 09/04/20 09:00 09/05/20 08:37 Duloxetine Hcl 60 Mg Cap PO 10/04/20 08:59 60 mg QAM SEVEN Administration Enoxaparin Sodium 30 mg 09/03/20 21:00 09/04/20 20:24 Enoxaparin Inj 30 Mg/0.3 Ml Syr SQ 10/03/20 20:59 30 mg Q24H SEVEN Administration Ferrous Gluconate 324 mg 09/04/20 09:00 09/05/20 08:37 Ferrous Gluconate 324 Mg Tab PO 10/04/20 08:59 324 mg QAM SEVEN Administration Glucagon 1 mg 09/03/20 18:21 Glucagon For Inj 1 Mg Vial SQ 10/03/20 18:20 UD PRN Hypoglycemia Protocol Protocol Glucose 4 - 8 tabs 09/03/20 18:21 Glucose 10 Tabs/Tube PO 10/03/20 18:20 UD PRN Hypoglycemia Protocol Protocol Glucose 15 - 30 gm 09/03/20 18:21 Glucose 40% Gel 15 Gm Tube PO 10/03/20 18:20 UD PRN Hypoglycemia Protocol Protocol Insulin Aspart 0 units 09/03/20 19:00 09/05/20 13:22 Insulin Aspart 100 Units/Ml 3 Ml Pen SC 10/03/20 18:59 4 units ACHS SEVEN Administration Isosorbide Mononitrate 30 mg 09/04/20 09:00 09/05/20 08:36 Isosorbide Saline Extended Rel 30 Mg Tabcr PO 10/04/20 08:59 30 mg QAM SEVEN Administration Levothyroxine Sodium 112 mcg 09/04/20 06:30 09/05/20 06:10 Levothyroxine Sodium 112 Mcg Tablet PO 10/04/20 06:29 112 mcg DAILYBB SEVEN Administration Lidocaine 1 patch 09/04/20 09:00 09/05/20 08:40 Lidocaine 5% 1 Patch TD 10/04/20 08:59 1 patch QAM SEVEN Administration Magnesium Hydroxide 30 ml 09/03/20 18:21 09/04/20 16:18 Magnesium Hydroxide Susp 30 Ml Udc PO 10/03/20 18:20 30 ml Q6H PRN Administration Constipation Metoprolol Succinate 50 mg 09/04/20 09:00 09/05/20 08:38 Metoprolol Succ 50mg Ext Rel Tab PO 10/04/20 08:59 50 mg QAM SEVEN Administration Mirabegron 25 mg 09/04/20 09:00 09/05/20 08:39 Mirabegron Er 25 Mg Tab PO 10/04/20 08:59 25 mg QAM SEVEN Administration Miscellaneous 15 - 30 gm 09/03/20 18:21 Carbohydrates For Hypoglycemia PO 10/03/20 18:20 UD PRN Hypoglycemia Protocol Miscellaneous 1 ea 09/03/20 21:00 09/04/20 20:27 Remove Lidoderm Patch N/A 10/03/20 20:59 1 ea DAILY@2100 SEVEN Administration Multivitamins 1 tab 09/04/20 09:00 09/05/20 08:39 Multivitamin Tab PO 10/04/20 08:59 1 tab QAM SEVEN Administration Nitroglycerin 0.4 mg 09/03/20 18:21 Nitroglycerin Sl 0.4 Mg/Tab Tab SL 10/03/20 18:20 UD PRN Chest Pain Ondansetron HCl 4 mg 09/03/20 18:21 Ondansetron Inj 2 Mg/Ml 2 Ml Vial IV 10/03/20 18:20 Q6H PRN Nausea Pantoprazole Sodium 40 mg 09/04/20 09:00 09/05/20 08:38 Pantoprazole 40 Mg Tab PO 10/04/20 08:59 40 mg QAM SEVEN Administration Pregabalin 50 mg 09/03/20 21:00 09/05/20 08:37 Pregabalin 50 Mg Cap PO 10/03/20 20:59 50 mg BID SEVEN Administration Simvastatin 20 mg 09/03/20 21:00 09/04/20 20:24 Simvastatin 20 Mg Tab PO 10/03/20 20:59 20 mg HS SEVEN Administration Tramadol HCl 50 mg 09/04/20 21:00 09/05/20 13:27 Tramadol Hcl 50 Mg Tablet PO 10/04/20 20:59 50 mg TID SEVEN Administration PG Care Time/CCT Total # of Minutes Spent Total Time Spent with Patient: Total time spent is greater than 50% in coordination of care (as documented) at patient's floor/unit and/or counseling patient:25 Coding Level of Care Code 35977 Subseq Hosp Care Lvl 2 Diagnoses Radicular pain of right lower extremity M54.10 CAD (coronary atherosclerotic disease) I25.10 Hypertension I10 Lumbar disc herniation M51.26
[2020-09-05] MEDS ORDERED: methylPREDNISolone 100 MG in SYRINGE 0 ML IV ONE (17:15)
[2020-09-05] MEDS: SIMVASTATIN 20 MG TAB PO SCH (20:04)
[2020-09-05] MEDS: CLOPIDOGREL BISULFATE 75 MG TAB PO SCH (20:04)
[2020-09-05] MEDS: ENOXAPARIN INJ 30 MG/0.3 ML SYR SQ SCH (20:04)
[2020-09-06] MEDS: ACETAMINOPHEN 500 MG TAB PO SCH ×3 (05:50→22:13)
[2020-09-06] MEDS: LEVOTHYROXINE SODIUM 112 MCG TABLET PO SCH (05:50)
[2020-09-06] MEDS: MAGNESIUM HYDROXIDE SUSP 30 ML UDC PO PRN (05:50)
[2020-09-06] MEDS: INSULIN ASPART 100 UNITS/ML 3 ML PEN SC SCH ×4 (08:40→21:23)
[2020-09-06] MEDS: amLODIPine BESYLATE 5 MG TAB PO SCH (08:43)
[2020-09-06] MEDS: ISOSORBIDE MONO EXTENDED REL 30 MG TABCR PO SCH (08:43)
[2020-09-06] MEDS: MULTIVITAMIN TAB PO SCH (08:43)
[2020-09-06] MEDS: DULoxetine HCL 60 MG CAP PO SCH (08:44)
[2020-09-06] MEDS: METOPROLOL SUCC 50MG EXT REL TAB PO SCH (08:44)
[2020-09-06] MEDS: busPIRone 5 MG TAB PO SCH ×2 (08:44→21:33)
[2020-09-06] MEDS: PANTOprazole 40 MG TAB PO SCH (08:44)
[2020-09-06] MEDS: FERROUS GLUCONATE 324 MG TAB PO SCH (08:44)
[2020-09-06] MEDS: MIRABEGRON ER 25 MG TAB PO SCH (08:45)
[2020-09-06] MEDS: LIDOCAINE 5% 1 PATCH TD SCH (08:45)
[2020-09-06] MEDS: PREGABALIN 50 MG CAP PO SCH ×2 (09:01→21:33)
[2020-09-06] MEDS: traMADol HCL 50 MG TABLET PO SCH ×3 (09:01→21:32)
--- NOTE | 2020-09-06 10:09 | Hospitalist Progress Note ---
Date of Service September 06, 2020 Assessment & Plan (1) Radicular pain of right lower extremity: Admitted on 09/03/2020 with intractable back and radicular pain. -- Evaluated by Dr. Chambers. No surgical interventions planned. -- Pain management evaluated as well. Recommend steroid injection as an outpatient. Hold Plavix for 7 days leading up to that procedure. -- Continue Lyrica, Tramadol, Lidocaine Patch, and Hydrocodone/APAP as prescribed. -- IV Solumedrol 80 mg x 1 dose 09/05/20. -- PT/OT has been consulted. Patient is pending d/c to [facility] pending insurance approval. (2) CAD (coronary atherosclerotic disease): Patient is asymptomatic from a cardiac standpoint. Continue the followin. Plavix 75 mg daily. 2. Toprol XL 50 mg daily. 3. Imdur ER 30 mg daily. 4. Simvastatin 20 mg daily. Patient follows with Dr. Vila as an outpatient. She appears to have missed her routine follow-up in May. Will need rescheduled. (3) Hypertension: BP remains elevated at 171/73. She is asymptomatic other than pain. Continue to monitor. 1. Amlodipine 5 mg daily. 2. Toprol XL 50 mg daily. 3. Imdur ER 30 mg daily. (4) Lumbar disc herniation: Management as outlined above. Admission and Anticipated Discharge Date Admission Date: September 03, 2020 Disposition- [facility] pending insurance approval. Subjective 74-year-old female admitted for radicular pain on the right lower extremity. She reports her pain is a 5/10 this morning, but that she can tolerate the pain. Patient has been working with physical therapy. She is pending possible placement at [facility] pending insurance approval. Patient was seen by Dr. Chambers, and no surgical intervention is planned at this time. Consider steroid injection as an outpatient. Patient denies fever, chills, nausea, vomiting, or other complaints today. Review of Systems Constitutional: no fever and no chills Eyes: no worsening vision Ear, Nose, Mouth, Throat: no dizziness Respiratory: no dyspnea Cardiovascular: no chest pain Gastrointestinal: no abdominal pain, no nausea and no vomiting Psychiatric: no confusion Physical Exam Physical Exam: Temp Pulse Resp BP Pulse Ox 36.2 C L 78 16 171/73 H 96 09/06/20 07:27 09/06/20 07:27 09/06/20 07:27 09/06/20 07:27 09/06/20 07:27 Patient is afebrile. She is hypertensive at 171/73, but is asymptomatic. Constitutional: + overweight; no acute distress ENMT: Ears: no hearing impairment Neck: trachea midline, no thyromegaly Respiratory: normal respiratory effort, lungs clear to auscultation Cardiovascular: Rate/Rhythm: regular rate and regular rhythm Heart Sounds: + murmur Gastrointestinal (Abdomen): Inspection/Auscultation: normal bowel sounds Percussion/Palpation: abdomen soft; abdomen nontender Psychiatric: A+Ox3, euthymic affect Lymphatic: no lymphadenopathy Results & Data Results & Data ([facility]) Vital Signs (Past 12 Hours) Vital Signs Temp Pulse Resp BP Pulse Ox 09/06/20 07:27 36.2 C L 78 16 171/73 H 96 09/05/20 23:48 36.6 C 65 20 133/74 94 PG Care Time/CCT Total # of Minutes Spent Total Time Spent with Patient: Total time spent is greater than 50% in coordination of care (as documented) at patient's floor/unit and/or counseling patient: Coding Level of Care Code 83444 Subseq Hosp Care Lvl 2 History Expanded Problem Focused Exam Expanded Problem Focused Medical Decision Making Moderate Complexity Diagnoses Radicular pain of right lower extremity M54.10 CAD (coronary atherosclerotic disease) I25.10 Hypertension I10 Lumbar disc herniation M51.26
[2020-09-06] MEDS: ENOXAPARIN INJ 30 MG/0.3 ML SYR SQ SCH (21:32)
[2020-09-06] MEDS: SIMVASTATIN 20 MG TAB PO SCH (21:33)
[2020-09-06] MEDS: CLOPIDOGREL BISULFATE 75 MG TAB PO SCH (21:33)
[2020-09-07] MEDS: HYDROCODONE/ACETAMOPHEN 5/325MG TAB PO PRN (00:38)
--- NOTE | 2020-09-07 06:13 | Communication Note ---
Date of Service: September 07, 2020 Notified that pt has "wet cough" with shakes or chills. Currently afebrile. Consider further workup this AM. Resident Activity Tracking Resident Involvement: [employer]ator Coverage Note Care Provided: Adult Hospital Medicine
[2020-09-07] MEDS: ACETAMINOPHEN 500 MG TAB PO SCH ×3 (06:15→22:18)
[2020-09-07] MEDS: LEVOTHYROXINE SODIUM 112 MCG TABLET PO SCH (06:15)
[2020-09-07] MEDS: traMADol HCL 50 MG TABLET PO SCH ×3 (07:40→21:57)
[2020-09-07] MEDS: PREGABALIN 50 MG CAP PO SCH ×2 (07:41→21:57)
[2020-09-07] MEDS: DICLOFENAC SOD 1% GEL 100 GM TUBE EXT SCH ×4 (07:41→22:00)
[2020-09-07] MEDS: METOPROLOL SUCC 50MG EXT REL TAB PO SCH (09:21)
[2020-09-07] MEDS: PANTOprazole 40 MG TAB PO SCH (09:21)
[2020-09-07] MEDS: amLODIPine BESYLATE 5 MG TAB PO SCH (09:21)
[2020-09-07] MEDS: DULoxetine HCL 60 MG CAP PO SCH (09:22)
[2020-09-07] MEDS: FERROUS GLUCONATE 324 MG TAB PO SCH (09:22)
[2020-09-07] MEDS: MULTIVITAMIN TAB PO SCH (09:22)
[2020-09-07] MEDS: ISOSORBIDE MONO EXTENDED REL 30 MG TABCR PO SCH (09:22)
[2020-09-07] MEDS: LIDOCAINE 5% 1 PATCH TD SCH (09:22)
[2020-09-07] MEDS: MIRABEGRON ER 25 MG TAB PO SCH (09:22)
[2020-09-07] MEDS: INSULIN ASPART 100 UNITS/ML 3 ML PEN SC SCH ×4 (09:24→22:24)
[2020-09-07] MEDS: busPIRone 5 MG TAB PO SCH ×2 (10:32→21:58)
--- NOTE | 2020-09-07 17:55 | Hospitalist Progress Note ---
Date of Service September 07, 2020 Assessment & Plan (1) Radicular pain of right lower extremity: Aniyah Gonzalez is a 74-year-old female who was admitted on 09/03/2020 with intractable back and radicular pain. Radicular pain of right lower extremity - Evaluated by Dr. Chambers. No surgical interventions planned. - Pain management evaluated as well. Recommend steroid injection as an outpatient. Hold Plavix for 7 days leading up to that procedure. - Continue Lyrica, Tramadol, Lidocaine Patch, and Hydrocodone/APAP as prescribed - IV Solumedrol 80 mg x 1 dose 09/05/20 - PT/OT has been consulted. Patient is pending d/c to [facility] pending insurance approval. CAD - Continue Plavix 75 mg daily - Continue Toprol XL 50 mg daily - Continue Imdur ER 30 mg daily - Continue Simvastatin 20 mg daily - Patient follows with Dr. Vila as an outpatient Hypertension BP remains elevated at 171/73. She is asymptomatic other than pain. Continue to monitor. - Continue Amlodipine 5 mg daily - Continue Toprol XL - Continue Imdur ER Lumbar disc herniation - Management as outlined above DM type 2 - ISS FENGI: Heart healthy, Carb Consistent (DM2) DVT Ppx: Lovenox 20mg SQ daily Dispo: Med/Surg Code: Full Code (2) CAD (coronary atherosclerotic disease): (3) Hypertension: (4) Lumbar disc herniation: Admission and Anticipated Discharge Date Admission Date: September 06, 2020 Supervising Physician Co-Signing Physician Notes I personally examined the patient and verified all morrow points of history and exam, discussed case, and agree with decision making with Dr Tatum. still having pain but controllable overall. waiting rehab placement vitals noted nad heent nc at mmm laying flat on back mild degree of discomfort but not bad overall. breathing unlabored no accessory muscles good effort skin no rashes no pallor or icterus lumbar radiculopathy - ongoing current plan of management. next step rehab. stable for transfer once available. otherwise as above Subjective Pt seen at bedside. She complains of pain and is laying flat with a heating pad, which she feels does help her pain. She is aware that currently there are no plans for discharge and pain management recommended outpt injection. Denies red flag symptoms, no constipations, diarrhea, n/v, CP, palp, SOB. Review of Systems Review of Systems: All systems reviewed & are unremarkable except as noted in Subjective Physical Exam Constitutional: WD/WN, vitals as above no acute distress Respiratory: normal respiratory effort, lungs clear to auscultation Cardiovascular: RRR, no murmur, no edema Heart Sounds: normal S1 and normal S2 Psychiatric: A+Ox3, euthymic affect Results & Data Results & Data ([facility]) Vital Signs (Past 12 Hours) Vital Signs Temp Pulse Resp BP Pulse Ox 09/07/20 14:59 36.4 C L 64 17 107/62 96 09/07/20 10:34 137/73 09/07/20 07:29 36.4 C L 62 16 172/75 H 95 Resident Activity Tracking Resident Involvement: Resident Care Provided Care Provided: Adult Hospital Medicine
--- NOTE | 2020-09-07 18:32 | Billing Data ---
Date of Service September 07, 2020 Coding Level of Care Code 26867 Subseq Hosp Care Lvl 2
[2020-09-07] MEDS: ENOXAPARIN INJ 30 MG/0.3 ML SYR SQ SCH (21:57)
[2020-09-07] MEDS: CLOPIDOGREL BISULFATE 75 MG TAB PO SCH (21:58)
[2020-09-07] MEDS: SIMVASTATIN 20 MG TAB PO SCH (21:59)
[2020-09-08] MEDS: LEVOTHYROXINE SODIUM 112 MCG TABLET PO SCH (06:08)
[2020-09-08] MEDS: ACETAMINOPHEN 500 MG TAB PO SCH ×2 (06:08→15:03)
[2020-09-08] MEDS: INSULIN ASPART 100 UNITS/ML 3 ML PEN SC SCH ×2 (08:35→12:56)
--- NOTE | 2020-09-08 08:45 | Discharge Summary ---
Date of Service September 08, 2020 Admission HPI Per Admitting Provider The patient is a 74-year-old female was recently admitted to [facility] from 08/15-08/18 with similar complaints. At that visit, she had been prescribed higher doses of medications, including oxycodone and baclofen, to which she seemed to be oversedated. She reports taking less pain medications now, and has which she feels is more pain. She was to see pain management in the outpatient setting, but has not seen them yet. In the emergency department, she appears lethargic but is somewhat able to answer questions Admission Exam Per Admitting Provider The patient is awake, but lethargic, well developed and well nourished, normocephalic and atraumatic, lying in bed and in no acute distress. HEENT--PERRL, EOMI, mucous membranes and oropharynx dry. Neck--supple. No JVD. No bruits. Thyroid normal, trachea midline, no adenopathy. Heart--normal S1 and S2. No murmurs, rubs or gallops. Lungs--clear bilaterally, no respiratory distress, no accessory muscle use. Abdomen--normal bowel sounds and soft. Nontender. Nondistended. Extremities--no cyanosis or clubbing. No edema. Dermatologic--normal skin turgor, normal color, no abnormal lymph nodes, no rash. Neurologic--cranial nerves II through XII grossly intact. Rheumatologic--limited exam due to limited responsiveness Psychiatric--lethargic Principal Diagnosis Low back pain with right sided sciatica Discharge Exam Constitutional WD/WN, vitals as above no acute distress Respiratory normal respiratory effort, lungs clear to auscultation Cardiovascular RRR, no murmur, no edema Heart Sounds: normal S1 and normal S2 Psychiatric A+Ox3, euthymic affect Discharge Data Allergies Allergy/AdvReac Type Severity Reaction Status Date / Time adhesive Allergy Intermediate TAPE-HIVES Verified 09/03/20 13:35 fentanyl AdvReac Intermediate CONFUSION Verified 09/03/20 13:35 meloxicam AdvReac Intermediate SWELLING Verified 09/03/20 13:35 OF LEGS morphine AdvReac Intermediate "I GET Verified 09/03/20 13:35 REALLY CRAZY" pregabalin AdvReac Intermediate DIZZINESS, Verified 09/03/20 13:35 CONFUSION WITH HIGHER DOSES Consultations 09/03/20 14:54 ED Decision to Admit Stat 09/03/20 18:21 Consult Case Management - Discharge Planning Routine 09/03/20 20:38 Consult Pain Management Routine 09/06/20 10:09 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 Radicular pain of right lower extremity - Evaluated by Dr. Chambers, orthopedic surgeon. No surgical interventions planned. - Pain management evaluated as well. Recommended steroid injection as an outpatient - Hold Plavix for 7 days leading up to that procedure - Continued Lyrica, Tramadol, Lidocaine Patch, and Hydrocodone/APAP as prescribed - IV Solumedrol 80 mg x 1 dose 09/05/20 - PT/OT consulted. Patient will be d/c to [facility] today CAD - Continued Plavix 75 mg daily - Continued Toprol XL 50 mg daily - Continued Imdur ER 30 mg daily - Continued Simvastatin 20 mg daily - Patient follows with Dr. Vila as an outpatient Hypertension - BP remained elevated at 177/77 - Asymptomatic other than pain - Continued Amlodipine 5 mg daily - Continued Toprol XL - Continued Imdur ER Lumbar disc herniation - Management as outlined above DM type 2 - ISS FENGI: Heart healthy, Carb Consistent (DM2) Dispo: Inpt rehab Code: Full Code (2) CAD (coronary atherosclerotic disease): (3) Hypertension: (4) Lumbar disc herniation: Total Time Total Time Spent Total Time Spent (In Minutes): <30 Discharge Plan Discharge Items Patient Disposition: Transfer Inpatient Rehab Fac Reason For Visit: INTRACTABLE BACK/HIP PAIN Discharge Diagnosis: Intractable back/hip pain Condition on Discharge: Fair Activity: Per Instructions section Non-emergency contact: Primary Care Provider and Pain Management Call non-emergency contact if: your symptoms worsen and your pain is not controlled Follow-up/Referrals: Airam Malcolm CRNP [Primary Care Provider] - Matt Vila Jr, MD, FACC [Physician] - 09/17/20 3:15 pm (A follow up appt. with Dr. Vila was made for you on Sep.17 at 3:15pm.) Diet: Carb Consistent or DM2 and Heart Healthy Addtl Attending Provider Instructions: You were admitted due to back & hip pain that radiates down your right leg. During your admission you were evaluated for your known disc protrusion at the L5-S1 vertebrae level. Pain Management recommended that you have an epidural steroid injection with them as an outpatient. Additionally, per recommendations form the PT/OT team at out hospital, it was recommended that you stay at an inpatient rehabilitation unit for some time to work on improving your symptoms. Please follow up with the Pain Management clinic upon discharge for planning your injection procedure. Pending Studies at Discharge: No Stand-Alone Forms: [facility] Skilled Items Patient informed of condition?: Yes DNR: No Discharge Level of Care: Acute rehab Communicable Disease: No Discharge Prognosis: Stable Lines: None Urinary Catheter: No Medications and DC Order Prescriptions: Continued isosorbide mononitrate 30 mg tablet extended release 24 hr 30 mg PO QAM Qty: 90 RF: 3 clopidogrel 75 mg tablet 75 mg PO HS Qty: 90 RF: 1 levothyroxine 112 mcg tablet 112 mcg PO QAM Qty: 90 RF: 1 ferrous gluconate 324 mg (37.5 mg iron) tablet 324 mg PO QAM Qty: 90 RF: 3 pantoprazole 20 mg tablet,delayed release (DR/EC) 20 mg PO QAM Qty: 90 RF: 3 duloxetine 60 mg capsule,delayed release(DR/EC) 60 mg PO QAM Qty: 30 RF: 5 simvastatin 20 mg tablet 20 mg PO HS Qty: 30 RF: 5 amlodipine 5 mg tablet 5 mg PO QAM Qty: 30 RF: 5 Myrbetriq 25 mg tablet extended release 24 hr 25 mg PO QAM Qty: 30 RF: 5 metformin 500 mg tablet 500 mg PO BID Qty: 60 RF: 5 metoprolol succinate 50 mg tablet extended release 24 hr 50 mg PO QAM 30 Days Qty: 30 RF: 5 buspirone 5 mg tablet 5 mg PO BID Qty: 60 RF: 5 tramadol 50 mg tablet 50 mg PO Q6H PRN (Reason: pain) Qty: 30 RF: 0 multivitamin tablet 1 tab PO QAM RF: 0 pregabalin [Lyrica] 50 mg capsule 50 mg PO BID RF: 0 nitroglycerin 0.4 mg tablet, sublingual 0.4 mg sublingual DIRECTED PRN (Reason: Chest Pain) RF: 0 hydrocodone-acetaminophen [Hillman] 5-325 mg tablet 1 tab PO Q6H PRN (Reason: pain, severe) Qty: 12 RF: 0 lidocaine 5 % Adhesive Patch,Medicated 1 patch transdermal QAM Qty: 0 RF: 0 acetaminophen 500 mg Tablet 1,000 mg PO Q8H Qty: 0 RF: 0 Discharge Orders: Discharge Order (Routine); Ordered 09/08/20 Ordered By: Hunter Donato/Other Patient Handouts: Managing Type 2 Diabetes Admission Data Admit Date/Time: 09/06/20 15:20 Attending Provider: Les Motley Admit Provider: Ned Clark Primary Care Provider: Airam Malcolm Other Providers: Ned Clark ; Kalin Phillip ; [facility] Other Interventions: Discharge Summary Assessment (RN) Last Done: 09/08/20 13:45 Supervising Physician Co-Signing Physician Notes I personally examined the patient and verified all morrow points of history and exam, discussed case, and agree with decision making with Dr Tatum. approved for rehab. no new issues vitals noted nad heent nc at mmm sitting up on side of bed no distress eating. breathing unlabored no accessory muscles good effort skin no rashes no pallor or icterus lumbar radiculopathy - ongoing current plan of management. stable for rehab. ongoing outpt management as well. otherwise as above Resident Activity Tracking Resident Involvement: Resident Care Provided Care Provided: Adult Hospital Medicine
[2020-09-08] MEDS: METOPROLOL SUCC 50MG EXT REL TAB PO SCH (10:02)
[2020-09-08] MEDS: traMADol HCL 50 MG TABLET PO SCH ×2 (10:02→13:01)
[2020-09-08] MEDS: PREGABALIN 50 MG CAP PO SCH (10:02)
[2020-09-08] MEDS: PANTOprazole 40 MG TAB PO SCH (10:02)
[2020-09-08] MEDS: amLODIPine BESYLATE 5 MG TAB PO SCH (10:02)
[2020-09-08] MEDS: busPIRone 5 MG TAB PO SCH (10:03)
[2020-09-08] MEDS: DULoxetine HCL 60 MG CAP PO SCH (10:03)
[2020-09-08] MEDS: MIRABEGRON ER 25 MG TAB PO SCH (10:03)
[2020-09-08] MEDS: LIDOCAINE 5% 1 PATCH TD SCH (10:03)
[2020-09-08] MEDS: MULTIVITAMIN TAB PO SCH (10:03)
[2020-09-08] MEDS: FERROUS GLUCONATE 324 MG TAB PO SCH (10:03)
[2020-09-08] MEDS: ISOSORBIDE MONO EXTENDED REL 30 MG TABCR PO SCH (10:03)
[2020-09-08] MEDS: DICLOFENAC SOD 1% GEL 100 GM TUBE EXT SCH ×2 (10:04→12:57)
[2020-09-08] MEDS: HYDROCODONE/ACETAMOPHEN 5/325MG TAB PO PRN (10:43)
--- NOTE | 2020-09-08 16:28 | Billing Data ---
Date of Service September 08, 2020 Coding Level of Care Code D/C Day Management <30 mins
== END 2020-09-08 15:30 | DRG 552 ==
LOC: 3W 12:01 → ED 12:01 → SUATTDRO 16:54 → 3W 17:37 → SUATTDRO 09-06 15:20

== ENCOUNTER 2020-09-25 17:35 | Inpatient (IN) ==
[2020-09-25] MEDS ORDERED: ALBUTEROL HFA 8 GM INHALER INH ONE (17:49)
[2020-09-25] MEDS ORDERED: ACETAMINOPHEN 1,000 MG/100 ML VIAL IV STA (17:49)
[2020-09-25] MEDS ORDERED: DEXAMETHASONE SOD INJ 4 MG/ML VIAL IV STA (17:49)
[2020-09-25] MEDS ORDERED: MAGNESIUM SULFATE / D5W 1 GM/100 ML BAG IV STA (17:50)
[2020-09-25 18:05] LABS: Basophils # (auto) 0.01 K/uL (0-0.2); Basophils % (auto) 0.1 %; Hematocrit (blood only) 42.5 % (37-47); Hemoglobin 14.4 g/dL (12.0-16.0); Immature Granulocytes # (auto) 0.03 K/uL (0.00-0.02); Immature Granulocytes % (auto) 0.3 %; Lymphocytes # (auto) 1.26 K/uL (1.2-3.4); Lymphocytes % (auto) 10.9 %; Mean Corpuscular Hemoglobin 32.4 pg (25-34); Mean Corpuscular Hgb Conc 33.9 g/dL (32-36); Mean Corpuscular Volume 95.7 fL (80-100); Mean Platelet Volume 9.6 fL (7.4-10.4); Monocytes # (auto) 0.51 K/uL (0.11-0.59); Monocytes % (auto) 4.4 %; Neutrophils % (auto) 84.3 %; Platelet Count 174 K/uL (130-400); RDW Coefficient of Variation 13.9 % (11.5-14.5); RDW Standard Deviation 48.6 fL (36.4-46.3); Red Blood Count 4.44 M/uL (4.2-5.4); White Blood Count 11.51 K/uL (4.8-10.8)
[2020-09-25] MEDS ORDERED: cefTRIAXone SODIUM 2,000 MG/70 ML BAG IV STA (18:10)
--- NOTE | 2020-09-25 18:14 | Emergency Department Note ---
History of Present Illness General Chief complaint: Shortness of Breath/Dyspnea Source: patient, EMS, RN notes reviewed and old records reviewed Mode of arrival: EMS Limitations: no limitations History of Present Illness Provider complaint: Rt sided flank pain, Covid + Onset (ago): day(s) 1 Location: abdomen Radiation: non-radiation Severity: mild Pain Consistency: + now resolved Current Pain Intensity: 0 Quality: + aching Relieved By: + immobilization Exacerbated By: + movement Associated symptoms: + loss of appetite, + shortness of breath and + weakness; no confusion, no chest pain, no diaphoresis, no fever/chills and no nausea/vomiting Treatments prior to arrival: other (Tramadol) This is a 75-year-old female who presents emergency department complaining of right-sided flank pain. I will note that the patient was just here in the emergency department 2 days ago and diagnosed with a urinary tract infection. She was started on Rocephin and given Bactrim. In addition to the urinary tract infection she also tested positive for Covid. Patient is complaining of shortness of breath however does not appear to be in any acute distress. The patient reports she lives at home by herself. She reports immobilization makes the pain better however movement makes the pain worse. Home Medications Medication Instructions Recorded Confirmed Type nitroglycerin 0.4 mg SUBLINGUAL DIRECTED PRN 03/07/19 09/25/20 History multivitamin 1 tab PO QAM 05/02/19 09/25/20 History isosorbide mononitrate 30 mg 30 mg PO QAM #90 tab 04/30/20 09/25/20 Rx tablet,extended release 24 hr clopidogrel 75 mg tablet 75 mg PO HS #90 tab 05/26/20 09/25/20 Rx ferrous gluconate 324 mg (37.5 mg 324 mg PO QAM #90 tab 05/26/20 09/25/20 Rx iron) tablet levothyroxine 112 mcg tablet 112 mcg PO QAM #90 tab 05/26/20 09/25/20 Rx pantoprazole 20 mg tablet,delayed 20 mg PO QAM #90 tab 05/26/20 09/25/20 Rx release amlodipine 5 mg tablet 5 mg PO QAM #30 tab 07/21/20 09/25/20 Rx duloxetine 60 mg capsule,delayed 60 mg PO QAM #30 cap 07/21/20 09/25/20 Rx release simvastatin 20 mg tablet 20 mg PO HS #30 tab 07/21/20 09/25/20 Rx buspirone 5 mg tablet 5 mg PO BID #60 tab 08/20/20 09/25/20 Rx metformin 500 mg tablet 500 mg PO BID #60 tab 08/20/20 09/25/20 Rx metoprolol succinate 50 mg 50 mg PO QAM 30 Days #30 tab 08/20/20 09/25/20 Rx tablet,extended release 24 hr mirabegron 25 mg tablet,extended 25 mg PO QAM #30 tab 08/20/20 09/25/20 Rx release 24 hr pregabalin 50 mg capsule 50 mg PO BID #60 cap 09/14/20 09/25/20 Rx docusate sodium [Colace] 100 mg PO BID #60 cap 09/23/20 09/25/20 Rx hydrocodone-acetaminophen [[place]] 1 tab PO Q6H PRN #14 tab 09/23/20 09/25/20 Rx sennosides [Senokot] 8.6 mg PO HS #30 tab 09/23/20 09/25/20 Rx sulfamethoxazole-trimethoprim 1 tab PO BID #20 tab 09/23/20 09/25/20 Rx [Bactrim DS] acetaminophen 1,000 mg PO Q8H PRN 09/25/20 09/25/20 History tramadol 50 mg PO Q6H PRN 09/25/20 09/25/20 History Allergies Allergy/AdvReac Type Severity Reaction Status Date / Time adhesive Allergy Intermediate TAPE-HIVES Verified 09/25/20 20:58 fentanyl AdvReac Intermediate CONFUSION Verified 09/25/20 20:58 meloxicam AdvReac Intermediate SWELLING Verified 09/25/20 20:58 OF LEGS morphine AdvReac Intermediate "I GET Verified 09/25/20 20:58 REALLY CRAZY" pregabalin AdvReac Intermediate DIZZINESS, Verified 09/25/20 20:58 CONFUSION WITH HIGHER DOSES Past Med/Surg History Medical History (Updated 09/26/20 @ 18:05 by Moy Torres MD) Angina at rest Anginal pain Cardiac murmur Chest pain Chronic obstructive pulmonary disease no inhalers Congestive heart failure Diabetes Diabetes mellitus, type 2 Failure of outpatient treatment GERD (gastroesophageal reflux disease) Vinnie's thyroiditis Influenza B Kidney stones On anticoagulant therapy Pain of right leg Pleurisy Spinal stenosis TIA (transient ischemic attack) multiple--last around 2010--no deficits--reason for clopidogrel Weakness Surgical History H/O ureter repair History of appendectomy History of bilateral cataract extraction History of bilateral tubal ligation History of carpal tunnel surgery of right wrist History of colonoscopy History of dilatation and curettage History of esophagogastroduodenoscopy (EGD) History of mandibular surgery wired shut for denture surgery History of nephrolithotomy with removal of calculi x2 History of partial thyroidectomy 3/4 removed History of tooth extraction all teeth History of total hysterectomy with bilateral salpingo-oophorectomy (BSO) History of total left knee replacement (TKR) Hx of spinal surgery coccygectomy L4-[address] 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 Beliefs That Will Affect Care: None marital status: / Current Living Situation: Alone Current Living Situation Comment: Apartment current occupational status: retired Other Information That Helps Us Care for You: No Feels Safe at Home: Yes Safety Concerns: Feels Safe At This Time caffeine: Yes Dental Care, Regularly: No Physical Activity Frequency: 1-2 Times per Week Seatbelt Use: always Sunscreen Use: Yes Assistive Devices: None Review of Systems A total of 10 systems reviewed and were otherwise negative Physical Exam Vital Signs Vital Signs - 24 hr 09/25/20 18:15 09/25/20 18:30 09/25/20 18:45 Pulse Rate 60 60 58 L Pulse Rate from SpO2 Sensor 61 59 L 59 L Respiratory Rate 17 17 21 Respiratory Effort / Characteristics Blood Pressure 114/63 Blood Pressure Mean 79 Pulse Oximetry 95 95 95 Oxygen Delivery Method Room Air Room Air Room Air 09/25/20 19:00 09/25/20 19:15 09/25/20 19:30 Pulse Rate 64 59 L 58 L Pulse Rate from SpO2 Sensor 64 Respiratory Rate 24 21 17 Respiratory Effort / Characteristics Blood Pressure 111/55 L Blood Pressure Mean 80 Pulse Oximetry 96 Oxygen Delivery Method Room Air Room Air Room Air 09/25/20 19:45 09/25/20 20:00 09/25/20 20:15 Pulse Rate 61 61 65 Pulse Rate from SpO2 Sensor 62 61 Respiratory Rate 15 16 18 Respiratory Effort / Characteristics Non-Labored Spontaneous Blood Pressure 113/56 L Blood Pressure Mean 86 Pulse Oximetry 97 98 97 Oxygen Delivery Method Room Air Room Air Room Air 09/25/20 20:30 Pulse Rate 63 Pulse Rate from SpO2 Sensor 63 Respiratory Rate 19 Respiratory Effort / Characteristics Blood Pressure 124/71 Blood Pressure Mean 101 Pulse Oximetry Oxygen Delivery Method VITAL SIGNS - Vital signs and nursing notes were reviewed. GENERAL - 75-year-old female appearing stated age who is in no acute distress. Communicates well with provider and answers questions appropriately. SKIN - Without rashes. HEAD - NC/AT. EYES - PERRL with EOMI bilaterally. Sclera anicteric. Palpebral conjunctiva pink and moist with no injection noted. EARS - No deformities of external structures noted on gross examination bilaterally. No pain elicited with palpation of the tragus bilaterally. External auditory canals without discharge or otorrhea. Tympanic membranes pearly tee without retraction or bulging. No fluid or purulent material visualized behind the TM. Handle of malleus, umbo, cone of light, pars tensa/flaccid all easily visualized. NOSE - Midline and without cyanosis. No epistaxis or purulent drainage noted. Septum midline without deviation or septal hematoma noted. MOUTH/OROPHARYNX - Without perioral cyanosis. Buccal mucosa pink and moist and without leukoplakia. Tongue midline with equal elevation of palate bilaterally. No tonsillar hypertrophy, erythema, or exudates noted. dentition noted. NECK - Neck with FROM. Supple to palpation. lymphadenopathy noted. No nuchal rigidity. LUNGS - Chest wall symmetric without accessory muscle use, intercostals retractions, or central cyanosis. Normal vesicular breath sounds CTA B/L. No wheezes, rales, or rhonchi appreciated. CARDIAC - RRR with S1/S2. No murmur, rubs, or gallops appreciated. ABDOMEN - Abdominal contour without pulsations or visible masses. BS normoactive all four quadrants. No tenderness, palpable masses, hepatosplenomegaly, or ascites noted. EXTREMITIES - No clubbing or peripheral cyanosis. No pretibial edema present. +3/5 radial, posterior tibial, and dorsalis pedis pulses palpated throughout. +5/5 strength noted in UE/LE bilaterally. NEUROLOGIC - Cranial nerves II through XII grossly intact. Sensory intact to light touch throughout. Patellar reflexes +2/4. PSYCH - A&Ox3 and cooperates fully with examiner. Pt is very pleasant and interacts well with examiner. Course Administered Medications Amlodipine Besylate (Amlodipine Besylate 5 Mg Tab) 5 mg PO QAM [facility] Stop: 10/26/20 08:59 Last Admin: 09/26/20 09:28 Dose: 5 mg Documented by: [id number] Buspirone HCl (Buspirone 5 Mg Tab) 5 mg PO BID SEVEN Stop: 10/25/20 22:48 Last Admin: 09/26/20 09:28 Dose: 5 mg Documented by: [id number] Admin: 09/26/20 00:39 Dose: 5 mg Documented by: [id number] Clopidogrel Bisulfate (Clopidogrel Bisulfate 75 Mg Tab) 75 mg PO HS SEVEN Stop: 10/25/20 22:48 Last Admin: 09/26/20 00:39 Dose: 75 mg Documented by: [id number] Docusate Sodium (Docusate Sodium 100 Mg Cap) 100 mg PO BID SEVEN Stop: 10/25/20 22:48 Last Admin: 09/26/20 09:29 Dose: 100 mg Documented by: [id number] Admin: 09/26/20 00:40 Dose: 100 mg Documented by: [id number] Duloxetine HCl (Duloxetine Hcl 60 Mg Cap) 60 mg PO QAM [facility] Stop: 10/26/20 08:59 Last Admin: 09/26/20 09:28 Dose: 60 mg Documented by: [id number] Ferrous Gluconate (Ferrous Gluconate 324 Mg Tab) 324 mg PO QAM [facility] Stop: 10/26/20 08:59 Last Admin: 09/26/20 09:28 Dose: 324 mg Documented by: [id number] Heparin Sodium (Porcine) (Heparin Sod 5,000 Unit/0.5 Ml Vial) 5,000 units SQ Q12 [facility] Stop: 10/26/20 08:59 Last Admin: 09/26/20 09:39 Dose: 5,000 units Documented by: [id number] Dexamethasone 6 mg/ Syringe 1.5 mls @ 1 mls/min IV [facility] Stop: 10/26/20 08:59 Last Admin: 09/26/20 09:28 Dose: 1 mls/min Documented by: [id number] Sodium Chloride (Nss 1000ml) 1,000 mls @ 80 mls/hr IV .[id number] [facility] Stop: 09/26/20 21:44 Last Admin: 09/26/20 09:39 Dose: 80 mls/hr Documented by: [id number] Insulin Aspart (Insulin Aspart 100 Units/Ml 3 Ml Pen) [facility] Stop: 10/25/20 22:48 Last Admin: 09/26/20 17:35 Dose: 3 units Documented by: [id number] Cosigned by: [id number] Admin: 09/26/20 12:05 Dose: 5 units Documented by: [id number] Cosigned by: [id number] Admin: 09/26/20 09:30 Dose: 1 units Documented by: [id number] Cosigned by: [id number] Admin: 09/26/20 00:37 Dose: Not Given Documented by: [id number] Isosorbide Mononitrate (Isosorbide [place] Extended Rel 30 Mg Tabcr) 30 mg PO [facility] Stop: 10/26/20 08:59 Last Admin: 09/26/20 09:28 Dose: 30 mg Documented by: [id number] Levothyroxine Sodium (Levothyroxine Sodium 112 Mcg Tablet) [facility] Stop: 10/26/20 06:29 Last Admin: 09/26/20 06:24 Dose: 112 mcg Documented by: [id number] Metoprolol Succinate (Metoprolol Succ 50mg Ext Rel Tab) 50 mg PO [facility] Stop: 10/26/20 08:59 Last Admin: 09/26/20 09:28 Dose: 50 mg Documented by: [id number] Mirabegron (Mirabegron Er 25 Mg Tab) 25 mg PO [facility] Stop: 10/26/20 08:59 Last Admin: 09/26/20 09:28 Dose: 25 mg Documented by: [id number] Pantoprazole Sodium (Pantoprazole 40 Mg Tab) 40 mg PO [facility] Stop: 10/26/20 08:59 Last Admin: 09/26/20 09:29 Dose: 40 mg Documented by: [id number] Pregabalin (Pregabalin 50 Mg Cap) 50 mg PO BID [facility] Stop: 10/25/20 22:48 Last Admin: 09/26/20 10:10 Dose: 50 mg Documented by: [id number] Admin: 09/26/20 01:22 Dose: 50 mg Documented by: [id number] Sennosides (Senna 8.6 Mg Tab) 8.6 mg PO [facility] Stop: 10/25/20 22:48 Last Admin: 09/26/20 00:40 Dose: 8.6 mg Documented by: [id number] Simvastatin (Simvastatin 20 Mg Tab) 20 mg PO [facility] Stop: 10/25/20 22:48 Last Admin: 09/26/20 00:40 Dose: 20 mg Documented by: [id number] Sodium Bicarbonate (Sodium Bicarbonate 650 Mg Tab) 650 mg PO BID [facility] Stop: 10/26/20 09:14 Last Admin: 09/26/20 10:15 Dose: 650 mg Documented by: [id number] Discontinued Medications Albuterol (Albuterol Hfa 8 Gm Inhaler) 2 puffs INH NOW ONE Stop: 09/25/20 17:50 Last Admin: 09/25/20 19:37 Dose: 2 puffs Documented by: [id number] Albuterol (Albuterol Hfa 8 Gm Inhaler) 2 puffs INH QIDR [facility] Stop: 10/25/20 22:59 Last Admin: 09/26/20 07:24 Dose: 2 puffs Documented by: [id number] Admin: 09/25/20 23:51 Dose: Not Given Documented by: [id number] Dexamethasone (Dexamethasone Sod Inj 4 Mg/Ml Vial) 6 mg IV NOW STA Stop: 09/25/20 17:50 Last Admin: 09/25/20 19:36 Dose: 6 mg Documented by: [id number] Acetaminophen (Ofirmev) 1,000 mg in 100 mls @ 400 mls/hr IV NOW STA Stop: 09/25/20 18:03 Last Infusion: 09/25/20 19:51 Dose: 0 mls/hr Documented by: [id number] Admin: 09/25/20 19:36 Dose: 400 mls/hr Documented by: [id number] Magnesium Sulfate/Dextrose (Magnesium Sulfate / D5w) 1 gm in 100 mls @ 100 mls/hr IV NOW STA Stop: 09/25/20 18:49 Last Infusion: 09/26/20 01:35 Dose: 0 mls/hr Documented by: [id number] Admin: 09/25/20 21:14 Dose: 100 mls/hr Documented by: [id number] Ceftriaxone Sodium (Rocephin) 2,000 mg in 70 mls @ 140 mls/hr IV NOW STA Stop: 09/25/20 18:39 Last Infusion: 09/25/20 21:14 Dose: 0 mls/hr Documented by: [id number] Admin: 09/25/20 20:40 Dose: 140 mls/hr Documented by: [id number] Sodium Chloride (Nss 1000ml) 1,000 mls @ 999 mls/hr IV .Q1H1M ONE Stop: 09/25/20 19:46 Last Infusion: 09/25/20 20:38 Dose: 0 mls/hr Documented by: [id number] Admin: 09/25/20 19:37 Dose: 999 mls/hr Documented by: [id number] Critical Care Time I have personally spent greater than 30 minutes of critical care time in the direct management of this patient. This includes bedside care, interpretation of diagnostic studies, and testing, discussion with consultants, patient, and family members, and other required patient management activities. This 30 minutes is in excess of all separately billable procedures. Medical Decision Making Differential Diagnosis Reactive airway disease, pneumonia, pneumothorax, COPD, CHF, infections, cardiac ischemia, pulmonary embolism, musculoskeletal, gastrointestinal, as well as o ther pathologies. Medical Records Attestation: I reviewed the patient's medical records. Home Medications Current Medication List: was personally reviewed by md Laboratory Data Attestation: I reviewed the patient's lab results. Result diagrams: 09/26/20 08:49 09/26/20 07:42 Lab Results 09/25/20 09/25/20 09/25/20 Range/Units 17:53 17:53 17:53 WBC 11.51 H (4.8-10.8) K/uL RBC 4.44 (4.2-5.4) M/uL Hgb 14.4 (12.0-16.0) g/dL Hct 42.5 (37-47) % MCV 95.7 (80-100) fL MCH 32.4 (25-34) pg MCHC 33.9 (32-36) g/dL RDW Std Deviation 48.6 H (36.4-46.3) fL RDW Coeff of Adryan 13.9 (11.5-14.5) % Plt Count 174 (130-400) K/uL MPV 9.6 (7.4-10.4) fL Immature Gran % (Auto) 0.3 % Neut % (Auto) 84.3 % Lymph % (Auto) 10.9 % Park % (Auto) 4.4 % Eos % (Auto) 0.0 % Baso % (Auto) 0.1 % Neut # (Auto) 9.70 H (1.4-6.5) K/uL Lymph # (Auto) 1.26 (1.2-3.4) K/uL Park # (Auto) 0.51 (0.11-0.59) K/uL Eos # (Auto) 0.00 (0-0.5) K/uL Baso # (Auto) 0.01 (0-0.2) K/uL Immature Gran # (Auto) 0.03 H (0.00-0.02) K/uL ESR 17 (0-21) mm/hr PT Cancelled INR Cancelled APTT Cancelled PTT Ratio Cancelled D-Dimer (0-500) ug/L FEU Sodium (136-145) mmol/L Potassium (3.5-5.1) mmol/L Chloride (98-107) mmol/L Carbon Dioxide (21-32) mmol/L Anion Gap (3-11) BUN (7-18) mg/dl Creatinine (0.6-1.2) mg/dl Est Cr Clr Drug Dosing Est GFR ( Amer) Est GFR (Non-Af Amer) BUN/Creatinine Ratio (10-20) Glucose (70-99) mg/dl Lactate (0.4-2.0) mmol/L Calcium (8.5-10.1) mg/dl Magnesium (1.8-2.4) mg/dl Ferritin (8-388) ng/ml Total Bilirubin (0.2-1) mg/dl AST (15-37) U/L ALT (12-78) U/L Alkaline Phosphatase (45-117) U/L Troponin I (0-0.045) ng/ml C-Reactive Protein (0-0.29) mg/dl Total Protein (6.4-8.2) gm/dl Albumin (3.4-5.0) gm/dl Globulin (2.5-4.0) gm/dl Albumin/Globulin Ratio (0.9-2) Procalcitonin (0-0.5) ng/ml Blood Type Antibody Screen 09/25/20 09/25/20 09/25/20 Range/Units 17:53 17:53 17:53 WBC (4.8-10.8) K/uL RBC (4.2-5.4) M/uL Hgb (12.0-16.0) g/dL Hct (37-47) % MCV (80-100) fL MCH (25-34) pg MCHC (32-36) g/dL RDW Std Deviation (36.4-46.3) fL RDW Coeff of Adryan (11.5-14.5) % Plt Count (130-400) K/uL MPV (7.4-10.4) fL Immature Gran % (Auto) % Neut % (Auto) % Lymph % (Auto) % Park % (Auto) % Eos % (Auto) % Baso % (Auto) % Neut # (Auto) (1.4-6.5) K/uL Lymph # (Auto) (1.2-3.4) K/uL Park # (Auto) (0.11-0.59) K/uL Eos # (Auto) (0-0.5) K/uL Baso # (Auto) (0-0.2) K/uL Immature Gran # (Auto) (0.00-0.02) K/uL ESR (0-21) mm/hr PT INR APTT PTT Ratio D-Dimer (0-500) ug/L FEU Sodium 133 L (136-145) mmol/L Potassium (3.5-5.1) mmol/L Chloride 104 (98-107) mmol/L Carbon Dioxide 20 L (21-32) mmol/L Anion Gap 9.0 (3-11) BUN 51 H (7-18) mg/dl Creatinine 2.37 H (0.6-1.2) mg/dl Est Cr Clr Drug Dosing Not Reportable Est GFR ( Amer) 22.2 Est GFR (Non-Af Amer) 19.1 BUN/Creatinine Ratio 21.4 H (10-20) Glucose 100 H (70-99) mg/dl Lactate 2.4 H* (0.4-2.0) mmol/L Calcium 8.7 (8.5-10.1) mg/dl Magnesium (1.8-2.4) mg/dl Ferritin 355.0 (8-388) ng/ml Total Bilirubin 0.3 (0.2-1) mg/dl AST (15-37) U/L ALT 62 (12-78) U/L Alkaline Phosphatase 84 (45-117) U/L Troponin I 0.081 H* (0-0.045) ng/ml C-Reactive Protein 0.74 H (0-0.29) mg/dl Total Protein 7.7 (6.4-8.2) gm/dl Albumin 3.7 (3.4-5.0) gm/dl Globulin 4.0 (2.5-4.0) gm/dl Albumin/Globulin Ratio 0.9 (0.9-2) Procalcitonin < 0.05 (0-0.5) ng/ml Blood Type Antibody Screen 09/25/20 09/25/20 09/25/20 Range/Units 20:12 20:12 20:12 WBC (4.8-10.8) K/uL RBC (4.2-5.4) M/uL Hgb (12.0-16.0) g/dL Hct (37-47) % MCV (80-100) fL MCH (25-34) pg MCHC (32-36) g/dL RDW Std Deviation (36.4-46.3) fL RDW Coeff of Adryan (11.5-14.5) % Plt Count (130-400) K/uL MPV (7.4-10.4) fL Immature Gran % (Auto) % Neut % (Auto) % Lymph % (Auto) % Park % (Auto) % Eos % (Auto) % Baso % (Auto) % Neut # (Auto) (1.4-6.5) K/uL Lymph # (Auto) (1.2-3.4) K/uL Park # (Auto) (0.11-0.59) K/uL Eos # (Auto) (0-0.5) K/uL Baso # (Auto) (0-0.2) K/uL Immature Gran # (Auto) (0.00-0.02) K/uL ESR (0-21) mm/hr PT 11.1 INR 1.1 APTT 28.0 PTT Ratio 1.0 D-Dimer 280 (0-500) ug/L FEU Sodium (136-145) mmol/L Potassium 4.5 (3.5-5.1) mmol/L Chloride (98-107) mmol/L Carbon Dioxide (21-32) mmol/L Anion Gap (3-11) BUN (7-18) mg/dl Creatinine (0.6-1.2) mg/dl Est Cr Clr Drug Dosing Est GFR ( Amer) Est GFR (Non-Af Amer) BUN/Creatinine Ratio (10-20) Glucose (70-99) mg/dl Lactate 1.6 (0.4-2.0) mmol/L Calcium (8.5-10.1) mg/dl Magnesium 2.0 (1.8-2.4) mg/dl Ferritin (8-388) ng/ml Total Bilirubin (0.2-1) mg/dl AST 36 (15-37) U/L ALT (12-78) U/L Alkaline Phosphatase (45-117) U/L Troponin I (0-0.045) ng/ml C-Reactive Protein (0-0.29) mg/dl Total Protein (6.4-8.2) gm/dl Albumin (3.4-5.0) gm/dl Globulin (2.5-4.0) gm/dl Albumin/Globulin Ratio (0.9-2) Procalcitonin (0-0.5) ng/ml Blood Type Antibody Screen 09/25/20 Range/Units 20:12 WBC (4.8-10.8) K/uL RBC (4.2-5.4) M/uL Hgb (12.0-16.0) g/dL Hct (37-47) % MCV (80-100) fL MCH (25-34) pg MCHC (32-36) g/dL RDW Std Deviation (36.4-46.3) fL RDW Coeff of Adryan (11.5-14.5) % Plt Count (130-400) K/uL MPV (7.4-10.4) fL Immature Gran % (Auto) % Neut % (Auto) % Lymph % (Auto) % Park % (Auto) % Eos % (Auto) % Baso % (Auto) % Neut # (Auto) (1.4-6.5) K/uL Lymph # (Auto) (1.2-3.4) K/uL Park # (Auto) (0.11-0.59) K/uL Eos # (Auto) (0-0.5) K/uL Baso # (Auto) (0-0.2) K/uL Immature Gran # (Auto) (0.00-0.02) K/uL ESR (0-21) mm/hr PT INR APTT PTT Ratio D-Dimer (0-500) ug/L FEU Sodium (136-145) mmol/L Potassium (3.5-5.1) mmol/L Chloride (98-107) mmol/L Carbon Dioxide (21-32) mmol/L Anion Gap (3-11) BUN (7-18) mg/dl Creatinine (0.6-1.2) mg/dl Est Cr Clr Drug Dosing Est GFR ( Amer) Est GFR (Non-Af Amer) BUN/Creatinine Ratio (10-20) Glucose (70-99) mg/dl Lactate (0.4-2.0) mmol/L Calcium (8.5-10.1) mg/dl Magnesium (1.8-2.4) mg/dl Ferritin (8-388) ng/ml Total Bilirubin (0.2-1) mg/dl AST (15-37) U/L ALT (12-78) U/L Alkaline Phosphatase (45-117) U/L Troponin I (0-0.045) ng/ml C-Reactive Protein (0-0.29) mg/dl Total Protein (6.4-8.2) gm/dl Albumin (3.4-5.0) gm/dl Globulin (2.5-4.0) gm/dl Albumin/Globulin Ratio (0.9-2) Procalcitonin (0-0.5) ng/ml Blood Type O Positive Antibody Screen NEGATIVE Imaging Data Attestation: I personally reviewed and interpreted this imaging study as follows: Radiologist's Impression: [place], [place] [phone] XRay Report Patient: KAILA MESA Admit Date: 09/25/20 MR#: [id number] Address1: [address] [place] [address] HARLAN Marquez Acct ID:[id number] Address2: Date: 1945 [facility] Zip: [place] [address] Age: 75 Location: ED Sex: F Room/Bed: Att Phy: Diagnosis: SOB Irene Phy: Airam Malcolm CRNP Service Date: 09/25/20 Fam Phy: Interpreting Phy: Venkat Oneal MD Admit Phy: Ordering Phy: Moy Torres MD cc: ~ XR chest 1V portable HISTORY: SEPSIS COMPARISON: Chest 09/23/2020. FINDINGS: Rotated study. The cardiac silhouette is mildly enlarged. No focal josh ng consolidations to suggest pneumonia. No evidence for pulmonary edema. No pleural effusions. No pneumothorax. IMPRESSION: Stable mild cardiomegaly. ACT 112: Negative or not required by law. Electronically signed by: Venkat Oneal M.D. 09/25/2020 6:35 PM Dictated: 09/25/201834 Transcribed: 09/25/201834 [facility] Narrative This is a 75-year-old female who presents back to the emergency department for reevaluation of right-sided flank pain. The patient is growing out Klebsiella pneumonia out of her urine culture from 2 days ago. She was placed on Bactrim which the Klebsiella is sensitive to. I will note that the patient is smiling upon arrival and is not hypoxic. She is also not tachycardic. She does have a slight elevation in her white blood cell count. She was again started on IV Rocephin. Patient's lactic acid as well as her troponin was found to be elevated in addition she has worsening creatinine function. Based on this finding I did discuss the case with the hospitalist service. Patient was seen and evaluated as above in room A9. Review was performed of nursing notes and vital signs. I did review pertinent previous visits and patient history. After obtaining a thorough history and physical examination the above work up was performed. While in the department, I personally reevaluated the patient several times and each time the patient was found to be resting comfortably. The patient was educated upon management, educated upon todays findings/results, educated upon importance of follow up from today's visit, educated upon symptoms in which to return, had questions answered prior to discharge, verbalized understanding, and was discharged home in good condition. An order was placed for continuous cardiac monitoring. The monitor shows a rate of 68 with Normal SInus rhythm. I attest that I have personally reviewed the patient medication list. The patient was evaluated during a period of high volume and high acuity while the hospital was at overcapacity during the global COVID-19 pandemic, and that diagnosis was suspected/considered upon their initial presentation. Their evaluation, treatment and testing was consistent with current guidelines for patients who present with complaints or symptoms that may be related to COVID- 19. Impression & Plan COVID-19 virus infection, Flank Pain, Generalized weakness, Acute kidney injury due to COVID-19, Urinary tract infection, Elevated troponin I level Discharge Plan Visit Data Chief Complaint: Shortness of Breath/Dyspnea ED Provider: Moy Torres Discharge Problem: COVID-19 virus infection, Flank Pain, Generalized weakness, Acute kidney injury due to COVID-19, Urinary tract infection, Elevated troponin I level Patient Disposition: Admitted As Inpatient Discharge Instructions Interventions: ED Discharge Assessment Last Done: 09/25/20 21:45 Discharge Problem: Urinary tract infection Qualifiers: Urinary tract infection type: site unspecified Hematuria presence: without hematuria Qualified Code(s): N39.0 - Urinary tract infection, site not specified
--- NOTE | 2020-09-25 18:36 | XRay Report ---
XR chest 1V portable HISTORY: SEPSIS COMPARISON: Chest 09/23/2020. FINDINGS: Rotated study. The cardiac silhouette is mildly enlarged. No focal lung consolidations to s uggest pneumonia. No evidence for pulmonary edema. No pleural effusions. No pneumothorax. IMPRESSION: Stable mild cardiomegaly. ACT 112: Negative or not required by law. Electronically signed by: Venkat Oneal M.D. 09/25/2020 6:35 PM
[2020-09-25 18:43] LABS: Alanine Aminotransferase 62 U/L (12-78); Albumin Globulin Ratio 0.9 (0.9-2); Albumin Level 3.7 gm/dl (3.4-5.0); Alkaline Phosphatase 84 U/L (45-117); BUN Creatinine Ratio 21.4 (10-20); Bilirubin,Total 0.3 mg/dl (0.2-1); Blood Urea Nitrogen 51 mg/dl (7-18); C Reactive Protein 0.74 mg/dl (0-0.29); Calcium 8.7 mg/dl (8.5-10.1); Carbon Dioxide 20 mmol/L (21-32); Chloride 104 mmol/L (98-107); Est GFR (African American) 22.2; Est GFR (Non-African American) 19.1; Glucose 100 mg/dl (70-99); Sodium 133 mmol/L (136-145); Total Protein 7.7 gm/dl (6.4-8.2); Troponin I 0.081 ng/ml (0-0.045)
[2020-09-25] MEDS ORDERED: SODIUM CHLORIDE 0.9% 1000ML 1,000 ML IV ONE (18:46)
[2020-09-25 20:41] LABS: D Dimer 280 ug/L FEU (0-500); INR 1.1 (0.9-1.1); Prothrombin Time 11.1 Seconds (9.0-12.0)
[2020-09-25 20:46] LABS: Potassium 4.5 mmol/L (3.5-5.1)
[2020-09-25] MEDS ORDERED: ONDANSETRON INJ 2 MG/ML 2 ML VIAL IV PRN (22:49)
[2020-09-25] MEDS ORDERED: NITROGLYCERIN SL 0.4 MG/TAB TAB SL PRN (22:49)
[2020-09-25] MEDS ORDERED: traMADol HCL 50 MG TABLET PO PRN (22:49)
[2020-09-25] MEDS ORDERED: GLUCOSE 10 TABS/TUBE PO PRN (22:49)
[2020-09-25] MEDS ORDERED: GLUCAGON FOR INJ 1 MG VIAL SQ PRN (22:49)
[2020-09-25] MEDS ORDERED: DEXTROSE 50% 50 ML SYRINGE IV PRN (22:49)
[2020-09-25] MEDS ORDERED: ACETAMINOPHEN 325 MG TAB PO PRN (22:49)
[2020-09-25] MEDS ORDERED: metFORMIN HCL 500 MG TAB PO SCH (22:49)
[2020-09-25] MEDS ORDERED: CARBOHYDRATES FOR HYPOGLYCEMIA PO PRN (22:49)
[2020-09-25] MEDS ORDERED: GLUCOSE 40% GEL 15 GM TUBE PO PRN (22:49)
[2020-09-25] MEDS ORDERED: HYDROCODONE/ACETAMOPHEN 5/325MG TAB PO PRN (22:56)
[2020-09-25] MEDS: ALBUTEROL HFA 8 GM INHALER INH SCH (23:51)
[2020-09-26] MEDS: INSULIN ASPART 100 UNITS/ML 3 ML PEN SC SCH ×5 (00:37→22:15)
[2020-09-26] MEDS: CLOPIDOGREL BISULFATE 75 MG TAB PO SCH ×2 (00:39→22:13)
[2020-09-26] MEDS: busPIRone 5 MG TAB PO SCH ×3 (00:39→22:13)
[2020-09-26] MEDS: SIMVASTATIN 20 MG TAB PO SCH ×2 (00:40→22:12)
[2020-09-26] MEDS: DOCUSATE SODIUM 100 MG CAP PO SCH ×3 (00:40→22:13)
[2020-09-26] MEDS: SENNA 8.6 MG TAB PO SCH ×2 (00:40→22:13)
--- NOTE | 2020-09-26 01:01 | History & Physical Report ---
Date of Service September 26, 2020 The patient was seen and examined on September 25, 2020 Assessment & Plan (1) COVID-19 virus infection: COVID-19 virus infection- Causing decreased oral intake due to lack of taste. Causing and/or exacerbating associated dehydration, acute kidney injury and uri nary tract infection. Decadron 6 mg IV daily Convalescent plasma, consent obtained Cannot place on remdesivir at this time due to decreased creatinine clearance of 19.1. May be able to start remdesivir in the a.m., after rechecking BMP following IV fluid rehydration. Present on Admission?: Yes (2) Elevated troponin I level: The patient will be admitted to telemetry for serial cardiac enzymes, serial EKG's, cardiac rhythm monitoring and a 2-D echocardiogram with Dopplers. Elevated troponin I level/CAD/hypertension- Continue amlodipine 5 mg daily, clopidogrel 75 mg at bedtime, isosorbide mononitrate extended release 30 mg daily, metoprolol succinate 50 mg daily and nitroglycerin sublingual as needed Present on Admission?: Yes (3) Acute kidney injury due to COVID-19: Creatinine is 2.31 upon admission, with baseline 1.00. NSS@100 mils per hour, and recheck labs in a.m. Present on Admission?: Yes (4) Urinary tract infection: Urine from 09/23 growing Klebsiella. Placed on ceftriaxone 1 g IV daily Present on Admission?: Yes (5) Generalized weakness: Most likely associated with decreased oral intake and decreased energy level associated with COVID-19 infection Present on Admission?: Yes (6) CAD (coronary atherosclerotic disease): See above Present on Admission?: Yes (7) Hypertension: See above Present on Admission?: Yes (8) Diabetes mellitus, type 2: Hold metformin Placed on Accu-Cheks before meals and at bedtime with NovoLog coverage per scale Present on Admission?: Yes (9) Depression with anxiety: Continue buspirone, duloxetine and pregabalin Present on Admission?: Yes (10) Hypothyroidism: Continue levothyroxine 112 mcg daily Present on Admission?: Yes (11) Hyperlipidemia: Continue simvastatin 20 mg daily Present on Admission?: Yes Admission and Anticipated Discharge Date Admission Date: September 25, 2020 History of Present Illness Chief Complaint: The patient presents to the emergency department with complaint of worsening generalized weakness, loss of taste, loss of appetite, and shortness of breath. Primary Care Provider: HELEN Irvin The patient is a 75-year-old female with a past medical history including sciatica, lumbar disc herniation, headache, arthralgia, CAD, hypertension, diabetes mellitus, left humeral fracture, depression with anxiety, urge and stress incontinence, frequent PVCs, Henderson's esophagus, cognitive impairment, seizure disorder, ALVA, vitamin D deficiency, hypothyroidism, peripheral neuropathy, hyperlipidemia, lumbar spinal stenosis, hypertension and TIA. She was initially seen at the emergency department on 09/23, at that time was diagnosed with urinary tract infection for which she received ceftriaxone IV t hat day, and discharged on Bactrim. At that same ED visit on 09/23, she was found to be COVID-19 positive. Since that time she has had more progressive symptoms as noted above, and presents to the ED for reassessment today. Allergies Allergy/AdvReac Type Severity Reaction Status Date / Time adhesive Allergy Intermediate TAPE-HIVES Verified 09/25/20 20:58 fentanyl AdvReac Intermediate CONFUSION Verified 09/25/20 20:58 meloxicam AdvReac Intermediate SWELLING Verified 09/25/20 20:58 OF LEGS morphine AdvReac Intermediate "I GET Verified 09/25/20 20:58 REALLY CRAZY" pregabalin AdvReac Intermediate DIZZINESS, Verified 09/25/20 20:58 CONFUSION WITH HIGHER DOSES Home Medications Medication Instructions Recorded Confirmed Type nitroglycerin 0.4 mg SUBLINGUAL DIRECTED PRN 03/07/19 09/25/20 History multivitamin 1 tab PO QAM 05/02/19 09/25/20 History isosorbide mononitrate 30 mg 30 mg PO QAM #90 tab 04/30/20 09/25/20 Rx tablet,extended release 24 hr clopidogrel 75 mg tablet 75 mg PO HS #90 tab 05/26/20 09/25/20 Rx ferrous gluconate 324 mg (37.5 mg 324 mg PO QAM #90 tab 05/26/20 09/25/20 Rx iron) tablet levothyroxine 112 mcg tablet 112 mcg PO QAM #90 tab 05/26/20 09/25/20 Rx pantoprazole 20 mg tablet,delayed 20 mg PO QAM #90 tab 05/26/20 09/25/20 Rx release amlodipine 5 mg tablet 5 mg PO QAM #30 tab 07/21/20 09/25/20 Rx duloxetine 60 mg capsule,delayed 60 mg PO QAM #30 cap 07/21/20 09/25/20 Rx release simvastatin 20 mg tablet 20 mg PO HS #30 tab 07/21/20 09/25/20 Rx buspirone 5 mg tablet 5 mg PO BID #60 tab 08/20/20 09/25/20 Rx metformin 500 mg tablet 500 mg PO BID #60 tab 08/20/20 09/25/20 Rx metoprolol succinate 50 mg 50 mg PO QAM 30 Days #30 tab 08/20/20 09/25/20 Rx tablet,extended release 24 hr mirabegron 25 mg tablet,extended 25 mg PO QAM #30 tab 08/20/20 09/25/20 Rx release 24 hr pregabalin 50 mg capsule 50 mg PO BID #60 cap 09/14/20 09/25/20 Rx docusate sodium [Colace] 100 mg PO BID #60 cap 09/23/20 09/25/20 Rx hydrocodone-acetaminophen [[place]] 1 tab PO Q6H PRN #14 tab 09/23/20 09/25/20 Rx sennosides [Senokot] 8.6 mg PO HS #30 tab 09/23/20 09/25/20 Rx sulfamethoxazole-trimethoprim 1 tab PO BID #20 tab 09/23/20 09/25/20 Rx [Bactrim DS] acetaminophen 1,000 mg PO Q8H PRN 09/25/20 09/25/20 History tramadol 50 mg PO Q6H PRN 09/25/20 09/25/20 History Past Med/Surg History Medical History Angina at rest Anginal pain Cardiac murmur Chest pain Chronic obstructive pulmonary disease no inhalers Congestive heart failure Diabetes Diabetes mellitus, type 2 Failure of outpatient treatment GERD (gastroesophageal reflux disease) Vinnie's thyroiditis Influenza B Kidney stones On anticoagulant therapy Pain of right leg Pleurisy Spinal stenosis TIA (transient ischemic attack) multiple--last around 2010--no deficits--reason for clopidogrel Urinary tract infection currently has Weakness Surgical History H/O ureter repair History of appendectomy History of bilateral cataract extraction History of bilateral tubal ligation History of carpal tunnel surgery of right wrist History of colonoscopy History of dilatation and curettage History of esophagogastroduodenoscopy (EGD) History of mandibular surgery wired shut for denture surgery History of nephrolithotomy with removal of calculi x2 History of partial thyroidectomy 3/4 removed History of tooth extraction all teeth History of total hysterectomy with bilateral salpingo-oophorectomy (BSO) History of total left knee replacement (TKR) Hx of spinal surgery coccygectomy L4-[address] Rodríguez Family History Mother Family history of diabetes mellitus Father Myocardial infarction Brother Myocardial infarction Sister Myocardial infarction Other No family history of adverse response to anesthesia Denies family history of Ovarian cancer Prostate cancer Breast cancer Colorectal cancer Social History Smoking Status: Never smoker Second Hand Exposure: No; Hx Alcohol Use: No Hx Substance Use: No Preferred Language: Danish Communication Ability: Effective Banquet Chef Required: No Beliefs That Will Affect Care: None marital status: / Current Living Situation: Alone Current Living Situation Comment: Apartment current occupational status: retired Other Information That Helps Us Care for You: No Feels Safe at Home: Yes Safety Concerns: Feels Safe At This Time caffeine: Yes Dental Care, Regularly: No Physical Activity Frequency: 1-2 Times per Week Seatbelt Use: always Sunscreen Use: Yes Assistive Devices: Denture - Upper, Denture - Lower and Glasses Review of Systems Review of Systems: The patient denies chest pain, palpitations, cough, lower extremity swelling, sore throat, fevers, chills, sweats, vomiting, diarrhea , constipation, abdominal pain, pelvic pain, blood in urine or stool, dysuria, urinary frequency or urgency, lightheadedness, dizziness, headache, memory loss, loss of consciousness, rash, abnormal bruising or bleeding, focal weakness, numbness or tingling in arms or legs, generalized arthralgias or myalgias, back or neck pain, or night sweats. The review of systems is otherwise negative other than for that already noted above, and at least 10 systems have been reviewed. Physical Exam Physical Exam: The patient is awake, alert and oriented 3, well developed and well nourished, normocephalic and atraumatic, lying in bed and in no acute di stress. HEENT--PERRL, EOMI, mucous membranes and oropharynx dry. Neck--supple. No JVD. No bruits. Thyroid normal, trachea midline, no adenopathy. Heart--normal S1 and S2. No murmurs, rubs or gallops. Lungs--clear bilaterally, no respiratory distress, no accessory muscle use. Abdomen--normal bowel sounds and soft. Nontender. Nondistended, no hernias or masses, no organomegaly. Extremities--no cyanosis or clubbing. No edema. Neurologic--cranial nerves II through XII grossly intact. Rheumatologic--normal range of motion. Psychiatric--normal affect. Results & Data Results & Data ([facility]) Vital Signs (Past 12 Hours) Vital Signs Temp Pulse Pulse Resp BP BP Pulse Ox 09/25/20 23:10 97.9 F 57 L 20 115/70 94 09/25/20 22:31 97.5 F L 62 20 135/72 97 09/25/20 21:30 64 17 121/68 97 09/25/20 21:15 63 19 09/25/20 21:00 61 17 130/65 97 09/25/20 20:46 95 09/25/20 20:45 62 12 98 09/25/20 20:30 63 19 124/71 09/25/20 20:15 65 18 97 09/25/20 20:00 61 16 113/56 L 98 09/25/20 19:45 61 15 97 09/25/20 19:30 58 L 17 09/25/20 19:15 59 L 21 09/25/20 19:00 64 24 111/55 L 96 09/25/20 18:45 58 L 21 95 09/25/20 18:30 60 17 114/63 95 09/25/20 18:15 60 17 95 09/25/20 18:00 61 20 105/55 L 93 09/25/20 17:48 99.0 F 60 18 105/55 L 95 Laboratory Results Laboratory Results WBC 11.51 K/uL (4.8-10.8) H 09/25/20 17:53 RBC 4.44 M/uL (4.2-5.4) 09/25/20 17:53 Hgb 14.4 g/dL (12.0-16.0) 09/25/20 17:53 Hct 42.5 % (37-47) 09/25/20 17:53 MCV 95.7 fL (80-100) 09/25/20 17:53 MCH 32.4 pg (25-34) 09/25/20 17:53 MCHC 33.9 g/dL (32-36) 09/25/20 17:53 RDW Std Deviation 48.6 fL (36.4-46.3) H 09/25/20 17:53 RDW Coeff of Adryan 13.9 % (11.5-14.5) 09/25/20 17:53 Plt Count 174 K/uL (130-400) 09/25/20 17:53 MPV 9.6 fL (7.4-10.4) 09/25/20 17:53 Immature Gran % (Auto) 0.3 % 09/25/20 17:53 Neut % (Auto) 84.3 % 09/25/20 17:53 Lymph % (Auto) 10.9 % 09/25/20 17:53 Antelope % (Auto) 4.4 % 09/25/20 17:53 Eos % (Auto) 0.0 % 09/25/20 17:53 Baso % (Auto) 0.1 % 09/25/20 17:53 Neut # (Auto) 9.70 K/uL (1.4-6.5) H 09/25/20 17:53 Lymph # (Auto) 1.26 K/uL (1.2-3.4) 09/25/20 17:53 Antelope # (Auto) 0.51 K/uL (0.11-0.59) 09/25/20 17:53 Eos # (Auto) 0.00 K/uL (0-0.5) 09/25/20 17:53 Baso # (Auto) 0.01 K/uL (0-0.2) 09/25/20 17:53 Immature Gran # (Auto) 0.03 K/uL (0.00-0.02) H 09/25/20 17:53 ESR 17 mm/hr (0-21) 09/25/20 17:53 PT 11.1 Seconds (9.0-12.0) 09/25/20 20:12 INR 1.1 (0.9-1.1) 09/25/20 20:12 APTT 28.0 Seconds (21.0-31.0) 09/25/20 20:12 PTT Ratio 1.0 09/25/20 20:12 D-Dimer 280 ug/L FEU (0-500) 09/25/20 20:12 Sodium 133 mmol/L (136-145) L 09/25/20 17:53 Potassium 4.5 mmol/L (3.5-5.1) 09/25/20 20:12 Chloride 104 mmol/L (98-107) 09/25/20 17:53 Carbon Dioxide 20 mmol/L (21-32) L 09/25/20 17:53 Anion Gap 9.0 (3-11) 09/25/20 17:53 BUN 51 mg/dl (7-18) H 09/25/20 17:53 Creatinine 2.37 mg/dl (0.6-1.2) H 09/25/20 17:53 Est Cr Clr Drug Dosing Not Reportable 09/25/20 17:53 Est GFR ( Amer) 22.2 09/25/20 17:53 Est GFR (Non-Af Amer) 19.1 09/25/20 17:53 BUN/Creatinine Ratio 21.4 (10-20) H 09/25/20 17:53 Glucose 100 mg/dl (70-99) H 09/25/20 17:53 POC Glucose 148 mg/dl (70-99) H 09/26/20 00:36 Lactate 1.6 mmol/L (0.4-2.0) 09/25/20 20:12 Calcium 8.7 mg/dl (8.5-10.1) 09/25/20 17:53 Magnesium 2.0 mg/dl (1.8-2.4) 09/25/20 20:12 Ferritin 355.0 ng/ml (8-388) 09/25/20 17:53 Total Bilirubin 0.3 mg/dl (0.2-1) 09/25/20 17:53 AST 36 U/L (15-37) 09/25/20 20:12 ALT 62 U/L (12-78) 09/25/20 17:53 Alkaline Phosphatase 84 U/L (45-117) 09/25/20 17:53 Troponin I 0.081 ng/ml (0-0.045) H* 09/25/20 17:53 C-Reactive Protein 0.74 mg/dl (0-0.29) H 09/25/20 17:53 Total Protein 7.7 gm/dl (6.4-8.2) 09/25/20 17:53 Albumin 3.7 gm/dl (3.4-5.0) 09/25/20 17:53 Globulin 4.0 gm/dl (2.5-4.0) 09/25/20 17:53 Albumin/Globulin Ratio 0.9 (0.9-2) 09/25/20 17:53 Procalcitonin < 0.05 ng/ml (0-0.5) 09/25/20 17:53 Blood Type O Positive 09/25/20 20:12 Antibody Screen NEGATIVE 09/25/20 20:12 Diagnostic Findings [facility], [id number] XRay Report Patient: KAILA MESA Date: 09/25/20MR#: [id number]: [id number] [place] [address]Acct ID:[id number]: Date: 1945[facility] Zip: [place], [place] [address]Gti: [id number]: EDSex: FRoom/Bed:Att Phy:Diagnosis: SOBPri Phy: Airam Malcolm CRNPService Date: 09/25/20Fa Phy:Interpreting Phy: Venkat Oneal MDAdmit Phy: Ordering Phy: Moy Torres MD cc: ~ XR chest 1V portable HISTORY: SEPSIS COMPARISON: Chest 09/23/2020. FINDINGS: Rotated study. The cardiac silhouette is mildly enlarged. No focal lung consolidations to suggest pneumonia. No evidence for pulmonary edema. No pleural effusions. No pneumothorax. IMPRESSION: Stable mild cardiomegaly. ACT 112: Negative or not required by law. Electronically signed by: Venkat Oneal M.D. 09/25/2020 6:35 PM Dictated: 09/25/20 1835Transcribed: 09/25/20 1835 Code Status & VTE Plan Code Status Full code VTE Prophylaxis Plan VTE Prophylaxis will be ordered: Yes PG Care Time/CCT Total # of Minutes Spent Total Time Spent with Patient: Total time spent is greater than 50% in coordination of care (as documented) at patient's floor/unit and/or counseling patient: Coding Level of Care Code 18021 Initial Inpt Care Lvl 3 Diagnoses COVID-19 virus infection U07.1 Elevated troponin I level R77.8 Acute kidney injury due to COVID-19 U07.1; N17.9 Urinary tract infection N39.0 Generalized weakness R53.1 CAD (coronary atherosclerotic disease) I25.10 Hypertension I10 Diabetes mellitus, type 2 E11.9 Depression with anxiety F41.8 Hypothyroidism E03.9 Hyperlipidemia E78.5
[2020-09-26] MEDS: PREGABALIN 50 MG CAP PO SCH ×3 (01:22→22:33)
[2020-09-26] MEDS: LEVOTHYROXINE SODIUM 112 MCG TABLET PO SCH (06:24)
[2020-09-26] MEDS: ALBUTEROL HFA 8 GM INHALER INH SCH (07:24)
[2020-09-26 09:06] LABS: Albumin Globulin Ratio 0.8 (0.9-2); Albumin Level 3.2 gm/dl (3.4-5.0); BUN Creatinine Ratio 21.1 (10-20); Bilirubin,Total 0.3 mg/dl (0.2-1); Calcium 8.6 mg/dl (8.5-10.1); Creatinine Clr Calc Pharmacy 29.4 ml/min; Est GFR (African American) 36.8; Est GFR (Non-African American) 31.7; Globulin 3.8 gm/dl (2.5-4.0); Magnesium 2.5 mg/dl (1.8-2.4); Potassium 4.4 mmol/L (3.5-5.1); Troponin I 0.046 ng/ml (0-0.045)
[2020-09-26 09:12] LABS: Hematocrit (blood only) 40.9 % (37-47); Immature Granulocytes # (auto) 0.02 K/uL (0.00-0.02); Immature Granulocytes % (auto) 0.2 %; Lymphocytes # (auto) 0.56 K/uL (1.2-3.4); Mean Corpuscular Hemoglobin 32.9 pg (25-34); Mean Corpuscular Volume 96.2 fL (80-100); Mean Platelet Volume 9.6 fL (7.4-10.4); Monocytes # (auto) 0.84 K/uL (0.11-0.59); Neutrophils # (auto) 7.91 K/uL (1.4-6.5); Neutrophils % (auto) 84.8 %; Platelet Count 154 K/uL (130-400); RDW Standard Deviation 49.7 fL (36.4-46.3); Red Blood Count 4.25 M/uL (4.2-5.4); White Blood Count 9.33 K/uL (4.8-10.8)
[2020-09-26] MEDS ORDERED: SODIUM CHLORIDE 0.9% 1000ML 1,000 ML IV SCH (09:15)
[2020-09-26 09:17] LABS: Mean Corpuscular Hgb Conc 34.2 g/dL (32-36)
[2020-09-26] MEDS: dexAMETHasone 6 MG in SYRINGE 0 ML IV SCH (09:28)
[2020-09-26] MEDS: METOPROLOL SUCC 50MG EXT REL TAB PO SCH (09:28)
[2020-09-26] MEDS: MIRABEGRON ER 25 MG TAB PO SCH (09:28)
[2020-09-26] MEDS: DULoxetine HCL 60 MG CAP PO SCH (09:28)
[2020-09-26] MEDS: ISOSORBIDE MONO EXTENDED REL 30 MG TABCR PO SCH (09:28)
[2020-09-26] MEDS: amLODIPine BESYLATE 5 MG TAB PO SCH (09:28)
[2020-09-26] MEDS: FERROUS GLUCONATE 324 MG TAB PO SCH (09:28)
[2020-09-26] MEDS: PANTOprazole 40 MG TAB PO SCH (09:29)
[2020-09-26] MEDS: HEPARIN SOD 5,000 UNIT/0.5 ML VIAL SQ SCH ×2 (09:39→22:13)
[2020-09-26 09:51] LABS: Estimated Average Glucose 146 mg/dl; Hemoglobin A1C 6.7 % (4.5-5.6)
[2020-09-26] MEDS ORDERED: ALBUTEROL HFA 8 GM INHALER INH PRN (09:54)
[2020-09-26] MEDS: SODIUM BICARBONATE 650 MG TAB PO SCH ×2 (10:15→22:14)
--- NOTE | 2020-09-26 17:02 | Hospitalist Progress Note ---
Date of Service September 26, 2020 Assessment & Plan (1) COVID-19 virus infection: COVID-19 virus infection- Causing decreased oral intake due to lack of taste. Causing dehydration, acute kidney injury and urinary tract infection. stop Decadron, cancel plasma, hold on Remdesivir as she is breathing well, 97% on Room air continue IV fluids, Cr improving to 1.5 but not at baseline monitor respiratory status closely (2) Elevated troponin I level: minimally elevated, all levels < 0.1 and going down no chest pain/pressure discussed with Dr. Tate, cancel consult, no further work up, likely related to ARASELI Continue amlodipine 5 mg daily, clopidogrel 75 mg at bedtime, isosorbide mononitrate extended release 30 mg daily, metoprolol succinate 50 mg daily and nitroglycerin (3) Acute kidney injury due to COVID-19: Creatinine is 2.31 upon admission, with baseline 1.00. NSS@100 mils per hour, Cr improved to 1.5 today continue fluids, repeat BMP in AM (4) Metabolic acidosis: likely due to ARASELI, dehydration HCO3 down to 19 add sodium bicarb BID repeat BMP in AM (5) Urinary tract infection: Urine from 09/23 growing Klebsiella. Placed on ceftriaxone 1 g IV daily treat for 7 days (6) Generalized weakness: Most likely associated with decreased oral intake and decreased energy level associated with COVID-19 infection consult PT/OT (7) CAD (coronary atherosclerotic disease): See above (8) Hypertension: See above (9) Diabetes mellitus, type 2: Hold metformin Placed on Accu-Cheks before meals and at bedtime with NovoLog coverage per scale monitor for hypoglycemia (10) Depression with anxiety: Continue buspirone, duloxetine and pregabalin (11) Hypothyroidism: Continue levothyroxine 112 mcg daily (12) Hyperlipidemia: Continue simvastatin 20 mg daily Admission and Anticipated Discharge Date Admission Date: September 25, 2020 Subjective patient doing well on room air, no increased work of breathing no fever/chills reviewed chart including labs, CBC normal Cr improved to 1.5, HCO3 low at 19, K 4.4 AST 42 patient is eating well, no cough, she feels stronger after fluids cancel cardiology consult, discussed with Dr. Tate Review of Systems Review of Systems: All systems reviewed & are unremarkable except as noted in Subjective Physical Exam Constitutional: WD/WN, vitals as above Neck: trachea midline, no thyromegaly Respiratory: normal respiratory effort, lungs clear to auscultation Cardiovascular: RRR, no murmur, no edema Gastrointestinal (Abdomen): normal bowel sounds, soft, nontender, no hepatosplenomegaly Musculoskeletal: no cyanosis or clubbing, extremities motor strength 5/5 Skin: no rashes, warm and dry Neurologic: patellar DTR's 2+ bilat, sensation intact and PERRL, EOMI, accommodation nl, no face palsy, no dysarthria Psychiatric: A+Ox3, euthymic affect Lymphatic: no cervical or axillary lymphadenopathy Results & Data Results & Data ([facility]) Vital Signs (Past 12 Hours) Vital Signs Temp Pulse Pulse Resp BP BP Pulse Ox 09/26/20 15:30 36.7 C 74 18 136/66 97 09/26/20 11:38 09/26/20 11:21 36.8 C 65 18 116/70 95 09/26/20 08:00 66 09/26/20 07:32 36.5 C 63 18 112/58 L 96 09/26/20 07:26 62 16 98 Pulse Ox Pulse Ox Pulse Ox 09/26/20 15:30 09/26/20 11:38 96 94 88 L 09/26/20 11:21 09/26/20 08:00 09/26/20 07:32 09/26/20 07:26 Laboratory Results Laboratory Results - last 24 hr 09/25/20 09/25/20 09/25/20 20:12 20:12 20:12 WBC RBC Hgb Hct MCV MCH MCHC RDW Std Deviation RDW Coeff of Adryan Plt Count MPV Immature Gran % (Auto) Neut % (Auto) Lymph % (Auto) [place] % (Auto) Eos % (Auto) Baso % (Auto) Neut # (Auto) Lymph # (Auto) [place] # (Auto) Eos # (Auto) Baso # (Auto) Immature Gran # (Auto) Absolute Nucleated RBC Nucleated RBC % (auto) Neutrophils % (Manual) Band Neutrophils % Lymphocytes % (Manual) Prolymphocyte % Reactive Lymphs % (Man) Monocytes % (Manual) Eosinophils % (Manual) Basophils % (Manual) Metamyelocytes % (Man) Myelocytes % (Man) Promyelocytes % (Man) Blast Cells % (Manual) Plasma Cell % (Manual) Other Cells % Nucleated RBC % Neutrophils # (Manual) Band Neutrophils # Total Absolute Neuts Lymphocytes # (Manual) Prolymphocyte # Reactive Lymphs # Total Abs Lymphocytes Monocytes # (Manual) Eosinophils # (Manual) Basophils # (Manual) Metamyelocytes # (Man) Myelocytes # (Manual) Promyelocytes # (Man) Blast Cells # (Man) Plasma Cell # (Manual) Other Cells # Nucleated RBCs # (Man) Hypersegmented Neuts Hyposegmented Neuts Hypogranular Neuts Large Granular Lymphs # Lrg Granular Lymphs Hairy Cells Smudge Cells Toxic Granulation Toxic Vacuolation Dohle Bodies Madeleine Rods Platelet Estimate Hypogranular Platelets Clumped Platelets Giant Platelets Platelet Satelliting RBC Morphology Polychromasia Hypochromasia Poikilocytosis Basophilic Stippling Anisocytosis Microcytosis Macrocytosis Spherocytes Pappenheimer Bodies Sickle Cells Target Cells Tear Drop Cells Ovalocytes Stomatocytes [place] Bodies Echinocytes Acanthocytes (Spur) Rouleaux RBC Agglutinates Schistocytes RBC Morph Comment Sezary Cell PT 11.1 INR 1.1 APTT 28.0 PTT Ratio 1.0 D-Dimer 280 Sodium Potassium 4.5 Chloride Carbon Dioxide Anion Gap BUN Creatinine Est Cr Clr Drug Dosing Est GFR ( Amer) Est GFR (Non-Af Amer) BUN/Creatinine Ratio Glucose POC Glucose Estimat Average Glucose Hemoglobin A1c Lactate 1.6 Calcium Magnesium 2.0 Total Bilirubin AST 36 ALT Alkaline Phosphatase Troponin I Total Protein Albumin Globulin Albumin/Globulin Ratio Blood Type Antibody Screen 09/25/20 09/26/20 09/26/20 20:12 00:36 07:31 WBC RBC Hgb Hct MCV MCH MCHC RDW Std Deviation RDW Coeff of Adryan Plt Count MPV Immature Gran % (Auto) Neut % (Auto) Lymph % (Auto) [place] % (Auto) Eos % (Auto) Baso % (Auto) Neut # (Auto) Lymph # (Auto) [place] # (Auto) Eos # (Auto) Baso # (Auto) Immature Gran # (Auto) Absolute Nucleated RBC Nucleated RBC % (auto) Neutrophils % (Manual) Band Neutrophils % Lymphocytes % (Manual) Prolymphocyte % Reactive Lymphs % (Man) Monocytes % (Manual) Eosinophils % (Manual) Basophils % (Manual) Metamyelocytes % (Man) Myelocytes % (Man) Promyelocytes % (Man) Blast Cells % (Manual) Plasma Cell % (Manual) Other Cells % Nucleated RBC % Neutrophils # (Manual) Band Neutrophils # Total Absolute Neuts Lymphocytes # (Manual) Prolymphocyte # Reactive Lymphs # Total Abs Lymphocytes Monocytes # (Manual) Eosinophils # (Manual) Basophils # (Manual) Metamyelocytes # (Man) Myelocytes # (Manual) Promyelocytes # (Man) Blast Cells # (Man) Plasma Cell # (Manual) Other Cells # Nucleated RBCs # (Man) Hypersegmented Neuts Hyposegmented Neuts Hypogranular Neuts Large Granular Lymphs # Lrg Granular Lymphs Hairy Cells Smudge Cells Toxic Granulation Toxic Vacuolation Dohle Bodies Madeleine Rods Platelet Estimate Hypogranular Platelets Clumped Platelets Giant Platelets Platelet Satelliting RBC Morphology Polychromasia Hypochromasia Poikilocytosis Basophilic Stippling Anisocytosis Microcytosis Macrocytosis Spherocytes Pappenheimer Bodies Sickle Cells Target Cells Tear Drop Cells Ovalocytes Stomatocytes [place] Bodies Echinocytes Acanthocytes (Spur) Rouleaux RBC Agglutinates Schistocytes RBC Morph Comment Sezary Cell PT INR APTT PTT Ratio D-Dimer Sodium Potassium Chloride Carbon Dioxide Anion Gap BUN Creatinine Est Cr Clr Drug Dosing Est GFR ( Amer) Est GFR (Non-Af Amer) BUN/Creatinine Ratio Glucose POC Glucose 148 H 151 H Estimat Average Glucose Hemoglobin A1c Lactate Calcium Magnesium Total Bilirubin AST ALT Alkaline Phosphatase Troponin I Total Protein Albumin Globulin Albumin/Globulin Ratio Blood Type O Positive Antibody Screen NEGATIVE 09/26/20 09/26/20 09/26/20 07:42 07:42 07:42 WBC Cancelled RBC Cancelled Hgb Cancelled Hct Cancelled MCV Cancelled MCH Cancelled MCHC Cancelled RDW Std Deviation Cancelled RDW Coeff of Adryan Cancelled Plt Count Cancelled MPV Cancelled Immature Gran % (Auto) Cancelled Neut % (Auto) Cancelled Lymph % (Auto) Cancelled [place] % (Auto) Cancelled Eos % (Auto) Cancelled Baso % (Auto) Cancelled Neut # (Auto) Cancelled Lymph # (Auto) Cancelled [place] # (Auto) Cancelled Eos # (Auto) Cancelled Baso # (Auto) Cancelled Immature Gran # (Auto) Cancelled Absolute Nucleated RBC Cancelled Nucleated RBC % (auto) Cancelled Neutrophils % (Manual) Cancelled Band Neutrophils % Cancelled Lymphocytes % (Manual) Cancelled Prolymphocyte % Cancelled Reactive Lymphs % (Man) Cancelled Monocytes % (Manual) Cancelled Eosinophils % (Manual) Cancelled Basophils % (Manual) Cancelled Metamyelocytes % (Man) Cancelled Myelocytes % (Man) Cancelled Promyelocytes % (Man) Cancelled Blast Cells % (Manual) Cancelled Plasma Cell % (Manual) Cancelled Other Cells % Cancelled Nucleated RBC % Cancelled Neutrophils # (Manual) Cancelled Band Neutrophils # Cancelled Total Absolute Neuts Cancelled Lymphocytes # (Manual) Cancelled Prolymphocyte # Cancelled Reactive Lymphs # Cancelled Total Abs Lymphocytes Cancelled Monocytes # (Manual) Cancelled Eosinophils # (Manual) Cancelled Basophils # (Manual) Cancelled Metamyelocytes # (Man) Cancelled Myelocytes # (Manual) Cancelled Promyelocytes # (Man) Cancelled Blast Cells # (Man) Cancelled Plasma Cell # (Manual) Cancelled Other Cells # Cancelled Nucleated RBCs # (Man) Cancelled Hypersegmented Neuts Cancelled Hyposegmented Neuts Cancelled Hypogranular Neuts Cancelled Large Granular Lymphs Cancelled # Lrg Granular Lymphs Cancelled Hairy Cells Cancelled Smudge Cells Cancelled Toxic Granulation Cancelled Toxic Vacuolation Cancelled Dohle Bodies Cancelled Madeleine Rods Cancelled Platelet Estimate Cancelled Hypogranular Platelets Cancelled Clumped Platelets Cancelled Giant Platelets Cancelled Platelet Satelliting Cancelled RBC Morphology Cancelled Polychromasia Cancelled Hypochromasia Cancelled Poikilocytosis Cancelled Basophilic Stippling Cancelled Anisocytosis Cancelled Microcytosis Cancelled Macrocytosis Cancelled Spherocytes Cancelled Pappenheimer Bodies Cancelled Sickle Cells Cancelled Target Cells Cancelled Tear Drop Cells Cancelled Ovalocytes Cancelled Stomatocytes Cancelled [place] Bodies Cancelled Echinocytes Cancelled Acanthocytes (Spur) Cancelled Rouleaux Cancelled RBC Agglutinates Cancelled Schistocytes Cancelled RBC Morph Comment Cancelled Sezary Cell Cancelled PT INR APTT PTT Ratio D-Dimer Sodium 136 Potassium 4.4 Chloride 110 H Carbon Dioxide 19 L Anion Gap 8.0 BUN 33 H Creatinine 1.56 H D Est Cr Clr Drug Dosing 29.4 Est GFR ( Amer) 36.8 Est GFR (Non-Af Amer) 31.7 BUN/Creatinine Ratio 21.1 H Glucose 133 H POC Glucose Estimat Average Glucose Cancelled Hemoglobin A1c Cancelled Lactate Calcium 8.6 Magnesium 2.5 H Total Bilirubin 0.3 AST 42 H ALT 60 Alkaline Phosphatase 74 Troponin I 0.046 H* Total Protein 7.0 Albumin 3.2 L Globulin 3.8 Albumin/Globulin Ratio 0.8 L Blood Type Antibody Screen 09/26/20 09/26/20 09/26/20 08:49 08:49 11:15 WBC 9.33 RBC 4.25 Hgb 14.0 Hct 40.9 MCV 96.2 MCH 32.9 MCHC 34.2 RDW Std Deviation 49.7 H RDW Coeff of Adryan 14.0 Plt Count 154 MPV 9.6 Immature Gran % (Auto) 0.2 Neut % (Auto) 84.8 Lymph % (Auto) 6.0 [place] % (Auto) 9.0 Eos % (Auto) 0.0 Baso % (Auto) 0.0 Neut # (Auto) 7.91 H Lymph # (Auto) 0.56 L [place] # (Auto) 0.84 H Eos # (Auto) 0.00 Baso # (Auto) 0.00 Immature Gran # (Auto) 0.02 Absolute Nucleated RBC Nucleated RBC % (auto) Neutrophils % (Manual) Band Neutrophils % Lymphocytes % (Manual) Prolymphocyte % Reactive Lymphs % (Man) Monocytes % (Manual) Eosinophils % (Manual) Basophils % (Manual) Metamyelocytes % (Man) Myelocytes % (Man) Promyelocytes % (Man) Blast Cells % (Manual) Plasma Cell % (Manual) Other Cells % Nucleated RBC % Neutrophils # (Manual) Band Neutrophils # Total Absolute Neuts Lymphocytes # (Manual) Prolymphocyte # Reactive Lymphs # Total Abs Lymphocytes Monocytes # (Manual) Eosinophils # (Manual) Basophils # (Manual) Metamyelocytes # (Man) Myelocytes # (Manual) Promyelocytes # (Man) Blast Cells # (Man) Plasma Cell # (Manual) Other Cells # Nucleated RBCs # (Man) Hypersegmented Neuts Hyposegmented Neuts Hypogranular Neuts Large Granular Lymphs # Lrg Granular Lymphs Hairy Cells Smudge Cells Toxic Granulation Toxic Vacuolation Dohle Bodies Madeleine Rods Platelet Estimate Hypogranular Platelets Clumped Platelets Giant Platelets Platelet Satelliting RBC Morphology Polychromasia Hypochromasia Poikilocytosis Basophilic Stippling Anisocytosis Microcytosis Macrocytosis Spherocytes Pappenheimer Bodies Sickle Cells Target Cells Tear Drop Cells Ovalocytes Stomatocytes [place] Bodies Echinocytes Acanthocytes (Spur) Rouleaux RBC Agglutinates Schistocytes RBC Morph Comment Sezary Cell PT INR APTT PTT Ratio D-Dimer Sodium Potassium Chloride Carbon Dioxide Anion Gap BUN Creatinine Est Cr Clr Drug Dosing Est GFR ( Amer) Est GFR (Non-Af Amer) BUN/Creatinine Ratio Glucose POC Glucose 199 H Estimat Average Glucose 146 Hemoglobin A1c 6.7 H Lactate Calcium Magnesium Total Bilirubin AST ALT Alkaline Phosphatase Troponin I Total Protein Albumin Globulin Albumin/Globulin Ratio Blood Type Antibody Screen 09/26/20 09/26/20 13:02 16:51 WBC RBC Hgb Hct MCV MCH MCHC RDW Std Deviation RDW Coeff of Adryan Plt Count MPV Immature Gran % (Auto) Neut % (Auto) Lymph % (Auto) [place] % (Auto) Eos % (Auto) Baso % (Auto) Neut # (Auto) Lymph # (Auto) [place] # (Auto) Eos # (Auto) Baso # (Auto) Immature Gran # (Auto) Absolute Nucleated RBC Nucleated RBC % (auto) Neutrophils % (Manual) Band Neutrophils % Lymphocytes % (Manual) Prolymphocyte % Reactive Lymphs % (Man) Monocytes % (Manual) Eosinophils % (Manual) Basophils % (Manual) Metamyelocytes % (Man) Myelocytes % (Man) Promyelocytes % (Man) Blast Cells % (Manual) Plasma Cell % (Manual) Other Cells % Nucleated RBC % Neutrophils # (Manual) Band Neutrophils # Total Absolute Neuts Lymphocytes # (Manual) Prolymphocyte # Reactive Lymphs # Total Abs Lymphocytes Monocytes # (Manual) Eosinophils # (Manual) Basophils # (Manual) Metamyelocytes # (Man) Myelocytes # (Manual) Promyelocytes # (Man) Blast Cells # (Man) Plasma Cell # (Manual) Other Cells # Nucleated RBCs # (Man) Hypersegmented Neuts Hyposegmented Neuts Hypogranular Neuts Large Granular Lymphs # Lrg Granular Lymphs Hairy Cells Smudge Cells Toxic Granulation Toxic Vacuolation Dohle Bodies Madeleine Rods Platelet Estimate Hypogranular Platelets Clumped Platelets Giant Platelets Platelet Satelliting RBC Morphology Polychromasia Hypochromasia Poikilocytosis Basophilic Stippling Anisocytosis Microcytosis Macrocytosis Spherocytes Pappenheimer Bodies Sickle Cells Target Cells Tear Drop Cells Ovalocytes Stomatocytes [place] Bodies Echinocytes Acanthocytes (Spur) Rouleaux RBC Agglutinates Schistocytes RBC Morph Comment Sezary Cell PT INR APTT PTT Ratio D-Dimer Sodium Potassium Chloride Carbon Dioxide Anion Gap BUN Creatinine Est Cr Clr Drug Dosing Est GFR ( Amer) Est GFR (Non-Af Amer) BUN/Creatinine Ratio Glucose POC Glucose 134 H Estimat Average Glucose Hemoglobin A1c Lactate Calcium Magnesium Total Bilirubin AST ALT Alkaline Phosphatase Troponin I 0.039 Total Protein Albumin Globulin Albumin/Globulin Ratio Blood Type Antibody Screen Medications Administered Current Inpatient Medications Acetaminophen (Acetaminophen 325 Mg Tab) 650 mg PO Q4H PRN PRN Reason: Pain or Fever Stop: 10/25/20 22:48 Hydrocodone Bitart/Acetaminophen (Hydrocodone/Acetamophen 5/325mg Tab) 1 tab PO Q6H PRN PRN Reason: Moderate Pain Stop: 10/09/20 22:55 Albuterol (Albuterol Hfa 8 Gm Inhaler) 2 puffs INH Q4 PRN PRN Reason: Shortness Of Breath Or Wheezing Stop: 10/26/20 09:52 Amlodipine Besylate (Amlodipine Besylate 5 Mg Tab) 5 mg PO QAM [facility] Stop: 10/26/20 08:59 Last Admin: 09/26/20 09:28 Dose: 5 mg Documented by: Buspirone HCl (Buspirone 5 Mg Tab) 5 mg PO BID [facility] Stop: 10/25/20 22:48 Last Admin: 09/26/20 09:28 Dose: 5 mg Documented by: Clopidogrel Bisulfate (Clopidogrel Bisulfate 75 Mg Tab) 75 mg PO [facility] Stop: 10/25/20 22:48 Last Admin: 09/26/20 00:39 Dose: 75 mg Documented by: Dextrose (Dextrose 50% 50 Ml Syringe) 25 - 50 ml IV UD PRN; Protocol PRN Reason: Hypoglycemia Protocol Stop: 10/25/20 22:48 Docusate Sodium (Docusate Sodium 100 Mg Cap) 100 mg PO BID [facility] Stop: 10/25/20 22:48 Last Admin: 09/26/20 09:29 Dose: 100 mg Documented by: Duloxetine HCl (Duloxetine Hcl 60 Mg Cap) 60 mg PO QAM [facility] Stop: 10/26/20 08:59 Last Admin: 09/26/20 09:28 Dose: 60 mg Documented by: Ferrous Gluconate (Ferrous Gluconate 324 Mg Tab) [facility] [place] Stop: 10/26/20 08:59 Last Admin: 09/26/20 09:28 Dose: 324 mg Documented by: Glucagon (Glucagon For Inj 1 Mg Vial) 1 mg SQ UD PRN; Protocol PRN Reason: Hypoglycemia Protocol Stop: 10/25/20 22:48 Glucose (Glucose 10 Tabs/Tube) 4 - 8 tabs PO UD PRN; Protocol PRN Reason: Hypoglycemia Protocol Stop: 10/25/20 22:48 Glucose (Glucose 40% Gel 15 Gm Tube) 15 - 30 gm PO UD PRN; Protocol PRN Reason: Hypoglycemia Protocol Stop: 10/25/20 22:48 Heparin Sodium (Porcine) (Heparin Sod 5,000 Unit/0.5 Ml Vial) 5,000 units SQ Q12 [facility] Stop: 10/26/20 08:59 Last Admin: 09/26/20 09:39 Dose: 5,000 units Documented by: Dexamethasone 6 mg/ Syringe 1.5 mls @ 1 mls/min IV [facility] Stop: 10/26/20 08:59 Last Admin: 09/26/20 09:28 Dose: 1 mls/min Documented by: Ceftriaxone Sodium 1,000 mg/ (Dextrose) 50 mls @ 100 mls/hr IV Q24H [facility]; Protocol Stop: 09/29/20 20:29 Sodium Chloride (Nss 1000ml) 1,000 mls @ 80 mls/hr IV .[id number] [facility] Stop: 09/26/20 21:44 Last Admin: 09/26/20 09:39 Dose: 80 mls/hr Documented by: Insulin Aspart (Insulin Aspart 100 Units/Ml 3 Ml Pen) 0 units SC ACHS [facility] Stop: 10/25/20 22:48 Last Admin: 09/26/20 17:35 Dose: 3 units Documented by: Isosorbide Mononitrate (Isosorbide [place] Extended Rel 30 Mg Tabcr) 30 mg PO [facility] Stop: 10/26/20 08:59 Last Admin: 09/26/20 09:28 Dose: 30 mg Documented by: Levothyroxine Sodium (Levothyroxine Sodium 112 Mcg Tablet) [facility] Stop: 10/26/20 06:29 Last Admin: 09/26/20 06:24 Dose: 112 mcg Documented by: Metoprolol Succinate (Metoprolol Succ 50mg Ext Rel Tab) 50 mg PO [facility] Stop: 10/26/20 08:59 Last Admin: 09/26/20 09:28 Dose: 50 mg Documented by: Mirabegron (Mirabegron Er 25 Mg Tab) 25 mg PO [facility] Stop: 10/26/20 08:59 Last Admin: 09/26/20 09:28 Dose: 25 mg Documented by: Miscellaneous (Carbohydrates For Hypoglycemia ) 15 - 30 gm PO UD PRN PRN Reason: Hypoglycemia Protocol Stop: 10/25/20 22:48 Nitroglycerin (Nitroglycerin Sl 0.4 Mg/Tab Tab) 0.4 mg SL UD PRN PRN Reason: Chest Pain Stop: 10/25/20 22:48 Ondansetron HCl (Ondansetron Inj 2 Mg/Ml 2 Ml Vial) 4 mg IV Q6H PRN PRN Reason: Nausea Stop: 10/25/20 22:48 Pantoprazole Sodium (Pantoprazole 40 Mg Tab) 40 mg PO [facility] Stop: 10/26/20 08:59 Last Admin: 09/26/20 09:29 Dose: 40 mg Documented by: Pregabalin (Pregabalin 50 Mg Cap) 50 mg PO BID [facility] Stop: 10/25/20 22:48 Last Admin: 09/26/20 10:10 Dose: 50 mg Documented by: Sennosides (Senna 8.6 Mg Tab) 8.6 mg PO [facility] Stop: 10/25/20 22:48 Last Admin: 09/26/20 00:40 Dose: 8.6 mg Documented by: Simvastatin (Simvastatin 20 Mg Tab) 20 mg PO [facility] Stop: 10/25/20 22:48 Last Admin: 09/26/20 00:40 Dose: 20 mg Documented by: Sodium Bicarbonate (Sodium Bicarbonate 650 Mg Tab) 650 mg PO BID [facility] Stop: 10/26/20 09:14 Last Admin: 09/26/20 10:15 Dose: 650 mg Documented by: Tramadol HCl (Tramadol Hcl 50 Mg Tablet) 50 mg PO Q6H PRN PRN Reason: Mild Pain Stop: 10/25/20 22:48 Last Admin: 09/26/20 20:10 Dose: 50 mg Documented by: PG Care Time/CCT Total # of Minutes Spent Total Time Spent with Patient: Total time spent is greater than 50% in coordination of care (as documented) at patient's floor/unit and/or counseling patient: Coding Level of Care Code 60198 Subseq Hosp Care Lvl 3 Diagnoses COVID-19 virus infection U07.1 Elevated troponin I level R77.8 Acute kidney injury due to COVID-19 U07.1; N17.9 Metabolic acidosis E87.2 Urinary tract infection N39.0 Generalized weakness R53.1 CAD (coronary atherosclerotic disease) I25.10 Hypertension I10 Diabetes mellitus, type 2 E11.9 Depression with anxiety F41.8 Hypothyroidism E03.9 Hyperlipidemia E78.5
[2020-09-26] MEDS ORDERED: cefTRIAXone SODIUM 1,000 MG in DEXTROSE 5% 50 ML IV SCH (20:00)
[2020-09-27] MEDS: LEVOTHYROXINE SODIUM 112 MCG TABLET PO SCH (06:31)
[2020-09-27] MEDS: INSULIN ASPART 100 UNITS/ML 3 ML PEN SC SCH (08:00)
[2020-09-27 08:07] LABS: Hematocrit (blood only) 40.9 % (37-47); Immature Granulocytes # (auto) 0.03 K/uL (0.00-0.02); Immature Granulocytes % (auto) 0.3 %; Lymphocytes # (auto) 0.57 K/uL (1.2-3.4); Lymphocytes % (auto) 5.9 %; Mean Corpuscular Hemoglobin 32.3 pg (25-34); Mean Corpuscular Hgb Conc 34.2 g/dL (32-36); Mean Corpuscular Volume 94.2 fL (80-100); Mean Platelet Volume 9.4 fL (7.4-10.4); Monocytes % (auto) 10.3 %; Neutrophils # (auto) 8.09 K/uL (1.4-6.5); Neutrophils % (auto) 83.5 %; Platelet Count 141 K/uL (130-400); RDW Coefficient of Variation 13.8 % (11.5-14.5); Red Blood Count 4.34 M/uL (4.2-5.4); White Blood Count 9.69 K/uL (4.8-10.8)
[2020-09-27 08:32] LABS: Albumin Globulin Ratio 0.8 (0.9-2); Albumin Level 3.2 gm/dl (3.4-5.0); BUN Creatinine Ratio 19.9 (10-20); Bilirubin,Total 0.5 mg/dl (0.2-1); Calcium 8.8 mg/dl (8.5-10.1); Creatinine Clr Calc Pharmacy 46.6 ml/min; Est GFR (African American) 63.7; Globulin 3.9 gm/dl (2.5-4.0); Potassium 4.3 mmol/L (3.5-5.1); Total Protein 7.1 gm/dl (6.4-8.2); Troponin I 0.045 ng/ml (0-0.045)
[2020-09-27] MEDS: PANTOprazole 40 MG TAB PO SCH (09:06)
[2020-09-27] MEDS: ISOSORBIDE MONO EXTENDED REL 30 MG TABCR PO SCH (09:06)
[2020-09-27] MEDS: FERROUS GLUCONATE 324 MG TAB PO SCH (09:06)
[2020-09-27] MEDS: SODIUM BICARBONATE 650 MG TAB PO SCH (09:06)
[2020-09-27] MEDS: amLODIPine BESYLATE 5 MG TAB PO SCH (09:06)
[2020-09-27] MEDS: busPIRone 5 MG TAB PO SCH (09:06)
[2020-09-27] MEDS: DULoxetine HCL 60 MG CAP PO SCH (09:06)
[2020-09-27] MEDS: METOPROLOL SUCC 50MG EXT REL TAB PO SCH (09:06)
[2020-09-27] MEDS: DOCUSATE SODIUM 100 MG CAP PO SCH (09:06)
[2020-09-27] MEDS: MIRABEGRON ER 25 MG TAB PO SCH (09:06)
[2020-09-27] MEDS: dexAMETHasone 6 MG in SYRINGE 0 ML IV SCH (09:10)
[2020-09-27] MEDS: HEPARIN SOD 5,000 UNIT/0.5 ML VIAL SQ SCH (09:18)
[2020-09-27] MEDS: PREGABALIN 50 MG CAP PO SCH (10:06)
--- NOTE | 2020-09-27 11:04 | Discharge Summary ---
Date of Service September 27, 2020 Admission HPI Per Admitting Provider The patient is a 75-year-old female with a past medical history including sciatica, lumbar disc herniation, headache, arthralgia, CAD, hypertension, diabetes mellitus, left humeral fracture, depression with anxiety, urge and stress incontinence, frequent PVCs, Henderson's esophagus, cognitive impairment, seizure disorder, ALVA, vitamin D deficiency, hypothyroidism, peripheral neuropathy, hyperlipidemia, lumbar spinal stenosis, hypertension and TIA. She was initially seen at the emergency department on 09/23, at that time was diagnosed with urinary tract infection for which she received ceftriaxone IV that day, and discharged on Bactrim. At that same ED visit on 09/23, she was found to be COVID-19 positive. Since that time she has had more progressive symptoms as noted above, and presents to the ED for reassessment today. Principal Diagnosis Dehydration causing acute kidney injury Discharge Exam Constitutional WD/WN, vitals as above Neck trachea midline, no thyromegaly Respiratory normal respiratory effort, lungs clear to auscultation Cardiovascular RRR, no murmur, no edema Gastrointestinal (Abdomen) normal bowel sounds, soft, nontender, no hepatosplenomegaly Musculoskeletal no cyanosis or clubbing, extremities motor strength 5/5 Skin no rashes, warm and dry Neurologic patellar DTR's 2+ bilat, sensation intact and PERRL, EOMI, accommodation nl, no face palsy, no dysarthria Psychiatric A+Ox3, euthymic affect Lymphatic no cervical or axillary lymphadenopathy Discharge Data Allergies Allergy/AdvReac Type Severity Reaction Status Date / Time adhesive Allergy Intermediate TAPE-HIVES Verified 09/25/20 20:58 fentanyl AdvReac Intermediate CONFUSION Verified 09/25/20 20:58 meloxicam AdvReac Intermediate SWELLING Verified 09/25/20 20:58 OF LEGS morphine AdvReac Intermediate "I GET Verified 09/25/20 20:58 REALLY CRAZY" pregabalin AdvReac Intermediate DIZZINESS, Verified 09/25/20 20:58 CONFUSION WITH HIGHER DOSES Consultations 09/25/20 19:10 ED Decision to Admit Stat 09/25/20 22:49 Consult Case Management - Discharge Planning Routine Hospital Course (1) Acute kidney injury due to COVID-19: Creatinine was 2.31 upon admission, with baseline 1.00 due to poor oral intake due to loss of taste with COVID 19 infection NSS@100 mils per hour, Cr responded well, now < 1 no further fluids needed, drinking better electrolytes stable, acidosis resolved (2) COVID-19 virus infection: COVID-19 virus infection- Causing decreased oral intake due to lack of taste. Causing dehydration, acute kidney injury and urinary tract infection. stop Decadron, cancel plasma, hold on Remdesivir as she is breathing well, > 95% on Room air during her visit treated with IV fluids for 36 hours, Cr improved to < 1, back to baseline stay well nourished and well hydrated at home, get rest monitor for any worsening symptoms remain in isolation 10 days from start of symptoms (3) Elevated troponin I level: minimally elevated, all levels < 0.1 and going down no chest pain/pressure discussed with Dr. Tate, cancel consult, no further work up, likely related to ARASELI Continue amlodipine 5 mg daily, clopidogrel 75 mg at bedtime, isosorbide mononitrate extended release 30 mg daily, metoprolol succinate 50 mg daily and nitroglycerin (4) Metabolic acidosis: likely due to ARASELI, dehydration HCO3 down to 19 on 09/26, now up to normal with sodium bicarb PO (5) Urinary tract infection: Urine from 09/23 growing Klebsiella. Placed on ceftriaxone 1 g IV daily discharge home on Keflex x 5 more days (6) Generalized weakness: Most likely associated with decreased oral intake and decreased energy level associated with COVID-19 infection consult PT/OT clear to go home, strength at baseline (7) CAD (coronary atherosclerotic disease): See above (8) Hypertension: See above (9) Diabetes mellitus, type 2: resume metformin on discharge managed with Novolog while inpatient (10) Depression with anxiety: Continue buspirone, duloxetine and pregabalin (11) Hypothyroidism: Continue levothyroxine 112 mcg daily (12) Hyperlipidemia: Continue simvastatin 20 mg daily Total Time Total Time Spent Total Time Spent (In Minutes): 33 minutes Total Time Includes: Examination of the Patient, Discharge Planning and Medicati on Reconciliation Discharge Plan Discharge Items Patient Disposition: Home - Self-Care Reason For Visit: COVID 19 INFECTION Discharge Diagnosis: COVID 19 infection Acute kidney injury with dehydration Condition on Discharge: Good Goals: stay well nourished and well hydrated Activity: Resume your previous activity Weightbearing: Full weightbearing Non-emergency contact: Primary Care Provider Call non-emergency contact if: you have any medication questions Follow-up/Referrals: Airam Malcolm CRNP [Primary Care Provider] - 10/02/20 10:30 am (1-2 weeks) Diet: Carb Consistent or DM2 Addtl Attending Provider Instructions: Medications: - KEFLEX: 500mg twice a day for 5 more days, start tomorrow morning COVID 19 infection with dehydration, acute kidney injury renal function back to baseline after fluids for two days, Cr is down to 0.99, electrolytes stable no evidence of pneumonia on chest x-ray, breathing room air entire stay please self isolate until 10/03 which is 10 days from positive test stay well hydrated, well nourished monitor for any shortness of breath, fevers but you should be in the clear UTI: urine culture grew out Klebsiella, sensitive to cephalosporins treated with Rocephin while here change to Keflex for 5 more days, start tomorrow Pending Studies at Discharge: No Stand-Alone Forms: [facility] [employer], Smoking Cessation Medications and DC Order Prescriptions: New cephalexin [Keflex] 500 mg capsule 500 mg PO BID 5 Days Qty: 10 RF: 0 Continued isosorbide mononitrate 30 mg tablet extended release 24 hr 30 mg PO QAM Qty: 90 RF: 3 clopidogrel 75 mg tablet 75 mg PO HS Qty: 90 RF: 1 levothyroxine 112 mcg tablet 112 mcg PO QAM Qty: 90 RF: 1 ferrous gluconate 324 mg (37.5 mg iron) tablet 324 mg PO QAM Qty: 90 RF: 3 pantoprazole 20 mg tablet,delayed release (DR/EC) 20 mg PO QAM Qty: 90 RF: 3 duloxetine 60 mg capsule,delayed release(DR/EC) 60 mg PO QAM Qty: 30 RF: 5 simvastatin 20 mg tablet 20 mg PO HS Qty: 30 RF: 5 amlodipine 5 mg tablet 5 mg PO QAM Qty: 30 RF: 5 Myrbetriq 25 mg tablet extended release 24 hr 25 mg PO QAM Qty: 30 RF: 5 metformin 500 mg tablet 500 mg PO BID Qty: 60 RF: 5 metoprolol succinate 50 mg tablet extended release 24 hr 50 mg PO QAM 30 Days Qty: 30 RF: 5 buspirone 5 mg tablet 5 mg PO BID Qty: 60 RF: 5 pregabalin [Lyrica] 50 mg capsule 50 mg PO BID Qty: 60 RF: 3 multivitamin tablet 1 tab PO QAM RF: 0 nitroglycerin 0.4 mg tablet, sublingual 0.4 mg sublingual DIRECTED PRN (Reason: Chest Pain) RF: 0 hydrocodone-acetaminophen [Cascade] 5-325 mg tablet 1 tab PO Q6H PRN (Reason: pain) Qty: 14 RF: 0 sennosides [Senokot] 8.6 mg tablet 8.6 mg PO HS Qty: 30 RF: 0 docusate sodium [Colace] 100 mg capsule 100 mg PO BID Qty: 60 RF: 0 tramadol 50 mg tablet 50 mg PO Q6H PRN (Reason: Pain) RF: 0 acetaminophen 500 mg tablet 1,000 mg PO Q8H PRN (Reason: Pain) RF: 0 Discontinued sulfamethoxazole-trimethoprim [Bactrim DS] 800-160 mg tablet 1 tab PO BID Qty: 20 RF: 0 Discharge Orders: Discharge Order (Routine); Ordered 09/27/20 Ordered By: Dragan Donato/Other Patient Handouts: Managing Type 2 Diabetes Admission Data Admit Date/Time: 09/25/20 20:33 Attending Provider: Dragan Weber Admit Provider: Ned Clark Primary Care Provider: Airam Malcolm Other Providers: Ned Clark Other Interventions: Discharge Summary Assessment (RN) Last Done: 09/27/20 11:37 Coding Level of Care Code D/C Day Management >30 mins Diagnoses Acute kidney injury due to COVID-19 U07.1; N17.9 COVID-19 virus infection U07.1 Elevated troponin I level R77.8 Metabolic acidosis E87.2 Urinary tract infection N39.0 Hematuria presence: without hematuria Urinary tract infection type: site unspecified Generalized weakness R53.1 CAD (coronary atherosclerotic disease) I25.10 Hypertension I10 Diabetes mellitus, type 2 E11.9 Depression with anxiety F41.8 Hypothyroidism E03.9 Hyperlipidemia E78.5
--- NOTE | 2020-09-28 06:09 | Electrocardiogram Report ---
Test Reason : Blood Pressure : / mmHG Vent. Rate : 059 BPM Atrial Rate : 059 BPM P-R Int : 190 ms QRS Dur : 076 ms QT Int : 456 ms P-R-T Axes : 031 -06 022 degrees QTc Int : 451 ms Poor data quality, interpretation may be adversely affected Sinus bradycardia Otherwise normal ECG When compared with ECG of 03-SEP-2020 14:14, No significant change was found Confirmed by Alex Tate ([id number]) on 09/28/2020 6:09:05 AM Referred By: REFERRED SELF Confirmed By:Alex Tate
== END 2020-09-27 12:25 | disposition home or self-care (01) | DRG 682 ==
LOC: ED 17:35 → 2S 20:33 → SUATTDRO 20:33 → 2S 21:45